=== PATIENT | female | born 1945 | race Caucasian/White ===

== ENCOUNTER 2017-08-17 04:05 | Inpatient (IN) | payer OTHER ==
[2017-08-17] VITALS (75 sets, daily range): BP systolic 91–195; BP diastolic 46–107
[~2017-08-17] VITALS: Ht 157.5 cm; Wt 52.6 kg
[~2017-08-17 04:05] MED LIST: ALBU-136 IH; AMLO2.5T PO; ATI.5 PO; BUPR-10 PO; GABA100C PO; LORA10TA19 PO; METO25TA PO; NITR0.4T52 SL; OMEP40EC1 PO; SIMV20TA1 PO; TRAZ-307 PO
--- NOTE | 2017-08-17 04:06 | NUR ---
Dr. Carvajal evaluating patient at bedside.
--- NOTE | 2017-08-17 04:06 | NUR ---
PT ALISHA ALS. TAKEN TO BED 2
--- NOTE | 2017-08-17 04:07 | NUR ---
PATIENT IS A 71 Y/O FEMALE WHO PRESENTS TO THE ED C/O SOB. PER [facility], PT WAS HAVING DIFFICULTY BREATHING FROM HOME. PT IN NO SIGNS OF PAIN. RR EVEN/LABORED. LUNG SOUNDS WITH RALES BILATERALLY. PT DENIES CP, N/V/D. PT UNRESPONSIVE. PT REPOSITIONED FOR COMFORT, BED IN LOWEST POSITION. ER MD DR. SOMMER NOTIFIED. WILL CONTINUE TO MONITOR.
[2017-08-17] MEDS ORDERED: NACL 0.9% 1,000 ML IV ONE (04:10)
[2017-08-17] MEDS ORDERED: ONDANSETRON 4 MG/2 ML VIAL IVP ONE (04:10)
[2017-08-17] MEDS ORDERED: ALBUTEROL SULFATE/IPRATROPIU 3 ML SOL IH ONE (04:15)
[2017-08-17 04:22] LABS: HEMATOCRIT 41.6 % (36-48); HEMOGLOBIN 13.1 g/dL (12.0-16.0); MEAN CORPUSCULAR HEMOGLOBIN 28 pg (27-31); MEAN CORPUSCULAR HGB CONC 31 g/dL (33-37); MEAN CORPUSCULAR VOLUME 88 fL (80-94); PLATELET COUNT (AUTO) 197 K/uL (140-450); RED BLOOD CELL COUNT(AUTO) 4.75 MIL/uL (4.20-5.40); RED CELL DISTRIBUTION WIDTH 13.9 % (11.6-13.7); WHITE BLOOD COUNT (AUTO) 12.3 K/uL (4.8-10.8)
--- NOTE | 2017-08-17 04:25 | NUR ---
X-Ray at bedside.
[2017-08-17] MEDS ORDERED: SUCCINYLCHOLINE CHLORIDE 200 MG/10 ML VIAL IVP ONE ×2 (04:30→04:35)
[2017-08-17] MEDS ORDERED: INTUBATION KIT MC ONE (04:30)
[2017-08-17] MEDS ORDERED: ETOMIDATE 20 MG/10 ML VIAL IVP ONE ×2 (04:30→04:35)
--- NOTE | 2017-08-17 04:30 | NUR ---
PT INTUBATAT WITH SIZE 7.0, DUE TO RESP DISTRESS , ABG DONE,, PLACED PT ON VENT AC 16, VT 450, FIO2 100%SPUTUM SEND TO THE LAB [facility].
--- NOTE | 2017-08-17 04:34 | NUR ---
DR. SOMMER INTUBATED AT BEDSIDE. RT AT BEDSIDE. INTUBATED 21CM AT LIP, 7.0
[2017-08-17] MEDS ORDERED: VANCOMYCIN 1,000 MG in DEXTROSE 5% 250 ML IV ONE (04:35)
[2017-08-17] MEDS ORDERED: PIPERACILLIN/TAZOBACTAM 3.375 GM in DEXTROSE 5% 50 ML IV ONE (04:35)
[2017-08-17 04:42] LABS: EOSINOPHILS % (MANUAL) 2 % (0-4); LYMPHOCYTES % (MANUAL) 63 % (20-46); MONOCYTES % (MANUAL) 6 % (5-12)
[2017-08-17 04:43] LABS: ANION GAP 18.7 (8-16); CREATININE 1.6 mg/dL (0.6-1.3); POTASSIUM 3.7 mmol/L (3.5-5.1)
[2017-08-17] MEDS ORDERED: PIPERACILLIN/TAZOBACTAM 3.375 GM VIAL IV ONE (04:47)
[2017-08-17 04:49] LABS: ALBUMIN 3.7 g/dL (3.4-5.0); TOTAL BILIRUBIN 0.2 mg/dL (0.0-1.0)
[2017-08-17] MEDS ORDERED: PROPOFOL 1000 MG/100 ML PREMIX 100 ML IV ONE (04:55)
[2017-08-17] MEDS ORDERED: VANCOMYCIN 1,000 MG VIAL ONE (04:55)
[2017-08-17] MEDS ORDERED: hydrALAZINE 20 MG/ML VIAL IVP ONE (05:00)
[2017-08-17] MEDS ORDERED: NACL 0.9% 500 ML IV ONE (06:15)
[2017-08-17 06:17] LABS: APPEARANCE,URINE CLEAR (CLEAR); BILIRUBIN,URINE NEGATIVE (NEGATIVE); BLOOD, URINE 1+ (NEGATIVE); COLOR,URINE YELLOW (YELLOW); LEUKOCYTE ESTERASE ,URINE NEGATIVE (NEGATIVE); NITRITE, URINE NEGATIVE (NEGATIVE); PH,URINE 6.5 (5.0-9.0); UGLUCOSE NEGATIVE (NEGATIVE)
--- NOTE | 2017-08-17 06:30 | NUR ---
Dr. Slater evaluating patient at bedside.
--- NOTE | 2017-08-17 06:35 | NUR ---
DR. LI ORDERED DIPRIVAN INCREASE TO 35 MCG.
[2017-08-17 06:40] LABS: RBC,URINE 0-5 (RARE) /HPF (0-5); WBC,URINE 0-5 (RARE) /HPF (0-5)
[2017-08-17] MEDS ORDERED: GABA100C PO (06:50)
[2017-08-17] MEDS ORDERED: MIRA25TE PO (06:50)
[2017-08-17] MEDS ORDERED: TEMA15CA24 PO (06:50)
[2017-08-17] MEDS ORDERED: TRAZ-286 PO (06:50)
[2017-08-17] MEDS ORDERED: ATI.5 PO (06:50)
[2017-08-17] MEDS ORDERED: CILO100T PO (06:50)
[2017-08-17] MEDS ORDERED: CARV25TA PO (06:50)
[2017-08-17] MEDS ORDERED: RAMI5CAP1 PO (06:50)
[2017-08-17] MEDS ORDERED: SIMV20TA1 PO (06:50)
[2017-08-17] MEDS ORDERED: BEN50 PO (06:50)
[2017-08-17] MEDS ORDERED: VITA1TAB44 PO (06:50)
[2017-08-17] MEDS ORDERED: BUPR100T8 PO (06:50)
--- NOTE | 2017-08-17 07:00 | NUR ---
Patient will be admitted to care of DR. ZAMARRIPA. Admited to ICU. Will go to room 2. Belongings list completed. Report to NIKKI MCNEILL.
--- NOTE | 2017-08-17 07:09 | NUR ---
PT MOVED FROM ER TO ICU WITH NO INCIDENT.
[2017-08-17] MEDS ORDERED: ACETAMINOPHEN 325 MG TAB PO PRN (07:10)
[2017-08-17] MEDS ORDERED: HYDROcodone/APAP 7.5/325 MG 1 TAB PO PRN (07:10)
--- NOTE | 2017-08-17 07:10 | NUR ---
PT ARRIVED AT ICU BED 2 VIA GURNEY FROM ED AND RECEIVED A REPORT FROM OSITO KINGSLEY. PT SEDATED WITH PROPOFOL DRIP, SLIGHTLY AWAKE TO VOICE & LIGHT PAIN. UNABLE TO FOLLOW COMMANDS AND APPLIED BILATERAL SOFT WRIST RESTRAINT DUE TO RISK FOR ATTEMPTING TO PULL OUT TUBING. FLACC 0 AND NO ACUTE RESPIRATORY DISTRESS AT THIS TIME. ETT TO VENT AND SETTING AT FiO2 , TV, AC , PEEP 5. ABD SOFT AND NONTENDER, MUSA CATHETER DRAINING CLEAR CHAD URINE. SKIN WARM TO TOUCH AND INTACT. SKIN DISCOLORATION TO RT KNEE NOTED. ST ON THE MONITOR. SAFETY PRECAUTION, BED IN LOW POSITION, CALL LIGHT WITHIN REACH. WILL FOLLOW UP ON ADMISSION ORDERS. Addendum: 08/17/17 at 0841 by Burton Castillo RN PERIPHERAL LINE TO RT UPPER ARM #20G, RAC #20G AND LT HAND #22G, PATENT AND INTACT.
--- NOTE | 2017-08-17 07:10 | NUR ---
RCV'D PT INTUBATED WITH 7.5 AT 25 AT LIP ON MECHANICAL VENTILATION SETTINGS ARE AC 16,450,100%,+5. VENT IS CONNECTED TO RED OUTLET. ALARMS ARE AUDIBLE. AMBU BAG AT BEDSIDE. ETT IS IN PLACE AND SECURED. NO SOB OR DISTRESS NOTED. WILL CONTINUE TO MONITOR.
--- NOTE | 2017-08-17 07:15 | NUR ---
PT'S FAMILY(DAUGHTER) CAME AND ALL HOME MEDICATION TAKEN BY FAMILY. NO PERSONAL BELONGINGS AT BEDSIDE.
[2017-08-17 07:44] LABS: BARBITURATE, URINE NEG. ng/ml (NEG <=200); BENZODIAZEPINE, URINE NEG. ng/mL (NEG <=200); CANNABINOID, URINE NEG. ng/mL (NEG <=50); COCAINE, URINE NEG. ng/mL (NEG <=300); OPIATE, URINE NEG. ng/mL (NEG <=2000); PHENCYCLIDINE SCREEN,URINE NEG. ng/mL (NEG <=25)
--- NOTE | 2017-08-17 07:55 | NUR ---
RESIDENT GROUP IN TO SEE PT. RADIOLOGY CAME AND INFORMED OF UNABLE TO PROCEED CT SCAN WITH CONTRAST FOR THE PT DUE TO GFR 24, Cr 1.6. DR. LI AWARE OF IT.
[2017-08-17] MEDS: NACL 0.9% 1,000 ML IV SCH ×3 (08:00→23:30)
[2017-08-17 08:13] LABS: FREE T4 (FREE THYROXINE) 0.77 ng/dL (0.76-1.46); PHOSPHORUS 6.6 mg/dL (2.5-4.9); THYROID STIMULATING HORMONE 8.5 uIU/mL (0.34-3.74)
[2017-08-17] MEDS ORDERED: DOCUSATE SODIUM 100 MG GELCAP PO SCH (09:00)
[2017-08-17] MEDS ORDERED: METOPROLOL 25 MG TAB NG SCH (09:00)
--- NOTE | 2017-08-17 09:23 | NUR ---
PT IS ON ECHO EXAM AT BEDSIDE AT THIS TIME
[2017-08-17] MEDS ORDERED: CALCIUM ACETATE 667 MG TAB NG SCH (09:30)
[2017-08-17] MEDS: PANTOPRAZOLE 40 MG INJ VIAL IVP SCH (09:36)
[2017-08-17] MEDS: amLODIPine 5 MG TAB NG SCH ×2 (09:43→21:10)
[2017-08-17] MEDS: LACTOBACILLUS RHAMNOSUS GG 1 EACH CAP NG SCH (09:43)
[2017-08-17] MEDS: GABAPENTIN 100 MG CAP NG SCH ×2 (09:43→21:11)
[2017-08-17] MEDS: buPROPion 100 MG TAB NG SCH (09:44)
[2017-08-17] MEDS: RAMIPRIL 5 MG CAP NG SCH (09:44)
[2017-08-17] MEDS: FUROSEMIDE 20 MG/2 ML VIAL IVP SCH (09:44)
--- NOTE | 2017-08-17 09:44 | NUR ---
DR. PRESCOTT IN TO SEE PT. WILL FOLLOW UP ON ORDERS
[2017-08-17] MEDS ORDERED: diphenhydrAMINE 12.5 MG/5 ML UDC NG PRN (09:50)
[2017-08-17] MEDS: CARVEDILOL 12.5 MG TAB NG SCH ×2 (09:53→21:13)
--- NOTE | 2017-08-17 10:00 | NUR ---
NGT INSERTED SUCCESSFULLY TO LT NARES AND CHECKED THE PLACEMENT. PT TOLERATED ALL MEDICATIONS WELL.
--- NOTE | 2017-08-17 10:28 | NUR ---
PT'S FAMILY(DAUGHTER & SPOUSE, STEP DAUGHTER) AT BEDSIDE AND OBTAINED THE CONSENT OF CENTRAL LINE AND CT SCAN, RESTRAINTS. UPDATED OF PT'S CONDITION AND INFORMED ADMITTING DEPT OF UPDATED FAMILY CONTACT INFORMATION.
[2017-08-17] MEDS: PROPOFOL 1000 MG/100 ML PREMIX 100 ML IV PRN ×2 (11:29→18:25)
--- NOTE | 2017-08-17 11:30 | NUR ---
PT IS ON ULTRASOUND EXAM AT BEDSIDE. PT STABLE
[2017-08-17] MEDS: PIPER/TAZO 2.25GM/D5W PREMIX 50 ML IV SCH ×2 (11:32→17:58)
--- NOTE | 2017-08-17 12:30 | NUR ---
FLACC 0 AND NO S/SX ANY ACUTE DISTRESS NOTED. RASS -4. WILL CONTINUE TO MONITOR.
[2017-08-17 13:17] LABS: ANION GAP 13.6 (8-16); CARBON DIOXIDE 23.4 mmol/L (21-32); CREATININE 1.3 mg/dL (0.6-1.3)
--- NOTE | 2017-08-17 14:05 | NUR ---
CENTRAL LINE TO RT IJ [id number] INSERTED BY DR. LI AT BEDSIDE. WILL FOLLOW UP WITH CXR FOR THE PLACEMENT.
[2017-08-17] MEDS ORDERED: ALBUTEROL SULFATE/IPRATROPIU 3 ML SOL IH PRN (14:15)
[2017-08-17] MEDS ORDERED: POTASSIUM CHL 20 MEQ/NACL 0.9% 1,000 ML IV SCH (14:15)
--- NOTE | 2017-08-17 14:27 | NUR ---
08/17/17 RD INITIAL ASSESSMENT COMPLETED PLEASE REFER TO NUTRITION ASSESSMENT UNDER CARE ACTIVITY FOR ESTIMATED NUTRITIONAL NEEDS. 1. RECOMMEND NUTRITION SUPPORT NUTREN PULMONARY AT 10 ML/HR AND ADVANCE 10 ML Q4H TO GOAL OF 50 MLHR. --AT GOAL THIS WILL PROVIDE 1200 ML TOTAL VOLUME, 1800 KCAL, 82 GM PROTEIN TO MEET 100% OF PT ESTIMATED KCAL NEEDS AND 95% OF PT ESTIMATED PROTEIN NEEDS 2. RD TO FOLLOW-UP 2-3 DAYS, HIGH RISK ARASELI GONZALES, [place]
--- NOTE | 2017-08-17 14:31 | NUR ---
VENT SETTINGS CHANGES PER DR WORTHINGTON. AC 12,400,5,100%
--- NOTE | 2017-08-17 14:33 | NUR ---
SPOKE TO RADIOLOGIST REGARDING CT SCAN ORDER HOWEVER IT IS NOT POSSIBLE TODAY DUE TO GFR LEVEL STILL LOW [address] LI WAS INFORMED OF IT.
[2017-08-17] MEDS: ALBUTEROL SULFATE/IPRATROPIU 3 ML SOL IH SCH ×3 (14:44→23:11)
[2017-08-17] MEDS ORDERED: KCL 20 MEQ/WATER INJ PREMIX 200 ML IV SCH (15:00)
--- NOTE | 2017-08-17 15:18 | NUR ---
PT'S DAUGHTER & SPOUSE AT BEDSIDE AND GIVEN AN UPDATE OF PT'S CONDITION.
--- NOTE | 2017-08-17 15:24 | NUR ---
DR. WORTHINGTON IN TO SEE PT AND WILL FOLLOW UP ON ORDERS.
--- NOTE | 2017-08-17 15:35 | NUR ---
TWITCHELL OPERATOR IN TO SEE PT'S FAMILY AND SPOKE TO THEM AT BEDSIDE.
--- NOTE | 2017-08-17 15:42 | NUR ---
RECEIVED A CALL FROM RADIOLOGY FOR CRITICAL CXR RESULT; ETT IS LOW POSITION AND DR. LI WAS NOTIFIED. CALLED RT TO PULL BACK ETT AT LEAST 2CM PER DR. LI. WILL FOLLOW UP ON ORDERS.
--- NOTE | 2017-08-17 16:00 | NUR ---
STARTED NG TUBE FEEDING ORDERED. WILL CONTINUE TO MONITOR.
--- NOTE | 2017-08-17 16:47 | NUR ---
ABG DONE WITH NO INCIDENT. ABG RESULTS GIVEN TO DR LI. WILL CONTINUE TO MONITOR.
--- NOTE | 2017-08-17 17:00 | NUR ---
DR. LI AWARE OF REPEAT CXR RESULT FOR ETT PLACEMENT.
--- NOTE | 2017-08-17 17:30 | NUR ---
PT STABLE AND NO S/SX OF ACUTE RESPIRATORY DISTRESS. FiO2 40%, TV 400, AC 12, PEEP 5. WILL CONTINUE TO MONITOR.
--- NOTE | 2017-08-17 18:11 | NUR ---
PT'S DAUGHTER AT BEDSIDE.
--- NOTE | 2017-08-17 18:25 | NUR ---
PULLED ETT BACK 2 CM PER RN NIKKI FOLLOWING CXR. DECREASED FIO2 TO 50%. RN NIKKI AWARE. NO SOB OR DISTRESS NOTED.
--- NOTE | 2017-08-17 18:56 | NUR ---
ON CONTINUOUS PROPOFOL DRIP AND RASS -4 NOTED. RESPIRATION ARE EVEN AND UNLABORED. WILL CONTINUE TO MONITOR
--- NOTE | 2017-08-17 19:17 | NUR ---
REPORT GIVEN AND ENDORSED CARE TO RAFIQ CLEMENT RN AND OSITO WONG. PT STABLE.
--- NOTE | 2017-08-17 19:25 | NUR ---
RECEIVED REPORT FROM OSITO JORDAN. PT SEDATED, RASS -4, AFEBRILE, AND ON PROPOFOL DRIP. VS STABLE AT THIS TIME. ETT TO VENT WITH SETTINGS FIO2 40%, RR 12, TV 400, AND PEEP 5. NO SOB OR SIGNS OF RESPIRATORY DISTRESS NOTED. PULSES PALPABLE IN ALL EXTREMITIES. PT WITH RAC 20G, BEN 20G, AND RIGHT IJ TRIPLE LUMEN CENTRAL LINE. ALL LINGS PATENT AND ASYMPTOMATIC. ABLE TO GET BLOOD RETURN FROM ALL PORTS. NGT IN PLACE THROUGH LEFT NARE. NGT TO FEEDING NUTREN PULMONARY 50ML/HR. ASPIRATED 15ML RESIDUAL. MUSA CATHETER IN PLACE AND DRAINING CLEAR, YELLOW URINE. SCD IN PLACE. HOB KEPT AT 30 DEGREES. BED AT LOW POSITION. ALL SAFETY PRECAUTIONS IN PLACE. CALL LIGHT WITHIN REACH. WILL CONTINUE TO MONITOR PT.
--- NOTE | 2017-08-17 20:45 | NUR ---
DR. HEART BEDSIDE TO SEE PT. WILL FOLLOW-UP WITH ANY NEW ORDERS.
[2017-08-17] MEDS: SIMVASTATIN 20 MG TAB NG SCH (21:11)
--- NOTE | 2017-08-17 21:20 | NUR ---
SCHEDULED MEDICATIONS ADMINISTERED. PT TOLERATED WELL. NGT IN PLACE AND SECURED. PT TOLERATED MEDICATIONS WELL. KEPT HOB AT 30 DEGREES. CALL LIGHT WITHIN REACH. ALL SAFETY PRECAUTIONS IN PLACE. RASS CURRENTLY -4. WILL CONTINUE TO MONITOR PT.
--- NOTE | 2017-08-17 22:17 | NUR ---
SPUTUM SAMPLE WAS COLLECTED AND SENT TO LAB
[2017-08-18] VITALS (96 sets, daily range): BP systolic 115–185; BP diastolic 53–86
[2017-08-18] MEDS: PIPER/TAZO 2.25GM/D5W PREMIX 50 ML IV SCH ×5 (00:17→23:04)
--- NOTE | 2017-08-18 00:22 | NUR ---
SCHEDULED MEDICATION ADMINISTERED. RASS -4. FEEDING RUNNING CONTINUOUSLY AT 50ML/HR. CENTRAL LINE ASYMPTOMATIC. VS STABLE. NO CHANGE OF CONDITION AT THIS TIME. ALL SAFETY PRECAUTIONS IN PLACE. WILL CONTINUE TO MONITOR.
[2017-08-18] MEDS: PROPOFOL 1000 MG/100 ML PREMIX 100 ML IV PRN ×2 (01:14→08:50)
--- NOTE | 2017-08-18 01:20 | NUR ---
PT SEDATED WITH PROPOFOL. RASS -4. NO SIGNS AND SYMPTOMS OF DISTRESS NOTED. NO CHANGE OF CONDITION AT THIS TIME. VS STABLE. SINUS RHYTHM ON MONITOR. FLACC 0. NO GUARDING OR GRIMACING NOTED. WILL CONTINUE TO MONITOR PT.
[2017-08-18] MEDS: NACL 0.9% 1,000 ML IV SCH ×3 (03:09→15:05)
--- NOTE | 2017-08-18 03:15 | NUR ---
FIO2 TITRATED TO 35%, O2 SAT 95%, PT TOLERATING WELL, RAFIQ MCNEILL AWARE
[2017-08-18] MEDS: ALBUTEROL SULFATE/IPRATROPIU 3 ML SOL IH SCH ×6 (03:21→22:38)
--- NOTE | 2017-08-18 03:41 | NUR ---
PT CLEANED AND LINENS CHANGED. NO BM NOTED. MUSA CATHETER DRAINING CLEAR, YELLOW URINE. MUSA CARE PROVIDED. PT TURNED AND REPOSITIONED. TOLERATED BEING TURNED AND CLEANED WELL. VS STABLE AT THIS TIME. NO CHANGE IN CONDITION CURRENTLY. ALL SAFETY PRECAUTIONS IN PLACE. CALL LIGHT WITHIN REACH. WILL CONTINUE TO MONITOR PT.
--- NOTE | 2017-08-18 04:50 | NUR ---
DRAW BLOOD FROM CENTRAL LINE FOR LABS SCHEDULED THIS AM. GOOD BLOOD RETURN NOTED. LINE ASYMPTOMATIC AND PATENT. PT VS STABLE. NO CHANGE IN CONDITION AT THIS TIME.
[2017-08-18 05:15] LABS: BASOPHILS # (AUTO) 0.2 K/uL (0.00-0.22); BASOPHILS % (AUTO) 2.7 % (0.0-2.0); EOSINOPHILS # (AUTO) 0.1 K/uL (0-0.4); EOSINOPHILS % (AUTO) 2.1 % (0.0-4.0); HEMATOCRIT 30.6 % (36-48); HEMOGLOBIN 9.9 g/dL (12.0-16.0); MEAN CORPUSCULAR HEMOGLOBIN 28 pg (27-31); MEAN CORPUSCULAR HGB CONC 32 g/dL (33-37); MEAN CORPUSCULAR VOLUME 86 fL (80-94); MONOCYTES # (AUTO) 0.7 K/uL (0.8-1.0); MONOCYTES % (AUTO) 10.3 % (1.7-9.3); NEUTROPHILS # (AUTO) 4.8 K/uL (1.8-7.7); NEUTROPHILS % (AUTO) 69.9 % (42.2-75.2); PLATELET COUNT (AUTO) 83 K/uL (140-450); RED BLOOD CELL COUNT(AUTO) 3.55 MIL/uL (4.20-5.40); RED CELL DISTRIBUTION WIDTH 13.8 % (11.6-13.7); WHITE BLOOD COUNT (AUTO) 6.8 K/uL (4.8-10.8)
[2017-08-18] MEDS: LEVOTHYROXINE 0.025 MG TAB PO SCH (05:35)
--- NOTE | 2017-08-18 05:55 | NUR ---
DR LI AT BEDSIDE TO SEE PT. WILL FOLLOW-UP WITH ANY NEW ORDERS.
--- NOTE | 2017-08-18 06:19 | NUR ---
phone call from pts daughter kamar andrews;updated on pts present condition.questions answered.made aware that ct of chest not done yet
[2017-08-18 06:37] LABS: ANION GAP 12.9 (8-16); CARBON DIOXIDE 22.6 mmol/L (21-32); CREATININE 1.4 mg/dL (0.6-1.3); POTASSIUM 3.5 mmol/L (3.5-5.1)
--- NOTE | 2017-08-18 06:40 | NUR ---
REC'D PT ON [employer]ES[employer]E VENT SETTINGS AC 12 VT 400 PEEP FIO2 35% ALARMS ON AND FUNCTIONING PROPERLY, AMBU BAG AT SIDE OF VENT AND VENTILATOR IS PLUGGED INTO RED OUTLET, I\L TX GIVEN WITH DUONEB 3ML WITH NO ADVERSE REACTION POST TX \S ARE CLEAR AND SXN SMALL AMT OF THICK BROWN SECRETIONS, PT IS ORALLY INTUBATED WITH 7.0 22CM AT MIDLINE AND CUFF PRESSURE IS 28 CM H20 AND SKIN INTEGRITY IS INTACT
[2017-08-18 06:41] LABS: CHOL/HDL RATIO 2.9 (1-4.5); MAGNESIUM 1.3 mg/dL (1.8-2.4); PHOSPHORUS 3.1 mg/dL (2.5-4.9)
--- NOTE | 2017-08-18 07:10 | NUR ---
REPORT GIVEN TO OSITO GUZMAN FOR CONTINUITY OF CARE. PT IN STABLE CONDITION.
--- NOTE | 2017-08-18 08:00 | NUR ---
INITIAL SHIFT ASSESSMENT DONE. SEDATED WITH PROPOFOL DRIP, AROUSABLE TO LIGHT PAIN STIMULI. NO SIGNS OF PAIN OR AGITATION NOTED. ON VENTILATOR, TOLERATING CURRENT SETTINGS WELL. O2 SAT 95-975. ST ON MONITOR. SBP IN 150'S-170'S. NO ECTOPY NOTED. ON TUBE FEEDING VIA NGT, TOLERATING WELL. NO RESIDUALS NOTED. HOB ELEVATED. UPDATED OF PLAN OF CARE. WILL CONTINUE TO MONITOR.
[2017-08-18] MEDS: buPROPion 100 MG TAB NG SCH (08:44)
[2017-08-18] MEDS: LACTOBACILLUS RHAMNOSUS GG 1 EACH CAP NG SCH (08:44)
[2017-08-18] MEDS: FUROSEMIDE 20 MG/2 ML VIAL IVP SCH (08:44)
[2017-08-18] MEDS: PANTOPRAZOLE 40 MG INJ VIAL IVP SCH (08:44)
[2017-08-18] MEDS: RAMIPRIL 5 MG CAP NG SCH (08:45)
[2017-08-18] MEDS: GABAPENTIN 100 MG CAP NG SCH ×2 (08:45→20:42)
[2017-08-18] MEDS: amLODIPine 5 MG TAB NG SCH ×2 (08:45→20:42)
[2017-08-18] MEDS: CARVEDILOL 12.5 MG TAB NG SCH ×2 (08:46→20:41)
--- NOTE | 2017-08-18 09:00 | NUR ---
DAUGHTER AND SON-IN-LAW ARE IN THE ROOM. UPDATED OF STATUS AND PLAN OF CARE.
--- NOTE | 2017-08-18 09:00 | NUR ---
VENT CHECK, NO SXN REQUIRED AT THIS TIME AIRWAY IS PATENT AND PT IS RESTING
--- NOTE | 2017-08-18 09:30 | NUR ---
PROPOFOL DRIP DECREASE TO 40 MCG/KG/MIN PER MD ORDER TO WEAN THE PROPOFOL. WILL CONTINUE TO MONITOR.
--- NOTE | 2017-08-18 10:00 | NUR ---
RESTING IN BED. NO SIGNS OF PAIN OR AGITATION NOTED. TOLERATING VENTILATOR WELL. O2 SAT 95-96%. ST ON MONITOR. SBP IN 150'S-170'S. NO ECTOPY NOTED. ANOTHER DAUGHTER IS IN THE ROM. UPDATED OF STATUS AND PLAN OF CARE. WILL CONTINUE TO MONITOR.
--- NOTE | 2017-08-18 10:20 | NUR ---
DAUGHTER (JAZLYN VILLANUEVA) TOOK THE 5 RINGS OF THE PATIENT TO HOME. DAUGHTER SIGN THE BELONGINGS PAPER IN THE CHART.
--- NOTE | 2017-08-18 10:30 | NUR ---
SLEEPING COMFORTABLY AT THIS TIME. PROPOFOL DRIP DECREASE TO 30 MCG/KG/MIN. WILL CONTINUE TO MONITOR.
--- NOTE | 2017-08-18 10:55 | NUR ---
DR ZARAGOZA IS IN THE ROOM. UPDATED OF STATUS. NO NEW ORDER RECEIVE.
--- NOTE | 2017-08-18 11:14 | NUR ---
VENT CHECK, SXN PT SMALL AMT OF YELLOW SECRETIONS, B\S ARE RHONCHI AND I\L TX GIVEN WITH DUONEB 3ML WITH NO ADVERSE REACTION POST TX
--- NOTE | 2017-08-18 11:40 | NUR ---
SLEEPING COMFORTABLY. PROPOFOL DRIP DECREASE TO 20 MCG/KG/MIN. WILL CONTINUE TO MONITOR.
--- NOTE | 2017-08-18 12:00 | NUR ---
REASSESSMENT DONE. STARTS MOVING EXTREMITIES BUT WEAK. PUT ON BILATERAL SOFT WRIST RESTRAINTS. PROPOFOL DRIP DECREASE TO 10 MCG/KG/MIN PER MD ORDER TO WEAN OFF. NO SIGNS OF PAIN. TOLERATING CURRENT VENTILATOR SETTINGS WELL. O2 SAT 95-98%. ST ON MONITOR. SBP IN 150'S-170'S. NO ECTOPY NOTED. TOLERATING TUBE FEEDING WELL. RESIDUALS OF 10 ML. HOB ELEVATED. UPDATED OF PLAN OF CARE. WILL CONTINUE TOP MONITOR.
--- NOTE | 2017-08-18 12:48 | NUR ---
PROPOFOL DRIP D/C AT THIS TIME PER MD ORDER. WILL CONTINUE TO MONITOR.
--- NOTE | 2017-08-18 13:11 | NUR ---
VENT CHECK, SXN PT SMALL AMT OF YELLOW SECRETIONS, FAMILY AT BEDSIDE
[2017-08-18] MEDS: MIDAZOLAM MDV 50 MG in NACL 0.9% 40 ML IV PRN (13:55)
--- NOTE | 2017-08-18 13:55 | NUR ---
STARTED ON VERSED DRIP AT 1 MG/HR PER NEW MD ORDER. WILL CONTINUE TO MONITOR.
--- NOTE | 2017-08-18 15:05 | NUR ---
VENT CHECK, SXN PT SMALL AMT OF WHITE SECRETIONS, I\L TX GIVEN WITH DUONEB 3ML WITH NO ADVERSE REACTION POST TX
--- NOTE | 2017-08-18 16:00 | NUR ---
REASSESSMENT DONE. NEURO STATUS STILL THE SAME. NO SIGNS OF PAIN OR AGITATION NOTED. TOLERATING CURRENT VENTILATOR SETTINGS WELL. O2 SAT 97-100%. ST ON MONITOR. SBP IN 150'S-170'S. NO ECTOPY NOTED. TOLERATING TUBE FEEDING WELL. RESIDUALS OF 10 ML ONLY. HOB ELEVATED. UPDATED OF PLAN OF CARE. WILL CONTINUE TO MONITOR.
--- NOTE | 2017-08-18 17:02 | NUR ---
VENT CHECK, NO SXN NEEDED AIRWAY IS PATENT AND FAMILY IS AT BEDSIDE
[2017-08-18] MEDS ORDERED: methylPREDNISolone SS 125 MG/2 ML VIAL IVP SCH (17:09)
--- NOTE | 2017-08-18 17:20 | NUR ---
BECOMES RESTLESS AT THIS TIME. VERSED DRIP INCREASE TO 2 MG/HR. DAUGHTER AT BEDSIDE. UPDATED OF STATUS. WILL CONTINUE TO MONITOR.
[2017-08-18] MEDS: ACETAMINOPHEN 325 MG TAB PO PRN (18:06)
--- NOTE | 2017-08-18 18:06 | NUR ---
C/O MODERATE LOWER BACK PAIN. GIVEN TYLENOL 650 MG VIA NGT. WILL CONTINUE TO MONITOR.
[2017-08-18] MEDS ORDERED: MAG SULF 2000 MG/WATER PREMIX 50 ML IV SCH (18:30)
--- NOTE | 2017-08-18 19:15 | NUR ---
REPORT GIVEN TO INCOMING COLLECTIONS ANALYST RN'S, RN'S DEA.
--- NOTE | 2017-08-18 19:30 | NUR ---
RECEIVED REPORT FROM OSITO GUZMAN. PT AFEBRILE. SEDATED. ON VERSED DRIP. PT AROUSABLE TO LIGHT PAIN. NGT IN LEFT NARES. SECURED. PLACEMENT CHECKED. NO RESIDUAL NOTED. NGT TO FEEDING NUTREN PULMONARY AT 50ML/HR. ETT TO VENT A/C VC FIO2 35%, RR 12, TV 400, AND PEEP 5. NO SOB OR SIGNS OF DISTRESS NOTED. PT HAS RIGHT INTERNAL JUGULAR CENTRAL LINE. FLUSHED,PATENT AND ASYMPTOMATIC. NS RUNNING AT 90MLS/HR. BOWEL SOUNDS ACTIVE IN ALL QUADRANTS. MUSA CATHETER IN PLACE. DRAINING CLEAR AND YELLOW URINE. SCD IN PLACE. ALL SAFETY PRECAUTIONS IN PLACE. BED AT LOW POSITION. WILL CONTINUE TO MONITOR PT.
[2017-08-18] MEDS: SIMVASTATIN 20 MG TAB NG SCH (20:41)
--- NOTE | 2017-08-18 20:50 | NUR ---
SCHEDULED MEDICATIONS ADMINISTERED. PT TOLERATED WELL. NO SIGNS OF DISTRESS NOTED. VS STABLE. NO CHANGE IN CONDITION AT THIS TIME. KEPT HOB AT 30 DEGREES. ALL SAFETY PRECAUTIONS IN PLACE. WILL CONTINUE TO MONITOR.
[2017-08-19] VITALS (57 sets, daily range): BP systolic 104–197; BP diastolic 43–167
--- NOTE | 2017-08-19 00:10 | NUR ---
PT VS STABLE. NO CHANGE IN CONDITION AT THIS TIME. NO SIGNS OF DISTRESS NOTED. ALL SAFETY PRECAUTIONS IN PLACE. WILL CONTINUE TO MONITOR.
--- NOTE | 2017-08-19 02:35 | NUR ---
NO CHANGE IN CONDITION AT THIS TIME. PT EYES CLOSED. DOES NOT APPEAR TO BE IN PAIN. NO SIGNS OF DISTRESS NOTED. ALL SAFETY PRECAUTIONS IN PLACE. WILL CONTINUE TO MONITOR PT.
[2017-08-19] MEDS: ALBUTEROL SULFATE/IPRATROPIU 3 ML SOL IH SCH ×5 (03:13→23:08)
--- NOTE | 2017-08-19 03:20 | NUR ---
SPOKE WITH DR. PATIÑO REGARDING PT'S ELEVATED BLOOD PRESSURE. PER DOCTOR, SHE WILL REVIEW AND ADD ORDERS. WILL FOLLOW-UP WITH ANY NEW ORDERS.
[2017-08-19] MEDS ORDERED: CARVEDILOL 12.5 MG TAB PO SCH (03:45)
[2017-08-19] MEDS ORDERED: CARVEDILOL 12.5 MG TAB NG ONE ×2 (03:50)
[2017-08-19] MEDS: methylPREDNISolone SS 125 MG/2 ML VIAL IVP SCH ×3 (04:39→20:34)
--- NOTE | 2017-08-19 04:55 | NUR ---
SCHEDULED MEDICATION ADMINISTERED. PT TOLERATED WELL. RASS -4. KEPT HOB AT 30 DEGREES. BED AT LOW POSITION. ALL SAFETY PRECAUTIONS IN PLACE. WILL CONTINUE TO MONITOR.
[2017-08-19] MEDS: PIPER/TAZO 2.25GM/D5W PREMIX 50 ML IV SCH ×4 (05:01→23:26)
[2017-08-19 05:27] LABS: BASOPHILS % (AUTO) 0.7 % (0.0-2.0); EOSINOPHILS % (AUTO) 0.1 % (0.0-4.0); HEMATOCRIT 30.5 % (36-48); HEMOGLOBIN 9.8 g/dL (12.0-16.0); LYMPHOCYTES # (AUTO) 0.3 K/uL (2.5-16.5); MEAN CORPUSCULAR HEMOGLOBIN 28 pg (27-31); MEAN CORPUSCULAR HGB CONC 32 g/dL (33-37); MEAN CORPUSCULAR VOLUME 87 fL (80-94); MONOCYTES # (AUTO) 0.1 K/uL (0.8-1.0); MONOCYTES % (AUTO) 2.6 % (1.7-9.3); PLATELET COUNT (AUTO) 82 K/uL (140-450); RED CELL DISTRIBUTION WIDTH 13.9 % (11.6-13.7); WHITE BLOOD COUNT (AUTO) 4.4 K/uL (4.8-10.8)
[2017-08-19] MEDS: NACL 0.9% 1,000 ML IV SCH ×2 (05:35→18:47)
--- NOTE | 2017-08-19 05:42 | NUR ---
DR. LI AT BEDSIDE TO SEE PT. WILL FOLLOW-UP WITH NEW ORDERS.
[2017-08-19 05:51] LABS: ANION GAP 12.5 (8-16); CARBON DIOXIDE 23.9 mmol/L (21-32); CREATININE 1.4 mg/dL (0.6-1.3); POTASSIUM 3.4 mmol/L (3.5-5.1)
[2017-08-19 05:58] LABS: MAGNESIUM 2.2 mg/dL (1.8-2.4); PHOSPHORUS 2.9 mg/dL (2.5-4.9)
[2017-08-19] MEDS: LEVOTHYROXINE 0.025 MG TAB PO SCH (06:32)
[2017-08-19 06:51] LABS: NEUTROPHILS % (AUTO) 88.6 % (42.2-75.2)
--- NOTE | 2017-08-19 07:09 | NUR ---
REPORT GIVEN TO OSITO GUZMAN FOR CONTINUITY OF CARE. PT IN STABLE CONDITION.
--- NOTE | 2017-08-19 08:00 | NUR ---
INITIAL SHIFT ASSESSMENT DONE. BECOMES RESTLESS AT 0730, VERSED DRIP INCREASE TO 3 MG/HR. RESTING COMFORTABLY. NO SIGNS OF PAIN OR AGITATION NOTED. ON VENTILATOR, TOLERATING CURRENT SETTINGS WELL. O2 SAT 97-99%. SR ON MONITOR. SBP IN 160'S-170'S. NO ECTOPY NOTED. ON TUBE FEEDING, TOLERATING WELL. NO RESIDUALS NOTED. HOB ELEVATED. UPDATED OF PLAN OF CARE. WILL CONTINUE TO MONITOR.
[2017-08-19] MEDS: MIDAZOLAM MDV 50 MG in NACL 0.9% 40 ML IV PRN ×2 (08:13→20:39)
--- NOTE | 2017-08-19 08:20 | NUR ---
BECOMES RESTLESS AT THIS TIME. VERSED DRIP INCREASE TO 4 MG/HR. WILL CONTINUE TO MONITOR.
--- NOTE | 2017-08-19 08:30 | NUR ---
C/O MODERATE LOW BACK PAIN. GIVEN TYLENOL 650 MG VIA NGT. WILL CONTINUE TO MONITOR. Addendum: 08/19/17 at 1251 by Agency Chong MCNEILL RN GIVEN AT 0850, NOT 0830.
[2017-08-19] MEDS: RAMIPRIL 5 MG CAP NG SCH (08:49)
[2017-08-19] MEDS: LACTOBACILLUS RHAMNOSUS GG 1 EACH CAP NG SCH (08:49)
[2017-08-19] MEDS: FUROSEMIDE 20 MG/2 ML VIAL IVP SCH ×2 (08:50→20:34)
[2017-08-19] MEDS: CARVEDILOL 12.5 MG TAB NG SCH ×2 (08:50→20:34)
[2017-08-19] MEDS: amLODIPine 5 MG TAB NG SCH ×2 (08:50→20:35)
[2017-08-19] MEDS: PANTOPRAZOLE 40 MG INJ VIAL IVP SCH (08:50)
[2017-08-19] MEDS: GABAPENTIN 100 MG CAP NG SCH ×2 (08:50→20:35)
[2017-08-19] MEDS: ACETAMINOPHEN 325 MG TAB PO PRN ×2 (08:50→16:05)
[2017-08-19] MEDS: buPROPion 100 MG TAB NG SCH (08:52)
[2017-08-19] MEDS ORDERED: KCL 20 MEQ/WATER INJ PREMIX 100 ML IV SCH (10:00)
--- NOTE | 2017-08-19 10:00 | NUR ---
RESTING IN BED WITH DAUGHTER AT BEDSIDE. NO SIGNS OF PAIN. OCCASIONAL AGITATION NOTED. TOLERATING VENTILATOR WELL. O2 SAT 98-100%. SR ON MONITOR. SBP IN 150'S-180'S. NO ECTOPY NOTED. HOB ELEVATED. WILL CONTINUE TO MONITOR.
--- NOTE | 2017-08-19 11:30 | NUR ---
DR WORTHINGTON IS IN THE ROOM. MD TALK TO THE DAUGHTER. MD UPDATED OF STATUS. NEW ORDERS RECEIVE.
--- NOTE | 2017-08-19 12:00 | NUR ---
REASSESSMENT DONE. NEURO STATUS UNCHANGED. NO SIGNS OF PAIN. OCCASIONAL AGITATION NOTED. TOLERATING CURRENT VENTILATOR SETTINGS WELL. O2 SAT 97-100%. SR ON MONITOR. SBP IN 160'S-170'S. NO ECTOPY NOTED. TOLERATING TUBE FEEDING WELL. NO RESIDUALS NOTED. HOB ELEVATED. UPDATED OF PLAN OF CARE. WILL CONTINUE TO MONITOR.
--- NOTE | 2017-08-19 12:15 | NUR ---
PUT ON CVP MONITOR PER DR WORTHINGTON'S ORDER. MD UPDATED OF CVP READING. NO NEW ORDER RECEIVE.
[2017-08-19] MEDS: hydrALAZINE 20 MG/ML VIAL IVP PRN ×2 (13:34→22:16)
--- NOTE | 2017-08-19 13:34 | NUR ---
SBP IN 180'S. GIVEN HYDRALAZINE 5 MG IVP. WILL CONTINUE TO MONITOR.
--- NOTE | 2017-08-19 14:00 | NUR ---
RESTING IN BED. NO SIGNS OF PAIN. OCCASIONAL AGITATION NOTED. TOLERATING VENTILATOR WELL. O2 SAT 97-99%. SR ON MONITOR. SBP IN 140'S. NO ECTOPY NOTED. HOB ELEVATED. WILL CONTINUE TO MONITOR.
--- NOTE | 2017-08-19 14:36 | NUR ---
WOUND CARE EVALUATION NOTES: REASON FOR EVALUATION: LOW CHRISTINA SCORE COMPLETE SKIN ASSESSMENT DONE ON THIS 71 Y/O FEMALE ADMITTED TO [facility], WITH INITIAL DIAGNOSIS OF SOB X 4 DAYS. PAST MEDICAL HISTORY INCLUDE COPD, CVA, PRE-DIABETES, HYPERTENSION , GERD, ASTHMA AND RA. ALL ABOVE INFORMATION WAS OBTAINED FROM THE ADMISSION H&P. LABS ARE WBC 4.4, H/H 9.8/30.5, GLUCOSE 205, ALBUMIN 3.7. CURRENT MEDS INCLUDE PIPERACILLIN, GABAPENTIN, ALBUTEROL AND METHYLPREDNISOLONE. PATIENT IS INTUBATED AND SEDATED. SKIN WARM TO TOUCH WNL, THICKENED TOENAILS, NO EDEMA, NO HAIR GROWTH AND BILATERAL PEDAL PULSES PRESENT , RIGHT IJC PATENT AND DRESSING INTACT. NEEDS ASSISTANCE IN TURNING. PLAN OF CARE DISCUSSED WITH PRIMARY RN. INTEGUMENTARY: SKIN WARM AND INTACT UE AND LE: SKIN DRYNESS LEFT HAND ERYTHREDEMA SACRALCOCCYX AND BILATERAL HEELS BLANCHABLE REDNESS RECOMMENDATIONS: -APPLY BODY LOTION TO UPPER AND LOWER EXTREMITIES -KEEP LEFT HAND ELEVATED AND CONTINUE TO MONITOR ERYTHREDEMA, REPORT TO MD IF CONDITION WORSEN -TURN AND REPOSITION PATIENT Q2H TO LEFT AND RIGHT SIDE ONLY TO OFFLOAD SACRALCOCCYX AND BILATERAL HEELS -ASSESS AND MONITOR SKIN CONDITION DURING POSITION CHANGE -OFFLOAD BILATERAL HEELS BY PLACING PILLOWS UNDER CALVES AT ALL TIMES, UNLESS OTHERWISE CONTRAINDICATED -KEEP SKIN CLEAN AND DRY AT ALL TIMES. RECOMMENDATIONS DISCUSSED WITH PRIMARY RN WILL FOLLOW UP PATIENT Q 7 -10 DAYS AND PRN. PLEASE CONTACT WOUND CARE NURSE FOR ANY CONCERNS AND CHANGES IN WOUND CONDITION
--- NOTE | 2017-08-19 15:05 | NUR ---
PT IS AWAKE AND IRRITABLE AT THIS TIME, WILL NOT ATTEMPT SECOND CPAP TRIAL PLANNED. WILL TRY AGAIN LATER IF APPROPRIATE. PT APPEARS ANXIOUS WITH INCREASED RR IN THE 30S AND ELEVATED B/P. NURSE ALSO AWARE, WE WILL CONTINUE TO MONITOR PT.
--- NOTE | 2017-08-19 16:00 | NUR ---
REASSESSMENT DONE. NEURO STATUS STILL THE SAME. C/O MODERATE PAIN ON LOWER BACK, GIVEN TYLENOL 650 MG VIA NGT. OCCASIONAL AGITATION NOTED. TOLERATING CURRENT VENTILATOR SETTINGS WELL. O2 SAT 97-99%. SR ON MONITOR. SBP IN 140'S-180'S. NO ECTOPY NOTED. TOLERATING TUBE FEEDING WELL. NO RESIDUALS NOTED. HOB ELEVATED. DAUGHTER AND SON ARE AT BEDSIDE. UPDATED OF STATUS AND PLAN OF CARE. WILL CONTINUE TO MONITOR.
--- NOTE | 2017-08-19 18:00 | NUR ---
GIVEN PARTIAL BATH AND LINENS ARE CHANGE. TOLERATED THE PROCEDURE WELL.
--- NOTE | 2017-08-19 19:00 | NUR ---
REPORT GIVEN TO INCOMING MACHINERY ENGINEER RN, OSITO CONROY.
--- NOTE | 2017-08-19 19:15 | NUR ---
ASSUMED CARE OF PT.INITIAL ASSESSMENT COMPLETED.PT SEDATED.SR ON MONITOR.ON CONTINUOUS CVP READING.W/TLC TO RT IJ INTACT.INFUSING ORDERED IVF AND MIDAZOLAM DRIP AT 5MG/HR.W/NGT TO LT NARES,PLACEMENT VERIFIED.ON CONTIUOUS NGT FEEDING NUTREN PULMONARY AT 50ML/HR W/WATER FLUSH ORDERED.W/MUSA CATHETER TO BSD DRAINING YELLOW URINE,SMALL AMT.W/SOFT WRIST RESTRAINTS TO BLE.SKIN INTACT.FLACC 0
[2017-08-19] MEDS: SIMVASTATIN 20 MG TAB NG SCH (20:36)
--- NOTE | 2017-08-19 21:00 | NUR ---
PT VERY AGITATED;TRYING TO GET OUT OF BED.VERSED DRIP INCREASED TO 6 MG/HR.
--- NOTE | 2017-08-19 21:30 | NUR ---
PT STILL AGITATED;VERSED DRIP INCREASED TO 7MG/HR9
--- NOTE | 2017-08-19 22:30 | NUR ---
RASS +2; PT STILL VERY AGITATED. VERSED DRIP INCREASED TO 8 MG/HR
[2017-08-20] VITALS (71 sets, daily range): BP systolic 125–173; BP diastolic 54–92
--- NOTE | 2017-08-20 | NUR ---
ORAL CARE USING VAP KIT RENDERED,FLACC 0.REPOSITIONED.
--- NOTE | 2017-08-20 01:20 | NUR ---
LOWERED FIO2 TO 30% SATS 96%. MOVED TUBE TO LEFTSIDE OF MOUTH
[2017-08-20] MEDS: ALBUTEROL SULFATE/IPRATROPIU 3 ML SOL IH SCH ×6 (02:58→23:09)
[2017-08-20] MEDS: MIDAZOLAM MDV 50 MG in NACL 0.9% 40 ML IV PRN ×3 (03:22→18:42)
--- NOTE | 2017-08-20 03:51 | NUR ---
PTS CONDITION REMAINS UNCHANGED.STILL AGITATED/RESTLESS AT TIMES.WI;; CONTINUE TO CLOSELY MONITOR PT.FLACC 0
--- NOTE | 2017-08-20 04:05 | NUR ---
BP 177/74;RECHECKED 172/86 HYDRALAZINE GIVEN ORDERED.
[2017-08-20] MEDS: hydrALAZINE 20 MG/ML VIAL IVP PRN ×2 (04:06→05:09)
[2017-08-20] MEDS: NACL 0.9% 1,000 ML IV SCH ×2 (04:11→16:22)
--- NOTE | 2017-08-20 05:00 | NUR ---
DR LI AT BEDSIDE.PT EXAMINED.MADE AWARE PT ON VERSED DRIP AT 10MG/HR.UPDATED ON PTS PRESENT CONDITION.QUESTIONS ANSWERED
[2017-08-20] MEDS: methylPREDNISolone SS 40 MG/ML VIAL IVP SCH ×3 (05:09→20:54)
[2017-08-20] MEDS: PIPER/TAZO 2.25GM/D5W PREMIX 50 ML IV SCH ×3 (05:12→17:45)
[2017-08-20 05:20] LABS: BASOPHILS % (AUTO) 0.2 % (0.0-2.0); EOSINOPHILS % (AUTO) 0.2 % (0.0-4.0); HEMATOCRIT 30.1 % (36-48); HEMOGLOBIN 9.9 g/dL (12.0-16.0); LYMPHOCYTES # (AUTO) 0.4 K/uL (2.5-16.5); LYMPHOCYTES % (AUTO) 3.5 % (20.5-51.1); MEAN CORPUSCULAR HEMOGLOBIN 29 pg (27-31); MEAN CORPUSCULAR HGB CONC 33 g/dL (33-37); MEAN CORPUSCULAR VOLUME 86 fL (80-94); MONOCYTES # (AUTO) 0.4 K/uL (0.8-1.0); MONOCYTES % (AUTO) 3.2 % (1.7-9.3); NEUTROPHILS # (AUTO) 10.4 K/uL (1.8-7.7); NEUTROPHILS % (AUTO) 92.9 % (42.2-75.2); PLATELET COUNT (AUTO) 117 K/uL (140-450); RED CELL DISTRIBUTION WIDTH 13.6 % (11.6-13.7)
[2017-08-20] MEDS: LEVOTHYROXINE 0.025 MG TAB PO SCH (06:06)
[2017-08-20 06:18] LABS: ANION GAP 12.2 (8-16); CREATININE 1.2 mg/dL (0.6-1.3); POTASSIUM 3.2 mmol/L (3.5-5.1)
[2017-08-20 06:20] LABS: MAGNESIUM 1.7 mg/dL (1.8-2.4); PHOSPHORUS 3.4 mg/dL (2.5-4.9)
[2017-08-20 06:34] LABS: WHITE BLOOD COUNT (AUTO) 11.2 K/uL (4.8-10.8)
--- NOTE | 2017-08-20 06:50 | NUR ---
RECIVED PT ON VENT WITH SETTINGS CHARTED PT RESTING BREATH SOUNDS PRESENT BILAT CLEAR AMBU BAG AT BEDSIDE VENT PLUGGED INTO RED OUTLET
--- NOTE | 2017-08-20 07:25 | NUR ---
VERSED DRIP TURN OFF IN PREPARATION FOR WEANING ON THE VENTILATOR, RT BILL AWARE.
[2017-08-20] MEDS ORDERED: MAG SULF 2000 MG/WATER PREMIX 50 ML IV SCH (07:50)
--- NOTE | 2017-08-20 08:00 | NUR ---
INITIAL SHIFT ASSESSMENT DONE. SLEEPING AT THIS TIME BUT EASILY AROUSABLE. NO SIGNS OF PAIN. OCCASIONAL AGITATION NOTED. RT PUT PATIENT ON CPAP TRIAL. SR ON MONITOR. SBP IN 140'S. NO ECTOPY NOTED. TUBE FEEDING STILL OFF. HOB ELEVATED. UPDATED OF PLAN OF CARE. WILL CONTINUE TO MONITOR.
--- NOTE | 2017-08-20 08:00 | NUR ---
PLACED PT ON CPAP WITH SETTINGS CHARTED BREATH SOUNDS PRESENT BILAT SXN PT WITH MIN AMT SECS SOME ORALLY PT VERY RESTLESS SEMMS TO MARIANN CPAP OK WILL CONTINUE TO MONITOR RN AWARE
--- NOTE | 2017-08-20 08:34 | NUR ---
PT PLACED BACK ON AC UNABLE TO MARIANN RESTLESS RR RATE HIGH RN AWARE WILL CONTINUE TO MONITOR
--- NOTE | 2017-08-20 08:35 | NUR ---
BECOMES RESTLESS. RT PUT PATIENT BACK TO AC MODE. VERSED RESTARTED AT 10 MG/HR. WILL CONTINUE TO MONITOR.
[2017-08-20] MEDS: MORPHINE SULFATE 50 MG in NACL 0.9% 45 ML IV PRN (08:41)
--- NOTE | 2017-08-20 08:41 | NUR ---
STILL VERY RESTLESS AND C/O GENERALIZED PAIN. STARTED ON MORPHINE DRIP AT 1 MG/HR PER MD ORDER. WILL CONTINUE TO MONITOR.
--- NOTE | 2017-08-20 09:00 | NUR ---
TWO DAUGHTERS ARE IN THE ROOM. UPDATED OF STATUS AND PLAN OF CARE.
--- NOTE | 2017-08-20 09:15 | NUR ---
TUBE FEEDING RESTARTED AT THIS TIME AT 50 ML/HR. WILL CONTINUE TO MONITOR.
[2017-08-20] MEDS: amLODIPine 5 MG TAB NG SCH ×2 (09:21→20:55)
[2017-08-20] MEDS: LACTOBACILLUS RHAMNOSUS GG 1 EACH CAP NG SCH (09:21)
[2017-08-20] MEDS: PANTOPRAZOLE 40 MG INJ VIAL IVP SCH (09:21)
[2017-08-20] MEDS: GABAPENTIN 100 MG CAP NG SCH ×2 (09:22→20:55)
[2017-08-20] MEDS: CARVEDILOL 12.5 MG TAB NG SCH ×2 (09:22→20:55)
[2017-08-20] MEDS: FUROSEMIDE 20 MG/2 ML VIAL IVP SCH ×2 (09:22→20:54)
[2017-08-20] MEDS: RAMIPRIL 5 MG CAP NG SCH (09:23)
[2017-08-20] MEDS: buPROPion 100 MG TAB NG SCH (09:29)
--- NOTE | 2017-08-20 09:45 | NUR ---
02 SHUT DOWN X 5 MINUTES PT O2 REPLACED WITH E CYLINDER X 5 MINUTES THEN PLACED BACK ON HOSPITAL 02 NO ILL EFFECTS NOTED
--- NOTE | 2017-08-20 10:00 | NUR ---
RESTING IN BED WITH FAMILY AT BEDSIDE. NO SIGNS OF PAIN OR AGITATION NOTED. TOLERATING VENTILATOR WELL. O2 SAT 95-96%. SR ON MONITOR. SBP IN 140'S-150'S. HOB ELEVATED. WILL CONTINUE TO MONITOR.
[2017-08-20] MEDS ORDERED: POTASSIUM CHLORIDE 40 MEQ, LIDOCAINE 1% 25 MG in NACL 0.9% 250 ML IV SCH (11:00)
--- NOTE | 2017-08-20 12:00 | NUR ---
REASSESSMENT DONE. SLEEPING BUT EASILY AROUSABLE. NO SIGNS OF PAIN OR AGITATION NOTED. TOLERATING CURRENT VENTILATOR SETTINGS WELL. O2 SAT 95-96%. SR ON MONITOR. SBP IN 130'S-140'S. NO ECTOPY NOTED. TOLERATING TUBE FEEDING WELL. NO RESIDUALS NOTED. HOB ELEVATED. UPDATED OF PLAN OF CARE. WILL CONTINUE TO MONITOR.
--- NOTE | 2017-08-20 13:10 | NUR ---
08/20/17 RD FOLLOW UP COMPLETED PLEASE REFER TO NUTRITION PROGRESS NOTE UNDER CARE ACTIVITY FOR ESTIMATED NUTRITION NEEDS. 1. CONTINUE NUTRITION SUPPORT NUTREN PULMONARY AT OF 50 ML/HR VIA NGTUBE. --THIS PROVIDES 100% OF PT ESTIMATED KCAL NEEDS AND 95% OF PT ESTIMATED PROTEIN NEEDS 2. IF PT CONTINUES TO FAIL VENT WEANING TRIALS, CONSIDER GTUBE PLACEMENT FOR SKILLED NURSING NUTRITION SUPPORT NEEDS 3. RD TO FOLLOW-UP 2-3 DAYS, HIGH RISK ARASELI GONZALES RD
--- NOTE | 2017-08-20 14:00 | NUR ---
RESTING IN BED. NO SIGNS OF PAIN OR AGITATION NOTED. TOLERATING VENTILATOR WELL. O2 SAT 95-96%. SR ON MONITOR. SBP IN 120'S-130'S. NO ECTOPY NOTED. HOB ELEVATED. WILL CONTINUE TO MONITOR.
--- NOTE | 2017-08-20 15:25 | NUR ---
DR WORTHINGTON IS IN THE ROOM. UPDATED OF STATUS. VERSED DRIP DECREASE TO 5 MG/HR PER DR WORTHINGTON'S ORDER. WILL CONTINUE TO MONITOR.
--- NOTE | 2017-08-20 16:00 | NUR ---
REASSESSMENT DONE. COMFORTABLY SLEEPING BUT EASILY AROUSABLE. NO SIGNS OF PAIN OR AGITATION NOTED. TOLERATING CURRENT VENTILATOR SETTINGS WELL. O2 SAT 95-96%. SR ON MONITOR. SBP IN 120'S-130'S. NO ECTOPY NOTED. TOLERATING TUBE FEEDING WELL. NO RESIDUALS NOTED. HOB ELEVATED. UPDATED OF PLAN OF CARE. WILL CONTINUE TO MONITOR.
--- NOTE | 2017-08-20 16:54 | NUR ---
CONTINUED TO MONITOR PT ON VENT WITH SETINGS CHARTED BREATH SOUNDS PRESENT BILAT CLEAR SXN PT WITH CLEAR SECS AMBU BAG AT BEDSIDE VENT PLUGGED INTO RED OUTLET
--- NOTE | 2017-08-20 18:00 | NUR ---
SLEEPING COMFORTABLY WITH FAMILY AT BEDSIDE. NO SIGNS OF PAIN. OCCASIONAL AGITATION NOTED. TOLERATING VENTILATOR WELL. O2 SAT 94-96%. SR ON MONITOR. SBP IN 130'S-140'S. NO ECTOPY NOTED. HOB ELEVATED. WILL CONTINUE TO MONITOR.
--- NOTE | 2017-08-20 19:15 | NUR ---
REPORT GIVEN TO INCOMING CORRUGATOR RN, RN CLARIZE.
--- NOTE | 2017-08-20 19:20 | NUR ---
RECEIVED REPORT FROM AM SHIFT. INITIAL ASSESSMENT COMPLETED. PT IS SEDATED. ATTACHED TO ETT VENT FIO2 30% TV 400 AC 12 PEEP 5. NGT TO LEFT NARE, ON CONTINUOUS FEEDING, NO RESIDUAL AT THIS TIME. IV ACCESS AT RIGHT IJ TLC, ON MORPHINE AND VERSED DRIP. ATTACHED TO INSPECTOR AIDE, PULSE OXIMETER. ON NON BEHAVIORAL RESTRAINTS. MUSA CATH IN PLACE, BED IN LOW POSITION. SAFETY MEASURE, WILL CONTINUE TO MONITOR.
--- NOTE | 2017-08-20 19:30 | NUR ---
PT STARTED TO BECOME RESTLESS AND AGITATED. VERSED AND [place] TITRATED ORDERED. WILL CONTINUE TO MONITOR.
--- NOTE | 2017-08-20 20:18 | NUR ---
FAMILY AT BEDSIDE, DAUGHTER JAZLYN, SISTER AND NIECE. UPDATED OF PATIENT'S CONDITION.
[2017-08-20] MEDS: SIMVASTATIN 20 MG TAB NG SCH (20:55)
[2017-08-21] VITALS (78 sets, daily range): BP systolic 130–191; BP diastolic 57–103
[2017-08-21] MEDS: PIPER/TAZO 2.25GM/D5W PREMIX 50 ML IV SCH (00:03)
[2017-08-21] MEDS: NACL 0.9% 1,000 ML IV SCH ×2 (00:16→15:28)
[2017-08-21] MEDS: MIDAZOLAM MDV 50 MG in NACL 0.9% 40 ML IV PRN ×3 (00:16→17:00)
--- NOTE | 2017-08-21 00:30 | NUR ---
NO SOB / NO DISTRESS NOTED. WILL CONTINUE TO MONITOR.
[2017-08-21] MEDS ORDERED: MIDAZOLAM MDV 100 MG in NACL 0.9% 80 ML IV PRN (02:30)
[2017-08-21] MEDS: ALBUTEROL SULFATE/IPRATROPIU 3 ML SOL IH SCH ×6 (03:03→22:35)
[2017-08-21] MEDS: methylPREDNISolone SS 40 MG/ML VIAL IVP SCH ×3 (04:07→20:55)
[2017-08-21] MEDS: MORPHINE SULFATE 50 MG in NACL 0.9% 45 ML IV PRN (04:13)
--- NOTE | 2017-08-21 04:30 | NUR ---
AM CARE DONE. PT TOLERATED WELL
[2017-08-21 05:26] LABS: BASOPHILS % (AUTO) 0.3 % (0.0-2.0); EOSINOPHILS % (AUTO) 0.2 % (0.0-4.0); HEMATOCRIT 28.6 % (36-48); HEMOGLOBIN 9.3 g/dL (12.0-16.0); LYMPHOCYTES # (AUTO) 0.4 K/uL (2.5-16.5); LYMPHOCYTES % (AUTO) 7.4 % (20.5-51.1); MEAN CORPUSCULAR HEMOGLOBIN 28 pg (27-31); MEAN CORPUSCULAR HGB CONC 33 g/dL (33-37); MEAN CORPUSCULAR VOLUME 87 fL (80-94); MONOCYTES # (AUTO) 0.2 K/uL (0.8-1.0); MONOCYTES % (AUTO) 4.8 % (1.7-9.3); NEUTROPHILS # (AUTO) 4.4 K/uL (1.8-7.7); NEUTROPHILS % (AUTO) 87.3 % (42.2-75.2); PLATELET COUNT (AUTO) 117 K/uL (140-450); RED BLOOD CELL COUNT(AUTO) 3.29 MIL/uL (4.20-5.40); RED CELL DISTRIBUTION WIDTH 14.1 % (11.6-13.7)
[2017-08-21] MEDS: LEVOTHYROXINE 0.025 MG TAB PO SCH (05:48)
[2017-08-21] MEDS ORDERED: PIPER/TAZO 2.25GM/D5W PREMIX 50 ML IV SCH (06:00)
--- NOTE | 2017-08-21 07:00 | NUR ---
RECIVED PT ON VENT WITH SETTINGS CHARTED BREATH SOUNDS PRESENT BILAT CLEAR SXN PT WITH MIN AMT CLEAR SECS PT QUIET AMBU BAG AT BEDSIDE VENT PLUGGED INTO RED OUTLET
[2017-08-21] MEDS ORDERED: LEVOFLOXACIN 750 MG/D5W PREMIX 150 ML IV SCH (07:05)
--- NOTE | 2017-08-21 07:08 | NUR ---
REPORT GIVEN TO THOMAS RN FOR CONTINUITY OF CARE, WILL CONTINUE TO MONITOR.
[2017-08-21 07:26] LABS: ANION GAP 10.6 (8-16); CARBON DIOXIDE 28.6 mmol/L (21-32); CREATININE 1.4 mg/dL (0.6-1.3); POTASSIUM 4.2 mmol/L (3.5-5.1)
[2017-08-21 07:28] LABS: MAGNESIUM 2.5 mg/dL (1.8-2.4); PHOSPHORUS 5.2 mg/dL (2.5-4.9)
--- NOTE | 2017-08-21 07:50 | NUR ---
PLACED PT ON CPAP WITH SETTINGS CHARTED BREATH SOUNDS PRESENT BILAT CLEAR PT ON SEDATION VACATION 0715 PT AWAKE ALERT ANXIOUS FAMILY MEMBERS AT BEDSIDE WILL CONTINUE TO MONITOR PT
--- NOTE | 2017-08-21 08:00 | NUR ---
INITIAL SHIFT ASSESSMENT DONE. NO SIGNS OF PAIN. ON CPAP TRIAL AT THIS TIME. VERSED AND MORPHINE DRIP WAS OFF AT 0715. TUBE FEEDING WAS ALSO OFF AT 0715 IN PREPARATION FOR CPAP TRIAL. DAUGHTER IS IN THE ROOM COACHING THE PATIENT TO BREATH. SR ON MONITOR. SBP IN 140'S-160. NO ECTOPY NOTED. TOLERATING TUBE FEEDING WELL. NO RESIDUALS NOTED. HOB ELEVATED. UPDATED OF PLAN OF CARE. WILL CONTINUE TO MONITOR.
--- NOTE | 2017-08-21 09:00 | NUR ---
RT PUT PATIENT BACK ON AC MODE, UNABLE TO TOLERATE CPAP. WILL CONTINUE TO MONITOR.
--- NOTE | 2017-08-21 09:16 | NUR ---
REMOVED PT FROM CPAP PT UABLE TO MARIANN RN AWARE
[2017-08-21] MEDS: FUROSEMIDE 20 MG/2 ML VIAL IVP SCH ×2 (09:24→20:55)
[2017-08-21] MEDS: PANTOPRAZOLE 40 MG INJ VIAL IVP SCH (09:24)
[2017-08-21] MEDS: buPROPion 100 MG TAB NG SCH (09:25)
[2017-08-21] MEDS: CARVEDILOL 12.5 MG TAB NG SCH ×2 (09:25→20:55)
[2017-08-21] MEDS: RAMIPRIL 5 MG CAP NG SCH (09:25)
[2017-08-21] MEDS: amLODIPine 5 MG TAB NG SCH ×2 (09:25→20:55)
[2017-08-21] MEDS: GABAPENTIN 100 MG CAP NG SCH ×2 (09:26→20:55)
--- NOTE | 2017-08-21 09:35 | NUR ---
RESTLESS AT THIS TIME. C/O SEVERE BACK PAIN. RESTARTED MORPHINE AND VERSED DRIP. WILL CONTINUE TO MONITOR.
[2017-08-21] MEDS: LEVOFLOXACIN 750 MG/D5W PREMIX 150 ML IV SCH (09:36)
[2017-08-21] MEDS: LACTOBACILLUS RHAMNOSUS GG 1 EACH CAP NG SCH (09:36)
--- NOTE | 2017-08-21 09:45 | NUR ---
RESTARTED TUBE FEEDING AT THIS TIME.
--- NOTE | 2017-08-21 10:00 | NUR ---
RESTING IN BED WITH FAMILY AT BEDSIDE. NO C/O PAIN. OCCASIONAL AGITATION NOTED. TOLERATING VENTILATOR WELL. O2 SAT 93-97%. SR ON MONITOR. SBP IN 170'S. NO ECTOPY NOTED. HOB ELEVATED. WILL CONTINUE TO MONITOR.
--- NOTE | 2017-08-21 11:30 | NUR ---
C/O SEVERE GENERALIZED PAIN AT THIS TIME. MORPHINE DRIP INCREASE TO 2 MG/HR. WILL CONTINUE TO MONITOR.
[2017-08-21] MEDS: CLINDAMYCIN 600 MG in DEXTROSE 5% 50 ML IV SCH ×3 (11:56→23:42)
--- NOTE | 2017-08-21 12:00 | NUR ---
REASSESSMENT DONE. NO SIGNS OF PAIN. OCCASIONAL AGITATION NOTED. TOLERATING CURRENT VENTILATOR SETTINGS WELL. O2 SAT 94-97%. SR ON MONITOR. SBP IN 170'S. NO ECTOPY NOTED. HAS BM AT THIS TIME, MODERATE AMOUNT, PASTY, AND BROWN COLOR. GIVEN PARTIAL BATH AND LINENS ARE CHANGE. TOLERATED THE PROCEDURE WELL. HOB ELEVATED. UPDATED OF PLAN OF CARE. WILL CONTINUE TO MONITOR.
--- NOTE | 2017-08-21 12:30 | NUR ---
SLEEPING COMFORTABLY. MORPHINE DRIP DECREASE TO 2 MG/HR. WILL CONTINUE TO MONITOR.
--- NOTE | 2017-08-21 13:50 | NUR ---
DR WORTHINGTON IS IN THE ROOM. UPDATED OF STATUS. MD TALK TO THE FAMILY. VERSED DRIP TITRATED TO 6 MG/HR PER DR WORTHINGTON'S ORDER. WILL CONTINUE TO MONITOR.
--- NOTE | 2017-08-21 14:00 | NUR ---
SLEEPING COMFORTABLY. NO SIGNS OF PAIN. OCCASIONAL AGITATION NOTED. TOLERATING VENTILATOR WELL. O2 SAT 93-96%. SR ON MONITOR. SBP IN 140'S-150'S. NO ECTOPY NOTED. HOB ELEVATED. WILL CONTINUE TO MONITOR.
--- NOTE | 2017-08-21 16:00 | NUR ---
REASSESSMENT DONE. NEURO STATUS UNCHANGED. NO SIGNS OF PAIN. OCCASIONAL AGITATION NOTED. TOLERATING CURRENT VENTILATOR SETTINGS WELL. O2 SAT 93-100%. SR ON MONITOR. SBP IN 150'S-160'S. NO ECTOPY NOTED. HOB ELEVATED. TOLERATING TUBE FEEDING WELL. NO RESIDUALS NOTED. UPDATED OF PLAN OF CARE. WILL CONTINUE TO MONITOR.
--- NOTE | 2017-08-21 18:00 | NUR ---
BECOMES RESTLESS AND C/O LOW BACK PAIN AT THIS TIME. VERSED DRIP INCREASE BACK TO 8 MG/HR. MORPHINE DRIP INCREASE TO 2 MG/HR. WILL CONTINUE TO MONITOR.
--- NOTE | 2017-08-21 19:20 | NUR ---
REPORT GIVEN TO INCOMING FRUIT DISTRIBUTOR RN, RN LAURA.
--- NOTE | 2017-08-21 19:21 | NUR ---
RECEIVED REPORT FROM AM RN. AT BEDSIDE, PT IS SEDATED, RASS -3, VSS, FLACC 0. ETT TO VENT WITH SETTING OF FIO2 30, RR 12, TV 400, PEEP 5, CLEAR LUNG SOUNDS, NO S/S OF DISTRESS, NGT TO LEFT NARES, PLACEMENT CHECKED, FEEDING WITH NUTREN PULMONARY AT 50ML/HR WITH FREE WATER 100ML Q4HR, TOLERATED WELL, 0 RESIDUES. CENTRAL LINE TO RIJ, TLC WITH GOOD BLOOD RETURN TO EACH LUMEN, RUNNING NS AT 90ML/HR, VERSED AT 8MG/HR, AND MORPHIN AT 2 MG/HR, CVP 11. SR ON REEL REPAIRER. SOFT ABDOMEN WITH ACTIVE BOWEL SOUNDS, F/C IN PLACE DRAINING CLEAR YELLOW URINE VIA GRAVITY. GENERALIZED WEAKNESS NOTED, AFEBRILE, SKIN IS INTACT, WARM AND DRY TO TOUCH. SCD'S ON BLE. ON NON-BEHAVIORAL RESTRAIN ORDERED, HOB ELEVATED 30 DEGREES, SAFETY MEASURES MAINTAINED, WILL CONTINUE TO MONITOR.
[2017-08-21] MEDS: SIMVASTATIN 20 MG TAB NG SCH (20:55)
--- NOTE | 2017-08-21 21:00 | NUR ---
FAMILY MEMBERS CAME IN TO SEE PT, PT IS SEDATED AT THIS TIME, SCHEDULED MEDICATION GIVEN, TOLERATED WELL.
--- NOTE | 2017-08-21 22:15 | NUR ---
NO CHANGE OF CONDITION AT THIS TIME, VSS, POSITION CHANGED FOR OFF LOAD PRESSURE.
[2017-08-22] VITALS (54 sets, daily range): BP systolic 15–197; BP diastolic 61–146
--- NOTE | 2017-08-22 | NUR ---
PT IS STILL SEDATED, RASS -4, VSS, NO S/S OF DISTRESS, ORAL CARE PROVIDED, POSITION CHANGED FOR OFF LOAD PRESSURE.
[2017-08-22] MEDS: MIDAZOLAM MDV 50 MG in NACL 0.9% 40 ML IV PRN (00:06)
--- NOTE | 2017-08-22 02:00 | NUR ---
NO CHANGE OF CONDITION, VSS, POSITION CHANGED FOR OFF LOAD PRESSURE.
[2017-08-22] MEDS: ALBUTEROL SULFATE/IPRATROPIU 3 ML SOL IH SCH ×6 (02:11→23:42)
[2017-08-22] MEDS: NACL 0.9% 1,000 ML IV SCH ×3 (03:00→23:57)
--- NOTE | 2017-08-22 04:00 | NUR ---
AM CARE AND F/C CARE PROVIDED, ORAL CARE PROVIDED, PT TOLERATED WELL, POSITION CHANGED FOR OFF LOAD PRESSURE.
[2017-08-22] MEDS: methylPREDNISolone SS 40 MG/ML VIAL IVP SCH ×3 (04:47→20:13)
[2017-08-22 05:27] LABS: BASOPHILS % (AUTO) 0.8 % (0.0-2.0); EOSINOPHILS % (AUTO) 0.2 % (0.0-4.0); HEMOGLOBIN 9.7 g/dL (12.0-16.0); LYMPHOCYTES # (AUTO) 0.3 K/uL (2.5-16.5); MONOCYTES # (AUTO) 0.3 K/uL (0.8-1.0); NEUTROPHILS # (AUTO) 3.3 K/uL (1.8-7.7); RED CELL DISTRIBUTION WIDTH 13.8 % (11.6-13.7); WHITE BLOOD COUNT (AUTO) 3.9 K/uL (4.8-10.8)
[2017-08-22 05:53] LABS: HEMATOCRIT 29.6 % (36-48); LYMPHOCYTES % (AUTO) 7.4 % (20.5-51.1); MEAN CORPUSCULAR HEMOGLOBIN 28 pg (27-31); MEAN CORPUSCULAR HGB CONC 33 g/dL (33-37); MEAN CORPUSCULAR VOLUME 86 fL (80-94); MONOCYTES % (AUTO) 6.4 % (1.7-9.3); NEUTROPHILS % (AUTO) 85.2 % (42.2-75.2); PLATELET COUNT (AUTO) 123 K/uL (140-450); RED BLOOD CELL COUNT(AUTO) 3.47 MIL/uL (4.20-5.40)
[2017-08-22] MEDS: CLINDAMYCIN 600 MG in DEXTROSE 5% 50 ML IV SCH ×4 (05:53→23:23)
[2017-08-22] MEDS: LEVOTHYROXINE 0.025 MG TAB PO SCH (05:53)
--- NOTE | 2017-08-22 06:00 | NUR ---
NO CHANGE OF CONDITION AT THIS TIME, VSS, POSITION CHANGED FOR OFF LOAD PRESSURE.
[2017-08-22 06:14] LABS: ANION GAP 8.7 (8-16); CARBON DIOXIDE 31.3 mmol/L (21-32); CREATININE 1.3 mg/dL (0.6-1.3)
[2017-08-22 06:18] LABS: PHOSPHORUS 3.9 mg/dL (2.5-4.9)
--- NOTE | 2017-08-22 06:57 | NUR ---
rec'd pt on carescape vent settings ac12 vt 400 peep 5 fio2 30% alarms on and functioning properly, abmu bag at side of vent and vent is plugged into red outlet, i\l tx given with duoneb 3ml with no adverse reaction post tx ,b\s are clear bilaterally, sxn pt small amt of clear sections, pt is orally intubated with 7.0 et tube secured with anchor fast at 22 cm at left side of mouth and skin integrity is intact and cuff pressure is 26 cm h20 and pt is sleeping with no signs of distress noted at this time
--- NOTE | 2017-08-22 07:15 | NUR ---
REPORT GIVEN TO THOMAS RN AT BEDSIDE FOR CONTINUE OF CARE, PT IS IN STABLE CONDITION AT THIS TIME, VSS.
--- NOTE | 2017-08-22 08:00 | NUR ---
INITIAL SHIFT ASSESSMENT DONE. VERSED AND MORPHINE DRIP TURN OFF AT THIS TIME IN PREPARATION FOR CPAP TRIAL. NO SIGNS OF PAIN. OCCASIONAL AGITATION NOTED. ON VENTILATOR, TOLERATING CURRENT SETTINGS WELL. O2 SAT 94-96%. SR ON MONITOR. SBP IN 150'S-170'S. NO ECTOPY NOTED. TUBE FEEDING IS ALSO TURN OFF IN PREPARATION FOR CPAP. NO RESIDUALS NOTED. HOB ELEVATED. UPDATED OF PLAN OF CARE. WILL CONTINUE TO MONITOR.
--- NOTE | 2017-08-22 08:20 | NUR ---
TWO SISTERS ARE IN THE ROOM. UPDATED OF STATUS AND PLAN OF CARE.
[2017-08-22] MEDS: RAMIPRIL 5 MG CAP NG SCH (08:34)
[2017-08-22] MEDS: LACTOBACILLUS RHAMNOSUS GG 1 EACH CAP NG SCH (08:34)
[2017-08-22] MEDS: PANTOPRAZOLE 40 MG INJ VIAL IVP SCH (08:34)
[2017-08-22] MEDS: CARVEDILOL 12.5 MG TAB NG SCH ×2 (08:35→20:13)
[2017-08-22] MEDS: GABAPENTIN 100 MG CAP NG SCH ×2 (08:35→20:13)
[2017-08-22] MEDS: amLODIPine 5 MG TAB NG SCH ×2 (08:35→20:14)
[2017-08-22] MEDS: buPROPion 100 MG TAB NG SCH (08:37)
--- NOTE | 2017-08-22 09:06 | NUR ---
VENT CHECK, NO SXN REQUIRED AIRWAY IS PATENT PT IS OFF SEDATION AND IS VERY AGITATED WITH FAMILY AT BEDSIDE CHANGED VENT TO CPAP 5 PS 10 FOR WEANING AND RN THOMAS NOTIFIED OF CHANGES MADE
--- NOTE | 2017-08-22 10:00 | NUR ---
RESTING IN BED. NO C/O PAIN. OCCASIONAL AGITATION NOTED. TOLERATING CPAP WELL. O2 SAT 91-96%. SR ON MONITOR. SBP IN 160'S-190'S. NO ECTOPY NOTED. HOB ELEVATED. WILL CONTINUE TO MONITOR.
--- NOTE | 2017-08-22 11:06 | NUR ---
pt extubated and placed on 3l oxyimizer to keep o2 sat above 92% hr 93 rr 20 and o2 sat 96% tx was given family at bedside and pt is agitated
--- NOTE | 2017-08-22 12:00 | NUR ---
REASSESSMENT DONE. CONFUSED. PULL OUT THE NGT. NO C/O PAIN OR DYSPNEA. O2 SAT 93-94% ON O2 AT 3 LPM VIA OXYMIZER. SR ON MONITOR. SBP IN 160'S. NO ECTOPY NOTED. HOB ELEVATED. DAUGHTER AT BEDSIDE. UPDATED OF STATUS AND PLAN OF CARE. WILL CONTINUE TO MONITOR.
[2017-08-22] MEDS ORDERED: HYDROcodone/APAP 5/325 MG 1 TAB TAB PO PRN (12:15)
[2017-08-22] MEDS: MORPHINE SULFATE 2 MG/ML SYR IVP PRN ×2 (13:15→20:04)
--- NOTE | 2017-08-22 13:15 | NUR ---
C/O SEVERE PAIN ON BOTH LEGS. GIVEN MORPHINE SULFATE 1 MG IVP. DAUGHTER AND PARTNER ARE IN THE ROOM. UPDATED OF STATUS AND PLAN OF CARE. WILL CONTINUE TO MONITOR.
--- NOTE | 2017-08-22 14:00 | NUR ---
SLEEPING AT THIS TIME. NO SIGNS OF PAIN OR DYSPNEA. O2 SAT 91-94%. PATIENT MOSTLY MOUTH BREATHING. SR ON MONITOR. SBP IN 170'S-180. NO ECTOPY NOTED. HOB ELEVATED. WILL CONTINUE TO MONITOR.
--- NOTE | 2017-08-22 16:00 | NUR ---
REASSESSMENT DONE. SITTING IN BED WITH FAMILY AT BEDSIDE INTERACTING AND TALKING WITH THE PATIENT. NO C/O PAIN OR DYSPNEA. O2 SAT 90-96%. SR ON MONITOR. SBP IN 170'S. NO ECTOPY NOTED. HOB ELEVATED. UPDATED OF PLAN OF CARE. WILL CONTINUE TO MONITOR.
[2017-08-22] MEDS: hydrALAZINE 20 MG/ML VIAL IVP PRN ×2 (17:12→23:23)
--- NOTE | 2017-08-22 17:12 | NUR ---
SBP IN 180'S-190'S. GIVEN HYDRALAZINE 5 MG IVP. WILL CONTINUE TO MONITOR.
[2017-08-22] MEDS: ACETAMINOPHEN 325 MG TAB PO PRN (17:48)
--- NOTE | 2017-08-22 17:48 | NUR ---
C/O MODERATE HEADACHE. GIVEN TYLENOL 650 MG PO. WILL CONTINUE TO MONITOR.
--- NOTE | 2017-08-22 18:00 | NUR ---
HAS BM AT THIS TIME, MODERATE AMOUNT, PASTY, AND BROWN COLOR. GIVEN PARTIAL BATH AND LINENS ARE CHANGE. TOLERATED THE PROCEDURE WELL.
--- NOTE | 2017-08-22 18:50 | NUR ---
HAS BM AGAIN AT THIS TIME, LARGE AMOUNT, PASTY, AND BROWN COLOR. GIVEN BATH AND LINENS ARE CHANGE. TOLERATED THE PROCEDURE WELL.
--- NOTE | 2017-08-22 19:25 | NUR ---
REPORT GIVEN TO INCOMING HAULAGE ENGINE OPERATOR RN, OSITO MAGAÑA.
--- NOTE | 2017-08-22 19:30 | NUR ---
REPORT RECEIVED FROM MORNING NURSE, THOMAS RN. PT IS ALERT AND AWAKE AND ABLE TO FOLLOW DIRECTIONS. PERRL. PT WAS EXTUBATED THIS MORNING. NPO EXCEPT MEDS AT THIS TIME. BILATERAL LUNG SOUNDS CLEAR. ON O2 VIA OXYMIZER @ 3L/MIN. ON CONTINUOUS AMF MECHANIC. SR ON THE MONITOR. RIGHT IJ WITH TRIPLE LUMEN. PATENT AND ASYMPTOMATIC. CVP=9. ACTIVE BOWEL SOUNDS HEARD FROM ALL 4 QUADS. MUSA CATHETER DRAINING CLEAR YELLOW URINE VIA GRAVITY. DENIES PAIN OR DISCOMFORT AT THIS TIME. CALL LIGHT IN REACH. BED KEPT TO THE LOWEST. HOB ELEVATED 30 DEGREES. WILL CONTINUE TO MONITOR.
[2017-08-22] MEDS: SIMVASTATIN 20 MG TAB NG SCH (20:13)
--- NOTE | 2017-08-22 20:30 | NUR ---
MEDICATIONS ADMINISTERED ORDERED. TOLERATED WELL.
--- NOTE | 2017-08-22 20:50 | NUR ---
PT HAD A LARGE SOFT BM. ASSISTED WITH HYGIENE. TOLERATED WELL.
--- NOTE | 2017-08-22 21:11 | NUR ---
PT XY=084/79. HYDRALAZINE LAST GIVEN AT 1712 AND IT'S Q6 PRN[address] PATIÑO MADE AWARE. NNO RECEIVED. INSTRUCTED TO CONTINUE TO MONITOR AND GIVE NEXT DOSE HYDRALAZINE IF STILL SBP ABOVE 160. WILL CARRY OUT.
--- NOTE | 2017-08-22 21:25 | NUR ---
PT PLACED ON CPAP FOR NOC, PT DID NOT TOLERATE WELL AND REFUSED CPAP AT THIS TIME, NO RESP DISTRESS OR SOB NOTED AT THIS TIME, PT PLACED BACK ON 3LPM OXYMIZER, O2 SAT 95%, GÓMEZ MCNEILL AWARE
--- NOTE | 2017-08-22 22:00 | NUR ---
PT HAD A LARGE SOFT BM. ASSISTED WITH HYGIENE. TOLERATED WELL.
[2017-08-22] MEDS ORDERED: CYCLOBENZAPRINE 10 MG TAB PO PRN (22:15)
[2017-08-22] MEDS ORDERED: MORPHINE SULFATE 2 MG/ML SYR IVP SCH (22:15)
--- NOTE | 2017-08-22 22:30 | NUR ---
PT C/O BACK PAIN 04/23. DR. PATIÑO AT BED SIDE. RECEIVED NEW ORDERS. OK TO GIVE ANOTHER MORPHINE 1MG IVP NOW. WILL CARRY OUT.
--- NOTE | 2017-08-22 22:43 | NUR ---
PT HAD A SMALL SOFT BM. ASSISTED WITH HYGIENE. TOLERATED WELL.
[2017-08-22] MEDS: LORazepam 1 MG TAB PO PRN (23:23)
--- NOTE | 2017-08-22 23:23 | NUR ---
DY=773/84 NOTED. HYDRALAZINE 5MG IVP ADMINISTERED ORDERED. WILL REASSESS.
[2017-08-23] VITALS: BP 170/84
[2017-08-23] MEDS: NACL 0.9% 1,000 ML IV SCH ×2 (00:15→14:07)
[2017-08-23] MEDS: KETOROLAC 15 MG/ML VIAL IM PRN (01:59)
[2017-08-23 02:00] VITALS: BP 161/77
--- NOTE | 2017-08-23 02:00 | NUR ---
PT C/O LOW BACK PAIN. TORADOL ADMINISTERED ORDERED. WILL RE-ASSESS.
--- NOTE | 2017-08-23 02:30 | NUR ---
PT HAD MODERATE AMOUNT OF LOOSE STOOL. ASSISTED WITH HYGIENE. TOLERATED WELL.
--- NOTE | 2017-08-23 03:00 | NUR ---
MADE DR. PATIÑO AWARE OF PT'S BP BEING SBP>160 AFTER HYDRALAZINE AND ROUTINE HYPERTENSIVE MEDS. WILL FOLLOW UP WITH ANY ORDERS.
[2017-08-23] MEDS: ALBUTEROL SULFATE/IPRATROPIU 3 ML SOL IH SCH ×6 (03:14→23:29)
[2017-08-23] MEDS ORDERED: hydrALAZINE 20 MG/ML VIAL IVP ONE (03:20)
[2017-08-23] MEDS ORDERED: RAMIPRIL 5 MG CAP PO ONE (03:30)
[2017-08-23] MEDS ORDERED: MORPHINE SULFATE 2 MG/ML SYR IVP PRN (03:35)
[2017-08-23] MEDS ORDERED: MORPHINE SULFATE 2 MG/ML SYR IVP ONE (03:35)
[2017-08-23] MEDS ORDERED: hydrALAZINE 20 MG/ML VIAL IVP SCH (03:45)
[2017-08-23] MEDS ORDERED: RAMIPRIL 5 MG CAP PO SCH (03:45)
[2017-08-23 04:00] VITALS: BP 168/66
--- NOTE | 2017-08-23 04:00 | NUR ---
PT HAD MODERATE AMOUNT OF LOOSE STOOL. ASSISTED WITH HYGIENE AND MORNING CARE. TOLERATED WELL.
[2017-08-23] MEDS: methylPREDNISolone SS 40 MG/ML VIAL IVP SCH (05:35)
[2017-08-23 05:36] LABS: HEMATOCRIT 32.5 % (36-48); HEMOGLOBIN 10.5 g/dL (12.0-16.0); MEAN CORPUSCULAR HEMOGLOBIN 28 pg (27-31); MEAN CORPUSCULAR HGB CONC 32 g/dL (33-37); MEAN CORPUSCULAR VOLUME 86 fL (80-94); PLATELET COUNT (AUTO) 176 K/uL (140-450); RED BLOOD CELL COUNT(AUTO) 3.77 MIL/uL (4.20-5.40); RED CELL DISTRIBUTION WIDTH 13.8 % (11.6-13.7)
[2017-08-23] MEDS: LEVOTHYROXINE 0.025 MG TAB PO SCH (05:36)
[2017-08-23] MEDS: CLINDAMYCIN 600 MG in DEXTROSE 5% 50 ML IV SCH ×3 (05:40→18:15)
[2017-08-23 05:45] LABS: LYMPHOCYTES % (MANUAL) 16 % (20-46); MONOCYTES % (MANUAL) 9 % (5-12)
[2017-08-23] MEDS: ONDANSETRON 4 MG/2 ML VIAL IVP PRN ×2 (05:47→08:37)
--- NOTE | 2017-08-23 05:50 | NUR ---
PT HAD MODERATE AMOUNT OF LOOSE STOOL. ASSISTED WITH HYGIENE. TOLERATED WELL.
[2017-08-23] MEDS ORDERED: diphenhydrAMINE 50 MG/ML VIAL IVP ONE (05:55)
[2017-08-23 05:59] LABS: CARBON DIOXIDE 29.2 mmol/L (21-32); CREATININE 1.1 mg/dL (0.6-1.3); MAGNESIUM 1.7 mg/dL (1.8-2.4); PHOSPHORUS 3.2 mg/dL (2.5-4.9); POTASSIUM 3.2 mmol/L (3.5-5.1)
[2017-08-23] MEDS ORDERED: MAG SULF 2000 MG/WATER PREMIX 50 ML IV ONE (06:25)
[2017-08-23] MEDS ORDERED: KCL 20 MEQ/WATER INJ PREMIX 100 ML IV ONE (06:30)
--- NOTE | 2017-08-23 06:50 | NUR ---
NEW ORDERS RECEIVED. NOTED AND WILL CARRY OUT.
--- NOTE | 2017-08-23 07:30 | NUR ---
RESUME CARE FROM MANA[employer] SHE IS AWAKE AND ALERT FOLLOW COMMAND SKIN DRY AND INTACT, O2 3L N/C O2 SAT 100%. IV FLUID ON LEFT ARM THE SITE IS DRY AND INTACT. ABDOMEN IS SOFT, BOWEL SOUND ACTIVE, F/C DRAIN CHAD URINE.
--- NOTE | 2017-08-23 07:30 | NUR ---
RECEIVED PT FROM PM SHIFT RN AT BEDSIDE. PT IS SLEEPING, BREATHING EVEN & UNLABORED. AROUSED EASILY. PT IS ON 3LPM OXYGEN VIA NASAL CANNULA. NO C/O PAIN NOTED. NO RESPIRATORY DISTRESS. RIGHT IJ TRIPLE LUMEN INTACT AND PATENT FLUSHED WELL WITH GOOD BLOOD RETURNED w/IVF INFUSING. SR ON MONITOR. V/S STABLE. ABD SOFT, NON DISTENDED WITH ACTIVE BOWEL SOUNDS IN ALL [address] QU[address]RANTS[address] MUSA CATH IN PLACE WITH DRAINAGE BY GRAVITY . CALL LIGHT WITHIN REACH. BED IN LOW POSITION. WILL CONTINUE TO MONITOR.
--- NOTE | 2017-08-23 07:30 | NUR ---
GAVE REPORT TO MORNING NURSE, RACHEL, RN FOR CONTINUITY OF CARE. ALL SAFETY MEASURES ARE IN PLACE.
--- NOTE | 2017-08-23 07:30 | NUR ---
SKIN DRY AND WARM TO TOUCH. O2 3L/NC O2 SAT AT 100% IV FLUID ON LT, ARM, THE SITE IS DRY AND INTACT, ABDOMEN SOFT B/S ACTIVE,.SHE IS INCONTINENCE MAROON COLOR BM MODERATE AMOUNT. Addendum: 08/23/17 at 1540 by Velasquez Jimenes RN THIS NOTE IS NOT FOR THIS PATIENT.
[2017-08-23] MEDS ORDERED: methylPREDNISolone 4 MG TAB PO SCH (08:00)
[2017-08-23] MEDS: RAMIPRIL 5 MG CAP NG SCH (08:32)
[2017-08-23] MEDS: LACTOBACILLUS RHAMNOSUS GG 1 EACH CAP NG SCH (08:32)
[2017-08-23] MEDS: GABAPENTIN 100 MG CAP NG SCH ×2 (08:32→20:49)
[2017-08-23] MEDS: amLODIPine 5 MG TAB NG SCH ×2 (08:32→20:50)
[2017-08-23] MEDS: CARVEDILOL 12.5 MG TAB NG SCH ×2 (08:32→20:49)
[2017-08-23] MEDS: PANTOPRAZOLE 40 MG INJ VIAL IVP SCH (08:33)
[2017-08-23] MEDS: buPROPion 100 MG TAB NG SCH (08:33)
[2017-08-23] MEDS ORDERED: POTASSIUM CHLORIDE 10 MEQ TABER PO SCH (08:35)
--- NOTE | 2017-08-23 08:37 | NUR ---
PT. FEEL NAUSEATED AFTER HER BREAKFAST. MEDICATION GIVEN GIVEN ORDERED.
[2017-08-23] MEDS: LEVOFLOXACIN 750 MG/D5W PREMIX 150 ML IV SCH (08:39)
--- NOTE | 2017-08-23 10:00 | NUR ---
REPOSITION BACK CARE GIVEN,
--- NOTE | 2017-08-23 12:30 | NUR ---
TRANSFER TO [facility] IN BED CONDITION STABLE DURING TRANSFER.
[2017-08-23 12:40] VITALS: BP 144/76
--- NOTE | 2017-08-23 12:40 | NUR ---
PATIENT ARRIVED ON MST UNIT VIA BED/GURNEY FROM ICU. IN STABLE CONDITION. NO DISTRESS NOTED. ASSISTED WITH PATIENT TRANSFER FROM ICU BED TO MST BED INTO ROOM. PATIENT TOLERATED PROCEDURE WELL. ORIENTED PATIENT TO ROOM AND UNIT. RESPIRATIONS EVEN, UNLABORED, ON 3L/MIN VIA NC. IVF STARTED ON ONE LUMEN ON RIGHT NECK IJ TRIPLE LUMEN PER ORDERS. PATIENT IS AAOX3, DENIES ANY PAIN AT THIS TIME, SKIN COLOR APPROPRIATE TO ETHNICITY, WARM TO TOUCH. LUNGS DIMINISHED ON ALL LOBES. ABDOMEN SOFT, NON-DISTENDED. REVIEWED PLAN OF CARE WITH PATIENT. PATIENT VERBALIZED UNDERSTANDING. SAFETY MEASURES IN PLACE, CALL LIGHT WITHIN REACH, FALL PREVENTIONS IN PLACE. WILL CONTINUE TO MONITOR.
--- NOTE | 2017-08-23 13:40 | NUR ---
PATIENT LYING IN BED TALKING WITH FAMILY MEMBERS AT BEDSIDE. NO DISTRESS NOTED, DENIES ANY PAIN AT THIS TIME. RESPIRATIONS EVEN, UNLABORED, ON O2 3L/MIN VIA NC. SCHEDULED ANTIBIOTIC MEDICATIONS DUE GIVEN. CONDITION UNCHANGED. SAFETY MEASURES IN PLACE, CALL LIGHT WITHIN REACH. WILL CONTINUE TO MONITOR.
[2017-08-23] MEDS: ACETAMINOPHEN 325 MG TAB PO PRN (15:17)
--- NOTE | 2017-08-23 15:45 | NUR ---
PATIENT LYING IN BED SLEEPING, AROUSABLE BY VOICE. NO DISTRESS NOTED. CONDITION UNCHANGED. SAFETY MEASURES IN PLACE, CALL LIGHT WITHIN REACH. WILL CONTINUE TO MONITOR.
--- NOTE | 2017-08-23 15:49 | NUR ---
07/26/17 RD FOLLOW UP COMPLETED PLEASE REFER TO NUTRITION PROGRESS NOTE UNDER CARE ACTIVITY FOR ESTIMATED NUTRITION NEEDS. RD RECOMMENDATIONS: 1. CONTINUE PUREED DIET TOLERATED. -NOTE PT CONSUMED ~50-75% OF BREKAFAST THIS MORNING, ADEQUATE TO MEET NUTRITION NEEDS. 2. IF PT CONTINUES WITH GOOD PO INTAKE, CONSIDER ADDING 2 GM NA ONTO PUREED DIET D/T PT WITH PMH OF HTN AND ELEVATED BLOOD PRESSURE. 3. RD WILL FOLLOW UP IN 3-5 DAYS; MODERATE RISK. SOFIA MCCAIN, MINERVA
[2017-08-23 16:00] VITALS: BP 154/74
--- NOTE | 2017-08-23 16:00 | NUR ---
SOFYA [employer] V60 BIPAP IN ROOM
[2017-08-23] MEDS ORDERED: Z-GUARD PASTE TP ONE (17:00)
--- NOTE | 2017-08-23 17:59 | NUR ---
PATIENT LYING IN BED TALKING WITH FAMILY MEMBERS AT BEDSIDE. NO DISTRESS NOTED. PAIN WITHIN TOLERABLE AT THIS TIME. RESPIRATIONS EVEN, UNLABORED, ON O2 3L/MIN VIA NC. CONDITION UNCHANGED. REMOVED MUSA CATHETER PER MD ORDERS. SAFETY MEASURES IN PLACE, CALL LIGHT WITHIN REACH. WILL CONTINUE TO MONITOR.
--- NOTE | 2017-08-23 18:15 | NUR ---
PATIENT LYING IN BED TALKING WITH FAMILY MEMBERS AT BEDSIDE. NO DISTRESS NOTED. PAIN WITHIN TOLERABLE AT THIS TIME. SCHEDULED ANTIBIOTIC MEDICATION DUE GIVEN. SAFETY MEASURES IN PLACE, CALL LIGHT WITHIN REACH, FALL PREVENTIONS IN PLACE. WILL CONTINUE TO MONITOR.
--- NOTE | 2017-08-23 19:20 | NUR ---
GAVE REPORT TO PROCUREMENT COST COORDINATOR NURSE FOR CONTINUITY OF CARE. PATIENT IN STABLE CONDITION.
--- NOTE | 2017-08-23 19:21 | NUR ---
PATIENT REPORT RECEIVED FROM MORNING NURSE AT BEDSIDE. PATIENT'S FAMILY PRESENT AT BEDSIDE. PATIENT IS AWAKE, ALERT, AND ORIENTED. NO SIGNS AND SYMPTOMS OF DISTRESS NOTED. NO COMPLAINTS OF PAIN AT THIS TIME. RIJ TRIPLE LUMEN NOTED WITH IVF INFUSING WELL. PATIENT ON O2 3L VIA NC. BED IN LOWEST POSITION, SIDE RAILS UP AND CALL LIGHT WITHIN REACH. WILL CONTINUE TO MONITOR.
[2017-08-23 20:00] VITALS: BP 161/81
--- NOTE | 2017-08-23 20:30 | NUR ---
PATIENT HAD A BOWEL MOVEMENT. STOOL WAS LOOSE AND BROWN, MODERATE IN AMOUNT. PERICARE DONE. PATIENT REPOSITIONED FOR COMFORT. BED IN LOWEST POSITION, SIDE RAILS UP AND CALL LIGHT WITHIN REACH. WILL CONTINUE TO MONITOR.
[2017-08-23] MEDS: SIMVASTATIN 20 MG TAB NG SCH (20:50)
[2017-08-23] MEDS: LORazepam 1 MG TAB PO PRN (21:19)
[2017-08-24] VITALS: BP 150/76
--- NOTE | 2017-08-24 | NUR ---
CHECKED ON PATIENT. PATIENT IS ASLEEP, NO SIGNS AND SYMPTOMS OF DISTRESS NOTED. BREATHING EVEN AND UNLABORED. BED IN LOWEST POSITION, SIDE RAILS UP AND CALL LIGHT WITHIN REACH. WILL CONTINUE TO MONITOR.
[2017-08-24] MEDS: CLINDAMYCIN 600 MG in DEXTROSE 5% 50 ML IV SCH ×4 (00:21→17:46)
[2017-08-24] MEDS: ALBUTEROL SULFATE/IPRATROPIU 3 ML SOL IH SCH ×6 (03:23→23:52)
[2017-08-24 04:00] VITALS: BP 158/73
[2017-08-24] MEDS: LEVOTHYROXINE 0.025 MG TAB PO SCH (06:15)
[2017-08-24 06:20] LABS: BASOPHILS # (AUTO) 0.1 K/uL (0.00-0.22); BASOPHILS % (AUTO) 2.3 % (0.0-2.0); EOSINOPHILS % (AUTO) 0.7 % (0.0-4.0); HEMATOCRIT 32.5 % (36-48); HEMOGLOBIN 10.8 g/dL (12.0-16.0); LYMPHOCYTES # (AUTO) 1.2 K/uL (2.5-16.5); LYMPHOCYTES % (AUTO) 20.4 % (20.5-51.1); MEAN CORPUSCULAR HEMOGLOBIN 28 pg (27-31); MEAN CORPUSCULAR HGB CONC 33 g/dL (33-37); MEAN CORPUSCULAR VOLUME 86 fL (80-94); MONOCYTES # (AUTO) 0.6 K/uL (0.8-1.0); MONOCYTES % (AUTO) 10.9 % (1.7-9.3); NEUTROPHILS % (AUTO) 65.7 % (42.2-75.2); PLATELET COUNT (AUTO) 172 K/uL (140-450); RED CELL DISTRIBUTION WIDTH 13.7 % (11.6-13.7); WHITE BLOOD COUNT (AUTO) 5.9 K/uL (4.8-10.8)
[2017-08-24 06:41] LABS: CARBON DIOXIDE 27.3 mmol/L (21-32); CREATININE 1.1 mg/dL (0.6-1.3); POTASSIUM 3.3 mmol/L (3.5-5.1)
[2017-08-24 06:47] LABS: MAGNESIUM 1.9 mg/dL (1.8-2.4); PHOSPHORUS 3.6 mg/dL (2.5-4.9)
--- NOTE | 2017-08-24 07:30 | NUR ---
PATIENT REPORT GIVEN TO MORNING NURSE AT BEDSIDE. PATIENT IS IN STABLE CONDITION.
--- NOTE | 2017-08-24 07:31 | NUR ---
RECEIVED REPORT FROM ELEVATOR WORKER NURSE. PATIENT IN STABLE CONDITION. NO DISTRESS NOTED. DENIES ANY PAIN AT THIS TIME. REPORTS HAVING A HEADACHE, WILL MEDICATE WILL TYLENOL. RESPIRATIONS EVEN, UNLABORED, ON O2 3L/MIN VIA NC. AAOX4, CALM, COOPERATIVE, SKIN COLOR APPROPRIATE TO ETHNICITY, WARM TO TOUCH. LUNGS DIMINISHED ON ALL LOBES. ABDOMEN SOFT, NON-DISTENDED. RIGHT NECK IJ TRIPLE LUMEN INTACT, PATENT AND INFUSING IVF PER ORDERS. REVIEWED PLAN OF CARE WITH PATIENT. PATIENT VERBALIZED UNDERSTANDING. SAFETY MEASURES IN PLACE, CALL LIGHT WITHIN REACH, FALL PREVENTIONS IN PLACE. WILL CONTINUE TO MONITOR.
[2017-08-24 08:00] VITALS: BP 180/80
[2017-08-24] MEDS ORDERED: methylPREDNISolone 4 MG TAB PO SCH (08:00)
[2017-08-24] MEDS: amLODIPine 5 MG TAB NG SCH ×2 (08:12→21:00)
[2017-08-24] MEDS: RAMIPRIL 5 MG CAP NG SCH (08:13)
[2017-08-24] MEDS: CARVEDILOL 12.5 MG TAB NG SCH ×2 (08:13→21:00)
[2017-08-24] MEDS: GABAPENTIN 100 MG CAP NG SCH ×2 (08:13→20:59)
[2017-08-24] MEDS: PANTOPRAZOLE 40 MG INJ VIAL IVP SCH (08:14)
[2017-08-24] MEDS: buPROPion 100 MG TAB NG SCH (08:14)
[2017-08-24] MEDS ORDERED: BENZOCAINE/MENTHOL 1 LOZ MM PRN (08:15)
--- NOTE | 2017-08-24 08:20 | NUR ---
PATIENT SITTING IN BED WITH BREAKFAST TRAY IN FRONT. NO DISTRESS NOTED. PAIN WITHIN TOLERABLE AT THIS TIME. RESPIRATIONS EVEN, UNLABORED, ON O2 3L/MIN VIA NC. ASSISTED KITCHEN WORKER IN CLEANING AND REPOSITIONING PATIENT. SCHEDULED MEDICATIONS DUE GIVEN. SAFETY MEASURES IN PLACE, CALL LIGHT WITHIN REACH, FALL PREVENTIONS IN PLACE. WILL CONTINUE TO MONITOR.
--- NOTE | 2017-08-24 08:36 | NUR ---
PATIENT SITTING AT BEDSIDE WITH BREAKFAST TRAY IN FRONT. NO DISTRESS NOTED. RESPIRATIONS EVEN, UNLABORED ON O2 3L/MIN VIA NC. DENIES ANY PAIN AT THIS TIME. SCHEDULED MEDICATIONS DUE GIVEN. ASSISTED COSTUME SEAMSTRESS IN CLEANING AND REPOSITIONING PATIENT. SAFETY MEASURES IN PLACE, CALL LIGHT WITHIN REACH. WILL CONTINUE TO MONITOR.
--- NOTE | 2017-08-24 09:10 | NUR ---
PT AT BESIDE PERFORMING EVALUATION WITH PATIENT. WILL CONTINUE TO MONITOR.
[2017-08-24] MEDS: NACL 0.9% 1,000 ML IV SCH (09:18)
--- NOTE | 2017-08-24 10:30 | NUR ---
PATIENT HAD 2 EPISODES OF DIARRHEA THIS MORNING. NOTIFIED DR. LI. ORDERS INPUTTED FOR ANTI-DIARRHEAL MEDICATIONS. WILL ADMINISTER PER ORDERS AND CONTINUE TO MONITOR PATIENT.
[2017-08-24] MEDS ORDERED: KCL 20 MEQ/WATER INJ PREMIX 200 ML IV ONE (10:35)
[2017-08-24] MEDS ORDERED: FUROSEMIDE 20 MG TAB PO SCH (10:36)
[2017-08-24] MEDS: LACTOBACILLUS RHAMNOSUS GG 1 EACH CAP NG SCH (10:37)
[2017-08-24] MEDS ORDERED: DIPHENOXYLATE /ATROPINE 2.5 MG TAB PO PRN (10:50)
[2017-08-24] MEDS ORDERED: POTASSIUM CHLORIDE 40 MEQ in NACL 0.9% 250 ML IV SCH (11:30)
[2017-08-24 12:00] VITALS: BP 144/73
[2017-08-24] MEDS: ONDANSETRON 4 MG/2 ML VIAL IVP PRN (12:18)
[2017-08-24] MEDS: KETOROLAC 15 MG/ML VIAL IM PRN ×2 (12:18→21:12)
--- NOTE | 2017-08-24 12:19 | NUR ---
OPTHALMIC TECH note (bedside swallow evaluation completed) [id number]. Bedside swallow evaluation completed, please see report for details. OPTHALMIC TECH provided pt and pt's daughter (at bedside) with education regarding purpose of evaluation and rationale for recommendations. Both verbalized agreement with and understanding of recommendations at this time. Recommend: 1) mechanical soft finely chopped textures (pt's baseline textures) 2) thin liquids 3) aspiration precautions (including pt must be fully awake/alert/upright for any PO intakes, alternate small/slow bites and sips, stop giving PO if pt becomes less alert/SOB/coughing) 4) no further OPTHALMIC TECH intervention indicated at this time. Physician to reorder if further concerns arise, as appropriate. G-codes: [id number] SHAHNAZ NOMS level 4. PVE for d/w RN (Dustin) prior to and following bedside swallow evaluation completion. OPTHALMIC TECH posted safe swallow strategies sign above pt's HOB.
--- NOTE | 2017-08-24 12:30 | NUR ---
PATIENT LYING IN BED TALKING WITH FAMILY MEMBERS AT BEDSIDE. NO DISTRESS NOTED. COMPLAINTS OF BACK PAIN 02/21, TORADOL VIA IM GIVEN. COMPLAINTS OF NAUSEA WITH NO VOMITING. ZOFRAN ADMINISTERED. OTHER SCHEDULED MEDICATIONS DUE GIVEN. SAFETY MEASURES IN PLACE, CALL LIGHT WITHIN REACH. WILL CONTINUE TO MONITOR.
--- NOTE | 2017-08-24 15:00 | NUR ---
PATIENT LYING IN BED SLEEPING, AROUSABLE BY VOICE. AT BEDSIDE. NO DISTRESS NOTED. CONDITION UNCHANGED. WILL CONTINUE TO MONITOR.
--- NOTE | 2017-08-24 15:11 | NUR ---
PT REFUSES HHN WANTS TO SLEEP NO DISTRESS
[2017-08-24 16:00] VITALS: BP 157/73
--- NOTE | 2017-08-24 16:30 | NUR ---
PATIENT LYING IN BED SLEEPING, AROUSABLE BY VOICE. NO DISTRESS NOTED. CONDITION UNCHANGED. WILL CONTINUE TO MONITOR.
--- NOTE | 2017-08-24 18:00 | NUR ---
PATIENT LYING IN BED TALKING WITH FAMILY MEMBERS AT BEDSIDE. NO DISTRESS NOTED. CONDITION UNCHANGED. SCHEDULED MEDICATIONS DUE GIVEN. SAFETY MEASURES IN PLACE, CALL LIGHT WITHIN REACH. WILL CONTINUE TO MONITOR.
--- NOTE | 2017-08-24 19:23 | NUR ---
GAVE REPORT TO CARTON INSPECTOR NURSE FOR CONTINUITY OF CARE. PATIENT IN STABLE CONDITION.
--- NOTE | 2017-08-24 19:25 | NUR ---
RECEIVED REPORT FROM DAY SHIFT NURSE. AAOX4. PT SITTING ON BED, EATING. FAMILY AT BEDSIDE. NO C/O PAIN. ON O2 AT AT 3L/MIN VIA NC. NO DISTRESS NOTED. PT HAS RIGHT IJ TRIPLE LUMEN, INTACT AND PATENT. DISCUSSED PLAN OF CARE, PT AND FAMILY VERBALIZED UNDERSTANDING. SAFETY AND FALL PRECAUTION IN PLACE. CALL LIGHT WITHIN REACH. WILL CONTINUE TO MONITOR.
[2017-08-24 20:00] VITALS: BP 157/79
[2017-08-24] MEDS: SIMVASTATIN 20 MG TAB NG SCH (21:00)
--- NOTE | 2017-08-24 22:45 | NUR ---
PT C/O OF FEELING WARM. CHECKED V/S, WITHIN NORMAL LIMITS. PT ASKED FOR ICE CHIPS. WILL CONTINUE TO MONITOR. CALL LIGHT WITHIN REACH.
--- NOTE | 2017-08-24 23:15 | NUR ---
PT STATED SHE FEELS BETTER. PT LYING COMFORTABLY IN BED, WATCHING TV. ALL NEEDS MET AT THIS TIME. CALL LIGHT WITHIN REACH.
[2017-08-25] VITALS: BP 160/76
[2017-08-25] MEDS: CLINDAMYCIN 600 MG in DEXTROSE 5% 50 ML IV SCH ×5 (00:32→23:27)
[2017-08-25] MEDS: ALBUTEROL SULFATE/IPRATROPIU 3 ML SOL IH SCH ×6 (03:00→23:00)
--- NOTE | 2017-08-25 03:05 | NUR ---
PT SLEEPING. NO S/S OF DISTRESS NOTED. CALL LIGHT WITHIN REACH.
[2017-08-25 04:00] VITALS: BP 159/82
--- NOTE | 2017-08-25 05:10 | NUR ---
PT IN BED, AWAKE. NO C/O PAIN OR DISCOMFORT. ALL NEEDS MET AT THIS TIME. CALL LIGHT WITHIN REACH
[2017-08-25 06:34] LABS: BASOPHILS # (AUTO) 0.2 K/uL (0.00-0.22); BASOPHILS % (AUTO) 2.4 % (0.0-2.0); EOSINOPHILS # (AUTO) 0.2 K/uL (0-0.4); EOSINOPHILS % (AUTO) 2.1 % (0.0-4.0); HEMATOCRIT 34.6 % (36-48); HEMOGLOBIN 11.6 g/dL (12.0-16.0); LYMPHOCYTES # (AUTO) 1.5 K/uL (2.5-16.5); LYMPHOCYTES % (AUTO) 20.7 % (20.5-51.1); MEAN CORPUSCULAR HEMOGLOBIN 28 pg (27-31); MEAN CORPUSCULAR HGB CONC 33 g/dL (33-37); MEAN CORPUSCULAR VOLUME 85 fL (80-94); MONOCYTES # (AUTO) 0.7 K/uL (0.8-1.0); MONOCYTES % (AUTO) 10.2 % (1.7-9.3); NEUTROPHILS # (AUTO) 4.7 K/uL (1.8-7.7); NEUTROPHILS % (AUTO) 64.6 % (42.2-75.2); PLATELET COUNT (AUTO) 188 K/uL (140-450); RED BLOOD CELL COUNT(AUTO) 4.07 MIL/uL (4.20-5.40); WHITE BLOOD COUNT (AUTO) 7.3 K/uL (4.8-10.8)
[2017-08-25] MEDS: LEVOTHYROXINE 0.025 MG TAB PO SCH (06:35)
[2017-08-25 06:50] LABS: ANION GAP 9.2 (8-16); CARBON DIOXIDE 29.9 mmol/L (21-32); POTASSIUM 3.1 mmol/L (3.5-5.1)
--- NOTE | 2017-08-25 07:10 | NUR ---
RECEIVED REPORT FROM TELECOM SPECIALIST RN. PATIENT AAOX4, HAS NASAL CANNULA AT 3L, NO SIGNS AND SYMPTOMS OF ACUTE DISTRESS NOTED AT THIS TIME. HAS RIGHT IJ TRIPLE LUMEN, INFUSING NS AT 10 ML/HR. SITE IS CLEAN, DRY, PATENT AND INTACT. PATIENT USES BEDPAN. BED IN LOWEST POSITION, SIDERAILS UP X2, CALL LIGHT PLACED WITHIN REACH. SAFETY PRECAUTIONS IN PLACE. WILL CONTINUE TO MONITOR.
--- NOTE | 2017-08-25 07:20 | NUR ---
ENDORSED PT TO DAY SHIFT NURSE. PT IN STABLE CONDITION.
[2017-08-25 08:00] VITALS: BP 197/84
[2017-08-25] MEDS ORDERED: methylPREDNISolone 4 MG TAB PO SCH (08:00)
[2017-08-25] MEDS: FUROSEMIDE 20 MG TAB PO SCH (08:56)
[2017-08-25] MEDS: GABAPENTIN 100 MG CAP NG SCH ×2 (08:56→20:25)
[2017-08-25] MEDS: CARVEDILOL 12.5 MG TAB NG SCH ×2 (08:57→20:25)
[2017-08-25] MEDS: RAMIPRIL 5 MG CAP NG SCH (08:58)
[2017-08-25] MEDS: LACTOBACILLUS RHAMNOSUS GG 1 EACH CAP NG SCH (08:58)
[2017-08-25] MEDS: buPROPion 100 MG TAB NG SCH (08:58)
[2017-08-25] MEDS: PANTOPRAZOLE 40 MG INJ VIAL IVP SCH (08:59)
[2017-08-25] MEDS: LEVOFLOXACIN 750 MG/D5W PREMIX 150 ML IV SCH (09:00)
[2017-08-25] MEDS: amLODIPine 5 MG TAB NG SCH ×2 (09:05→20:25)
[2017-08-25] MEDS: NACL 0.9% 1,000 ML IV SCH (09:18)
--- NOTE | 2017-08-25 10:47 | NUR ---
PT REFUSED BREATHING TX WANTS TO TRY TO SLEEP WILL CALL IF SHE NEEDS ONE NO SIGNS OF DISTRESS NOTED AT THIS TIME
[2017-08-25 12:00] VITALS: BP 175/74
--- NOTE | 2017-08-25 12:10 | NUR ---
ENDORSED PATIENT TO OSITO RANGEL FOR CONTINUITY OF CARE. PATIENT IN STABLE CONDITION.
--- NOTE | 2017-08-25 13:00 | NUR ---
PATIENT SEEN BY DR DAWKINS
--- NOTE | 2017-08-25 13:09 | NUR ---
MADE DR LI AWARE OF PATIENTS POTASSIUM LEVEL.
--- NOTE | 2017-08-25 14:45 | NUR ---
MADE DR LI AWARE OF PATIENT'S BP AND POTASSIUM LEVEL OF 3.1
[2017-08-25] MEDS: hydrALAZINE 20 MG/ML VIAL IVP PRN (14:58)
[2017-08-25 16:00] VITALS: BP 127/80
[2017-08-25] MEDS ORDERED: KCL 20 MEQ/WATER INJ PREMIX 200 ML IV ONE (16:10)
[2017-08-25] MEDS ORDERED: POTASSIUM CHLORIDE 20% 40 MEQ/15 ML UDC PO ONE (16:40)
[2017-08-25] MEDS ORDERED: POTASSIUM CHLORIDE 20% 40 MEQ/15 ML UDC PO SCH (17:00)
[2017-08-25] MEDS: ONDANSETRON 4 MG/2 ML VIAL IVP PRN (18:03)
--- NOTE | 2017-08-25 19:19 | NUR ---
PATIENT REPORT GIVEN AT BEDSIDE. PATIENT ENDORSED IN STABLE CONDITION
--- NOTE | 2017-08-25 19:20 | NUR ---
RECEIVED PT AWAKE TALKING TO FAMILY MEMBERS AT BEDSIDE, VITAL SIGNS STABLE, BP SLIGHTLY ELEVATED, WILL GIVE DUE BP MEDICATIONS, ASYMPTOMATIC, DENIES ANY PAIN, NO SOB NOTED, ON O2 AT 2L/NC, BREATHING TX PER RT, CVP TO RT IJ INTACT WITH IVF AT TKO RATE, PLAN OF CARE DISCUSS, SAFETY MEASURES IN PLACE, CALL LIGHT WITHIN REACH.
[2017-08-25 20:00] VITALS: BP 159/82
[2017-08-25] MEDS: SIMVASTATIN 20 MG TAB NG SCH (20:25)
[2017-08-25] MEDS: RAMIPRIL 5 MG CAP PO SCH (20:26)
[2017-08-25] MEDS: LORazepam 1 MG TAB PO PRN (21:42)
--- NOTE | 2017-08-25 21:45 | NUR ---
BEDPAN PROVIDED, MODERATE BROWNISH LOOSE STOOL NOTED, PER PT DUE TO HER HX OF IBS, PERINEAL CARE DONE, MEDICATED WITH ATIVAN PO PRN FOR ANXIETY, MONITORED CLOSELY.
--- NOTE | 2017-08-25 23:40 | NUR ---
PT SLEEPING, EASILY AROUSABLE, VITAL SIGNS TAKEN, BP SLIGHTLY ELEVATED, ASYMPTOMATIC, DENIES ANY PAIN, NO SOB NOTED, IV ANTIBIOTIC ADMINISTERED, CONTINUE TO MONITOR CLOSELY.
[2017-08-26] VITALS: BP 153/80
[2017-08-26] MEDS: ALBUTEROL SULFATE/IPRATROPIU 3 ML SOL IH SCH ×4 (03:00→15:24)
--- NOTE | 2017-08-26 03:27 | NUR ---
PT REQUESTED TO BE LEFT ALONE TO REST IF FOUND SLEEPING, HHN TX NOT GIVEN AT THIS TIME, RAN MCNEILL AWARE, WILL RESUME WITH NEXT SCHEDULED TX.
--- NOTE | 2017-08-26 03:35 | NUR ---
PT PROVIDED WITH BEDPAN, VOIDED FREELY, KEEP CLEAN AND DRY, PT WANTS TO TAKE A BREAK FROM SCD'S FOR NOW, WILL RESUME LATER, VITAL SIGNS STABLE, DENIES ANY PAIN AND SOB, MONITORED CLOSELY.
[2017-08-26 04:00] VITALS: BP 143/71
[2017-08-26] MEDS: LEVOTHYROXINE 0.025 MG TAB PO SCH (05:43)
[2017-08-26] MEDS: CLINDAMYCIN 600 MG in DEXTROSE 5% 50 ML IV SCH ×2 (05:47→13:50)
--- NOTE | 2017-08-26 05:50 | NUR ---
AM LABS DRAWN VIA RT IJ CVP LINE WITH GOOD BLOOD RETURN, DUE PO MEDICATION TAKEN, NO DISTRESS NOTED, MONITORED CLOSELY.
--- NOTE | 2017-08-26 07:30 | NUR ---
PT AWAKE, NO SIGNS OF DISTRESS, REPORT GIVEN TO OSITO ABDALLA FOR CONTINUITY OF CARE.
[2017-08-26 07:39] LABS: BASOPHILS # (AUTO) 0.1 K/uL (0.00-0.22); BASOPHILS % (AUTO) 2.3 % (0.0-2.0); EOSINOPHILS # (AUTO) 0.1 K/uL (0-0.4); EOSINOPHILS % (AUTO) 2.5 % (0.0-4.0); HEMATOCRIT 32.1 % (36-48); HEMOGLOBIN 10.7 g/dL (12.0-16.0); LYMPHOCYTES # (AUTO) 1.1 K/uL (2.5-16.5); LYMPHOCYTES % (AUTO) 20.3 % (20.5-51.1); MEAN CORPUSCULAR HEMOGLOBIN 28 pg (27-31); MEAN CORPUSCULAR HGB CONC 33 g/dL (33-37); MEAN CORPUSCULAR VOLUME 84 fL (80-94); MONOCYTES # (AUTO) 0.6 K/uL (0.8-1.0); MONOCYTES % (AUTO) 10.4 % (1.7-9.3); NEUTROPHILS # (AUTO) 3.8 K/uL (1.8-7.7); NEUTROPHILS % (AUTO) 64.5 % (42.2-75.2); PLATELET COUNT (AUTO) 158 K/uL (140-450); RED CELL DISTRIBUTION WIDTH 13.4 % (11.6-13.7); WHITE BLOOD COUNT (AUTO) 5.7 K/uL (4.8-10.8)
[2017-08-26 08:00] VITALS: BP 163/80
[2017-08-26] MEDS ORDERED: methylPREDNISolone 4 MG TAB PO SCH (08:00)
--- NOTE | 2017-08-26 08:00 | NUR ---
PT IN BED AWAKE ALERT AND ORIENTED X4. NO PAIN OR RESP DISTRESS, PT IS ABLE TO MAKE NEEDS KNOWN WELL. MOVING ALL EXT WELL IN BED. PT IS SATURATING AT 98% ON ROOM AIR. V.\/S STABLE.
--- NOTE | 2017-08-26 08:05 | NUR ---
REVIEWED PATIENT REFUSAL OF CPAP USAGE SINCE 08/22/[address] FRANCISCO MARTINEZ MD OK TO DC USE Addendum: 08/26/17 at 0809 by Noé Parker RT STATES "THAT'S FINE"
[2017-08-26 08:06] LABS: ANION GAP 11.4 (8-16); CARBON DIOXIDE 28.1 mmol/L (21-32); CREATININE 1.1 mg/dL (0.6-1.3); POTASSIUM 3.5 mmol/L (3.5-5.1)
[2017-08-26] MEDS: PANTOPRAZOLE 40 MG INJ VIAL IVP SCH (09:49)
[2017-08-26] MEDS: GABAPENTIN 100 MG CAP NG SCH (09:50)
[2017-08-26] MEDS: LACTOBACILLUS RHAMNOSUS GG 1 EACH CAP NG SCH (09:50)
[2017-08-26] MEDS: CARVEDILOL 12.5 MG TAB NG SCH (09:50)
[2017-08-26] MEDS: buPROPion 100 MG TAB NG SCH (09:51)
[2017-08-26] MEDS: amLODIPine 5 MG TAB NG SCH (09:51)
[2017-08-26] MEDS: RAMIPRIL 5 MG CAP PO SCH (09:52)
[2017-08-26] MEDS: FUROSEMIDE 20 MG TAB PO SCH (09:52)
--- NOTE | 2017-08-26 11:35 | NUR ---
PATIENT REQUEST HHN THERAPY AT A LATER TIME FAMILY AT BEDSIDE NO EVIDENCE OF PULMONARY DISTRESS NOTED
[2017-08-26 12:00] VITALS: BP 152/88
[2017-08-26] MEDS ORDERED: RAMI5CAP1 PO (12:52)
[2017-08-26] MEDS ORDERED: AMLO2.5T PO (12:53)
--- NOTE | 2017-08-26 13:15 | NUR ---
PT IN BED TALKING TO HER . NO ACUTE DISTRESS OR ANY CONDITION CHANGES NOTED. 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
--- NOTE | 2017-08-26 17:40 | NUR ---
DISCHARGE EDUCATION ON MEDICATIONS, F/U WITH MD, SAFETY, WHEN TO BRING PT BACK TO ED AND OR CALL PCP PROVIDED TO PT,PT'S DAUGHTER AND PT'S . VERBAL UNDERSTANDING RECEIVED BACK. RIJ CENTRAL LINE DC WITHOUT ANY DIFFICULTY. LINE WAS INTACT, NO BLEEDING NOTED AT THE SITE. PT DC VIA WC AND WAS ACCOMPANIED BY HER FAMILY.
[2017-08-27] MEDS ORDERED: LEVOFLOXACIN 750 MG/D5W PREMIX 150 ML IV SCH (09:00)
== END 2017-08-26 17:10 | disposition home or self-care (01) | DRG 870 ==
LOC: MED 04:05 → MIC 06:27 → MTU 08-23 11:01
PROVIDERS: ADMIT Family Medicine; ATTEND Family Medicine
PROC: 5A1955Z Respiratory Ventilation, Greater than 96 Consecutive Hours (ICD-10-PCS; principal; 2017-08-17)
PROC: 0BH17EZ Insertion of Endotracheal Airway into Trachea, Via Natural or Artificial Opening (ICD-10-PCS; 2017-08-17)
PROC: 02HV33Z Insertion of Infusion Device into Superior Vena Cava, Percutaneous Approach (ICD-10-PCS; 2017-08-17)
PROC: B548ZZA Ultrasonography of Superior Vena Cava, Guidance (ICD-10-PCS; 2017-08-17)
PROC: 5A1935Z Respiratory Ventilation, Less than 24 Consecutive Hours (ICD-10-PCS; 2017-08-17)
DX: A41.9 Sepsis, unspecified organism (principal); J96.01 Acute respiratory failure with hypoxia; N17.0 Acute kidney failure with tubular necrosis; J69.0 Pneumonitis due to inhalation of food and vomit; R65.21 Severe sepsis with septic shock; E83.39 Other disorders of phosphorus metabolism; M41.9 Scoliosis, unspecified; I50.43 Acute on chronic combined systolic (congestive) and diastolic (congestive) heart failure; I69.354 Hemiplegia and hemiparesis following cerebral infarction affecting left non-dominant side; J44.1 Chronic obstructive pulmonary disease with (acute) exacerbation; J84.9 Interstitial pulmonary disease, unspecified; I13.0 Hypertensive heart and chronic kidney disease with heart failure and stage 1 through stage 4 chronic kidney disease, or unspecified chronic kidney disease; L03.115 Cellulitis of right lower limb; E78.5 Hyperlipidemia, unspecified; K21.9 Gastro-esophageal reflux disease without esophagitis; E83.42 Hypomagnesemia; E87.6 Hypokalemia; K58.9 Irritable bowel syndrome, unspecified; R31.9 Hematuria, unspecified; E11.51 Type 2 diabetes mellitus with diabetic peripheral angiopathy without gangrene; E11.22 Type 2 diabetes mellitus with diabetic chronic kidney disease; J98.4 Other disorders of lung; E02 Subclinical iodine-deficiency hypothyroidism; M81.0 Age-related osteoporosis without current pathological fracture; N18.9 Chronic kidney disease, unspecified; K59.00 Constipation, unspecified; L85.3 Xerosis cutis; Z96.652 Presence of left artificial knee joint; R74.8 Abnormal levels of other serum enzymes; H26.9 Unspecified cataract; F32.9 Major depressive disorder, single episode, unspecified; M79.7 Fibromyalgia; Z88.6 Allergy status to analgesic agent; Z88.8 Allergy status to other drugs, medicaments and biological substances; Z88.4 Allergy status to anesthetic agent; Z88.1 Allergy status to other antibiotic agents; Z91.041 Radiographic dye allergy status; Z79.899 Other long term (current) drug therapy; Z85.44 Personal history of malignant neoplasm of other female genital organs; Z87.891 Personal history of nicotine dependence; Z90.49 Acquired absence of other specified parts of digestive tract; Z90.710 Acquired absence of both cervix and uterus; Z86.19 Personal history of other infectious and parasitic diseases; Z82.49 Family history of ischemic heart disease and other diseases of the circulatory system; Z83.3 Family history of diabetes mellitus
CPT/HCPCS: 31500; 36415; 36600; 51702; 71010; 80048; 80053; 80305; 81001; 82803; 83036; 83605; 83735; 83880; 84100; 84439; 84443; 84484; 85025; 85379; 85610; 85730; 87040; 87070; 87081; 87086; 87186; 87205; 89220; 92610; 93005; 93925; 93970; 93976; 94002; 94003; 94640; 96365; 96367; 96375; 97140; 97799; 99291; C9113; J0330; J0360; J1200; J1642; J1644; J1885; J1940; J1956; J2001; J2250; J2270; J2405; J2543; J2704; J2920; J2930; J3370; J3475; J3480; J3490; J7030; J7060; J7509; J7620; Q0092

== ENCOUNTER 2017-09-26 03:17 | Inpatient (IN) | payer OTHER ==
[2017-09-26] VITALS (9 sets, daily range): BP systolic 143–241; BP diastolic 71–152
[~2017-09-26] VITALS: Ht 154.9 cm; Wt 39.9 kg
[~2017-09-26 03:17] MED LIST changes: +BEN50 PO; -BUPR-10 PO; +BUPR100T8 PO; +CARV25TA PO; +CILO100T PO; -METO25TA PO; +MIRA25TE PO; +RAMI5CAP1 PO; +TEMA15CA24 PO; +TRAZ-286 PO; -TRAZ-307 PO; +VITA1TAB44 PO
[2017-09-26] MEDS ORDERED: NACL 0.9% 500 ML IV ONE ×2 (03:20)
[2017-09-26] MEDS ORDERED: AMOX1TAB8 PO (03:29)
[2017-09-26] MEDS ORDERED: CEFD300C3 PO (03:29)
[2017-09-26] MEDS ORDERED: ALBUTEROL SULFATE/IPRATROPIU 3 ML SOL IH ONE (03:30)
[2017-09-26 04:00] LABS: BASOPHILS # (AUTO) 0.2 K/uL (0.00-0.22); BASOPHILS % (AUTO) 1.2 % (0.0-2.0); EOSINOPHILS # (AUTO) 0.1 K/uL (0-0.4); EOSINOPHILS % (AUTO) 0.7 % (0.0-4.0); HEMOGLOBIN 11.6 g/dL (12.0-16.0); LYMPHOCYTES # (AUTO) 1.2 K/uL (2.5-16.5); LYMPHOCYTES % (AUTO) 9.5 % (20.5-51.1); MEAN CORPUSCULAR HEMOGLOBIN 28 pg (27-31); MEAN CORPUSCULAR HGB CONC 33 g/dL (33-37); MEAN CORPUSCULAR VOLUME 86 fL (80-94); MONOCYTES # (AUTO) 0.5 K/uL (0.8-1.0); MONOCYTES % (AUTO) 3.9 % (1.7-9.3); NEUTROPHILS # (AUTO) 11.1 K/uL (1.8-7.7); PLATELET COUNT (AUTO) 214 K/uL (140-450); RED BLOOD CELL COUNT(AUTO) 4.08 MIL/uL (4.20-5.40); RED CELL DISTRIBUTION WIDTH 14.7 % (11.6-13.7); WHITE BLOOD COUNT (AUTO) 13.1 K/uL (4.8-10.8)
[2017-09-26] MEDS ORDERED: CLINDAMYCIN 900 MG in DEXTROSE 5% 100 ML IV ONE (04:05)
[2017-09-26 04:15] LABS: NEUTROPHILS % (AUTO) 84.7 % (42.2-75.2)
[2017-09-26] MEDS ORDERED: CLINDAMYCIN 900 MG/6 ML VIAL IV ONE (04:16)
[2017-09-26 04:21] LABS: ANION GAP 17.5 (8-16); CARBON DIOXIDE 24.6 mmol/L (21-32); CREATININE 1.6 mg/dL (0.6-1.3); POTASSIUM 4.1 mmol/L (3.5-5.1)
[2017-09-26 04:30] LABS: ALBUMIN 3.6 g/dL (3.4-5.0); TOTAL BILIRUBIN 0.3 mg/dL (0.0-1.0)
[2017-09-26 04:32] LABS: PROTHROMBIN TIME 11.1 secs (10.8-13.4)
[2017-09-26] MEDS ORDERED: cloNIDine 0.1 MG TAB PO ONE (04:35)
[2017-09-26] MEDS ORDERED: ENOXAPARIN 40 MG/0.4 ML SYR SUBQ ONE (04:50)
[2017-09-26] MEDS ORDERED: CLOPIDOGREL 75 MG TAB PO ONE (04:50)
[2017-09-26 04:51] LABS: BILIRUBIN,URINE NEGATIVE (NEGATIVE); BLOOD, URINE TRACE-I (NEGATIVE); COLOR,URINE YELLOW (YELLOW); LEUKOCYTE ESTERASE ,URINE NEGATIVE (NEGATIVE); NITRITE, URINE NEGATIVE (NEGATIVE); PH,URINE 6.5 (5.0-9.0); UGLUCOSE NEGATIVE (NEGATIVE)
[2017-09-26] MEDS ORDERED: NACL 0.9% 1,000 ML IV SCH (04:58)
[2017-09-26] MEDS ORDERED: ZOLPIDEM 5 MG TAB PO PRN (05:00)
[2017-09-26] MEDS ORDERED: DOCUSATE SODIUM 100 MG GELCAP PO PRN (05:00)
[2017-09-26] MEDS ORDERED: ONDANSETRON 4 MG/2 ML VIAL IM/IVP PRN (05:00)
[2017-09-26] MEDS ORDERED: ALBUTEROL SULFATE/IPRATROPIU 3 ML SOL IH PRN (05:00)
[2017-09-26 05:14] LABS: APPEARANCE,URINE SLIGHTLY HAZY (CLEAR); RBC,URINE 0-5 (RARE) /HPF (0-5)
[2017-09-26] MEDS ORDERED: PIPERACILLIN/TAZOBACTAM 3.375 GM in DEXTROSE 5% 50 ML IV ONE (05:15)
[2017-09-26 05:16] LABS: HYALINE CASTS, URINE 0-10 /LPF (None Seen); YEAST,URINE Rare /HPF (None Seen)
[2017-09-26] MEDS ORDERED: PIPERACILLIN/TAZOBACTAM 3.375 GM VIAL IV ONE (05:17)
[2017-09-26] MEDS ORDERED: hydrALAZINE 20 MG/ML VIAL IVP ONE (05:30)
[2017-09-26] MEDS ORDERED: diphenhydrAMINE 50 MG CAP PO PRN (06:25)
[2017-09-26] MEDS ORDERED: LORazepam 0.5 MG TAB PO PRN (06:25)
[2017-09-26] MEDS ORDERED: TEMAZEPAM 15 MG CAP PO PRN (06:25)
[2017-09-26 06:37] LABS: CHOL/HDL RATIO 2.4 (1-4.5); FREE T4 (FREE THYROXINE) 0.98 ng/dL (0.76-1.46); MAGNESIUM 1.7 mg/dL (1.8-2.4); PHOSPHORUS 5.4 mg/dL (2.5-4.9); THYROID STIMULATING HORMONE 12.28 uIU/mL (0.34-3.74)
[2017-09-26] MEDS: ALBUTEROL SULFATE/IPRATROPIU 3 ML SOL IH SCH ×4 (06:39→23:25)
[2017-09-26] MEDS: BUDESONIDE 0.5 MG/2 ML NEBU INH SCH ×2 (06:40→19:10)
[2017-09-26 07:27] LABS: BARBITURATE, URINE NEG. ng/ml (NEG <=200); BENZODIAZEPINE, URINE NEG. ng/mL (NEG <=200); CANNABINOID, URINE NEG. ng/mL (NEG <=50); COCAINE, URINE NEG. ng/mL (NEG <=300); OPIATE, URINE NEG. ng/mL (NEG <=2000); PHENCYCLIDINE SCREEN,URINE NEG. ng/mL (NEG <=25)
[2017-09-26] MEDS: CILOSTAZOL 100 MG TAB PO SCH ×2 (09:55→20:44)
[2017-09-26] MEDS: CARVEDILOL 12.5 MG TAB PO SCH ×2 (09:56→20:43)
[2017-09-26] MEDS: buPROPion 100 MG TAB PO SCH (09:56)
[2017-09-26] MEDS: GABAPENTIN 100 MG CAP PO SCH (09:56)
[2017-09-26] MEDS: RAMIPRIL 5 MG CAP PO SCH ×2 (09:56→20:43)
[2017-09-26] MEDS ORDERED: MAG SULF 2000 MG/WATER PREMIX 50 ML IV SCH (10:14)
[2017-09-26] MEDS ORDERED: CALCIUM ACETATE 667 MG TAB PO SCH (10:23)
[2017-09-26] MEDS: CALCIUM ACETATE 667 MG TAB PO SCH ×2 (12:14→17:58)
[2017-09-26] MEDS ORDERED: [UNRECOGNIZED DRUG - OTHER] PO SCH (12:21)
[2017-09-26] MEDS: PIPER/TAZO 2.25GM/D5W PREMIX 50 ML IV SCH ×2 (13:02→18:00)
[2017-09-26] MEDS ORDERED: hePARIN / DEXT 5% PREMIX 250 ML IV SCH (14:30)
[2017-09-26] MEDS ORDERED: HEPARIN PER PHARMACY MC PRN (14:30)
[2017-09-26] MEDS: hePARIN / DEXT 5% PREMIX 250 ML IV SCH ×2 (15:56→23:53)
[2017-09-26] MEDS: NACL 0.45% 1,000 ML IV SCH ×2 (19:45→19:46)
[2017-09-26] MEDS: traZODone 50 MG TAB PO SCH (20:44)
[2017-09-26] MEDS: SIMVASTATIN 20 MG TAB PO SCH (20:44)
[2017-09-26] MEDS ORDERED: LORazepam 2 MG/ML VIAL IM/IVP PRN (23:20)
[2017-09-26] MEDS ORDERED: hydrALAZINE 20 MG/ML VIAL IVP PRN (23:30)
[2017-09-27] VITALS (11 sets, daily range): BP systolic 0–182; BP diastolic 0–98
[2017-09-27] MEDS: PIPER/TAZO 2.25GM/D5W PREMIX 50 ML IV SCH ×4 (00:32→18:21)
[2017-09-27] MEDS: NACL 0.45% 1,000 ML IV SCH ×3 (02:04→18:21)
[2017-09-27 07:50] LABS: ANION GAP 14.6 (8-16); CARBON DIOXIDE 22.4 mmol/L (21-32); CREATININE 1.3 mg/dL (0.6-1.3)
[2017-09-27 08:00] LABS: MAGNESIUM 1.7 mg/dL (1.8-2.4); PHOSPHORUS 3.6 mg/dL (2.5-4.9)
[2017-09-27] MEDS: BUDESONIDE 0.5 MG/2 ML NEBU INH SCH ×2 (08:09→19:48)
[2017-09-27] MEDS: CALCIUM ACETATE 667 MG TAB PO SCH (09:28)
[2017-09-27] MEDS: buPROPion 100 MG TAB PO SCH (09:28)
[2017-09-27] MEDS: GABAPENTIN 100 MG CAP PO SCH (09:28)
[2017-09-27] MEDS: CILOSTAZOL 100 MG TAB PO SCH ×2 (09:28→21:31)
[2017-09-27] MEDS: CARVEDILOL 12.5 MG TAB PO SCH ×2 (09:29→19:53)
[2017-09-27] MEDS: MIRABEGRON 25 MG PO SCH (09:30)
[2017-09-27] MEDS: hePARIN / DEXT 5% PREMIX 250 ML IV SCH ×2 (09:36→23:00)
[2017-09-27] MEDS: RAMIPRIL 5 MG CAP PO SCH ×2 (09:47→19:54)
[2017-09-27 10:20] LABS: BASOPHILS # (AUTO) 0.2 K/uL (0.00-0.22); EOSINOPHILS # (AUTO) 0.1 K/uL (0-0.4); EOSINOPHILS % (AUTO) 2.1 % (0.0-4.0); HEMATOCRIT 26.7 % (36-48); HEMOGLOBIN 8.8 g/dL (12.0-16.0); LYMPHOCYTES # (AUTO) 1.2 K/uL (2.5-16.5); LYMPHOCYTES % (AUTO) 32.9 % (20.5-51.1); MEAN CORPUSCULAR HEMOGLOBIN 28 pg (27-31); MEAN CORPUSCULAR HGB CONC 33 g/dL (33-37); MEAN CORPUSCULAR VOLUME 84 fL (80-94); MONOCYTES # (AUTO) 0.4 K/uL (0.8-1.0); MONOCYTES % (AUTO) 10.5 % (1.7-9.3); NEUTROPHILS # (AUTO) 1.9 K/uL (1.8-7.7); NEUTROPHILS % (AUTO) 50.5 % (42.2-75.2); PLATELET COUNT (AUTO) 98 K/uL (140-450); RED CELL DISTRIBUTION WIDTH 14.2 % (11.6-13.7)
[2017-09-27] MEDS ORDERED: POTASSIUM CHLORIDE 10 MEQ TABER PO SCH (10:43)
[2017-09-27] MEDS ORDERED: MAG SULF 2000 MG/WATER PREMIX 50 ML IV SCH (10:43)
[2017-09-27 10:52] LABS: WHITE BLOOD COUNT (AUTO) 3.8 K/uL (4.8-10.8)
[2017-09-27] MEDS: ALBUTEROL SULFATE/IPRATROPIU 3 ML SOL IH SCH ×2 (12:52→19:48)
[2017-09-27 15:07] LABS: T4 (THYROXINE) 9.5 ug/dL (4.5-12.0)
[2017-09-27 15:24] LABS: BASOPHILS # (AUTO) 0.1 K/uL (0.00-0.22); BASOPHILS % (AUTO) 1.7 % (0.0-2.0); EOSINOPHILS # (AUTO) 0.1 K/uL (0-0.4); EOSINOPHILS % (AUTO) 2.3 % (0.0-4.0); HEMATOCRIT 27.4 % (36-48); HEMOGLOBIN 8.8 g/dL (12.0-16.0); LYMPHOCYTES % (AUTO) 26.1 % (20.5-51.1); MEAN CORPUSCULAR HEMOGLOBIN 28 pg (27-31); MEAN CORPUSCULAR HGB CONC 32 g/dL (33-37); MEAN CORPUSCULAR VOLUME 86 fL (80-94); MONOCYTES # (AUTO) 0.3 K/uL (0.8-1.0); MONOCYTES % (AUTO) 9.5 % (1.7-9.3); NEUTROPHILS # (AUTO) 2.2 K/uL (1.8-7.7); NEUTROPHILS % (AUTO) 60.4 % (42.2-75.2); PLATELET COUNT (AUTO) 101 K/uL (140-450); RED BLOOD CELL COUNT(AUTO) 3.19 MIL/uL (4.20-5.40); RED CELL DISTRIBUTION WIDTH 14.2 % (11.6-13.7); WHITE BLOOD COUNT (AUTO) 3.7 K/uL (4.8-10.8)
[2017-09-27] MEDS ORDERED: BENZOCAINE/MENTHOL 1 LOZ MM PRN (17:10)
[2017-09-27] MEDS: traZODone 50 MG TAB PO SCH (21:30)
[2017-09-27] MEDS: SIMVASTATIN 20 MG TAB PO SCH (21:31)
[2017-09-27] MEDS: LORazepam 2 MG/ML VIAL IM/IVP SCH (23:55)
[2017-09-27] MEDS: hydrALAZINE 20 MG/ML VIAL IVP SCH (23:55)
[2017-09-28] VITALS (8 sets, daily range): BP systolic 0–194; BP diastolic 0–95
[2017-09-28] MEDS: LORazepam 2 MG/ML VIAL IM/IVP SCH (00:05)
[2017-09-28] MEDS: PIPER/TAZO 2.25GM/D5W PREMIX 50 ML IV SCH ×5 (00:06→23:26)
[2017-09-28] MEDS: hydrALAZINE 20 MG/ML VIAL IVP SCH (00:06)
[2017-09-28] MEDS: NACL 0.45% 1,000 ML IV SCH (01:09)
[2017-09-28] MEDS ORDERED: METOPROLOL 25 MG TAB PO SCH (03:40)
[2017-09-28] MEDS: LORazepam 0.5 MG TAB PO PRN (03:59)
[2017-09-28 05:09] LABS: BASOPHILS # (AUTO) 0.1 K/uL (0.00-0.22); BASOPHILS % (AUTO) 1.7 % (0.0-2.0); EOSINOPHILS # (AUTO) 0.1 K/uL (0-0.4); EOSINOPHILS % (AUTO) 2.4 % (0.0-4.0); HEMATOCRIT 30.4 % (36-48); HEMOGLOBIN 9.7 g/dL (12.0-16.0); LYMPHOCYTES # (AUTO) 1.5 K/uL (2.5-16.5); LYMPHOCYTES % (AUTO) 30.5 % (20.5-51.1); MEAN CORPUSCULAR HEMOGLOBIN 27 pg (27-31); MEAN CORPUSCULAR HGB CONC 32 g/dL (33-37); MEAN CORPUSCULAR VOLUME 85 fL (80-94); MONOCYTES # (AUTO) 0.4 K/uL (0.8-1.0); MONOCYTES % (AUTO) 9.2 % (1.7-9.3); NEUTROPHILS # (AUTO) 2.8 K/uL (1.8-7.7); NEUTROPHILS % (AUTO) 56.2 % (42.2-75.2); PLATELET COUNT (AUTO) 119 K/uL (140-450); RED BLOOD CELL COUNT(AUTO) 3.56 MIL/uL (4.20-5.40); RED CELL DISTRIBUTION WIDTH 14.1 % (11.6-13.7); WHITE BLOOD COUNT (AUTO) 4.9 K/uL (4.8-10.8)
[2017-09-28 05:24] LABS: ANION GAP 14.1 (8-16); CARBON DIOXIDE 22.4 mmol/L (21-32); CREATININE 1.3 mg/dL (0.6-1.3); POTASSIUM 3.5 mmol/L (3.5-5.1)
[2017-09-28 05:29] LABS: MAGNESIUM 1.8 mg/dL (1.8-2.4); PHOSPHORUS 3.4 mg/dL (2.5-4.9)
[2017-09-28] MEDS ORDERED: hydrALAZINE 20 MG/ML VIAL IVP SCH ×2 (05:45→06:30)
[2017-09-28] MEDS: BUDESONIDE 0.5 MG/2 ML NEBU INH SCH ×2 (06:09→19:22)
[2017-09-28] MEDS: ALBUTEROL SULFATE/IPRATROPIU 3 ML SOL IH SCH ×3 (06:09→19:22)
[2017-09-28] MEDS ORDERED: NITROGLYCERIN 0.4 MG TAB SL SCH (06:15)
[2017-09-28] MEDS ORDERED: NITROGLYCERIN 0.4 MG TAB SL ONE (06:20)
[2017-09-28] MEDS: hePARIN / DEXT 5% PREMIX 250 ML IV SCH (06:21)
[2017-09-28] MEDS ORDERED: MORPHINE SULFATE 2 MG/ML SYR IVP PRN (06:30)
[2017-09-28] MEDS ORDERED: FUROSEMIDE 40 MG TAB PO SCH (06:50)
[2017-09-28] MEDS: GABAPENTIN 100 MG CAP PO SCH (10:32)
[2017-09-28] MEDS: CILOSTAZOL 100 MG TAB PO SCH ×2 (10:32→20:53)
[2017-09-28] MEDS: CARVEDILOL 12.5 MG TAB PO SCH (10:33)
[2017-09-28] MEDS: MIRABEGRON 25 MG PO SCH (11:20)
[2017-09-28] MEDS: buPROPion 100 MG TAB PO SCH (11:20)
[2017-09-28] MEDS: RAMIPRIL 5 MG CAP PO SCH (11:20)
[2017-09-28] MEDS ORDERED: hydrALAZINE 20 MG/ML VIAL IVP PRN (13:05)
[2017-09-28] MEDS ORDERED: HYDROCHLOROTHIAZIDE 25 MG TAB PO SCH (15:05)
[2017-09-28] MEDS: SIMVASTATIN 20 MG TAB PO SCH (20:53)
[2017-09-28] MEDS: traZODone 50 MG TAB PO SCH (20:53)
[2017-09-28] MEDS ORDERED: CARVEDILOL 12.5 MG TAB PO SCH (21:00)
[2017-09-29] VITALS (9 sets, daily range): BP systolic 112–200; BP diastolic 57–101
[2017-09-29] MEDS: NACL 0.45% 1,000 ML IV SCH (00:29)
[2017-09-29] MEDS: PIPER/TAZO 2.25GM/D5W PREMIX 50 ML IV SCH ×4 (05:04→23:44)
[2017-09-29] MEDS ORDERED: hydrALAZINE 20 MG/ML VIAL IVP PRN ×2 (05:10→06:35)
[2017-09-29] MEDS ORDERED: NITROGLYCERIN 0.4 MG TAB SL SCH (06:30)
[2017-09-29] MEDS: ALBUTEROL SULFATE/IPRATROPIU 3 ML SOL IH SCH ×3 (06:51→20:04)
[2017-09-29] MEDS: BUDESONIDE 0.5 MG/2 ML NEBU INH SCH ×2 (06:51→20:04)
[2017-09-29] MEDS ORDERED: NITROGLYCERIN 0.4 MG TAB SL ONE (06:51)
[2017-09-29 07:30] LABS: BASOPHILS # (AUTO) 0.1 K/uL (0.00-0.22); BASOPHILS % (AUTO) 2.5 % (0.0-2.0); EOSINOPHILS # (AUTO) 0.1 K/uL (0-0.4); EOSINOPHILS % (AUTO) 2.7 % (0.0-4.0); HEMATOCRIT 29.9 % (36-48); HEMOGLOBIN 10.1 g/dL (12.0-16.0); LYMPHOCYTES # (AUTO) 1.2 K/uL (2.5-16.5); LYMPHOCYTES % (AUTO) 27.4 % (20.5-51.1); MEAN CORPUSCULAR HEMOGLOBIN 28 pg (27-31); MEAN CORPUSCULAR HGB CONC 34 g/dL (33-37); MEAN CORPUSCULAR VOLUME 84 fL (80-94); MONOCYTES # (AUTO) 0.5 K/uL (0.8-1.0); MONOCYTES % (AUTO) 12.4 % (1.7-9.3); NEUTROPHILS # (AUTO) 2.5 K/uL (1.8-7.7); PLATELET COUNT (AUTO) 117 K/uL (140-450); RED BLOOD CELL COUNT(AUTO) 3.55 MIL/uL (4.20-5.40); RED CELL DISTRIBUTION WIDTH 14.1 % (11.6-13.7); WHITE BLOOD COUNT (AUTO) 4.4 K/uL (4.8-10.8)
[2017-09-29] MEDS ORDERED: RAMIPRIL 5 MG CAP PO SCH ×2 (09:00)
[2017-09-29] MEDS ORDERED: HYDROCHLOROTHIAZIDE 25 MG TAB PO SCH (09:00)
[2017-09-29 09:02] LABS: ANION GAP 15.1 (8-16); CREATININE 1.5 mg/dL (0.6-1.3); POTASSIUM 3.1 mmol/L (3.5-5.1)
[2017-09-29 09:21] LABS: MAGNESIUM 1.4 mg/dL (1.8-2.4); PHOSPHORUS 4.1 mg/dL (2.5-4.9)
[2017-09-29] MEDS: FUROSEMIDE 40 MG/4 ML VIAL IVP SCH (09:44)
[2017-09-29] MEDS: GABAPENTIN 100 MG CAP PO SCH (09:45)
[2017-09-29] MEDS: CARVEDILOL 12.5 MG TAB PO SCH ×2 (09:46→20:39)
[2017-09-29] MEDS: buPROPion 100 MG TAB PO SCH (09:46)
[2017-09-29] MEDS: LOSARTAN 50 MG TAB PO SCH (09:46)
[2017-09-29] MEDS: amLODIPine 5 MG TAB PO SCH (09:46)
[2017-09-29] MEDS: CILOSTAZOL 100 MG TAB PO SCH ×2 (09:47→20:40)
[2017-09-29] MEDS: HYDROCHLOROTHIAZIDE 25 MG TAB PO SCH (09:47)
[2017-09-29] MEDS: MIRABEGRON 25 MG PO SCH (09:50)
[2017-09-29] MEDS ORDERED: MAG SULF 2000 MG/WATER PREMIX 50 ML IV SCH (10:40)
[2017-09-29] MEDS ORDERED: POTASSIUM CHLORIDE 10 MEQ TABER PO SCH (10:41)
[2017-09-29] MEDS: cloNIDine 0.1 MG TAB PO SCH ×2 (11:08→13:00)
[2017-09-29] MEDS: traZODone 50 MG TAB PO SCH (20:40)
[2017-09-29] MEDS: SIMVASTATIN 20 MG TAB PO SCH (20:40)
[2017-09-29] MEDS ORDERED: cloNIDine 0.1 MG TAB PO SCH (21:00)
[2017-09-29] MEDS ORDERED: cloNIDine 0.1 MG TAB PO PRN (21:00)
[2017-09-30] VITALS: BP 122/58
[2017-09-30] MEDS: NACL 0.45% 1,000 ML IV SCH (01:55)
[2017-09-30 04:00] VITALS: BP 154/74
[2017-09-30] MEDS: PIPER/TAZO 2.25GM/D5W PREMIX 50 ML IV SCH ×4 (05:17→23:18)
[2017-09-30 07:04] LABS: BASOPHILS # (AUTO) 0.2 K/uL (0.00-0.22); BASOPHILS % (AUTO) 3.4 % (0.0-2.0); EOSINOPHILS # (AUTO) 0.1 K/uL (0-0.4); EOSINOPHILS % (AUTO) 1.4 % (0.0-4.0); HEMATOCRIT 31.4 % (36-48); HEMOGLOBIN 10.2 g/dL (12.0-16.0); LYMPHOCYTES # (AUTO) 1.6 K/uL (2.5-16.5); LYMPHOCYTES % (AUTO) 22.5 % (20.5-51.1); MEAN CORPUSCULAR HEMOGLOBIN 27 pg (27-31); MEAN CORPUSCULAR HGB CONC 33 g/dL (33-37); MEAN CORPUSCULAR VOLUME 84 fL (80-94); MONOCYTES # (AUTO) 0.9 K/uL (0.8-1.0); MONOCYTES % (AUTO) 12.2 % (1.7-9.3); NEUTROPHILS # (AUTO) 4.2 K/uL (1.8-7.7); NEUTROPHILS % (AUTO) 60.5 % (42.2-75.2); PLATELET COUNT (AUTO) 114 K/uL (140-450); RED BLOOD CELL COUNT(AUTO) 3.74 MIL/uL (4.20-5.40); RED CELL DISTRIBUTION WIDTH 14.1 % (11.6-13.7); WHITE BLOOD COUNT (AUTO) 7.1 K/uL (4.8-10.8)
[2017-09-30 07:44] LABS: ANION GAP 13.1 (8-16); CREATININE 1.8 mg/dL (0.6-1.3); POTASSIUM 3.1 mmol/L (3.5-5.1)
[2017-09-30 08:00] VITALS: BP 134/75
[2017-09-30] MEDS: CILOSTAZOL 100 MG TAB PO SCH ×2 (09:17→21:09)
[2017-09-30] MEDS: FUROSEMIDE 40 MG/4 ML VIAL IVP SCH (09:18)
[2017-09-30] MEDS: CARVEDILOL 12.5 MG TAB PO SCH ×2 (09:18→21:10)
[2017-09-30] MEDS: buPROPion 100 MG TAB PO SCH (09:18)
[2017-09-30] MEDS: HYDROCHLOROTHIAZIDE 25 MG TAB PO SCH (09:19)
[2017-09-30] MEDS: GABAPENTIN 100 MG CAP PO SCH (09:19)
[2017-09-30] MEDS: LOSARTAN 50 MG TAB PO SCH (09:19)
[2017-09-30] MEDS: amLODIPine 5 MG TAB PO SCH (09:20)
[2017-09-30] MEDS: ALBUTEROL SULFATE/IPRATROPIU 3 ML SOL IH SCH ×3 (09:24→19:23)
[2017-09-30] MEDS: BUDESONIDE 0.5 MG/2 ML NEBU INH SCH ×2 (09:25→19:23)
[2017-09-30] MEDS: MIRABEGRON 25 MG PO SCH (09:49)
[2017-09-30 12:00] VITALS: BP 131/62
[2017-09-30] MEDS ORDERED: MAG SULF 2000 MG/WATER PREMIX 50 ML IV SCH (12:00)
[2017-09-30] MEDS ORDERED: POTASSIUM CHLORIDE 10 MEQ TABER PO SCH ×2 (12:00→14:37)
[2017-09-30] MEDS ORDERED: AMOXIL/CLAVULANATE 875/125 MG 1 TAB PO SCH (12:00)
[2017-09-30] MEDS ORDERED: MAGNESIUM OXIDE 400 MG TAB PO SCH (14:34)
[2017-09-30 16:00] VITALS: BP 135/67
[2017-09-30] MEDS ORDERED: PIPER/TAZO 2.25GM/D5W PREMIX 50 ML IV SCH (18:00)
[2017-09-30 20:00] VITALS: BP 122/69
[2017-09-30] MEDS: SIMVASTATIN 20 MG TAB PO SCH (21:10)
[2017-09-30] MEDS: traZODone 50 MG TAB PO SCH (23:18)
[2017-10-01] VITALS: BP 138/67
[2017-10-01] MEDS: NACL 0.45% 1,000 ML IV SCH (01:55)
[2017-10-01] MEDS: LORazepam 0.5 MG TAB PO PRN (03:30)
[2017-10-01 04:00] VITALS: BP 127/70
[2017-10-01] MEDS: PIPER/TAZO 2.25GM/D5W PREMIX 50 ML IV SCH ×3 (05:14→18:33)
[2017-10-01 07:19] LABS: BASOPHILS # (AUTO) 0.1 K/uL (0.00-0.22); BASOPHILS % (AUTO) 1.4 % (0.0-2.0); EOSINOPHILS # (AUTO) 0.2 K/uL (0-0.4); EOSINOPHILS % (AUTO) 2.2 % (0.0-4.0); HEMATOCRIT 31.6 % (36-48); HEMOGLOBIN 10.6 g/dL (12.0-16.0); LYMPHOCYTES # (AUTO) 1.7 K/uL (2.5-16.5); LYMPHOCYTES % (AUTO) 24.6 % (20.5-51.1); MEAN CORPUSCULAR HEMOGLOBIN 28 pg (27-31); MEAN CORPUSCULAR HGB CONC 33 g/dL (33-37); MEAN CORPUSCULAR VOLUME 84 fL (80-94); MONOCYTES # (AUTO) 0.8 K/uL (0.8-1.0); MONOCYTES % (AUTO) 11.6 % (1.7-9.3); NEUTROPHILS % (AUTO) 60.2 % (42.2-75.2); PLATELET COUNT (AUTO) 129 K/uL (140-450); RED BLOOD CELL COUNT(AUTO) 3.77 MIL/uL (4.20-5.40); RED CELL DISTRIBUTION WIDTH 14.1 % (11.6-13.7); WHITE BLOOD COUNT (AUTO) 6.8 K/uL (4.8-10.8)
[2017-10-01 07:29] LABS: MAGNESIUM 2.3 mg/dL (1.8-2.4)
[2017-10-01 07:40] LABS: ANION GAP 13.1 (8-16); CARBON DIOXIDE 31.5 mmol/L (21-32); CREATININE 1.8 mg/dL (0.6-1.3); POTASSIUM 3.6 mmol/L (3.5-5.1)
[2017-10-01] MEDS: ALBUTEROL SULFATE/IPRATROPIU 3 ML SOL IH SCH ×3 (07:46→20:18)
[2017-10-01] MEDS: BUDESONIDE 0.5 MG/2 ML NEBU INH SCH ×2 (07:46→20:18)
[2017-10-01 08:00] VITALS: BP 138/76
[2017-10-01 08:18] LABS: PROTHROMBIN TIME 10.8 secs (10.8-13.4)
[2017-10-01] MEDS: CILOSTAZOL 100 MG TAB PO SCH ×2 (08:54→21:35)
[2017-10-01] MEDS: FUROSEMIDE 40 MG/4 ML VIAL IVP SCH (08:54)
[2017-10-01] MEDS: GABAPENTIN 100 MG CAP PO SCH (08:55)
[2017-10-01] MEDS: CARVEDILOL 12.5 MG TAB PO SCH ×2 (08:55→21:34)
[2017-10-01] MEDS: amLODIPine 5 MG TAB PO SCH (08:55)
[2017-10-01] MEDS: HYDROCHLOROTHIAZIDE 25 MG TAB PO SCH (08:56)
[2017-10-01] MEDS: buPROPion 100 MG TAB PO SCH (08:56)
[2017-10-01] MEDS: LOSARTAN 50 MG TAB PO SCH (08:56)
[2017-10-01] MEDS: MIRABEGRON 25 MG PO SCH (08:57)
[2017-10-01 12:00] VITALS: BP 119/84
[2017-10-01 16:00] VITALS: BP 132/58
[2017-10-01 21:15] VITALS: BP 163/75
[2017-10-01] MEDS: traZODone 50 MG TAB PO SCH (21:36)
[2017-10-01] MEDS: SIMVASTATIN 20 MG TAB PO SCH (21:36)
[2017-10-02] VITALS: BP 153/80
[2017-10-02] MEDS: LORazepam 0.5 MG TAB PO PRN (00:02)
[2017-10-02] MEDS: PIPER/TAZO 2.25GM/D5W PREMIX 50 ML IV SCH ×2 (00:02→05:57)
[2017-10-02] MEDS: NACL 0.45% 1,000 ML IV SCH (01:55)
[2017-10-02 04:00] VITALS: BP 125/60
[2017-10-02] MEDS: BUDESONIDE 0.5 MG/2 ML NEBU INH SCH (06:38)
[2017-10-02] MEDS: ALBUTEROL SULFATE/IPRATROPIU 3 ML SOL IH SCH ×2 (06:38→11:53)
[2017-10-02 08:00] VITALS: BP 139/68
[2017-10-02] MEDS: buPROPion 100 MG TAB PO SCH (08:32)
[2017-10-02] MEDS: LOSARTAN 50 MG TAB PO SCH (08:32)
[2017-10-02] MEDS: GABAPENTIN 100 MG CAP PO SCH (08:32)
[2017-10-02] MEDS: amLODIPine 5 MG TAB PO SCH (08:33)
[2017-10-02] MEDS: HYDROCHLOROTHIAZIDE 25 MG TAB PO SCH (08:33)
[2017-10-02] MEDS: CILOSTAZOL 100 MG TAB PO SCH (08:34)
[2017-10-02] MEDS: CARVEDILOL 12.5 MG TAB PO SCH (08:34)
[2017-10-02] MEDS: FUROSEMIDE 40 MG/4 ML VIAL IVP SCH ×2 (08:36→08:43)
[2017-10-02] MEDS: MIRABEGRON 25 MG PO SCH (08:41)
[2017-10-02] MEDS ORDERED: FLUCONAZOLE 100 MG TAB PO SCH (09:20)
[2017-10-02] MEDS ORDERED: PUL.5N INH (10:09)
[2017-10-02] MEDS ORDERED: IPRA3AMP IH (10:09)
[2017-10-02] MEDS ORDERED: ORE25 PO (10:09)
[2017-10-02] MEDS ORDERED: SERMDI INH (10:09)
[2017-10-02] MEDS ORDERED: ALBU0.0912 IH (10:09)
[2017-10-02] MEDS ORDERED: AMLO5TAB4 PO (10:09)
[2017-10-02] MEDS ORDERED: LOSA50TA1 PO (10:09)
[2017-10-02] MEDS ORDERED: FURO-570 PO (10:09)
[2017-10-02] MEDS ORDERED: PRED10TA6 PO (10:09)
[2017-10-02] MEDS ORDERED: INFLUENZA VIRUS VACCINE QUAD 0.5 ML SYR IMVAC SCH (13:40)
[2017-10-02] MEDS ORDERED: PNEUMOCOCCAL VACCINE 23 MCG/0.5 ML VIAL IMVAC SCH (13:40)
== END 2017-10-02 14:10 | disposition home health service (06) | DRG 871 ==
LOC: MED 03:17 → MTU 04:58
PROVIDERS: ADMIT Family Medicine Sports Medicine; ATTEND Family Medicine Sports Medicine
PROC: 5A09457 Assistance with Respiratory Ventilation, 24-96 Consecutive Hours, Continuous Positive Airway Pressure (ICD-10-PCS; principal; 2017-09-26)
PROC: 5A09357 Assistance with Respiratory Ventilation, Less than 24 Consecutive Hours, Continuous Positive Airway Pressure (ICD-10-PCS; 2017-09-28)
PROC: 3E0234Z Introduction of Serum, Toxoid and Vaccine into Muscle, Percutaneous Approach (ICD-10-PCS; 2017-10-02)
PROC: 3E0234Z Introduction of Serum, Toxoid and Vaccine into Muscle, Percutaneous Approach (ICD-10-PCS; 2017-10-02)
DX: A41.9 Sepsis, unspecified organism (principal); J69.0 Pneumonitis due to inhalation of food and vomit; I21.A1 Myocardial infarction type 2; J96.21 Acute and chronic respiratory failure with hypoxia; N17.0 Acute kidney failure with tubular necrosis; I50.43 Acute on chronic combined systolic (congestive) and diastolic (congestive) heart failure; E83.39 Other disorders of phosphorus metabolism; M41.9 Scoliosis, unspecified; I13.0 Hypertensive heart and chronic kidney disease with heart failure and stage 1 through stage 4 chronic kidney disease, or unspecified chronic kidney disease; J15.9 Unspecified bacterial pneumonia; N18.4 Chronic kidney disease, stage 4 (severe); J44.1 Chronic obstructive pulmonary disease with (acute) exacerbation; I16.1 Hypertensive emergency; N39.0 Urinary tract infection, site not specified; E87.0 Hyperosmolality and hypernatremia; J44.0 Chronic obstructive pulmonary disease with (acute) lower respiratory infection; E87.8 Other disorders of electrolyte and fluid balance, not elsewhere classified; B37.3 Candidiasis of vulva and vagina; E11.41 Type 2 diabetes mellitus with diabetic mononeuropathy; E11.51 Type 2 diabetes mellitus with diabetic peripheral angiopathy without gangrene; E11.36 Type 2 diabetes mellitus with diabetic cataract; E11.22 Type 2 diabetes mellitus with diabetic chronic kidney disease; D63.8 Anemia in other chronic diseases classified elsewhere; D72.819 Decreased white blood cell count, unspecified; E02 Subclinical iodine-deficiency hypothyroidism; E83.42 Hypomagnesemia; E78.5 Hyperlipidemia, unspecified; E87.5 Hyperkalemia; F41.9 Anxiety disorder, unspecified; Z96.659 Presence of unspecified artificial knee joint; K58.9 Irritable bowel syndrome, unspecified; K21.9 Gastro-esophageal reflux disease without esophagitis; E87.6 Hypokalemia; I25.10 Atherosclerotic heart disease of native coronary artery without angina pectoris; I44.7 Left bundle-branch block, unspecified; M79.7 Fibromyalgia; F32.9 Major depressive disorder, single episode, unspecified; Z88.6 Allergy status to analgesic agent; Z91.041 Radiographic dye allergy status; Z88.1 Allergy status to other antibiotic agents; Z88.8 Allergy status to other drugs, medicaments and biological substances; Z88.4 Allergy status to anesthetic agent; Z86.73 Personal history of transient ischemic attack (TIA), and cerebral infarction without residual deficits; Z90.49 Acquired absence of other specified parts of digestive tract; Z90.710 Acquired absence of both cervix and uterus; Z23 Encounter for immunization; Z83.3 Family history of diabetes mellitus; Z82.49 Family history of ischemic heart disease and other diseases of the circulatory system
CPT/HCPCS: 36415; 36600; 71045; 76604; 80048; 80053; 80305; 81001; 82150; 82803; 82948; 83036; 83605; 83690; 83735; 83880; 84100; 84436; 84439; 84443; 84479; 84484; 85025; 85610; 85730; 87040; 87081; 87086; 90658; 90732; 93005; 93308; 93976; 94640; 94660; 96361; 96365; 96372; 96375; 99291; C1758; J0360; J1644; J1650; J1940; J2060; J2270; J2405; J2543; J3475; J3490; J7030; J7060; J7620; J7626; Q0092

== ENCOUNTER 2018-11-05 16:08 | Emergency (ER) | payer OTHER ==
[~2018-11-05] VITALS: Ht 154.9 cm; Wt 49.9 kg
[~2018-11-05 16:08] MED LIST changes: -ALBU-136 IH; +ALBU0.0912 IH; +ALBU3SOL83 IH; -AMLO2.5T PO; +AMLO5TAB6 PO; +FURO-570 PO; -LORA10TA19 PO; +LOSA50TA1 PO; -NITR0.4T52 SL; -OMEP40EC1 PO; +ORE25 PO; +PRED10TA6 PO; +PUL.5N INH; -RAMI5CAP1 PO; +SERMDI INH; -TRAZ-286 PO; +TRAZ-343 PO; -VITA1TAB44 PO
[2018-11-05 16:30] VITALS: BP 132/68
--- NOTE | 2018-11-05 16:44 | NUR ---
PT PROVIDING URINE SAMPLE AT THIS TIME
--- NOTE | 2018-11-05 17:41 | NUR ---
PT IN WHEELCHAIR TO ER BED 12
--- NOTE | 2018-11-05 18:20 | NUR ---
73 YO F BIB DTR W/ C/O UTI SYMPTOMS/FLANK PAIN X 1 WEEK. PT STATES THAT SHE HAS BEEN ON ABX SINCE 5 DAYS BUT NO RELIEF OF SYMPTOMS. REPORTS NAUSEA, DENIES VOMITING. PT ON 2L MIN NC. AAOX4, GCS 15. VSS; PATIENT POSITIONED FOR COMFORT; HOB ELEVATED; BEDRAILS UP X1; BED DOWN. ER MD MADE AWARE OF PT STATUS.
--- NOTE | 2018-11-05 19:10 | NUR ---
GAVE REPORT TO OSITO GARCIA.
--- NOTE | 2018-11-05 19:15 | NUR ---
RECEIVED REPORT FROM AM NURSE. PT LAYING IN BED, RR EVEN AND UNLABORED. ALL NEEDS MET AT THIS TIME.
--- NOTE | 2018-11-05 19:20 | NUR ---
ER AT BEDSIDE
[2018-11-05] MEDS ORDERED: ONDANSETRON 4 MG/2 ML VIAL IVP ONE (19:30)
[2018-11-05] MEDS ORDERED: fentaNYL 0.05 MG/ML VIAL IVP ONE (19:30)
[2018-11-05 19:40] LABS: APPEARANCE,URINE CLEAR (CLEAR); BILIRUBIN,URINE NEGATIVE (NEGATIVE); BLOOD, URINE NEGATIVE (NEGATIVE); COLOR,URINE YELLOW (YELLOW); LEUKOCYTE ESTERASE ,URINE NEGATIVE (NEGATIVE); NITRITE, URINE NEGATIVE (NEGATIVE); UGLUCOSE NEGATIVE (NEGATIVE)
[2018-11-05 19:55] LABS: RBC,URINE 0-5 (RARE) /HPF (0-5); WBC,URINE 0-5 (RARE) /HPF (0-5)
[2018-11-05 19:58] LABS: BASOPHILS % (AUTO) 0.5 % (0.0-2.0); EOSINOPHILS # (AUTO) 0.1 K/uL (0-0.4); EOSINOPHILS % (AUTO) 2.2 % (0.0-4.0); HEMATOCRIT 38.2 % (36-48); HEMOGLOBIN 12.5 g/dL (12.0-16.0); LYMPHOCYTES # (AUTO) 1.6 K/uL (2.5-16.5); LYMPHOCYTES % (AUTO) 30.6 % (20.5-51.1); MEAN CORPUSCULAR HEMOGLOBIN 28 pg (27-31); MEAN CORPUSCULAR HGB CONC 33 g/dL (33-37); MEAN CORPUSCULAR VOLUME 85.7 fL (80-94); MONOCYTES # (AUTO) 0.5 K/uL (0.8-1.0); MONOCYTES % (AUTO) 9.2 % (1.7-9.3); NEUTROPHILS % (AUTO) 57.5 % (42.2-75.2); PLATELET COUNT (AUTO) 141 K/uL (140-450); RED BLOOD CELL COUNT(AUTO) 4.46 MIL/uL (4.20-5.40); RED CELL DISTRIBUTION WIDTH 13.7 % (11.6-13.7); WHITE BLOOD COUNT (AUTO) 5.2 K/uL (4.8-10.8)
[2018-11-05 20:28] LABS: ALBUMIN 4.3 g/dL (3.4-5.0); ANION GAP 12.1 (8-16); ASPARTATE AMINOTRANSFERASE 19 U/L (15-37); CHLORIDE 102 mmol/L (98-107); CREATININE 1.5 mg/dL (0.6-1.3); GLUCOSE 88 mg/dL (74-106); POTASSIUM 4.1 mmol/L (3.5-5.1); SODIUM SERUM 139 mmol/L (136-145); TOTAL BILIRUBIN 0.4 mg/dL (0.0-1.0); UREA NITROGEN, BLOOD 24 mg/dL (7-18)
[2018-11-05 20:33] LABS: LIPASE 125 U/L (73-393)
--- NOTE | 2018-11-05 21:00 | NUR ---
ER AT BEDSIDE
--- NOTE | 2018-11-05 21:11 | NUR ---
PT LAYING IN BED, FAMILY AT BEDSIDE. PT REPORTS HEADACHE WITH IMPROVEMENT AFTER MEDS. VS NOTED. RR EVEN AND UNLABORED. ALL NEEDS MET.
[2018-11-05 21:23] VITALS: BP 160/65
--- NOTE | 2018-11-05 21:23 | NUR ---
Patient discharged with v/s stable. Written and verbal after care instructions given and explained. Patient alert, oriented and verbalized understanding of instructions. Ambulatory with steady gait. All questions addressed prior to discharge. ID band removed. Patient advised to follow up with PMD. Rx of PREDNISONE, ZOFRAN given. Patient educated on indication of medication including possible reaction and side effects. Opportunity to ask questions provided and answered.
== END 2018-11-05 21:23 | disposition home or self-care (01) ==
LOC: MED 16:08
DX: R51 Headache (principal); R11.0 Nausea; R07.9 Chest pain, unspecified; R42 Dizziness and giddiness; R30.0 Dysuria; R10.9 Unspecified abdominal pain; J44.9 Chronic obstructive pulmonary disease, unspecified; K21.9 Gastro-esophageal reflux disease without esophagitis; I10 Essential (primary) hypertension; N28.9 Disorder of kidney and ureter, unspecified; Z90.49 Acquired absence of other specified parts of digestive tract; Z90.710 Acquired absence of both cervix and uterus; Z93.1 Gastrostomy status; Z98.890 Other specified postprocedural states; Z79.899 Other long term (current) drug therapy; Z88.6 Allergy status to analgesic agent; Z88.5 Allergy status to narcotic agent; Z88.1 Allergy status to other antibiotic agents; Z88.8 Allergy status to other drugs, medicaments and biological substances
CPT/HCPCS: 36415; 71045; 80053; 81001; 82550; 83605; 83690; 83880; 84484; 85025; 87040; 87086; 96374; 96375; 99284; J2405; J3010; Q0092; 93005

== ENCOUNTER 2018-11-27 23:45 | Emergency (ER) | payer OTHER ==
[~2018-11-27] VITALS: Ht 157.5 cm; Wt 45.4 kg
[2018-11-27 23:55] VITALS: BP 153/73
--- NOTE | 2018-11-28 | NUR ---
PATIENT BIB W/C TO ER BED 3.
--- NOTE | 2018-11-28 00:10 | NUR ---
PT IS A 73 Y/O FEMALE WHO PRESENTS TO THE ED C/O HEADACHE. PT STATES THAT PAIN HAS BEEN GOING ON X1 MONTH, PT WAS SEEN IN ED MULTIPLE TIMES WITH NO RELIEF. PT REPORTS 10/10 ACHING L SIDED HEADACHE PAIN THAT DOES NOT RADIATE WITH L EYE BLURRY VISION. PT DENIES CP, PT ON HOME O2, REPORTS NAUSEA DENIES VOMITING/DIARRHEA. PT AWAKE AND ALERT, RR EVEN/UNLABORED. PT REPOSITIONED FOR COMFORT, BED IN LOWEST POSITION. ER MD DR. MONTES NOTIFIED. WILL CONTINUE TO MONITOR. PMH--ASTHMA, CARDIAC, COPD, GERD, HTN, RENAL DZ
[2018-11-28] MEDS ORDERED: MAG SULF 2000 MG/WATER PREMIX 50 ML IV ONE (00:30)
[2018-11-28] MEDS ORDERED: LORazepam 2 MG/ML VIAL IVP ONE (00:30)
[2018-11-28 00:47] LABS: BASOPHILS % (AUTO) 0.4 % (0.0-2.0); EOSINOPHILS # (AUTO) 0.1 K/uL (0-0.4); EOSINOPHILS % (AUTO) 1.4 % (0.0-4.0); HEMATOCRIT 34.9 % (36-48); HEMOGLOBIN 11.7 g/dL (12.0-16.0); LYMPHOCYTES # (AUTO) 1.7 K/uL (2.5-16.5); LYMPHOCYTES % (AUTO) 25.5 % (20.5-51.1); MEAN CORPUSCULAR HEMOGLOBIN 29 pg (27-31); MEAN CORPUSCULAR HGB CONC 34 g/dL (33-37); MEAN CORPUSCULAR VOLUME 85.3 fL (80-94); MONOCYTES # (AUTO) 0.6 K/uL (0.8-1.0); MONOCYTES % (AUTO) 9.5 % (1.7-9.3); NEUTROPHILS # (AUTO) 4.1 K/uL (1.8-7.7); NEUTROPHILS % (AUTO) 63.2 % (42.2-75.2); PLATELET COUNT (AUTO) 160 K/uL (140-450); RED BLOOD CELL COUNT(AUTO) 4.09 MIL/uL (4.20-5.40); RED CELL DISTRIBUTION WIDTH 13.8 % (11.6-13.7); WHITE BLOOD COUNT (AUTO) 6.5 K/uL (4.8-10.8)
[2018-11-28 01:03] LABS: CARBON DIOXIDE 23.9 mmol/L (21-32); CHLORIDE 101 mmol/L (98-107); CREATININE 1.5 mg/dL (0.6-1.3); GLUCOSE 94 mg/dL (74-106); POTASSIUM 3.9 mmol/L (3.5-5.1); SODIUM SERUM 138 mmol/L (136-145); UREA NITROGEN, BLOOD 18 mg/dL (7-18)
[2018-11-28 01:09] LABS: ALBUMIN 3.9 g/dL (3.4-5.0); ASPARTATE AMINOTRANSFERASE 23 U/L (15-37); MAGNESIUM 1.4 mg/dL (1.8-2.4); TOTAL BILIRUBIN 0.2 mg/dL (0.0-1.0)
[2018-11-28 02:36] VITALS: BP 138/80
--- NOTE | 2018-11-28 02:36 | NUR ---
Patient discharged with v/s stable. Written and verbal after care instructions given and explained. Patient alert, oriented and verbalized understanding of instructions. W/C assissted, All questions addressed prior to discharge. ID band removed. Patient advised to follow up with PMD. Rx of augmentin given. Patient educated on indication of medication including possible reaction and side effects. Opportunity to ask questions provided and answered.
== END 2018-11-28 02:36 | disposition home or self-care (01) ==
LOC: MED 23:45
DX: R51 Headache (principal); H53.8 Other visual disturbances; R22.0 Localized swelling, mass and lump, head; J44.9 Chronic obstructive pulmonary disease, unspecified; K21.9 Gastro-esophageal reflux disease without esophagitis; I10 Essential (primary) hypertension; N28.9 Disorder of kidney and ureter, unspecified; Z79.899 Other long term (current) drug therapy; Z88.6 Allergy status to analgesic agent; Z88.5 Allergy status to narcotic agent; Z88.1 Allergy status to other antibiotic agents; Z88.8 Allergy status to other drugs, medicaments and biological substances; Z79.84 Long term (current) use of oral hypoglycemic drugs
CPT/HCPCS: 36415; 70450; 80053; 83735; 85025; 96365; 96375; 99284; J2060; J3475

== ENCOUNTER 2019-09-11 07:44 | Inpatient (IN) | payer OTHER ==
[~2019-09-11] VITALS: Ht 157.5 cm; Wt 59.9 kg
--- NOTE | 2019-09-11 07:44 | NUR ---
PT IN W/C TO ER BED 10
[2019-09-11 07:48] VITALS: BP 199/88
--- NOTE | 2019-09-11 08:00 | NUR ---
C/O SOB & COUGH X 1 WEEK. PT HAS HX OF ASTHMA/COPD. PT O2 SAT 98% ON 2LPM O2 FROM HOME. PT BREATHING APPEARS LABORED, BILAT WHEEZES HEARD THROUGHOUT. PT ABLE TO SPEAK FULL SENTENCES. HR 76 BPM. PT PLACED IN GOWN AND ON BEDSIDE MANAGER CLINICAL APPLICATIONS. BED IN LOW POSITION, SIDE RAIL UP X1
--- NOTE | 2019-09-11 08:15 | NUR ---
ERMD AT BEDSIDE
[2019-09-11] MEDS ORDERED: NACL 0.9% 500 ML IV SCH (08:16)
[2019-09-11] MEDS ORDERED: HYDROCORTISONE NA SUCC 100 MG/2 ML VIAL IV ONE (08:20)
[2019-09-11] MEDS ORDERED: MAGNESIUM SULFATE 50% 1,000 MG in NACL 0.9% 50 ML IV ONE (08:20)
[2019-09-11] MEDS ORDERED: diphenhydrAMINE 50 MG/ML VIAL IVP ONE (08:20)
[2019-09-11] MEDS ORDERED: FAMOTIDINE 20 MG/2 ML VIAL IVP ONE (08:20)
[2019-09-11] MEDS ORDERED: PROMETHAZINE 25 MG/ML VIAL IM ONE (08:20)
[2019-09-11] MEDS ORDERED: ALBUTEROL SULFATE/IPRATROPIU 3 ML SOL IH ONE (08:20)
[2019-09-11] MEDS ORDERED: AZTREONAM 1,000 MG in DEXTROSE 5% 50 ML IV SCH (08:20)
[2019-09-11] MEDS ORDERED: AZTREONAM 1,000 MG VIAL ONE (08:38)
[2019-09-11] MEDS ORDERED: FAMOTIDINE 20 MG/2 ML VIAL ONE (08:41)
[2019-09-11] MEDS ORDERED: MAG SULF 2000 MG/WATER PREMIX 50 ML IV ONE (08:54)
[2019-09-11] MEDS ORDERED: ONDA4TAB PO (09:16)
[2019-09-11] MEDS ORDERED: LANS15EC28 PO (09:16)
--- NOTE | 2019-09-11 09:20 | NUR ---
PT STATES HER BREATHING "FEELS BETTER" AT THIS TIME
[2019-09-11 09:33] LABS: ANION GAP 10.4 (8-16); CARBON DIOXIDE 26.9 mmol/L (21-32); CHLORIDE 107 mmol/L (98-107); CREATININE 1.3 mg/dL (0.6-1.3); GLUCOSE 98 mg/dL (74-106); POTASSIUM 4.3 mmol/L (3.5-5.1); SODIUM SERUM 140 mmol/L (136-145); UREA NITROGEN, BLOOD 16 mg/dL (7-18)
[2019-09-11 09:39] LABS: PROTHROMBIN TIME 10.1 secs (10.8-13.4)
[2019-09-11 09:40] LABS: ALBUMIN 3.6 g/dL (3.4-5.0); ASPARTATE AMINOTRANSFERASE 14 U/L (15-37); TOTAL BILIRUBIN 0.2 mg/dL (0.0-1.0)
[2019-09-11 09:52] LABS: BASOPHILS % (AUTO) 0.6 % (0.0-2.0); EOSINOPHILS # (AUTO) 0.1 K/uL (0-0.4); EOSINOPHILS % (AUTO) 2.8 % (0.0-4.0); HEMATOCRIT 28.6 % (36-48); HEMOGLOBIN 9.4 g/dL (12.0-16.0); LYMPHOCYTES % (AUTO) 32.5 % (20.5-51.1); MEAN CORPUSCULAR HEMOGLOBIN 29 pg (27-31); MEAN CORPUSCULAR HGB CONC 33 g/dL (33-37); MEAN CORPUSCULAR VOLUME 87.8 fL (80-94); MONOCYTES # (AUTO) 0.4 K/uL (0.8-1.0); MONOCYTES % (AUTO) 11.1 % (1.7-9.3); NEUTROPHILS # (AUTO) 1.7 K/uL (1.8-7.7); PLATELET COUNT (AUTO) 115 K/uL (140-450); RED BLOOD CELL COUNT(AUTO) 3.26 MIL/uL (4.20-5.40); RED CELL DISTRIBUTION WIDTH 13.8 % (11.6-13.7); WHITE BLOOD COUNT (AUTO) 3.2 K/uL (4.8-10.8)
--- NOTE | 2019-09-11 10:00 | NUR ---
PT RESTING IN BED, AT BEDSIDE, NO NEW NEEDS AT THIS TIME
[2019-09-11 10:04] LABS: MAGNESIUM 1.3 mg/dL (1.8-2.4); THYROID STIMULATING HORMONE 8.29 uIU/mL (0.34-3.74)
[2019-09-11] MEDS ORDERED: FAMOTIDINE 20 MG/2 ML VIAL IV PRN (10:30)
[2019-09-11] MEDS ORDERED: ONDANSETRON 4 MG/2 ML VIAL IM/IVP PRN (10:30)
[2019-09-11] MEDS ORDERED: DOCUSATE SODIUM 100 MG GELCAP PO PRN (10:30)
--- NOTE | 2019-09-11 10:39 | NUR ---
PT UNABLE TO PROVIDE URINE
[2019-09-11] MEDS ORDERED: ALBUTEROL SULFATE/IPRATROPIU 3 ML SOL IH PRN (10:50)
--- NOTE | 2019-09-11 11:03 | NUR ---
RECEIVED PT FROM ER NURSE MIRANDA MCNEILL. PT IS AAOX4, A LITTLE DROWSY. CC: SOB. DX ACUTE RESPIRATORY DISTRESS. PT CURRENTLY HAS NO LABORED BREATHING ON 2L NC. IV ON RIGHT THUMB, 24G. FLUSHED. PATENT AND INTACT. NO C/O OF PAIN AT THIS TIME. PLACE PT ON TELEMETRY. PT COUGHING NON PRODUCTIVE. PT HAS HIGH SBP 207. MADE DR BALL AWARE. PT ORIENTED TO THE ROOM, CALL LIGHT WITHIN REACH.
--- NOTE | 2019-09-11 11:09 | NUR ---
Patient will be admitted to care of DR. ZARAGOZA. Admited to TELEMETRY. Will go to room 128A. Belongings list completed. Report to OSITO GARCIA.
[2019-09-11 11:10] VITALS: BP 207/89
[2019-09-11] MEDS: NACL 0.9% 1,000 ML IV SCH (11:39)
[2019-09-11 12:00] VITALS: BP 208/92
[2019-09-11] MEDS: hydrALAZINE 20 MG/ML VIAL IVP PRN (12:13)
[2019-09-11] MEDS: HYDROCHLOROTHIAZIDE 25 MG TAB PO SCH (12:16)
[2019-09-11 12:17] LABS: CHOL/HDL RATIO 2.9 (1-4.5); PHOSPHORUS 3.2 mg/dL (2.5-4.9)
[2019-09-11] MEDS: GABAPENTIN 100 MG CAP PO SCH ×2 (12:17→20:29)
[2019-09-11 12:18] LABS: FREE T4 (FREE THYROXINE) 0.91 ng/dL (0.76-1.46)
[2019-09-11] MEDS: BUDESONIDE 0.5 MG/2 ML NEBU INH SCH ×2 (13:00→19:45)
--- NOTE | 2019-09-11 13:10 | NUR ---
PT'S HOME MED SENT TO PHARMACY.
[2019-09-11] MEDS: ALBUTEROL SULFATE/IPRATROPIU 3 ML SOL IH SCH ×2 (13:54→19:45)
--- NOTE | 2019-09-11 13:55 | NUR ---
PER PHARMACIST PULMICORT ON HOLD FOR MD CLARIFICATION
[2019-09-11] MEDS ORDERED: MYRBETRIQ 25 MG PO SCH (14:05)
[2019-09-11 16:00] VITALS: BP 167/68
--- NOTE | 2019-09-11 16:35 | NUR ---
HELPED WITH WITH BED EAGLE. OVI CARE DONE, CHANGED CHUX. PT IS ABLE TO TURN HERSELF.
[2019-09-11] MEDS ORDERED: LORA-476 PO (16:57)
[2019-09-11] MEDS ORDERED: MEDICATION REC. PHARMACY CONS. 1 EA MISC MC PRN (17:00)
[2019-09-11] MEDS ORDERED: MELATONIN 3 MG TAB PO PRN (17:00)
--- NOTE | 2019-09-11 18:00 | NUR ---
PT C/O HEADACHE AND ABD PAIN. MADE DR CHATMAN AWARE. Addendum: 09/11/19 at 1950 by Rocael Mauro RN PT REFUSED NORCO, AND SAID PLAIN TYLENOL IS FINE.
--- NOTE | 2019-09-11 19:25 | NUR ---
RECEIVED REPORT FROM DAYSIAFT NURSE AT PATIENTS BEDSIDE, VISITORS IN ROOM. PATIENT COMPLAINING OF HEADACHE/PAIN. DAYSHIFT NURSE ADMINISTERED TYLENOL ORDERED. PATIENT CURRENTLY HAVING DINNER BROUGHT IN FROM DAUGHTER. PT ANOx4, ABLE TO MAKE NEEDS KNOWN AND FOLLOW COMMANDS. ON NASAL CANNULA AT 2LPM, AND SATURATIONS ARE 95%. BREATHING IS UNLABORED, LUNG SOUNDS ARE RHONCHI THROUGHOUT, COUGH PRESENT WITH SMALL AMOUNT OF INTERMITTENT SECRETIONS. S1S2, HEARD. NO SIGNS OF EDEMA, CAP REFILL LESS THAN 3 SECONDS. SKIN WARM AND DRY, AFEBRILE. PATIENT ABLE TO REPOSITION SELF, WITH LITTLE TO NO ASSISTANCE. RIGHT HAND/THUMB PERIPHERAL IV, 24G, FLUSHED AND PATENT WITHOUT SYMPTOMS, INFUSING NS @ 40ML/HR. ABDOMEN IS SOFT AND TENDER WITH PALPATION, ACTIVE BOWEL SOUNDS. PATIENT IS INCONTINENT, ABLE TO NOTIFY RN WHEN BEDPAN IS NEEDED, DESHAWN PADS IN PLACE, PATIENT ORIENTED TO CALL LIGHT. UPDATED ON CAREPLAN. BED LOCKED AND IN LOWEST POSITION, SIDERAILS UPx3. PT REQUESTING TO HEAT UP FOOD. WILL CARRY OUT.
[2019-09-11] MEDS: ACETAMINOPHEN EXTRA STRENGTH 500 MG TAB PO PRN (19:34)
[2019-09-11 20:00] VITALS: BP 159/62
--- NOTE | 2019-09-11 20:05 | NUR ---
RECEIVED PATIENT ON 2L NASAL CANNULA, PULSE OX SAT 97%. VISITORS AT BEDSIDE. SCHEDULED BREATHING TREATMENTS ADMINISTERED. TOLERATED TXs WELL WITHOUT ADVERSE SIDE EFFECTS. NO ACUTE RESPIRATORY DISTRESS NOTED AT THIS TIME. WILL CONTINUE TO MONITOR. Addendum: 09/11/19 at 2036 by Clarisa Dunaway RT PATIENT MADE AWARE OF MEDICATION FREQUENCY.
[2019-09-11] MEDS: traZODone 50 MG TAB PO SCH (20:28)
[2019-09-11] MEDS: SIMVASTATIN 20 MG TAB PO SCH (20:29)
[2019-09-11] MEDS: CARVEDILOL 12.5 MG TAB PO SCH (20:29)
[2019-09-11] MEDS: CILOSTAZOL 100 MG TAB PO SCH (20:30)
[2019-09-11] MEDS: LORazepam 1 MG TAB PO SCH (20:30)
--- NOTE | 2019-09-11 21:15 | NUR ---
PATIENT REQUESTING ONE JELLO SNACK. PATIENT UNABLE TO EAT FOOD BROUGHT IN BY DAUGHTER, STATES IT WAS TOO HEAVY. SCHEDULED MEDICATIONS ADMINISTERED. ALL NEEDS MET AT THIS TIME.
[2019-09-11 21:18] LABS: URIC ACID 5.4 mg/dL (2.6-7.2)
--- NOTE | 2019-09-11 22:00 | NUR ---
CALLED CT/RADIOLOGY DEPARTMENT 3X TO NOTIFY OF CT CHEST/ABDOMEN ORDER, PATIENT IS STILL AWAKE AT THIS TIME. RECEIVED BUSY SIGNAL ALL 3X. WILL FOLLOWUP.
--- NOTE | 2019-09-11 23:02 | NUR ---
PATIENT RESTING WELL IN BED, EYES CLOSED. IN RIGHT LATERAL POSITION. CHEST RISE AND FALL, NO SIGNS/SYMPTOMS OF DISTRESS. CALL LIGHT WITHIN REACH, FLACC 0.
[2019-09-12] VITALS (7 sets, daily range): BP systolic 133–185; BP diastolic 49–81
--- NOTE | 2019-09-12 | NUR ---
OFFERED PATIENT TOILETING NEEDS AND ORIENTED TO URINE CULTURE SAMPLE. PATIENT NEEDS BEDPAN NOW AT THIS TIME. PATIENT VOIDED AND RN PROVIDED PERINEAL CARE AND ASSISTED WITH POSITIONING. URINE SAMPLE COLLECTED AND SENT TO LAB.
[2019-09-12] MEDS: hydrALAZINE 20 MG/ML VIAL IVP PRN ×2 (00:24→09:40)
[2019-09-12 01:26] LABS: APPEARANCE,URINE CLEAR (CLEAR); BILIRUBIN,URINE NEGATIVE (NEGATIVE); BLOOD, URINE NEGATIVE (NEGATIVE); COLOR,URINE YELLOW (YELLOW); LEUKOCYTE ESTERASE ,URINE NEGATIVE (NEGATIVE); NITRITE, URINE NEGATIVE (NEGATIVE); UGLUCOSE NEGATIVE (NEGATIVE)
--- NOTE | 2019-09-12 02:15 | NUR ---
CALLED CT TO CONFIRM ORDER- CT CHEST/ABDOMEN/PELVIS WITHOUT CONTRAST. ANSWERED ALL QUESTIONS. PATIENT USES WHEELCHAIR AT HOME BUT REQUESTS TO HAVE GURNEY TRANSPORT. RADIOLOGIST CONFIRMS CT NOT AVAILABLE A TTHIS TIME DUE TO MULTIPLE PATIENTS IN ER WITH CT ORDERS. CONFIRMED AROUND [phone] SHE WILL COME TO THE FLOOR.
--- NOTE | 2019-09-12 03:00 | NUR ---
CALLED RT TO MAKE AWARE OF PATIENTS CT ORDER AND ON SUPPLEMENTAL OXYGEN. ASKED IF RT CAN ASSIST WITH TRANSPORT, RT ABLE TO HELP, CONFIRMED TIME BETWEEN [phone], WILL CALL RT WHEN READY.
--- NOTE | 2019-09-12 04:15 | NUR ---
PATIENT RESTING WELL, EYES CLOSED, NASAL CANNULA IN PLACE TO 2LPM. NS IVF INFUSING AT 40ML/HR. PATIENT SENIES PAIN AND SOB. SAFETY ALARMS IN PLACE, ALL NEEDS MET.
--- NOTE | 2019-09-12 05:15 | NUR ---
RADIOLOGIST ON FLOOR TO TAKE OTHER PATIENTS TO CT, CONFIRMED WILL TAKE PATIENT AFTER OTHER PATIENT IS DONE. TELE MONITOR AT BEDSIDE READY TO GO TO CT.
--- NOTE | 2019-09-12 06:10 | NUR ---
PATIENTS IV PUMP ALARMING WITH HIGH PRESSURE ALARM. REPOSITIONED PATIENT TO ALLOW FOR GOOD FLOW. PATIENT AWAKE, CONFIRMED THAT CT SCAN IS DELAYED DUE TO BACKUP WITH RADIOLOGIST. ALERTED PATIENT THAT TRANSPORT VIA WHEELCHAIR IS QUICKER THAN GURNEY. PATIENT VERBALIZES UNDERSTANDING AND AGREES TO ALLOW THE WHEELCHAIR. CALLED CT TO MAKE AWARE, NO ANSWER. WILL TRY AGAIN, AND WILL ENDORSE TO DAYSHIFT NURSE.
[2019-09-12 06:39] LABS: BASOPHILS % (AUTO) 0.4 % (0.0-2.0); HEMATOCRIT 29.5 % (36-48); HEMOGLOBIN 9.7 g/dL (12.0-16.0); LYMPHOCYTES # (AUTO) 1.3 K/uL (2.5-16.5); LYMPHOCYTES % (AUTO) 30.1 % (20.5-51.1); MEAN CORPUSCULAR HEMOGLOBIN 29 pg (27-31); MEAN CORPUSCULAR HGB CONC 33 g/dL (33-37); MEAN CORPUSCULAR VOLUME 88.3 fL (80-94); MONOCYTES # (AUTO) 0.4 K/uL (0.8-1.0); MONOCYTES % (AUTO) 10.2 % (1.7-9.3); NEUTROPHILS # (AUTO) 2.5 K/uL (1.8-7.7); NEUTROPHILS % (AUTO) 58.3 % (42.2-75.2); PLATELET COUNT (AUTO) 124 K/uL (140-450); RED BLOOD CELL COUNT(AUTO) 3.34 MIL/uL (4.20-5.40); WHITE BLOOD COUNT (AUTO) 4.2 K/uL (4.8-10.8)
--- NOTE | 2019-09-12 06:58 | NUR ---
SPOKE WITH RADIOLOGIST ON THE FLOOR, CONFIRMED PATIENT AGREES TO GO TO CT VIA WHEEL CHAIR. CONFIRMED THERE IS ONE MORE PATIENT WITH HEAD CT AND PATIENT WILL BE NEXT. WILL CARRY OUT
[2019-09-12] MEDS: NACL 0.9% 1,000 ML IV SCH (07:00)
[2019-09-12] MEDS: ALBUTEROL SULFATE/IPRATROPIU 3 ML SOL IH SCH ×3 (07:06→20:27)
[2019-09-12] MEDS: BUDESONIDE 0.5 MG/2 ML NEBU INH SCH ×3 (07:06→20:28)
[2019-09-12 07:22] LABS: ANION GAP 12.2 (8-16); CARBON DIOXIDE 28.6 mmol/L (21-32); CHLORIDE 106 mmol/L (98-107); CREATININE 1.4 mg/dL (0.6-1.3); GLUCOSE 95 mg/dL (74-106); POTASSIUM 3.8 mmol/L (3.5-5.1); SODIUM SERUM 143 mmol/L (136-145); UREA NITROGEN, BLOOD 18 mg/dL (7-18)
--- NOTE | 2019-09-12 07:35 | NUR ---
RECEIVED PT FROM SURPLUS PROPERTY DISPOSAL AGENT NURSE, NATHALIE, PT IS AWAKE , LYING ON THE BED WITH SIDE RAILS UP AND CALL LIGHT WITHIN REACH, IV LINE WAS INFILTRATED WAND NEEDS TO BE RE-INSERTED AGAIN, SAFETY AND FALL PRECAUTION INITIATED, ON O2 2L NC, PT DENIES SOB, BUT C/O PAIN RATE FOR HER HEADACHE AT 6/10 LEVEL, NO OTHER UNTOWARD SYMPTOMS NOTED AND WILL BE CONTINUED TO BE MONITORED.
[2019-09-12 07:37] LABS: MAGNESIUM 1.6 mg/dL (1.8-2.4); PHOSPHORUS 3.9 mg/dL (2.5-4.9)
[2019-09-12] MEDS: PANTOPRAZOLE 40 MG TABEC PO SCH (08:40)
[2019-09-12] MEDS: LACTOBACILLUS RHAMNOSUS GG 1 EACH CAP PO SCH (08:40)
[2019-09-12] MEDS: LOSARTAN 50 MG TAB PO SCH (08:41)
[2019-09-12] MEDS: HYDROCHLOROTHIAZIDE 25 MG TAB PO SCH (08:41)
[2019-09-12] MEDS: CARVEDILOL 12.5 MG TAB PO SCH ×2 (08:42→20:37)
[2019-09-12] MEDS: GABAPENTIN 100 MG CAP PO SCH ×2 (08:43→20:38)
[2019-09-12] MEDS: MYRBETRIQ 25 MG PO SCH (08:50)
--- NOTE | 2019-09-12 08:59 | NUR ---
PATIENT HAS BEEN SCREENED AND CATEGORIZED MODERATE NUTRITION RISK. PATIENT WILL BE SEEN WITHIN 3-5 DAYS OF ADMISSION. 09/13/19 09/15/[address]
[2019-09-12] MEDS ORDERED: NON-FORMULARY ITEM (Mirabegron (Myrbetriq) 25 MG) PO SCH (09:00)
[2019-09-12] MEDS: CILOSTAZOL 100 MG TAB PO SCH ×2 (09:15→20:38)
[2019-09-12] MEDS: buPROPion 100 MG TAB PO SCH (09:16)
[2019-09-12] MEDS: ACETAMINOPHEN EXTRA STRENGTH 500 MG TAB PO PRN ×2 (09:21→18:50)
--- NOTE | 2019-09-12 09:40 | NUR ---
PT WAS GIVEN BP MEDICATIOIN VIA IV PUSH FOR A BP READING OF 205/87, PULSE OF 92, WILL RE-ASSESS BP AND MONITOR PT.
--- NOTE | 2019-09-12 11:09 | NUR ---
* ST NOTE * Pt seen at bedside w/family and Nsg Sanjuana present. Pt consenting to evaluation w/family present. Pt alert, cooperative and engaged throughout session, reporting no c/o pain at this time. Bedside dysphagia and oral mechanism exams completed. See evaluation report for further details. Pt tolerating 3/3 alternating PO trials of regular solid chips at pt's bedside provided by family, as well as 4/4 alternating PO trials of thin liquid juice via a straw, all w/o s/s of aspiration or choking. Pt and family education completed re: aspiration precautions and safe swallow compensatory strategies pt and caregivers could utilize to aid pt w/swallow function, w/pt and caregivers/Family verbalizing understanding and agreement w/clinician's recommendations. Pt also requesting no rice, beans, lettuce, or pork 2/2 to difficulty digesting said foods, w/clinician informing pt clinician will relay concerns to Dietary/FNS, along w/other pt preferences. It is thus recommended pt's PO diet consistency be modified to regular solids w/thin liquids for all meals w/strict aspiration precautions in place, w/pt and caregivers/family agreeable. No further ST follow up recommended at this time. Pt, caregivers/family and caregiver/Nsg Sanjuana education completed re: results of evaluation; benefits of abiding by aspiration precautions; and prognosis for improvement; w/pt, caregiver/family and caregiver/Nsg Sanjuana verbalizing understanding and agreement w/clinician's recommendations. Recommend: - PO DIET CONSISTENCY OF REGULAR SOLIDS W/THIN LIQUIDS for all meals - WHOLE PILL MEDICATION ADMINISTRATION ALONE OR MIXED W/PUREE TEXTURES OR THIN LIQUIDS - MAINTAIN ASPIRATION PRECAUTIONS DURING PT'S PO INTAKE - Pt can self-feed, and family may assist pt w/feeding - CUE/REMIND PT AND FAMILY DURING PT'S PO INTAKE TO SIT PT UP AT 80-90 DEGREE ANGLE; TAKE SMALL BITES/SIPS; EAT/DRINK SLOWLY; AND TO ALTERNATE BTWN SOLIDS & LIQUIDS - FNS/NUTRITION: Pt prefers hamburgers, vincentian fries, chicken, and tuna sandwiches when available - FNS/NUTRITION: PT CANNOT TOLERATE PORK, RICE, BEANS, OR LETTUCE No further ST follow up recommended at this time. NOMS Level 2 Time In/Out 10:15 - 10:45
--- NOTE | 2019-09-12 12:30 | NUR ---
PT WAS TAKEN TO RADIOLOGY FOR THE CT OF ABDOMEN W/O CONTRAST.
--- NOTE | 2019-09-12 12:50 | NUR ---
PT IS BACK TO ROOM FROM CT OF ABDOMEN WITHOUT CONTRAST.
--- NOTE | 2019-09-12 13:41 | NUR ---
PT WAS GIVEN MAGNESIUM SULFATE 2GM VIA IV FOR THE MAGNESIUM LEVEL OF 1.6, TEACHING WAS GIVEN TO PT FOR THE IMPORTANCE OF MAGNESIUM KEEPING ON THE NORMAL LEVEL AND PT VERBALIZED UNDERSTANDING, WILL MONITOR PT,
[2019-09-12] MEDS ORDERED: MAG SULF 2000 MG/WATER PREMIX 50 ML IV SCH (14:00)
--- NOTE | 2019-09-12 15:45 | NUR ---
ECHOCARDIOGRAM WAS BEING DONE TO PT NOW.
--- NOTE | 2019-09-12 19:28 | NUR ---
ENDORSED PT TO VOICER NURSENING, FOR CONTINUITY FOR CARE.
--- NOTE | 2019-09-12 19:29 | NUR ---
REPORT RECEIVED FROM AM NURSE AT BEDSIDE. PT IN STABLE CONDITION. AAOX4. INTRODUCED SELF TO PT. BOARD UPDATED. NO COMPLAINTS OF PAIN. NO SOB ON 2L O2 VIA NC. AFEBRILE. PT IS AMBULATORY. IV SITE L HAND 22G RUNNING NS@40ML/HR PATENT AND INTACT. SKIN WARM, DRY, AND INTACT WITH NO OPEN WOUNDS. BED LOCKED IN LOW POSITION. CALL KONG WITHIN REACH. SAFETY PRECAUTION IN PLACE. ALL NEEDS MET AT THIS TIME.
[2019-09-12] MEDS: traZODone 50 MG TAB PO SCH (20:37)
[2019-09-12] MEDS: LORazepam 1 MG TAB PO SCH (20:37)
--- NOTE | 2019-09-12 20:37 | NUR ---
ATIVAN, COREG, DESYREL, NEURONTIN, PLETAL, AND ZOCOR GIVEN PO. PT TOLERATED WELL.
[2019-09-12] MEDS: SIMVASTATIN 20 MG TAB PO SCH (20:38)
--- NOTE | 2019-09-12 21:45 | NUR ---
PT SLEEPING COMFORTABLY BUT AROUSABLE. NO S/S OF DISTRESS NOTED. WILL CONTINUE TO MONITOR.
--- NOTE | 2019-09-12 23:35 | NUR ---
PT SLEEPING BUT AROUSABLE. NO S/S OF DISTRESS NOTED. VS STABLE. WILL CONTINUE TO MONITOR.
[2019-09-13] VITALS (7 sets, daily range): BP systolic 111–175; BP diastolic 60–84
--- NOTE | 2019-09-13 01:40 | NUR ---
PT SLEEPING COMFORTABLY BUT AROUSABLE. NO S/S OF DISTRESS NOTED. NO COMPLAINTS OF PAIN. NO SOB. AFEBRILE. WILL CONTINUE TO MONITOR.
[2019-09-13] MEDS: NACL 0.9% 1,000 ML IV SCH (01:50)
--- NOTE | 2019-09-13 03:50 | NUR ---
PT SLEEPING COMFORTABLY BUT AROUSABLE. NO S/S OF DISTRESS NOTED. RESPIRATIONS EVEN, UNLABORED, AND WNL. WILL CONTINUE TO MONITOR.
--- NOTE | 2019-09-13 05:40 | NUR ---
PT SLEEPING COMFORTABLY BUT AROUSABLE. NO S/S OF DISTRESS NOTED. NO COMPLAINTS OF PAIN. NO SOB. AFEBRILE. WILL CONTINUE TO MONITOR.
[2019-09-13 06:23] LABS: BASOPHILS % (AUTO) 0.4 % (0.0-2.0); EOSINOPHILS # (AUTO) 0.1 K/uL (0-0.4); HEMATOCRIT 29.1 % (36-48); HEMOGLOBIN 9.7 g/dL (12.0-16.0); LYMPHOCYTES # (AUTO) 1.3 K/uL (2.5-16.5); LYMPHOCYTES % (AUTO) 30.6 % (20.5-51.1); MEAN CORPUSCULAR HEMOGLOBIN 29 pg (27-31); MEAN CORPUSCULAR HGB CONC 33 g/dL (33-37); MEAN CORPUSCULAR VOLUME 87.8 fL (80-94); MONOCYTES # (AUTO) 0.4 K/uL (0.8-1.0); MONOCYTES % (AUTO) 8.9 % (1.7-9.3); NEUTROPHILS # (AUTO) 2.5 K/uL (1.8-7.7); NEUTROPHILS % (AUTO) 58.1 % (42.2-75.2); PLATELET COUNT (AUTO) 121 K/uL (140-450); RED BLOOD CELL COUNT(AUTO) 3.31 MIL/uL (4.20-5.40); RED CELL DISTRIBUTION WIDTH 13.7 % (11.6-13.7); WHITE BLOOD COUNT (AUTO) 4.2 K/uL (4.8-10.8)
[2019-09-13 06:40] LABS: ANION GAP 14.2 (8-16); CARBON DIOXIDE 25.9 mmol/L (21-32); CHLORIDE 107 mmol/L (98-107); CREATININE 1.5 mg/dL (0.6-1.3); GLUCOSE 119 mg/dL (74-106); POTASSIUM 4.1 mmol/L (3.5-5.1); SODIUM SERUM 143 mmol/L (136-145); UREA NITROGEN, BLOOD 19 mg/dL (7-18)
[2019-09-13 06:48] LABS: MAGNESIUM 1.9 mg/dL (1.8-2.4); PHOSPHORUS 3.7 mg/dL (2.5-4.9)
--- NOTE | 2019-09-13 06:48 | NUR ---
PT SLEEPING COMFORTABLY BUT AROUSABLE. PT IN STABLE CONDITION.
--- NOTE | 2019-09-13 07:15 | NUR ---
RECEIVED BED SIDE REPORT FROM APPLICATIONS SPECIALIST NURSE, PATIENT IS IN STABLE CONDITION. WILL CONTINUE TO MONITOR
[2019-09-13 08:07] LABS: FOLIC ACID 3.8 ng/mL (>3.0)
[2019-09-13] MEDS: BUDESONIDE 0.5 MG/2 ML NEBU INH SCH ×3 (08:25→19:38)
[2019-09-13] MEDS: ALBUTEROL SULFATE/IPRATROPIU 3 ML SOL IH SCH ×3 (08:25→19:37)
--- NOTE | 2019-09-13 09:00 | NUR ---
MEDICATIONS GIVEN AT THIS TIME, NO DISTRESS NOTED, WILL CONTINUE TO FOLLOW UP.
[2019-09-13] MEDS: PANTOPRAZOLE 40 MG TABEC PO SCH (09:26)
[2019-09-13] MEDS: LOSARTAN 50 MG TAB PO SCH (09:26)
[2019-09-13] MEDS: CARVEDILOL 12.5 MG TAB PO SCH ×2 (09:27→21:00)
[2019-09-13] MEDS: CILOSTAZOL 100 MG TAB PO SCH ×2 (09:27→20:33)
[2019-09-13] MEDS: LACTOBACILLUS RHAMNOSUS GG 1 EACH CAP PO SCH (09:28)
[2019-09-13] MEDS: HYDROCHLOROTHIAZIDE 25 MG TAB PO SCH (09:28)
[2019-09-13] MEDS: buPROPion 100 MG TAB PO SCH (09:29)
[2019-09-13] MEDS: MYRBETRIQ 25 MG PO SCH (09:29)
[2019-09-13] MEDS: GABAPENTIN 100 MG CAP PO SCH ×2 (09:29→20:34)
--- NOTE | 2019-09-13 09:30 | NUR ---
P.T. NOTES PATIENT REFUSED TO HAVE P.T. SERVICES IN SPITE OF SEVERAL ENCOURAGEMENTS GIVEN. INFORMED HER NURSE CHEYENNE OF HER REFUSAL. PLAN: WE'LL FOLLOW UP AGAIN AND CONTINUE PER RECOMMENDATIONS ON THE NEXT P.T. SCHEDULED VISIT.
[2019-09-13] MEDS: LORazepam 2 MG/ML VIAL IM/IVP PRN (10:27)
[2019-09-13] MEDS: ACETAMINOPHEN EXTRA STRENGTH 500 MG TAB PO PRN ×2 (10:27→20:35)
--- NOTE | 2019-09-13 10:27 | NUR ---
PATIENT C/O CHEST PAIN, NON RADIATING, PATIENT REQUESTING MEDICATIONS FOR ANXIETY. PAIN AND ANXIETY MEDICATION WILL BE GIVEN PRE PROTOCOL.
--- NOTE | 2019-09-13 10:59 | NUR ---
PATIENT SLEEPING PEACEFULLY AT THE BEDSIDE, NO RES DISTRESS NOTED, VITAL SIGNS ARE WITHIN NORMAL RANGE, WILL CONTINUE TO FOLLOW UP.
--- NOTE | 2019-09-13 12:30 | NUR ---
VITALS SIGNS TAKEN AND ARE WITHIN NORMAL RANGE, PATIENT ENCOURAGED TO EAT, SHE STATE WANTS TO SLEEP, PATIENT ALSO ENCOURAGED TO DO THE INCENTIVE SPIROMETER, PATIENT EDUCATED ON HOW TO USE IT. CURRENTTLY IS AT 500ML, PATIENT ENCOURAGED TO DO AT LEAST 8 PER HR. WILL CONTINUE TO FOLLOW UP
--- NOTE | 2019-09-13 13:15 | NUR ---
WENT IN TO ADMINISTER A BREATHING TX AND PT WAS ASLEEP. PT APPEARS COMFORTABLE WITH 2 L NC. WILL CONTINUE TO MONITOR
--- NOTE | 2019-09-13 16:15 | NUR ---
BLOOD PRESSURE ELEVATED, PRN B/P GIVEN, DR GREEN ADVISED, EKG ORDERED. WILL CONTINUE TO MONITOR.
[2019-09-13] MEDS: hydrALAZINE 20 MG/ML VIAL IVP PRN (16:19)
--- NOTE | 2019-09-13 17:15 | NUR ---
BLOOD PRESSURE DECREASED, VITAL SIGNS STABLE. PATIENT ENCOURAGED TO EAT DINNER AND CONTINUE THE USE OF THE INCENTIVE SPIROMETER, CURRENTLY STILL AT 500ML. WILL CONTINUE TO MONITOR.
--- NOTE | 2019-09-13 19:20 | NUR ---
ENDORSED CARE TO HIGHWAY WORKER NURSE, PATIENT IS IN STABLE CONDITION.
--- NOTE | 2019-09-13 19:21 | NUR ---
RECEIVED REPORT FROM AM SHIFT NURSE. PATIENT ALERT AND ORIENTED X4. NO APPARENT DISTRESS NOTED. BED ON LOW POSITION. NOTED LEFT HAND 22G RUNNING IVF. APPEARS TO BE LEAKING. STOPPED IVF FOR NOW. WILL RE-INSERT. REVIEWED PLAN OF CARE WITH PATIENT. VERBALIZED UNDERSTANDING. WILL CONTINUE TO MONITOR.
[2019-09-13] MEDS: SIMVASTATIN 20 MG TAB PO SCH (20:33)
[2019-09-13] MEDS ORDERED: CRUSHER, PILL MC ONE (20:38)
--- NOTE | 2019-09-13 21:20 | NUR ---
PATIENT AWAKE IN BED WITH FAMILY. NO APPARENT DISTRESS NOTED. BED ON LOW POSITION. WILL CONTINUE TO MONITOR.
[2019-09-13] MEDS: traZODone 50 MG TAB PO SCH (21:49)
[2019-09-13] MEDS: LORazepam 1 MG TAB PO SCH (21:49)
--- NOTE | 2019-09-13 23:15 | NUR ---
PATIENT AWAKE IN BED. NO APPARENT DISTRESS NOTED. BED ON LOW POSITION. WILL CONTINUE TO MONITOR.
[2019-09-14] VITALS: BP 139/54
--- NOTE | 2019-09-14 01:10 | NUR ---
ROUNDS DONE. PATIENT ASLEEP IN BED. NO APPARENT DISTRESS NOTED. BED ON LOW POSITION. VISIBLE CHEST RISE AND FALL NOTED. WILL CONTINUE TO MONITOR.
[2019-09-14] MEDS: NACL 0.9% 1,000 ML IV SCH (01:50)
--- NOTE | 2019-09-14 02:57 | NUR ---
CHECKS DONE. PATIENT ASLEEP IN BED. NO APPARENT DISTRESS NOTED. VISIBLE CHEST RISE AND FALL NOTED. WILL CONTINUE TO MONITOR.
[2019-09-14 04:00] VITALS: BP_SYST 130; BP_SYST 144; BP_DIAS 61; BP_DIAS 77
--- NOTE | 2019-09-14 04:02 | NUR ---
ROUNDS DONE. PATIENT ASLEEP IN BED. NO APPARENT DISTRESS NOTED. VISIBLE CHEST RISE AND FALL NOTED. BED ON LOW POSITION. WILL CONTINUE TO MONITOR.
--- NOTE | 2019-09-14 05:56 | NUR ---
PATIENT ASLEEP IN BED. VISIBLE CHEST RISE AND FALL NOTED. NO APPARENT DISTRESS NOTED. BED ON LOW POSITION. WILL CONTINUE TO MONITOR.
[2019-09-14 06:39] LABS: CARBON DIOXIDE 24.9 mmol/L (21-32); CHLORIDE 107 mmol/L (98-107); CREATININE 1.4 mg/dL (0.6-1.3); GLUCOSE 92 mg/dL (74-106); POTASSIUM 3.9 mmol/L (3.5-5.1); SODIUM SERUM 143 mmol/L (136-145); UREA NITROGEN, BLOOD 17 mg/dL (7-18)
[2019-09-14 06:46] LABS: MAGNESIUM 1.7 mg/dL (1.8-2.4); PHOSPHORUS 4.3 mg/dL (2.5-4.9)
--- NOTE | 2019-09-14 06:46 | NUR ---
CHECKS DONE. PATIENT SLEEPING COMFORTABLY IN BED. VISIBLE CHEST RISE AND FALL NOTED. NO APPARENT DISTRESS NOTED. BED ON LOW POSITION. BED ALARM ON. CALL LIGHT WITHIN REACH. WILL ENDORSE TO AM SHIFT NURSE FOR CONTINUITY OF CARE.
[2019-09-14 07:06] LABS: BASOPHILS % (AUTO) 0.4 % (0.0-2.0); EOSINOPHILS # (AUTO) 0.1 K/uL (0-0.4); EOSINOPHILS % (AUTO) 2.7 % (0.0-4.0); HEMATOCRIT 28.5 % (36-48); HEMOGLOBIN 9.4 g/dL (12.0-16.0); LYMPHOCYTES # (AUTO) 1.2 K/uL (2.5-16.5); LYMPHOCYTES % (AUTO) 32.3 % (20.5-51.1); MEAN CORPUSCULAR HEMOGLOBIN 29 pg (27-31); MEAN CORPUSCULAR HGB CONC 33 g/dL (33-37); MEAN CORPUSCULAR VOLUME 88.2 fL (80-94); MONOCYTES # (AUTO) 0.5 K/uL (0.8-1.0); MONOCYTES % (AUTO) 12.8 % (1.7-9.3); NEUTROPHILS # (AUTO) 1.9 K/uL (1.8-7.7); NEUTROPHILS % (AUTO) 51.8 % (42.2-75.2); PLATELET COUNT (AUTO) 125 K/uL (140-450); RED BLOOD CELL COUNT(AUTO) 3.23 MIL/uL (4.20-5.40); RED CELL DISTRIBUTION WIDTH 13.8 % (11.6-13.7); WHITE BLOOD COUNT (AUTO) 3.8 K/uL (4.8-10.8)
--- NOTE | 2019-09-14 07:30 | NUR ---
RECEIVED BEDSIDE REPORT FROM NIGHT NURSE. PATIENT IS IN BED, ASLEEP, EASILY AROUSABLE. RESPIRATIONS EVEN AND UNLABORED. IV INTACT AND PATENT TO RIGHT FOREARM WITH NS INFUSING @ 40ML/HR. NO S/S OF DISTRESS NOTED. BED IN LOW POSITION. BED ALARM ON. SAFETY MEASURES IN PLACE. CALL LIGHT WITHIN REACH.
[2019-09-14 08:00] VITALS: BP 136/73
[2019-09-14] MEDS: CILOSTAZOL 100 MG TAB PO SCH (08:31)
[2019-09-14] MEDS: buPROPion 100 MG TAB PO SCH (08:32)
[2019-09-14] MEDS: LOSARTAN 50 MG TAB PO SCH (08:33)
[2019-09-14] MEDS: LACTOBACILLUS RHAMNOSUS GG 1 EACH CAP PO SCH (08:33)
[2019-09-14] MEDS: PANTOPRAZOLE 40 MG TABEC PO SCH (08:33)
[2019-09-14] MEDS: HYDROCHLOROTHIAZIDE 25 MG TAB PO SCH (08:33)
[2019-09-14] MEDS: CARVEDILOL 12.5 MG TAB PO SCH (08:34)
[2019-09-14] MEDS: GABAPENTIN 100 MG CAP PO SCH (08:34)
[2019-09-14] MEDS: MYRBETRIQ 25 MG PO SCH (08:35)
[2019-09-14] MEDS: BUDESONIDE 0.5 MG/2 ML NEBU INH SCH ×2 (08:44→14:39)
[2019-09-14] MEDS: ALBUTEROL SULFATE/IPRATROPIU 3 ML SOL IH SCH ×2 (08:44→14:39)
[2019-09-14] MEDS ORDERED: AZITHROMYCIN 250 MG TAB PO SCH (09:00)
--- NOTE | 2019-09-14 09:30 | NUR ---
PATIENT IS ALERT, AWAKE AND VERBALLY RESPONSIVE. O2 ON @2L VIA NC. IV INTACT AND PATENT TO RIGHT FOREARM WITH IVF NS @40ML/HR. NO S/S OF RESPIRATORY DISTRESS NOTED. FAMILY AT BEDSIDE. CALL LIGHT WITHIN REACH.
[2019-09-14] MEDS ORDERED: MAGNESIUM OXIDE 400 MG TAB PO SCH (10:00)
--- NOTE | 2019-09-14 11:35 | NUR ---
PATIENT REPORTS FEELING ANXIOUS AND AGITATED DUE TO HER PRIOR DISCHARGE PLANNING. WILL MEDICATE PATIENT FOR ANXIETY.
[2019-09-14] MEDS: LORazepam 2 MG/ML VIAL IM/IVP PRN (11:40)
[2019-09-14 12:15] VITALS: BP 182/71
[2019-09-14] MEDS: hydrALAZINE 20 MG/ML VIAL IVP PRN (12:28)
--- NOTE | 2019-09-14 12:59 | NUR ---
Faxed order for home health for IV ABT Rocephine 4 days to [facility]. [facility] called back and trying to locate a Nurse to tomorrow. also faxed the order to [facility] and will review the case. Faxed the order to [facility] [phone] spoke to Jori. Franklin for [facility] called and wants to know if pharmacy arranged to send meds, I gave her the pharmacy name. Will call back
[2019-09-14 13:28] VITALS: BP 131/50
--- NOTE | 2019-09-14 13:49 | NUR ---
Franklin from [facility] called back and accepted the case. she will contact the family to arrange the time.
[2019-09-14] MEDS ORDERED: ROC1PM IV (14:13)
[2019-09-14] MEDS ORDERED: AZIT250T11 PO (14:13)
--- NOTE | 2019-09-14 15:10 | NUR ---
PATIENT LEFT FOR DISCHARGE. DISCHARGE INSTRUCTIONS PACKET GIVEN. PATIENT IS GOING HOME WITH FAMILY VIA PRIVATE VEHICLE. PATIENT WILL BE FOLLOWED UP BY [facility] TO CONTINUE WITH IV ANTIBIOTICS PER DR. WILL. PERIPHERAL IV LINE LEFT INTACT AND PATENT TO RIGHT FOREARM ORDERED BY ID BANDS REMOVED. ALL BELONGINGS GIVEN AND SIGNED FOR.
== END 2019-09-14 15:22 | disposition home or self-care (01) | DRG 291 ==
LOC: MED 07:44 → MMU 10:32
PROVIDERS: ADMIT General Practice; ATTEND General Practice
DX: I50.43 Acute on chronic combined systolic (congestive) and diastolic (congestive) heart failure (principal); J96.01 Acute respiratory failure with hypoxia; E43 Unspecified severe protein-calorie malnutrition; J18.9 Pneumonia, unspecified organism; D61.818 Other pancytopenia; R65.10 Systemic inflammatory response syndrome (SIRS) of non-infectious origin without acute organ dysfunction; I13.0 Hypertensive heart and chronic kidney disease with heart failure and stage 1 through stage 4 chronic kidney disease, or unspecified chronic kidney disease; N18.9 Chronic kidney disease, unspecified; K21.9 Gastro-esophageal reflux disease without esophagitis; I73.9 Peripheral vascular disease, unspecified; E78.5 Hyperlipidemia, unspecified; M79.7 Fibromyalgia; E02 Subclinical iodine-deficiency hypothyroidism; F32.9 Major depressive disorder, single episode, unspecified; H26.9 Unspecified cataract; K58.9 Irritable bowel syndrome, unspecified; G62.9 Polyneuropathy, unspecified; J43.9 Emphysema, unspecified; E83.42 Hypomagnesemia; F41.9 Anxiety disorder, unspecified; R32 Unspecified urinary incontinence; Z82.49 Family history of ischemic heart disease and other diseases of the circulatory system; Z83.3 Family history of diabetes mellitus; Z86.73 Personal history of transient ischemic attack (TIA), and cerebral infarction without residual deficits; Z87.891 Personal history of nicotine dependence; Z90.710 Acquired absence of both cervix and uterus; Z91.19 Patient's noncompliance with other medical treatment and regimen; Z88.6 Allergy status to analgesic agent; Z88.1 Allergy status to other antibiotic agents; Z88.5 Allergy status to narcotic agent; Z88.8 Allergy status to other drugs, medicaments and biological substances; Z90.49 Acquired absence of other specified parts of digestive tract
CPT/HCPCS: 36415; 36600; 71045; 71250; 80048; 80053; 81003; 82140; 82150; 82607; 82746; 82803; 82948; 83036; 83605; 83615; 83690; 83735; 83880; 84100; 84439; 84443; 84484; 84550; 85025; 85379; 85610; 85730; 87040; 87081; 87086; 87804; 92610; 93005; 94640; 96365; 96367; 96372; 96375; 97530; 99283; J0360; J0696; J1200; J1720; J2060; J2550; J3475; J3490; J7030; J7060; J7620; J7626; Q0092

== ENCOUNTER 2019-09-15 20:40 | Emergency (ER) | payer OTHER ==
[~2019-09-15] VITALS: Ht 160 cm; Wt 56.2 kg
[~2019-09-15 20:40] MED LIST changes: -ALBU3SOL83 IH; -AMLO5TAB6 PO; +AZIT250T11 PO; -BEN50 PO; -FURO-570 PO; +LANS15EC28 PO; +LORA-476 PO; -PRED10TA6 PO; -PUL.5N INH; +ROC1PM IV; -SERMDI INH; -TEMA15CA24 PO
[2019-09-15 20:45] VITALS: BP 199/93
[2019-09-15] MEDS ORDERED: hydrALAZINE 20 MG/ML VIAL IVP ONE (20:55)
--- NOTE | 2019-09-15 21:13 | NUR ---
EKG PERFORMED AT BEDSIDE
--- NOTE | 2019-09-15 21:30 | NUR ---
73 Y/O FEMALE BIB AMBULANCE FROM HOME. PRESENTS TO ED, C/O HIGH BP AND HEADACHE. PT STATES HEADACHE STARTED TODAY, 06/23 DOES NOT RADIATE. PT WAS RECEIVING ABX VIA IV FROM HOME HEALTH NURSE WHEN PAIN STARTED. STATES HAVING CHRONIC MICGRAINES. PT STATES BEING COMPLIANT WITH BP MEDS. PT DENIES N/V/D. DENIES CHEST PAIN. NO SOB/DIFFICULTY BREATHING NOTED. PT AT STABLE CONDITION. ERMD AWARE. WILL CONTINUE TO MONITOR.
[2019-09-15 22:17] LABS: BASOPHILS % (AUTO) 0.4 % (0.0-2.0); EOSINOPHILS # (AUTO) 0.1 K/uL (0-0.4); EOSINOPHILS % (AUTO) 2.3 % (0.0-4.0); HEMOGLOBIN 9.8 g/dL (12.0-16.0); LYMPHOCYTES # (AUTO) 0.9 K/uL (2.5-16.5); LYMPHOCYTES % (AUTO) 24.5 % (20.5-51.1); MEAN CORPUSCULAR HEMOGLOBIN 29 pg (27-31); MEAN CORPUSCULAR HGB CONC 33 g/dL (33-37); MEAN CORPUSCULAR VOLUME 87.3 fL (80-94); MONOCYTES # (AUTO) 0.4 K/uL (0.8-1.0); MONOCYTES % (AUTO) 11.5 % (1.7-9.3); NEUTROPHILS # (AUTO) 2.2 K/uL (1.8-7.7); NEUTROPHILS % (AUTO) 61.3 % (42.2-75.2); PLATELET COUNT (AUTO) 124 K/uL (140-450); RED BLOOD CELL COUNT(AUTO) 3.44 MIL/uL (4.20-5.40); RED CELL DISTRIBUTION WIDTH 13.3 % (11.6-13.7); WHITE BLOOD COUNT (AUTO) 3.6 K/uL (4.8-10.8)
[2019-09-15 23:09] LABS: ANION GAP 14.9 (8-16); CARBON DIOXIDE 25.7 mmol/L (21-32); CHLORIDE 104 mmol/L (98-107); CREATININE 1.2 mg/dL (0.6-1.3); GLUCOSE 95 mg/dL (74-106); POTASSIUM 3.6 mmol/L (3.5-5.1); SODIUM SERUM 141 mmol/L (136-145); UREA NITROGEN, BLOOD 16 mg/dL (7-18)
[2019-09-15 23:31] LABS: ALBUMIN 3.4 g/dL (3.4-5.0); ASPARTATE AMINOTRANSFERASE 24 U/L (15-37); TOTAL BILIRUBIN 0.2 mg/dL (0.0-1.0)
[2019-09-15 23:53] VITALS: BP 153/57
--- NOTE | 2019-09-15 23:53 | NUR ---
PT DISCHARGED WITH PAPERWORK. EDUCATED PT REGARDING D/C INSTRUCTIONS AND DIAGNOSIS. PT VERBALIZED UNDERSTANDING OF TEACHING. TOLD PT TO FOLLOW UP WITH PCP AND WHEN TO RETURN TO ED. PT AT STABLE CONDITION. DENIES ANY HEADACHE. ALL QUESTIONS ANSWERED.
== END 2019-09-15 23:53 | disposition home or self-care (01) ==
LOC: MED 20:40
DX: I10 Essential (primary) hypertension (principal); R51 Headache; J44.9 Chronic obstructive pulmonary disease, unspecified; K21.9 Gastro-esophageal reflux disease without esophagitis; E07.9 Disorder of thyroid, unspecified; Z86.73 Personal history of transient ischemic attack (TIA), and cerebral infarction without residual deficits; Z85.9 Personal history of malignant neoplasm, unspecified; Z79.899 Other long term (current) drug therapy; Z88.5 Allergy status to narcotic agent; Z88.6 Allergy status to analgesic agent; Z88.8 Allergy status to other drugs, medicaments and biological substances
CPT/HCPCS: 36415; 71045; 80053; 84484; 85025; 93005; 96374; 99284; J0360

== ENCOUNTER 2020-03-23 12:34 | Emergency (ER) | payer OTHER ==
[~2020-03-23] VITALS: Ht 157.5 cm; Wt 49.9 kg
--- NOTE | 2020-03-23 12:34 | NUR ---
PT ALISHA BLS TO ER BED 07
[2020-03-23 12:42] VITALS: BP 132/107
--- NOTE | 2020-03-23 12:47 | NUR ---
74 yo female biba c/o abd pain x 2 wks with nausea/vomiting medhx: gastritis, pancreatitis, stroke, htn, copd
[2020-03-23 13:16] LABS: BASOPHILS % (AUTO) 0.4 % (0.0-2.0); HEMATOCRIT 36.9 % (36-48); HEMOGLOBIN 12.1 g/dL (12.0-16.0); LYMPHOCYTES # (AUTO) 0.9 K/uL (2.5-16.5); LYMPHOCYTES % (AUTO) 12.4 % (20.5-51.1); MEAN CORPUSCULAR HEMOGLOBIN 28 pg (27-31); MEAN CORPUSCULAR HGB CONC 33 g/dL (33-37); MEAN CORPUSCULAR VOLUME 86.4 fL (80-94); MONOCYTES # (AUTO) 0.6 K/uL (0.8-1.0); MONOCYTES % (AUTO) 8.1 % (1.7-9.3); NEUTROPHILS % (AUTO) 79.1 % (42.2-75.2); PLATELET COUNT (AUTO) 130 K/uL (140-450); RED BLOOD CELL COUNT(AUTO) 4.27 MIL/uL (4.20-5.40); RED CELL DISTRIBUTION WIDTH 14.2 % (11.6-13.7); WHITE BLOOD COUNT (AUTO) 7.5 K/uL (4.8-10.8)
[2020-03-23 13:42] LABS: ALBUMIN 3.8 g/dL (3.4-5.0); ANION GAP 22.1 (8-16); ASPARTATE AMINOTRANSFERASE 24 U/L (15-37); CARBON DIOXIDE 23.1 mmol/L (21-32); CHLORIDE 100 mmol/L (98-107); CREATININE 1.9 mg/dL (0.6-1.3); GLUCOSE 118 mg/dL (74-106); LIPASE 154 U/L (73-393); POTASSIUM 4.2 mmol/L (3.5-5.1); SODIUM SERUM 141 mmol/L (136-145); TOTAL BILIRUBIN 0.6 mg/dL (0.0-1.0); UREA NITROGEN, BLOOD 22 mg/dL (7-18)
--- NOTE | 2020-03-23 15:00 | NUR ---
pt moved from bed 07 to bed 08 for covid precautions
--- NOTE | 2020-03-23 15:30 | NUR ---
PT ASKED TO USE BEDPAN. PT PLACED ON BEDPAN AND PT WAS UNABLE TO GO TO THE BATHROOM AT THIS TIME. PT STATES THAT SHE IS SCARED THAT SHE WILL RUN OUT OF O2. ASSURED PT THAT WE HAVE 02 HERE TO SUPPLY TO HER.
[2020-03-23 15:40] LABS: BILIRUBIN,URINE NEGATIVE (NEGATIVE); BLOOD, URINE 2+ (NEGATIVE); COLOR,URINE YELLOW (YELLOW); LEUKOCYTE ESTERASE ,URINE 1+ (NEGATIVE); NITRITE, URINE POSITIVE (NEGATIVE); PH,URINE 6.5 (5.0-9.0); UGLUCOSE NEGATIVE (NEGATIVE)
[2020-03-23 15:42] LABS: APPEARANCE,URINE HAZY (CLEAR)
[2020-03-23] MEDS ORDERED: cefTRIAXone 1,000 MG in LIDOCAINE MPF 1% 2.1 ML IM ONE (16:30)
--- NOTE | 2020-03-23 16:42 | NUR ---
SPOKE TO PTS DAUGHTER RAFIQ HAZEL, WANTS AN UPDATE ON PT [phone]
[2020-03-23] MEDS ORDERED: cefTRIAXone 1,000 MG VIAL ONE (16:46)
[2020-03-23] MEDS ORDERED: LIDOCAINE MPF 1% 5 ML ONE (16:47)
[2020-03-23] MEDS ORDERED: ACETAMINOPHEN EXTRA STRENGTH 500 MG TAB PO ONE (18:15)
--- NOTE | 2020-03-23 19:06 | NUR ---
PT CALLED DAUGHTER WHO WILL COME TO PICK HER UP AND HELP HER GET DRESSED
[2020-03-23 19:07] VITALS: BP 127/82
== END 2020-03-23 19:07 | disposition home or self-care (01) ==
LOC: MED 12:34
DX: N30.90 Cystitis, unspecified without hematuria (principal); R03.0 Elevated blood-pressure reading, without diagnosis of hypertension; D69.6 Thrombocytopenia, unspecified; R10.13 Epigastric pain; R11.0 Nausea; I12.9 Hypertensive chronic kidney disease with stage 1 through stage 4 chronic kidney disease, or unspecified chronic kidney disease; I63.9 Cerebral infarction, unspecified; J44.9 Chronic obstructive pulmonary disease, unspecified; K21.9 Gastro-esophageal reflux disease without esophagitis; N18.9 Chronic kidney disease, unspecified; N17.9 Acute kidney failure, unspecified; Z20.828 Contact with and (suspected) exposure to other viral communicable diseases
CPT/HCPCS: 36415; 74176; 80053; 81001; 83690; 84484; 85025; 87086; 87186; 93005; 96372; 99285; J0696; J2001

== ENCOUNTER 2020-12-20 12:54 | Inpatient (IN) | payer OTHER, SELFPAY ==
[~2020-12-20] VITALS: Ht 157.5 cm; Wt 52.2 kg
[2020-12-20 12:58] VITALS: BP 195/84
--- NOTE | 2020-12-20 13:18 | NUR ---
ERMD AT BEDSIDE EVALUATING PT
--- NOTE | 2020-12-20 13:20 | NUR ---
EKG AT BEDSIDE
--- NOTE | 2020-12-20 13:20 | NUR ---
75 YO F BIB SELF FOR C/O INTERMITTENT SHARP CHEST PAIN X1 WEEK THAT RADIATES TO LEFT ARM WITH ASSOCIATED NAUSEA NO VOMITING. PT HAS HAD ELEVATED BLOOD PRESSURE OF 200 SBP WITH HEADACHE AND BLURRY VISION DESPITE TAKING ALL HTN MEDICATIONS. PT STATES SHE WAS AT [facility] AND SENT HERE FOR EVAL. PT ON O2 2L NC DEPENDENT. BED LOCKED AND IN LOWEST POSITION. 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 HX: VULVA CA, HTN, HYPOTHYROID, CVA, ASTHMA, COPD, GERD
--- NOTE | 2020-12-20 13:46 | NUR ---
CISCO SWAB, LABS, AND UA SENT TO LAB
--- NOTE | 2020-12-20 13:47 | NUR ---
PT STATES " I CAN NOT HAVE CONTRAST DYE." ERMD MADE AWARE.
[2020-12-20 13:50] LABS: BASOPHILS % (AUTO) 1.1 % (0.0-2.0); EOSINOPHILS # (AUTO) 0.1 K/uL (0-0.4); EOSINOPHILS % (AUTO) 2.1 % (0.0-4.0); HEMATOCRIT 33.7 % (36-48); HEMOGLOBIN 11.3 g/dL (12.0-16.0); LYMPHOCYTES # (AUTO) 1.1 K/uL (2.5-16.5); LYMPHOCYTES % (AUTO) 31.7 % (20.5-51.1); MEAN CORPUSCULAR HEMOGLOBIN 29 pg (27-31); MEAN CORPUSCULAR HGB CONC 34 g/dL (33-37); MEAN CORPUSCULAR VOLUME 85.3 fL (80-94); MONOCYTES # (AUTO) 0.4 K/uL (0.8-1.0); MONOCYTES % (AUTO) 10.9 % (1.7-9.3); NEUTROPHILS # (AUTO) 1.8 K/uL (1.8-7.7); NEUTROPHILS % (AUTO) 54.2 % (42.2-75.2); PLATELET COUNT (AUTO) 124 K/uL (140-450); RED BLOOD CELL COUNT(AUTO) 3.95 MIL/uL (4.20-5.40); RED CELL DISTRIBUTION WIDTH 13.7 % (11.6-13.7); WHITE BLOOD COUNT (AUTO) 3.3 K/uL (4.8-10.8)
[2020-12-20 13:51] LABS: APPEARANCE,URINE HAZY (CLEAR); BILIRUBIN,URINE NEGATIVE (NEGATIVE); BLOOD, URINE NEGATIVE (NEGATIVE); COLOR,URINE YELLOW (YELLOW); LEUKOCYTE ESTERASE ,URINE 1+ (NEGATIVE); NITRITE, URINE NEGATIVE (NEGATIVE); PH,URINE 6.5 (5.0-9.0); UGLUCOSE NEGATIVE (NEGATIVE)
[2020-12-20 14:04] LABS: ALBUMIN 4.2 g/dL (3.4-5.0); ANION GAP 11.8 (8-16); ASPARTATE AMINOTRANSFERASE 21 U/L (15-37); CARBON DIOXIDE 28.4 mmol/L (21-32); CHLORIDE 103 mmol/L (98-107); CREATININE 1.8 mg/dL (0.6-1.3); GLUCOSE 95 mg/dL (74-106); POTASSIUM 4.2 mmol/L (3.5-5.1); SODIUM SERUM 139 mmol/L (136-145); TOTAL BILIRUBIN 0.3 mg/dL (0.0-1.0); UREA NITROGEN, BLOOD 29 mg/dL (7-18)
--- NOTE | 2020-12-20 14:14 | NUR ---
RAD AT BEDSIDE
--- NOTE | 2020-12-20 14:28 | NUR ---
PT TAKEN TO CT VIA WHEELCHAIR Addendum: 12/20/20 at 1428 by [email or web address] PT TAKEN TO CT VIA EDEN
--- NOTE | 2020-12-20 14:29 | NUR ---
Pt taken to CT via norberto accompanied by Chris hoffmann
[2020-12-20 14:34] LABS: RBC,URINE NONE SEEN /HPF (0-5); WBC,URINE 0-5 /HPF (0-5)
--- NOTE | 2020-12-20 14:41 | NUR ---
PT RETURNED FROM CT VIA [facility]
--- NOTE | 2020-12-20 14:57 | NUR ---
MONIKAD MADE AWARE OF PTS 06/23 CP AND BP OF 222/94
[2020-12-20] MEDS ORDERED: NITROGLYCERIN 0.4 MG TAB SL ONE ×3 (14:58→15:35)
--- NOTE | 2020-12-20 14:59 | NUR ---
SL NITRO GIVEN FOR ELEVATED BP AND CHEST PAIN
--- NOTE | 2020-12-20 15:02 | NUR ---
ERMD AT BEDSIDE WITH ULTRASOUND PERFORMING EXAM
--- NOTE | 2020-12-20 15:37 | NUR ---
RECEIVED REPORT FROM ER NURSE. PT USES WHEELCHAIR. PT HAS RAC 20G. SKIN INTACT. PT ON 2L NC. PT HAS NUMEROUS ALLERGIES. WILL PREPARE ROOM AND WAIT PT.
--- NOTE | 2020-12-20 15:57 | NUR ---
Patient will be admitted to care of Dr. Menendez. Admited to Telemetry. Will go to room 106B . Belongings list completed. Report to OSITO Mercedes.
[2020-12-20 16:00] VITALS: BP 207/96
--- NOTE | 2020-12-20 16:19 | NUR ---
NOTIFIED DR PRESCOTT PT HAS ELEVATED BP 207/96. RECEIVED TORB FOR HYDRALAZINE 10MG IVP Q6H PRN FOR SBP >165, DBP>95. WILL INPUT ORDER AND CARRY IT OUT.
[2020-12-20] MEDS ORDERED: hydrALAZINE 20 MG/ML VIAL IVP PRN (16:20)
--- NOTE | 2020-12-20 16:47 | NUR ---
ADMINISTERED HYDRALAZINE FOR ELEVATED BP. MEDICATION EDUCATION PROVIDED. PT TOLERATED WELL. WILL CONTINUE TO MONITOR.
[2020-12-20] MEDS ORDERED: ZOLPIDEM 5 MG TAB PO PRN (18:20)
[2020-12-20] MEDS ORDERED: guaiFENesin DM 200/20 MG-10 ML 10 ML UDC PO PRN (18:20)
[2020-12-20] MEDS ORDERED: ONDANSETRON 4 MG/2 ML VIAL IM/IVP PRN (18:20)
[2020-12-20] MEDS ORDERED: DOCUSATE SODIUM 100 MG GELCAP PO PRN (18:20)
[2020-12-20] MEDS ORDERED: NACL 0.9% 1,000 ML IV SCH (18:20)
[2020-12-20] MEDS ORDERED: POTASSIUM CHLORIDE 10 MEQ TABER PO PRN (18:20)
[2020-12-20] MEDS ORDERED: NITROGLYCERIN 0.4 MG TAB SL PRN (18:25)
[2020-12-20 18:55] LABS: BARBITURATE, URINE NEGATIVE ng/ml (NEG <=200); BENZODIAZEPINE, URINE POSITIVE ng/mL (NEG <=200)
[2020-12-20 18:56] LABS: CANNABINOID, URINE NEGATIVE ng/mL (NEG <=50); COCAINE, URINE NEGATIVE ng/mL (NEG <=300); OPIATE, URINE NEGATIVE ng/mL (NEG <=2000); PHENCYCLIDINE SCREEN,URINE NEGATIVE ng/mL (NEG <=25)
[2020-12-20 18:58] LABS: PROTHROMBIN TIME 10.5 secs (10.8-13.4)
--- NOTE | 2020-12-20 19:06 | NUR ---
NOTIFIED DR PRESCOTT PT HAS CURRENT BP 193/86, HR 67.
[2020-12-20 19:08] LABS: ALBUMIN 4.3 g/dL (3.4-5.0); AMYLASE 166 U/L (25-115); ANION GAP 13.6 (8-16); ASPARTATE AMINOTRANSFERASE 21 U/L (15-37); CARBON DIOXIDE 27.6 mmol/L (21-32); CHLORIDE 102 mmol/L (98-107); CHOL/HDL RATIO 3.6 (1-4.5); CREATININE 1.8 mg/dL (0.6-1.3); FREE T4 (FREE THYROXINE) 1.01 ng/dL (0.76-1.46); GLUCOSE 92 mg/dL (74-106); HDL CHOLESTEROL 49 mg/dL (40-60); LDL (CALC) 95 mg/dL (60-100); LIPASE 113 U/L (73-393); MAGNESIUM 1.4 mg/dL (1.8-2.4); PHOSPHORUS 3.7 mg/dL (2.5-4.9); POTASSIUM 4.2 mmol/L (3.5-5.1); SODIUM SERUM 139 mmol/L (136-145); THYROID STIMULATING HORMONE 9.87 uIU/mL (0.34-3.74); TOTAL BILIRUBIN 0.3 mg/dL (0.0-1.0); TRIGLYCERIDES 150 mg/dL (30-150); UREA NITROGEN, BLOOD 28 mg/dL (7-18)
--- NOTE | 2020-12-20 19:18 | NUR ---
ENDORSE TO NIGHT NURSE FOR CONTINUITY OF CARE.
--- NOTE | 2020-12-20 19:48 | NUR ---
PATIENT WAS RECEIVED IN BED AWAKE AND COHERENT, NO DISTRESS, DENIES ANY PAIN, VERBAL.
[2020-12-20 20:00] VITALS: BP 229/94
[2020-12-20] MEDS: carvediloL 12.5 MG TAB PO SCH (20:28)
[2020-12-20] MEDS: cilostazoL 100 MG TAB PO SCH (20:29)
--- NOTE | 2020-12-20 20:30 | NUR ---
RN observe BP was elevated at 229/94 mmHg, contacted Dr. Shun Menendez, referred to Dr. Carvajal (Cardio),
[2020-12-20] MEDS: SIMVASTATIN 20 MG TAB PO SCH (20:32)
[2020-12-20] MEDS: traZODone 50 MG TAB PO SCH (20:49)
--- NOTE | 2020-12-20 21:00 | NUR ---
Due meds Coreg 25 mg was given along with the rest of due meds, RN called and talk with Dr. Carvajal, new order was Cozar 50 mg x 1, Hydralazine IVP was increased frequency to 10 mg q 3 hours for SBP greater than 160, he will follow up tomorrow.
[2020-12-20] MEDS ORDERED: LOSARTAN 50 MG TAB PO SCH (21:10)
--- NOTE | 2020-12-20 22:00 | NUR ---
RN RECHECKED BP, SBP STILL ABOVE 160 ORDERED LOSARTAN 50 MG X 1 WAS GIVEN WILL RECHECK BP AFTER AN HOUR.
--- NOTE | 2020-12-20 22:53 | NUR ---
ECONOMIC RESEARCH ANALYST APPROACHED RN, REPORTED THEY COULD NOT GET A BLOOD FROM THE PATIENT, RN WENT TO PATIENT'S ROOM, TRIED TO CONVINCE IF HE CAN TRY GETTING THE BLOOD BUT PATIENT REFUSED SAYING SHE WAS POKED SEVERAL TIMES ALREADY
--- NOTE | 2020-12-20 22:56 | NUR ---
PATIENT REQUESTED FOR SANDWICH, RN PROVIDED THE PATIENT WITH CHICKEN SANDWICH
[2020-12-21] MEDS: ACETAMINOPHEN 325 MG TAB PO PRN ×3 (02:41→22:50)
[2020-12-21 04:00] VITALS: BP 168/67
[2020-12-21] MEDS: hydrALAZINE 20 MG/ML VIAL IVP PRN ×3 (05:06→07:00)
[2020-12-21 07:01] LABS: CHLORIDE 103 mmol/L (98-107); CREATININE 1.8 mg/dL (0.6-1.3); GLUCOSE 96 mg/dL (74-106); SODIUM SERUM 140 mmol/L (136-145); UREA NITROGEN, BLOOD 30 mg/dL (7-18)
[2020-12-21 07:06] LABS: BASOPHILS % (AUTO) 0.3 % (0.0-2.0); EOSINOPHILS # (AUTO) 0.1 K/uL (0-0.4); EOSINOPHILS % (AUTO) 1.5 % (0.0-4.0); HEMATOCRIT 34.2 % (36-48); HEMOGLOBIN 11.4 g/dL (12.0-16.0); LYMPHOCYTES # (AUTO) 1.4 K/uL (2.5-16.5); LYMPHOCYTES % (AUTO) 27.2 % (20.5-51.1); MEAN CORPUSCULAR HEMOGLOBIN 29 pg (27-31); MEAN CORPUSCULAR HGB CONC 33 g/dL (33-37); MEAN CORPUSCULAR VOLUME 85.9 fL (80-94); MONOCYTES # (AUTO) 0.5 K/uL (0.8-1.0); MONOCYTES % (AUTO) 9.5 % (1.7-9.3); NEUTROPHILS # (AUTO) 3.1 K/uL (1.8-7.7); NEUTROPHILS % (AUTO) 61.5 % (42.2-75.2); PLATELET COUNT (AUTO) 135 K/uL (140-450); RED BLOOD CELL COUNT(AUTO) 3.98 MIL/uL (4.20-5.40)
--- NOTE | 2020-12-21 07:20 | NUR ---
RECEIVED REPORT FROM NIGHT NURSE PATIENT IS SLEEPING ON 2LPM NC SATURATION AT 99-100% SKIN INTACT IV INTACT ON RIGHT AC SALINE LOCK, PATIENT ON NPO FOR ABDOMINAL ULTRASOUND TODAY, PATIENT BLOOD PRESSURE HAS BEEN HIGH SINCE LAST NIGHT. NO RICE, BEAMS AND DAIRY PRODUCTS. SAFETY MEASURES IN PLACE AND CALL LIGHT WITHIN REACH.WILL CONTINUE TO MONITOR.
--- NOTE | 2020-12-21 07:49 | NUR ---
REPORT GIVEN, ENDORSED TO INCOMING RN.
[2020-12-21 08:00] VITALS: BP 153/69
--- NOTE | 2020-12-21 08:00 | NUR ---
RECHECK PT VITAL SIGNS BP 153/60 AND MD 78.
--- NOTE | 2020-12-21 08:30 | NUR ---
PT SEEN BY PHYSICAL THERAPIST AND RECOMMENDS SKILLED REHAB PATIENT FEELS DIZZINESS WHEN STANDING AND UNABLE TO TOLERATE ACTIVITIES.
[2020-12-21] MEDS ORDERED: lisinopriL 5 MG TAB PO SCH (09:00)
[2020-12-21] MEDS ORDERED: NON-FORMULARY ITEM (Mirabegron (Myrbetriq) 25 MG) PO SCH (09:00)
[2020-12-21] MEDS: GABAPENTIN 100 MG CAP PO SCH (09:07)
[2020-12-21] MEDS: PANTOPRAZOLE 40 MG TABEC PO SCH (09:07)
[2020-12-21] MEDS: MAGNESIUM OXIDE 400 MG TAB PO SCH (09:07)
[2020-12-21] MEDS: buPROPion 100 MG TAB PO SCH (09:08)
[2020-12-21] MEDS: cilostazoL 100 MG TAB PO SCH ×2 (09:08→22:47)
[2020-12-21] MEDS: carvediloL 12.5 MG TAB PO SCH ×2 (09:09→22:47)
[2020-12-21] MEDS: LOSARTAN 50 MG TAB PO SCH (09:09)
[2020-12-21] MEDS: hydroCHLOROthiazide 25 MG TAB PO SCH (09:10)
--- NOTE | 2020-12-21 09:10 | NUR ---
MEDICATION DUE GIVEN, CHECK VITAL SIGNS PRIOR TO MEDICATION BP 153/69 MS 78 PATIENT UNABLE TO SLEEP WELL AT NIGHT AND FEELS WEAK.
[2020-12-21] MEDS: NIFEdipine 60 MG TABER PO SCH (09:20)
--- NOTE | 2020-12-21 10:41 | NUR ---
PATIENT HAS BEEN SCREENED AND CATEGORIZED HIGH NUTRITION RISK. PATIENT WILL BE SEEN WITHIN 1-2 DAYS OF ADMISSION. 12/21/20 12/22/[address]
[2020-12-21] MEDS ORDERED: DEXTROSE 50% 50 ML SYR IVP PRN (10:50)
[2020-12-21] MEDS ORDERED: INSULIN LISPRO SLIDING SCALE 100 UNITS/ML VIAL SUBQ PRN (10:50)
--- NOTE | 2020-12-21 11:22 | NUR ---
DC PLANNIN YRS OLD FEMALE PATIENT WAS ADMITTED FROM HOME WITH A DX OF ACS. PT HAS A HX OF COPD, CIRRHOSIS, VULVAL CARCINOMA, HTN, AND DM. CXR SHOWED NO ACUTE CARDIOPULMONARY DISEASE, CT ABD/PELVIS SHOWED ATELECTASIS, VENOUS DOPPLER AND DOPPLER STUDY ULTRASOUND SHOWED NO DVT OR STENOSIS. RAPID COVID TEST NEGATIVE. URINE CULTURE PENDING. ADMINISTERED ACS PROTOCOL IV ABX ROCEPHIN, IVF AND CONTINUED HOME MEDS. CONSULTED WITH CARDIO AND LEAN MANUFACTURING COORDINATOR. DC PLAN PER PT RECOMMENDATIONS TO GO HOME VS SNF WHEN STABLE. CM TO FOLLOW
[2020-12-21] MEDS: BLOOD GLUCOSE MONITORING 1 DEV DEV FS SCH ×3 (11:31→22:47)
--- NOTE | 2020-12-21 11:32 | NUR ---
BLOOD SUGAR 123MG/DL NO INSULIN COVERAGE. PT IS STABLE.
[2020-12-21 12:00] VITALS: BP 104/47
--- NOTE | 2020-12-21 12:22 | NUR ---
CALLED PATIENT FAMILY REGARDING PT MEDICATION MYBETRIQ IF THEY COULD BRING THE MEDICINE BECAUSE ITS NOT AVAILABLE IN OUR PHARMACY. LEFT VOICE MESSAGE.
--- NOTE | 2020-12-21 12:33 | NUR ---
SOCIAL WORK NOTE: Patient's Orientation Unable To Assess Information Provided By RAFIQ HAZEL - DAUGHTER Comments SW WAS UNABLE TO MEET PATIENT AT BEDSIDE. SW COMPLETED ASSESSMENT WITH PATIENT'S DAUGHTER. Licensing Specialist, Realtionship and Phone Number RAFIQ DEVLIN [phone] Healthcare Power of Infant Babysitter No Does Patient Have a POLST No Identifying Problems No Social Work Triggers Is A Social Work Consult Needed No Mandate Report Filed No Explanation Of Identifying Problems PATIENT IS A 75-YEAR-OLD FEMALE ADMITTED FOR ACUTE CORONARY SYNDROME. PATIENT HAS PMHX OF ASTHMA, CANCER, AND CARDIAC DISORDERS. Admitted From Home Pre-Admission Level Of Functioning Status Assist With ADL Level Of Functioning Comment PER DAUGHTER, PATIENT REQUIRES ASSISTANCE WITH TRANSFERRING, PREPARING MEALS, BATHING, AND MEDICATION MANAGEMENT. Prior Resources/Services Used In Last 12 Months [facility] Prior Resources/Service Comments PATIENT RECEIVES 100 HOURS MONTHLY FROM [facility]. Prior DME Home Oxygen Wheelchair Dialysis Comments N/A Living Situation Lives With Family House Patient Had Caregiver [place] and Contact Number Of Designated Caregiver RAFIQ HAZEL - [phone] Home Support No Caregiver Issues CG/Fam Able To Meet Need Financial Issues No Known Financial Issue Referral To The Financial Counselor Needed No Factors/Needs No D/C Needs Identified Pt/Rep Participated In Discharge Plan No Patient/Family Agress With Discharge Plan Yes Discharge Plan Comments TENTATIVE DISCHARGE PLAN IS FOR PATIENT TO RETURN HOME. DC Plan Status Initiated
--- NOTE | 2020-12-21 13:58 | NUR ---
12/21/20 RD INITIAL ASSESSMENT COMPLETED PLEASE REFER TO NUTRITION ASSESSMENT UNDER CARE ACTIVITY FOR ESTIMATED NUTRITIONAL NEEDS. 1. CONTINUE CARDIAC DIET TOLERATED 2. RD TO F/U IN 2-3 DAYS, HIGH RISK ANN BOOKER RD
--- NOTE | 2020-12-21 15:24 | NUR ---
PATIENT COMPLAINS OF HEADACHE 8/10 GAVE HER TYLENOL AND CRACKERS PT UNABLE TO EAT LUNCH .
[2020-12-21 16:00] VITALS: BP 101/48
--- NOTE | 2020-12-21 16:52 | NUR ---
BLOOD SUGAR CHECK 139 MG/DL NO INSULIN COVERAGE GIVEN. PT IS STABLE.
--- NOTE | 2020-12-21 19:24 | NUR ---
ENDORSED TO NIGHT NURSE FOR CONTINUITY OF CARE.PT IS STABLE.
[2020-12-21 20:00] VITALS: BP 147/79
--- NOTE | 2020-12-21 21:00 | NUR ---
C/O MCCARTY - BP 147/ 79 , KS 92 - WILL MEDICATE .
[2020-12-21] MEDS: traZODone 50 MG TAB PO SCH (22:47)
[2020-12-21] MEDS: SIMVASTATIN 20 MG TAB PO SCH (22:47)
[2020-12-22] VITALS: BP 124/69
--- NOTE | 2020-12-22 | NUR ---
MADE ROUNDS , NO S/SX OF ACUTE DISTRESS NOTED
[2020-12-22 04:00] VITALS: BP 140/91
--- NOTE | 2020-12-22 04:00 | NUR ---
MADE ROUNDS , EATING BGREAD AT BREADSIDE . WILL CONT. TO MONITOR .
[2020-12-22] MEDS: ACETAMINOPHEN 325 MG TAB PO PRN ×2 (04:59→11:52)
--- NOTE | 2020-12-22 05:00 | NUR ---
C/O H/A AGAIN - BP 2140/91 - WILL MEDICATE . WILL CHECK BLOOD SUGAR
[2020-12-22] MEDS: BLOOD GLUCOSE MONITORING 1 DEV DEV FS SCH ×4 (05:01→20:58)
--- NOTE | 2020-12-22 06:00 | NUR ---
RESTING ON BED .
[2020-12-22 06:24] LABS: BASOPHILS # (AUTO) 0.1 K/uL (0.00-0.22); BASOPHILS % (AUTO) 0.8 % (0.0-2.0); EOSINOPHILS # (AUTO) 0.1 K/uL (0-0.4); EOSINOPHILS % (AUTO) 1.5 % (0.0-4.0); HEMATOCRIT 35.4 % (36-48); HEMOGLOBIN 11.9 g/dL (12.0-16.0); LYMPHOCYTES # (AUTO) 2.7 K/uL (2.5-16.5); LYMPHOCYTES % (AUTO) 38.2 % (20.5-51.1); MEAN CORPUSCULAR HEMOGLOBIN 29 pg (27-31); MEAN CORPUSCULAR HGB CONC 34 g/dL (33-37); MEAN CORPUSCULAR VOLUME 85.3 fL (80-94); MONOCYTES # (AUTO) 0.8 K/uL (0.8-1.0); MONOCYTES % (AUTO) 10.5 % (1.7-9.3); NEUTROPHILS # (AUTO) 3.5 K/uL (1.8-7.7); PLATELET COUNT (AUTO) 143 K/uL (140-450); RED BLOOD CELL COUNT(AUTO) 4.15 MIL/uL (4.20-5.40); WHITE BLOOD COUNT (AUTO) 7.1 K/uL (4.8-10.8)
[2020-12-22] MEDS: LEVOTHYROXINE 0.025 MG TAB PO SCH (06:32)
[2020-12-22 07:08] LABS: ANION GAP 14.8 (8-16); CARBON DIOXIDE 24.9 mmol/L (21-32); CHLORIDE 101 mmol/L (98-107); CREATININE 1.8 mg/dL (0.6-1.3); GLUCOSE 99 mg/dL (74-106); POTASSIUM 3.7 mmol/L (3.5-5.1); SODIUM SERUM 137 mmol/L (136-145); UREA NITROGEN, BLOOD 37 mg/dL (7-18)
--- NOTE | 2020-12-22 07:40 | NUR ---
ENDORSED - PT -STABLE .
--- NOTE | 2020-12-22 07:45 | NUR ---
RECEIVED PATIENT FROM NIGHT NURSE. PATIENT IN BED AWAKE AND ALERT. RESP EVEN AND UNLABORED ON 2LNC. DENIED OF PAIN AT THIS TIME. RAC 20G, SL. PLAN OF CARE DISCUSSED. PATIENT VERBALIZED UNDERSTANDING. CALL LIGHT WITHIN REACH. WILL CONTINUE TO MONITOR.
[2020-12-22 08:00] VITALS: BP 183/68
[2020-12-22 08:07] LABS: T4 (THYROXINE) 9.4 ug/dL (4.5-12.0)
[2020-12-22] MEDS: cilostazoL 100 MG TAB PO SCH ×2 (09:20→20:57)
[2020-12-22] MEDS: MAGNESIUM OXIDE 400 MG TAB PO SCH (09:21)
[2020-12-22] MEDS: NIFEdipine 60 MG TABER PO SCH (09:21)
[2020-12-22] MEDS: hydroCHLOROthiazide 25 MG TAB PO SCH (09:21)
[2020-12-22] MEDS: LOSARTAN 50 MG TAB PO SCH (09:22)
[2020-12-22] MEDS: carvediloL 12.5 MG TAB PO SCH ×2 (09:22→20:58)
[2020-12-22] MEDS: buPROPion 100 MG TAB PO SCH (09:22)
[2020-12-22] MEDS: GABAPENTIN 100 MG CAP PO SCH (09:23)
[2020-12-22] MEDS: PANTOPRAZOLE 40 MG TABEC PO SCH (09:23)
--- NOTE | 2020-12-22 09:25 | NUR ---
PATIENT IN BED AWAKE AND ALERT. MORNING ROUTINE MEDICATIONS GIVEN, PATIENT TOLERATED WELL. RESP EVEN AND UNLABORED ON ROOM AIR. DENIED OF PAIN AT THIS TIME. ABLE TO MAKE NEEDS KNOWN. CALL LIGHT WITHIN REACH. WILL CONTINUE TO MONITOR.
--- NOTE | 2020-12-22 11:55 | NUR ---
BLOOD SUGAR 110, NO INSULIN COVERAGE NEEDED PER SLIDING SCALE. TYLENOL GIVEN FOR HEADACHE. PATIENT IN BED RESTING. RESP EVEN AND UNLABORED. ABLE TO MAKE NEEDS KNOWN. CALL LIGHT WITHIN REACH. WILL CONTINUE TO MONITOR.
[2020-12-22 12:00] VITALS: BP 155/67
--- NOTE | 2020-12-22 12:49 | NUR ---
PATIENT REFUSED TO WORK W/ P.T. AT THIS TIME, STATES NOT FEELING WELL, HAS A HEADACHE AND FEELING NAUSEAS.
[2020-12-22] MEDS ORDERED: FUROSEMIDE 20 MG/2 ML VIAL IVP SCH (12:55)
--- NOTE | 2020-12-22 13:38 | NUR ---
PATIENT IN BED RESTING. ROUTINE MEDICATION GIVEN. PATIENT TOLERATED WELL. TYLENOL WITH EFFECTIVE RESULT. PATIENT ABLE TO MAKE NEEDS KNOWN. CALL LIGHT WITHIN REACH. WILL CONTINUE TO MONITOR.
[2020-12-22 16:00] VITALS: BP 119/50
--- NOTE | 2020-12-22 17:12 | NUR ---
BLOOD SUGAR 116, NO INSULIN PROVIDED PER SLIDING SCALE. PATIENT IN BED RESTING. NO NOTED DISTRESS. CALL LIGHT WITHIN REACH. WILL CONTINUE TO MONITOR.
--- NOTE | 2020-12-22 19:10 | NUR ---
RECEIVED BEDSIDE REPORT FROM DAY SHIFT NURSE FOR CONTINUITY OF CARE. PT IS A&OX4, ALERT AND AWAKE. ON 2L O2 NC WITH BREATHING UNLABORED. NO RESPIRATORY DISTRESS NOTED. SR ON TELE MONITORING. SKIN IS WARM, DRY, AND INTACT. PT IS AMBULATORY WITH STANDBY ASSIST. PT DENIES PAIN. IV IS IN THE RIGHT AC 20 GAUGE. PLAN OF CARE DISCUSSED. PT IS STABLE AT THIS TIME.
--- NOTE | 2020-12-22 19:10 | NUR ---
ENDORSED PATIENT TO NIGHT NURSE. PATIENT IN STABLE CONDITION.
[2020-12-22 20:00] VITALS: BP 107/60
[2020-12-22] MEDS: traZODone 50 MG TAB PO SCH (20:57)
[2020-12-22] MEDS: SIMVASTATIN 20 MG TAB PO SCH (20:57)
--- NOTE | 2020-12-22 21:00 | NUR ---
BS READING IS 155 AND PT WAS GIVEN 2 UNITS HUMALOG PER SLIDING SCALE. MEDICATION EDUCATION WAS PROVIDED AND PT VERBALIZED UNDERSTANDING.
--- NOTE | 2020-12-22 23:00 | NUR ---
PT WAS ASSISTED TO THE BEDPAN BY THE JAVA SOFTWARE ENGINEER. PT WAS ABLE TO TURN HERSELF WITH MINIMAL ASSISTANCE. PT IS BACK TO SEMI FOWLERS POSITION WITH BLANKETS IN PLACE. IV IS SALINE LOCKED AND FLUSHING WELL. CALL LIGHT WITHIN REACH.
[2020-12-23] VITALS: BP 126/54
--- NOTE | 2020-12-23 00:52 | NUR ---
ROUNDED ON PT. SHE IS ASLEEP IN SUPINE POSITION. BREATHING IS UNLABORED ON 2L O2 NC. NO DISTRESS NOTED. PT IS STABLE.
--- NOTE | 2020-12-23 03:00 | NUR ---
PT IS SLEEPING. CHEST RISE AND FALL IS SYMMETRICAL. NO RESPIRATORY DISTRESS NOTED. NC IN PLACE WITH 2L O2. PT IS STABLE. BED IS IN THE LOWEST POSITION AND CALL LIGHT WITHIN REACH.
[2020-12-23 04:00] VITALS: BP 160/66
[2020-12-23] MEDS: ACETAMINOPHEN 325 MG TAB PO PRN ×2 (04:05→12:04)
--- NOTE | 2020-12-23 04:05 | NUR ---
PT STATES SHE HAS A HEADACHE AND REQUESTED TYLENOL. PT DENIED ANY ALLERGIES TO TYLENOL. PT WAS GIVEN TYLENOL PO. WILL CONTINUE TO MONITOR.
[2020-12-23] MEDS: BLOOD GLUCOSE MONITORING 1 DEV DEV FS SCH ×3 (06:11→17:00)
--- NOTE | 2020-12-23 06:11 | NUR ---
BLOOD SUGAR READING WAS 100. NO INSULIN NEEDED PER SLIDING SCALE.
[2020-12-23] MEDS: LEVOTHYROXINE 0.025 MG TAB PO SCH (06:12)
--- NOTE | 2020-12-23 06:30 | NUR ---
PT IS SLEEPING. NO RESPIRATORY DISTRESS NOTED. NC IN PLACE WITH 2L O2. BEDSIDE TABLE WITHIN REACH. IV IS SALINE LOCKED. WILL CONTINUE TO MONITOR.
[2020-12-23 07:10] LABS: BASOPHILS % (AUTO) 0.5 % (0.0-2.0); EOSINOPHILS # (AUTO) 0.1 K/uL (0-0.4); HEMATOCRIT 36.3 % (36-48); HEMOGLOBIN 12.2 g/dL (12.0-16.0); LYMPHOCYTES # (AUTO) 2.1 K/uL (2.5-16.5); LYMPHOCYTES % (AUTO) 32.2 % (20.5-51.1); MEAN CORPUSCULAR HEMOGLOBIN 29 pg (27-31); MEAN CORPUSCULAR HGB CONC 34 g/dL (33-37); MEAN CORPUSCULAR VOLUME 85.9 fL (80-94); MONOCYTES # (AUTO) 0.7 K/uL (0.8-1.0); MONOCYTES % (AUTO) 10.7 % (1.7-9.3); NEUTROPHILS # (AUTO) 3.5 K/uL (1.8-7.7); NEUTROPHILS % (AUTO) 54.6 % (42.2-75.2); PLATELET COUNT (AUTO) 164 K/uL (140-450); RED BLOOD CELL COUNT(AUTO) 4.22 MIL/uL (4.20-5.40); WHITE BLOOD COUNT (AUTO) 6.4 K/uL (4.8-10.8)
--- NOTE | 2020-12-23 07:10 | NUR ---
ENDORSED PT TO DAY SHIFT NURSE FOR CONTINUITY OF CARE. PT IS STABLE AT THIS TIME. PLAN OF CARE DISCUSSED.
--- NOTE | 2020-12-23 07:15 | NUR ---
RECEIVED PATIENT FROM NIGHT NURSE. PATIENT IN BED SLEEPING, CHEST NOTED RISING. RESP EVEN AND UNLABORED ON ROOM AIR. NO NOTED DISTRESS AT THIS TIME. RAC 20 SL. HOB ELEVATED. CALL LIGHT WITHIN REACH. WILL CONTINUE TO MONITOR.
[2020-12-23 07:17] LABS: ANION GAP 13.1 (8-16); CARBON DIOXIDE 27.7 mmol/L (21-32); CHLORIDE 100 mmol/L (98-107); GLUCOSE 101 mg/dL (74-106); POTASSIUM 3.8 mmol/L (3.5-5.1); SODIUM SERUM 137 mmol/L (136-145); UREA NITROGEN, BLOOD 39 mg/dL (7-18)
[2020-12-23 08:00] VITALS: BP 142/64
[2020-12-23] MEDS ORDERED: NIFEdipine 60 MG TABER PO SCH (09:00)
[2020-12-23] MEDS ORDERED: ECOTRIN 81 MG TABEC PO SCH ×2 (09:00)
[2020-12-23] MEDS: LOSARTAN 50 MG TAB PO SCH (09:00)
[2020-12-23] MEDS: MAGNESIUM OXIDE 400 MG TAB PO SCH (09:53)
[2020-12-23] MEDS: buPROPion 100 MG TAB PO SCH (09:53)
[2020-12-23] MEDS: PANTOPRAZOLE 40 MG TABEC PO SCH (09:53)
[2020-12-23] MEDS: carvediloL 12.5 MG TAB PO SCH (09:54)
[2020-12-23] MEDS: GABAPENTIN 100 MG CAP PO SCH (09:54)
[2020-12-23] MEDS: cilostazoL 100 MG TAB PO SCH (09:55)
[2020-12-23] MEDS: hydroCHLOROthiazide 25 MG TAB PO SCH (09:57)
--- NOTE | 2020-12-23 10:15 | NUR ---
PATIENT IN BED AWAKE AND ALERT. MORNING ROUTINE MEDICATIONS GIVEN. PATIENT TOLERATED WELL. PATIENT REFUSED BREAKFAST BUT WAS ENCOURAGED FLUIDS AND JUICE. PLAN OF CARE DISCUSSED, PATIENT VERBALIZED UNDERSTANDING. RESP EVEN AND UNLABORED ON 2LNC, DENIED OF ANY DISCOMFORT AT THIS TIME. CALL LIGHT WITHIN REACH. WILL CONTINUE TO MONITOR. Addendum: 12/23/20 at 1038 by Meghan George RN LOSARTAN HELD D/T MULTIPLE BP MEDICATIONS GIVEN.
[2020-12-23 12:00] VITALS: BP 119/59
--- NOTE | 2020-12-23 12:07 | NUR ---
BLOOD SUGAR 130, NO INSULIN PROVIDED PER SLIDING SCALE. TYLENOL GIVEN C/O HEADACHE. FLUIDS ENCOURAGED. RESP EVEN AND UNLABORED ON 2LNC. CALL LIGHT WITHIN REACH. WILL CONTINUE TO MONITOR.
--- NOTE | 2020-12-23 14:50 | NUR ---
PATIENT IN BED SLEEPING, CHEST NOTED RISING. CALL LIGHT WITHIN REACH. WILL CONTINUE TO MONITOR.
[2020-12-23] MEDS ORDERED: NIFE60TA39 PO (15:09)
[2020-12-23] MEDS ORDERED: LEVO0.0211 PO (15:09)
[2020-12-23 16:00] VITALS: BP 97/51
--- NOTE | 2020-12-23 17:00 | NUR ---
BLOOD SUGAR 115, NO INSULIN PROVIDED PER SLIDING SCALE. PATIENT SITTING UP IN BED AWAKE AND ALERT. NO NOTED DISTRESS AT THIS TIME. CALL LIGHT WITHIN REACH. WILL CONTINUE TO MONITOR.
[2020-12-23 18:09] VITALS: BP 97/51
--- NOTE | 2020-12-23 19:01 | NUR ---
PATIENT DISCHARGED HOME WITH DAUGHTER. DISCHARGE INSTRUCTIONS PROVIDED, PATIENT VERBALIZED UNDERSTANDING. PNA VACC UP TO DATE. PATIENT LEFT IN STABLE CONDITION.
== END 2020-12-23 18:40 | disposition home or self-care (01) | DRG 304 ==
LOC: MED 12:54 → MTU 15:20
PROVIDERS: ADMIT Family Medicine; ATTEND Family Medicine
DX: I16.1 Hypertensive emergency (principal); N17.0 Acute kidney failure with tubular necrosis; I50.32 Chronic diastolic (congestive) heart failure; I69.354 Hemiplegia and hemiparesis following cerebral infarction affecting left non-dominant side; N39.0 Urinary tract infection, site not specified; Z88.6 Allergy status to analgesic agent; I13.0 Hypertensive heart and chronic kidney disease with heart failure and stage 1 through stage 4 chronic kidney disease, or unspecified chronic kidney disease; Z20.822 Contact with and (suspected) exposure to COVID-19; K21.9 Gastro-esophageal reflux disease without esophagitis; I25.10 Atherosclerotic heart disease of native coronary artery without angina pectoris; N18.31 Chronic kidney disease, stage 3a; E03.9 Hypothyroidism, unspecified; D63.8 Anemia in other chronic diseases classified elsewhere; J44.9 Chronic obstructive pulmonary disease, unspecified; K74.60 Unspecified cirrhosis of liver; E11.22 Type 2 diabetes mellitus with diabetic chronic kidney disease; E83.42 Hypomagnesemia; I44.7 Left bundle-branch block, unspecified; I08.1 Rheumatic disorders of both mitral and tricuspid valves; Z88.1 Allergy status to other antibiotic agents; Z88.5 Allergy status to narcotic agent; Z88.8 Allergy status to other drugs, medicaments and biological substances; Z79.899 Other long term (current) drug therapy; Z83.3 Family history of diabetes mellitus; Z82.49 Family history of ischemic heart disease and other diseases of the circulatory system; Z85.89 Personal history of malignant neoplasm of other organs and systems
CPT/HCPCS: 36415; 71045; 80048; 80053; 80305; 81001; 82150; 82948; 83036; 83690; 83735; 83880; 84100; 84436; 84439; 84443; 84479; 84484; 85025; 85610; 85730; 87081; 87086; 93005; 93925; 93970; 93976; 97163-GP; 99285; J0360; J0696; J1644; J1815; J1940; J7030; J7060

== ENCOUNTER 2021-05-24 19:27 | Inpatient (IN) | payer OTHER, SELFPAY ==
[~2021-05-24] VITALS: Ht 157.5 cm; Wt 45.4 kg
[~2021-05-24 19:27] MED LIST changes: -ATI.5 PO; -AZIT250T11 PO; +LEVO0.0211 PO; -LORA-476 PO; +NIFE60TA39 PO; -ROC1PM IV
[2021-05-24 19:30] VITALS: BP 177/79
--- NOTE | 2021-05-24 19:30 | NUR ---
TO BED VIA WHEELCHAIR
--- NOTE | 2021-05-24 20:00 | NUR ---
patient increased BP the last couple of weeks and UTI that has not been resolved. patient compliant with medication. patient having headache from pain 10/10 shooting and stabbing pain. patient reports only takes tylenol with no relief. patient has been unable to fall asleep due to the pain. patient normally on 2L daily NC. AAOx4. VSS. pmh: chronic Headache, urias, htn, emphysema, arthritis, fibromyalgia, chf, copd, hysterectomy, gall bladder removal, appendectomy allergies: see alia on
--- NOTE | 2021-05-24 20:00 | NUR ---
Note undone in EDM - 05/25/21 at 0730 by [email or web address] patient c/o SOB. crackles, and diminished breath sounds heard throughout lung hollins. patient has moist productive cough. patient was redirected from dr office due to O2 sats trending in the 70s-80s. patient reports having bronchitis. symptoms started 2wks ago. patient c/o difficulty with ADLs causing that difficulty breathing and some pressure on the chest. patient c/o of 8 pain. AAOx4. pmh: asthma, DM NKA
--- NOTE | 2021-05-24 20:04 | NUR ---
Patient being evaluated by physician at bedside.
[2021-05-24] MEDS ORDERED: CLONIDINE HYDROCHLORIDE 0.1 MG TAB PO ONE (20:15)
[2021-05-24 20:32] LABS: BASOPHILS % (AUTO) 0.6 % (0.0-2.0); EOSINOPHILS # (AUTO) 0.1 K/uL (0-0.4); EOSINOPHILS % (AUTO) 1.7 % (0.0-4.0); HEMATOCRIT 31.3 % (36-48); HEMOGLOBIN 10.3 g/dL (12.0-16.0); LYMPHOCYTES % (AUTO) 28.2 % (20.5-51.1); MEAN CORPUSCULAR HEMOGLOBIN 29 pg (27-31); MEAN CORPUSCULAR HGB CONC 33 g/dL (33-37); MEAN CORPUSCULAR VOLUME 87.2 fL (80-94); MONOCYTES # (AUTO) 0.5 K/uL (0.8-1.0); MONOCYTES % (AUTO) 13.5 % (1.7-9.3); PLATELET COUNT (AUTO) 120 K/uL (140-450); RED BLOOD CELL COUNT(AUTO) 3.59 MIL/uL (4.20-5.40); RED CELL DISTRIBUTION WIDTH 13.7 % (11.6-13.7); WHITE BLOOD COUNT (AUTO) 3.6 K/uL (4.8-10.8)
--- NOTE | 2021-05-24 20:37 | NUR ---
PROVIDED BED EAGLE FOR URINATION AND PERICARE PROVIDED. URINE COLLECTED WELL
--- NOTE | 2021-05-24 20:41 | NUR ---
PATIENT TO CT VIA [facility]
[2021-05-24 20:53] LABS: ALBUMIN 3.7 g/dL (3.4-5.0); ANION GAP 11.9 (8-16); ASPARTATE AMINOTRANSFERASE 18 U/L (15-37); CARBON DIOXIDE 29.6 mmol/L (21-32); CHLORIDE 104 mmol/L (98-107); CREATININE 1.6 mg/dL (0.6-1.3); GLUCOSE 96 mg/dL (74-106); POTASSIUM 4.5 mmol/L (3.5-5.1); SODIUM SERUM 141 mmol/L (136-145); TOTAL BILIRUBIN 0.3 mg/dL (0.0-1.0); UREA NITROGEN, BLOOD 26 mg/dL (7-18)
[2021-05-24] MEDS ORDERED: hydrALAZINE 20 MG/ML VIAL IVP ONE (21:30)
--- NOTE | 2021-05-24 21:33 | NUR ---
SWABBED PATIENT FOR CISCO, COLLECTED AND GIVEN TO TIFF URENA
[2021-05-25] MEDS ORDERED: ACETAMINOPHEN 325 MG TAB PO PRN (00:35)
[2021-05-25] MEDS ORDERED: MAGNESIUM OXIDE 400 MG TAB PO PRN (00:35)
[2021-05-25] MEDS ORDERED: ONDANSETRON 4 MG/2 ML VIAL IM/IVP PRN (00:35)
[2021-05-25] MEDS ORDERED: hydrALAZINE 10 MG TAB PO PRN (00:35)
[2021-05-25] MEDS ORDERED: SODIUM PHOS / POTASSIUM PHOS 1 PKT PDR PO PRN (00:35)
[2021-05-25] MEDS ORDERED: POTASSIUM CHLORIDE 10 MEQ TABER PO PRN (00:35)
[2021-05-25] MEDS ORDERED: DOCUSATE SODIUM 100 MG GELCAP PO PRN (00:35)
--- NOTE | 2021-05-25 01:17 | NUR ---
PROVIDED PATIENT WITH BED EAGLE, PERICARE PROVIDED AND REPOSITIONED PATIENT
[2021-05-25] MEDS: NACL 0.9% 1,000 ML IV SCH (01:33)
[2021-05-25 02:35] LABS: MAGNESIUM 1.3 mg/dL (1.8-2.4); PHOSPHORUS 3.1 mg/dL (2.5-4.9)
--- NOTE | 2021-05-25 02:39 | NUR ---
patient complaining of 10/10 pain, headache. patient reports only taking tylenol at home but with no relief. patient allergic to many groups of medicine
--- NOTE | 2021-05-25 02:42 | NUR ---
Called daughter Marifer regarding pain medication. daughter reports that she only takes tylenol for pain. some of the pain medications causes rashes, hives, hallucinates, shakiness.
[2021-05-25] MEDS ORDERED: APAP/BUTAL/CAFF 325/50/40 MG 1 TAB PO SCH (03:00)
[2021-05-25] MEDS: LEVOTHYROXINE 0.025 MG TAB PO SCH (06:50)
[2021-05-25 07:00] LABS: BASOPHILS % (AUTO) 0.6 % (0.0-2.0); EOSINOPHILS # (AUTO) 0.1 K/uL (0-0.4); EOSINOPHILS % (AUTO) 1.7 % (0.0-4.0); HEMATOCRIT 31.1 % (36-48); HEMOGLOBIN 10.5 g/dL (12.0-16.0); LYMPHOCYTES # (AUTO) 1.3 K/uL (2.5-16.5); LYMPHOCYTES % (AUTO) 32.6 % (20.5-51.1); MEAN CORPUSCULAR HEMOGLOBIN 29 pg (27-31); MEAN CORPUSCULAR HGB CONC 34 g/dL (33-37); MEAN CORPUSCULAR VOLUME 85.9 fL (80-94); MONOCYTES # (AUTO) 0.5 K/uL (0.8-1.0); NEUTROPHILS # (AUTO) 2.2 K/uL (1.8-7.7); NEUTROPHILS % (AUTO) 53.1 % (42.2-75.2); PLATELET COUNT (AUTO) 112 K/uL (140-450); RED BLOOD CELL COUNT(AUTO) 3.61 MIL/uL (4.20-5.40); RED CELL DISTRIBUTION WIDTH 13.5 % (11.6-13.7); WHITE BLOOD COUNT (AUTO) 4.1 K/uL (4.8-10.8)
[2021-05-25 07:10] LABS: ANION GAP 11.7 (8-16); CARBON DIOXIDE 28.3 mmol/L (21-32); CHLORIDE 105 mmol/L (98-107); CREATININE 1.5 mg/dL (0.6-1.3); GLUCOSE 101 mg/dL (74-106); SODIUM SERUM 141 mmol/L (136-145); UREA NITROGEN, BLOOD 25 mg/dL (7-18)
--- NOTE | 2021-05-25 07:30 | NUR ---
Pt report given to William MCNEILL. Transfer of care at this time.
--- NOTE | 2021-05-25 07:30 | NUR ---
Report and continuation of care received from OSITO Aden.
--- NOTE | 2021-05-25 08:30 | NUR ---
Attempted to contact Avelina @ [phone]; no answer.
--- NOTE | 2021-05-25 08:38 | NUR ---
RECEIVED REPORT FROM ER NURSE, PT IS 75 YR OLD FEMALE CAME IN FOR UNCONTROLLED HTN, HX OF CVA, HTN, HX OF CHRONIC HEADACHE, EMPHYSEMA AND CHF. ALERT ORIENTED X 4 IV ACCESS ON RIGHT ARM 22 GAUGE. ON 2 L OXYGEN. PT CAME FROM THE HOME.
[2021-05-25] MEDS ORDERED: LOSA100T1 PO (08:39)
[2021-05-25] MEDS ORDERED: CLON0.1T46 PO (08:39)
[2021-05-25] MEDS ORDERED: SYN.05 PO (08:39)
[2021-05-25] MEDS ORDERED: ATI.5 PO (08:39)
--- NOTE | 2021-05-25 08:43 | NUR ---
Report given to OSITO Quan. Given ETA 15-20 min at this time. All questions answered.
--- NOTE | 2021-05-25 08:50 | NUR ---
PATIENT HAS BEEN SCREENED AND CATEGORIZED HIGH NUTRITION RISK. PATIENT WILL BE SEEN WITHIN 1-2 DAYS OF ADMISSION. 05/25/2021-05/26/[address]
[2021-05-25] MEDS ORDERED: LOSARTAN 50 MG TAB PO SCH (09:00)
[2021-05-25] MEDS ORDERED: hydrALAZINE 10 MG TAB PO SCH (09:00)
--- NOTE | 2021-05-25 09:15 | NUR ---
Patient will be admitted to care of Dr. Pruitt. Admited to Telemetry. Will go to room 105A. Belongings list completed. Report to OSITO Quan.
--- NOTE | 2021-05-25 09:25 | NUR ---
PT CAME FROM THE ER VIA EDEN, PT IS DIRECTED TO THE ROOM, CHANGED IN TO GOWN, BLANKET GIVEN, VITALS ARE BP 204/74, HR 124 100% 97.4 RR17. INFORMED DOCTOR AWAITING FOR NEW ORDERS.
[2021-05-25] MEDS: PANTOPRAZOLE 40 MG INJ VIAL IVP SCH (09:49)
[2021-05-25] MEDS: carvediloL 12.5 MG TAB PO SCH ×2 (09:50→21:21)
[2021-05-25] MEDS: hydroCHLOROthiazide 25 MG TAB PO SCH (09:50)
[2021-05-25] MEDS: OXYBUTYNIN 5 MG TAB PO SCH ×2 (09:51→21:22)
[2021-05-25] MEDS: cilostazoL 100 MG TAB PO SCH ×2 (09:51→21:23)
[2021-05-25] MEDS: NIFEdipine 30 MG TABER PO SCH (09:52)
[2021-05-25] MEDS: buPROPion 100 MG TAB PO SCH (09:52)
--- NOTE | 2021-05-25 10:00 | NUR ---
ADMINISTERED ALL PRESCRIBED MEDICATIONS PER MD ORDER, HELD HEPARIN PLT WERE 112. NOTIFIED MD.
--- NOTE | 2021-05-25 10:51 | NUR ---
PT REPORTED DIZZINESS AND SEVERE HEADACHE, RECENT BLOOD PRESSURE IS 203/ 76 HR 118, NOTIFIED DOCTOR AWAITING FOR FURTHER ORDERS.
[2021-05-25] MEDS ORDERED: CLONIDINE HYDROCHLORIDE 0.1 MG TAB PO PRN ×2 (10:55→19:30)
[2021-05-25] MEDS ORDERED: MECLIZINE 25 MG TAB PO PRN (11:00)
[2021-05-25] MEDS ORDERED: AZITHROMYCIN 250 MG TAB PO SCH (11:01)
--- NOTE | 2021-05-25 12:00 | NUR ---
RECHECKED BLOOD PRESSURE 127/63 HR 90, PT DENIES DIZZINESS AND HEADACHE. WILL CONTINUE TO ASSESS BLOOD PRESSURE.
[2021-05-25] MEDS: LORATADINE 10 MG TAB PO SCH (12:07)
--- NOTE | 2021-05-25 13:00 | NUR ---
HOURLY ROUN DONE PT IS SLEEPING IN THE BED NO SON OR S/S OF PAIN NOTED. WILL CONTINUE TO MONITOR THE PT.
--- NOTE | 2021-05-25 14:00 | NUR ---
HOURLY ROUND DONE, PT REQUEST FOR FOOD, APPLE SAUCE AND ORANGE JUICE GIVEN. PT IS EATING.
[2021-05-25 14:39] VITALS: BP 204/74
--- NOTE | 2021-05-25 14:39 | NUR ---
05/25/21 RD INITIAL ASSESSMENT COMPLETED PLEASE REFER TO NUTRITION ASSESSMENT UNDER CARE ACTIVITY FOR ESTIMATED NUTRITIONAL NEEDS. RD RECOMMENDATIONS: 1. CONTINUE CARDIAC DIET TOLERATED. 2. PT DECLINED TO HAVE ORAL NUTRITION SUPPLEMENT AT THIS TIME. 3. ENCOURAGED INCREASED ORAL INTAKE FOR ADEQUATE NUTRITION INTAKE. 4. FOOD PREFERENCES OBTAINED AND RELAYED TO FNS STAFF. 5. LOW SODIUM DIET EDUCATION HANDOUT PROVIDED. 6. RD WILL F/U 2-3 DAYS; HIGH RISK. SOFIA MCCAIN, RD
--- NOTE | 2021-05-25 15:00 | NUR ---
HOURLY ROUND DONE, PT IS IN THE BED, PT REQUESTED TO ADJUST TEMPERATURE, IT'S ADJUSTED AK PT REQUEST. ICE CHIPS GIVEN TO THE PT. WILL CONTINUE TO MONITOR.
[2021-05-25 16:00] VITALS: BP 150/64
--- NOTE | 2021-05-25 19:15 | NUR ---
RECEIVED BEDSIDE ENDORSEMENT FROM AM SHIFT RN. PATIENT HAS A RIGHT WRIST 22G, NS AT 40 ML/HR, DENIES PAIN, SAFETY MEASURES IN PLACE, WILL CONTINUE TO MONITOR.
--- NOTE | 2021-05-25 19:19 | NUR ---
ENDORSED THE NIGHT NURSE FOR CONTINUITY OF CARE. PT IS STABLE.
[2021-05-25 20:00] VITALS: BP 145/62
--- NOTE | 2021-05-25 20:00 | NUR ---
REVEIVED REPORT AT BEDSIDE.PT IS A,A&O X 4.RESP.UNLABORED W/O2 AT 2L/NC.IVF INFUSING WELL.TELE IS ON AND SHOWING SR,BIPHASIC T AND RARE PVC.NO RESP DISTRESS NOTED NOW.CALL LIGHT IN REACH.WILL CONT.MONITORING.
[2021-05-25] MEDS ORDERED: SIMVASTATIN 20 MG TAB PO SCH (21:00)
[2021-05-25] MEDS ORDERED: traZODone 50 MG TAB PO SCH (21:00)
[2021-05-25] MEDS: hydrALAZINE 25 MG TAB PO SCH (21:22)
[2021-05-25] MEDS: LOSARTAN 50 MG TAB PO SCH (21:23)
[2021-05-25] MEDS ORDERED: CRUSHER, PILL MC ONE (21:28)
--- NOTE | 2021-05-25 21:43 | NUR ---
CONTACTED DR. FRANCISCO HARRIS AT 20:09 IF HEPARIN SHOULD BE ADMINISTERED. PATIENTS PLATELET LEVELS WERE LOW AT 112. DR. HARRIS SAID IT WAS OKAY TO GIVE. RESUMED WITH MEDICATION ADMINISTRATION
[2021-05-26] VITALS: BP 115/61
--- NOTE | 2021-05-26 | NUR ---
PATIENT IN BED, KEPT COMFORTABLE, CALL LIGHT WITHIN REACH, NS INFUSING AT 40ML/HR, WILL CONTINUE TO MONITOR.
[2021-05-26] MEDS: NACL 0.9% 1,000 ML IV SCH (00:35)
--- NOTE | 2021-05-26 03:00 | NUR ---
PT IS ASLEEP COMFORTABLE IN BED, PROVIDED EXTRA BLANKETS, NO SIGNS OF DISTRESS, SAFETY MEASURES IN PLACE, WILL CONTINUE TO MONITOR
[2021-05-26 04:00] VITALS: BP 155/62
--- NOTE | 2021-05-26 04:10 | NUR ---
HAD C/O MCCARTY TYLENOL GIVEN STILL HAS MCCARTY,TYLENOL DIDN'T WORK.SENT MESSAGE FOR MD WAITING TO RESPOND.HT IS SR W/BBB.
[2021-05-26] MEDS: LEVOTHYROXINE 0.025 MG TAB PO SCH (06:09)
--- NOTE | 2021-05-26 06:10 | NUR ---
ADMINISTERED SCHEDULED MED, TOLERATED WELL, WILL CONTINUE TO MONITOR.
--- NOTE | 2021-05-26 06:14 | NUR ---
DR RESPOND LATE TO MY MESSAGE SO PT IS SLEEPING AND DIDN'T GIVE ANY OTHER MED.CONDITION STABLE.
[2021-05-26 07:08] LABS: BASOPHILS % (AUTO) 0.4 % (0.0-2.0); EOSINOPHILS # (AUTO) 0.1 K/uL (0-0.4); EOSINOPHILS % (AUTO) 1.1 % (0.0-4.0); HEMATOCRIT 31.8 % (36-48); HEMOGLOBIN 10.6 g/dL (12.0-16.0); LYMPHOCYTES # (AUTO) 1.3 K/uL (2.5-16.5); LYMPHOCYTES % (AUTO) 27.5 % (20.5-51.1); MEAN CORPUSCULAR HEMOGLOBIN 29 pg (27-31); MEAN CORPUSCULAR HGB CONC 33 g/dL (33-37); MEAN CORPUSCULAR VOLUME 86.6 fL (80-94); MONOCYTES # (AUTO) 0.4 K/uL (0.8-1.0); MONOCYTES % (AUTO) 9.1 % (1.7-9.3); NEUTROPHILS # (AUTO) 2.9 K/uL (1.8-7.7); NEUTROPHILS % (AUTO) 61.9 % (42.2-75.2); PLATELET COUNT (AUTO) 141 K/uL (140-450); RED BLOOD CELL COUNT(AUTO) 3.67 MIL/uL (4.20-5.40); RED CELL DISTRIBUTION WIDTH 13.3 % (11.6-13.7); WHITE BLOOD COUNT (AUTO) 4.6 K/uL (4.8-10.8)
--- NOTE | 2021-05-26 07:15 | NUR ---
PASSED BEDSIDE ENDORSEMENT TO AM SHIFT RN, ALL INTERVENTIONS COMPLETED, PATIENT STABLE.
--- NOTE | 2021-05-26 07:15 | NUR ---
RECEIVED ON BED AAOX4. NO SOB NOTED. NO C/O PAIN AT THIS TIME. NO IV ACCESS, WILL RESTART A NEW IV LINE SOON. INSTRUCTED PT TO CALL FOR ASSISTANCE, CALL LIGHT WITHIN REACH, PT VERBALIZED UNDERSTANDING.
[2021-05-26 07:52] LABS: CARBON DIOXIDE 25.8 mmol/L (21-32); CHLORIDE 105 mmol/L (98-107); CREATININE 1.5 mg/dL (0.6-1.3); GLUCOSE 91 mg/dL (74-106); POTASSIUM 3.8 mmol/L (3.5-5.1); SODIUM SERUM 141 mmol/L (136-145); UREA NITROGEN, BLOOD 26 mg/dL (7-18)
[2021-05-26 08:00] VITALS: BP 139/55
[2021-05-26] MEDS ORDERED: AZITHROMYCIN 250 MG TAB PO SCH ×2 (09:00)
[2021-05-26] MEDS: carvediloL 12.5 MG TAB PO SCH (09:01)
[2021-05-26] MEDS: NIFEdipine 30 MG TABER PO SCH (09:01)
[2021-05-26] MEDS: buPROPion 100 MG TAB PO SCH (09:01)
[2021-05-26] MEDS: LOSARTAN 50 MG TAB PO SCH (09:02)
[2021-05-26] MEDS: hydroCHLOROthiazide 25 MG TAB PO SCH (09:02)
[2021-05-26] MEDS: OXYBUTYNIN 5 MG TAB PO SCH (09:02)
[2021-05-26] MEDS: hydrALAZINE 25 MG TAB PO SCH (09:02)
[2021-05-26] MEDS: cilostazoL 100 MG TAB PO SCH (09:03)
[2021-05-26] MEDS: LORATADINE 10 MG TAB PO SCH (09:07)
[2021-05-26] MEDS: PANTOPRAZOLE 40 MG INJ VIAL IVP SCH (10:48)
[2021-05-26 12:00] VITALS: BP 104/50
[2021-05-26] MEDS ORDERED: hydrALAZINE 10 MG TAB PO SCH (13:00)
[2021-05-26] MEDS ORDERED: LEVO0.0211 PO (14:08)
[2021-05-26] MEDS ORDERED: HYDR-1102 PO (14:08)
[2021-05-26] MEDS ORDERED: FAMO20TA13 PO (14:08)
[2021-05-26] MEDS ORDERED: LOSA50TA1 PO (14:08)
--- NOTE | 2021-05-26 15:30 | NUR ---
DISCHARGE INSTRUCTIONS GIVEN TO PT WELL PT'S DAUGHTER RAFIQ ON THE PHONE, BOTH VERBALIZED UNDERSTANDING AND BOTH ARE AWARE THAT E-SCRIPTS WERE SENT TO THEIR PREFERRED PHARMACY. ARM BANDS AND IV REMOVED, CANNULA TIP INTACT. PT WHEELED TO THE FRONT LOBBY IN STABLE CONDITION, NO COMPLAINTS MADE. PT IS D/C HOME WITH DAUGHTER.
== END 2021-05-26 15:30 | disposition home or self-care (01) | DRG 304 ==
LOC: MED 19:27 → MTU 21:26
PROVIDERS: ADMIT Hospitalist; ATTEND Hospitalist
DX: I16.0 Hypertensive urgency (principal); N17.0 Acute kidney failure with tubular necrosis; E03.9 Hypothyroidism, unspecified; J44.9 Chronic obstructive pulmonary disease, unspecified; K21.9 Gastro-esophageal reflux disease without esophagitis; F41.9 Anxiety disorder, unspecified; K74.60 Unspecified cirrhosis of liver; E78.5 Hyperlipidemia, unspecified; E11.40 Type 2 diabetes mellitus with diabetic neuropathy, unspecified; D63.8 Anemia in other chronic diseases classified elsewhere; D69.6 Thrombocytopenia, unspecified; E83.42 Hypomagnesemia; J32.9 Chronic sinusitis, unspecified; I44.7 Left bundle-branch block, unspecified; R07.9 Chest pain, unspecified; N32.81 Overactive bladder; I10 Essential (primary) hypertension; Z20.822 Contact with and (suspected) exposure to COVID-19; Z88.8 Allergy status to other drugs, medicaments and biological substances; Z88.5 Allergy status to narcotic agent; Z88.4 Allergy status to anesthetic agent; Z99.3 Dependence on wheelchair; Z91.041 Radiographic dye allergy status; I69.398 Other sequelae of cerebral infarction; Z88.6 Allergy status to analgesic agent; Z91.018 Allergy to other foods; Z88.1 Allergy status to other antibiotic agents; Z83.3 Family history of diabetes mellitus; Z82.49 Family history of ischemic heart disease and other diseases of the circulatory system; Z79.899 Other long term (current) drug therapy; Z85.89 Personal history of malignant neoplasm of other organs and systems
CPT/HCPCS: 36415; 70450; 71045; 80048; 80053; 83735; 83880; 84100; 84443; 84484; 85025; 93005; 93976; 96374; 99285; C9113; J0360; J1644; J2405; Q0092

== ENCOUNTER 2021-11-27 18:34 | Emergency (ER) | payer OTHER ==
[~2021-11-27] VITALS: Ht 157.5 cm; Wt 44.9 kg
[~2021-11-27 18:34] MED LIST changes: +FAMO20TA13 PO; -GABA100C PO; +HYDR-1102 PO; -LANS15EC28 PO
[2021-11-27 18:50] VITALS: BP 198/90
--- NOTE | 2021-11-27 19:25 | NUR ---
DR. ZIMMER BEDSIDE EVALUATING PT
[2021-11-27] MEDS ORDERED: ALBUTEROL SULFATE/IPRATROPIU 3 ML SOL IH ONE ×2 (19:30→21:05)
--- NOTE | 2021-11-27 19:30 | NUR ---
Pt report given to OSITO JOSUE. Transfer of care at this time.
[2021-11-27 19:54] LABS: BASOPHILS % (AUTO) 0.5 % (0.0-2.0); EOSINOPHILS # (AUTO) 0.1 K/uL (0-0.4); EOSINOPHILS % (AUTO) 1.7 % (0.0-4.0); HEMATOCRIT 31.6 % (36-48); HEMOGLOBIN 10.4 g/dL (12.0-16.0); LYMPHOCYTES # (AUTO) 1.3 K/uL (2.5-16.5); LYMPHOCYTES % (AUTO) 29.2 % (20.5-51.1); MEAN CORPUSCULAR HEMOGLOBIN 28 pg (27-31); MEAN CORPUSCULAR HGB CONC 33 g/dL (33-37); MEAN CORPUSCULAR VOLUME 84.3 fL (80-94); MONOCYTES # (AUTO) 0.5 K/uL (0.8-1.0); MONOCYTES % (AUTO) 12.3 % (1.7-9.3); NEUTROPHILS # (AUTO) 2.5 K/uL (1.8-7.7); NEUTROPHILS % (AUTO) 56.3 % (42.2-75.2); PLATELET COUNT (AUTO) 172 K/uL (140-450); RED BLOOD CELL COUNT(AUTO) 3.75 MIL/uL (4.20-5.40); RED CELL DISTRIBUTION WIDTH 14.1 % (11.6-13.7); WHITE BLOOD COUNT (AUTO) 4.4 K/uL (4.8-10.8)
--- NOTE | 2021-11-27 19:56 | NUR ---
PT C/O SOB X1 WEEK WORSE X2 DAYS ON HOME 02 2L, DYSPNEA WITH SPEAKING AND EXERTION. 99% ON 2L NC. PENDING LABS AND RESULTS
[2021-11-27 20:09] LABS: CARBON DIOXIDE 27.3 mmol/L (21-32); CHLORIDE 101 mmol/L (98-107); CREATININE 1.6 mg/dL (0.6-1.3); GLUCOSE 90 mg/dL (74-106); POTASSIUM 4.3 mmol/L (3.5-5.1); SODIUM SERUM 138 mmol/L (136-145); UREA NITROGEN, BLOOD 23 mg/dL (7-18)
[2021-11-27] MEDS ORDERED: AZITHROMYCIN 250 MG TAB PO ONE (20:30)
[2021-11-27] MEDS ORDERED: AZIT250T4 PO (21:01)
[2021-11-27 21:23] VITALS: BP 197/90
--- NOTE | 2021-11-27 21:24 | NUR ---
Patient discharged with v/s stable. Written and verbal after care instructions given and explained. Patient alert, oriented and verbalized understanding of instructions. Wheel Chair Assisted with steady gait. All questions addressed prior to discharge. ID band removed. Patient advised to follow up with PMD. Rx of AZITHROMYCIN given. Patient educated on indication of medication including possible reaction and side effects. Opportunity to ask questions provided and answered.
== END 2021-11-27 21:08 | disposition home or self-care (01) ==
LOC: MED 18:34
DX: J44.1 Chronic obstructive pulmonary disease with (acute) exacerbation (principal); E11.9 Type 2 diabetes mellitus without complications; I11.9 Hypertensive heart disease without heart failure; Z86.73 Personal history of transient ischemic attack (TIA), and cerebral infarction without residual deficits; K21.9 Gastro-esophageal reflux disease without esophagitis; Z87.448 Personal history of other diseases of urinary system; E06.9 Thyroiditis, unspecified; Z88.6 Allergy status to analgesic agent; Z88.5 Allergy status to narcotic agent; Z88.1 Allergy status to other antibiotic agents; Z91.011 Allergy to milk products; Z79.899 Other long term (current) drug therapy; Z88.8 Allergy status to other drugs, medicaments and biological substances
CPT/HCPCS: 36415; 71045; 80048; 84484; 85025; 93005; 94640; 99285

== ENCOUNTER 2021-12-04 23:23 | Emergency (ER) | payer OTHER ==
[~2021-12-04] VITALS: Ht 157.5 cm; Wt 43.5 kg
[~2021-12-04 23:23] MED LIST changes: +AZIT250T4 PO
[2021-12-04 23:27] VITALS: BP 174/88
--- NOTE | 2021-12-04 23:36 | NUR ---
Wheel chair to bed 5 with her family.
--- NOTE | 2021-12-04 23:42 | NUR ---
Dr. Oconnor at bedside to exam patient.
[2021-12-04] MEDS ORDERED: ACETAMINOPHEN 325 MG TAB PO ONE (23:45)
--- NOTE | 2021-12-04 23:50 | NUR ---
PT LEFT FOR XRAY. CAREGIVER IN ROOM.
[2021-12-05] MEDS ORDERED: LORazepam 1 MG TAB PO ONE (01:55)
--- NOTE | 2021-12-05 01:56 | NUR ---
PT IN WHEELCHAIR, ER MD AT BEDSIDE SPEAKING WITH PATIENT AND FAMILY. AWAITING XRAY IMPRESSIONS
[2021-12-05] MEDS ORDERED: ACET-10509 PO (02:44)
[2021-12-05 03:09] VITALS: BP 186/80
--- NOTE | 2021-12-06 11:32 | NUR ---
LATE ENTRY- DR WHEELER REQUESTED TO CALL PT TO NOTIFY HER OF XRAY RESULTS. LEFT MESSAGE FOR PT TO CALL US BACK. DR WHEELER MADE AWARE.
== END 2021-12-05 03:00 | disposition home or self-care (01) ==
LOC: MED 23:23
DX: S43.401A Unspecified sprain of right shoulder joint, initial encounter (principal); G90.50 Complex regional pain syndrome I, unspecified; F41.9 Anxiety disorder, unspecified; E03.9 Hypothyroidism, unspecified; I10 Essential (primary) hypertension; K21.9 Gastro-esophageal reflux disease without esophagitis; J44.9 Chronic obstructive pulmonary disease, unspecified; Z88.5 Allergy status to narcotic agent; Z88.8 Allergy status to other drugs, medicaments and biological substances; Z88.6 Allergy status to analgesic agent; Z88.1 Allergy status to other antibiotic agents; Z79.899 Other long term (current) drug therapy; W01.0XXA Fall on same level from slipping, tripping and stumbling without subsequent striking against object, initial encounter; Y93.89 Activity, other specified; Y92.89 Other specified places as the place of occurrence of the external cause; Y99.8 Other external cause status
CPT/HCPCS: 72040; 72080; 73010; 73030; 82948; 99284

== ENCOUNTER 2021-12-16 10:35 | Inpatient (IN) | payer OTHER, SELFPAY ==
[~2021-12-16] VITALS: Ht 157.5 cm; Wt 52.6 kg
[~2021-12-16 10:35] MED LIST changes: +ACET-10509 PO
[2021-12-16 10:44] VITALS: BP 119/64
--- NOTE | 2021-12-16 10:50 | NUR ---
pt wheelchair assisted to bed 07
--- NOTE | 2021-12-16 11:17 | NUR ---
Dr. Lin at bedside evaluating patient.
--- NOTE | 2021-12-16 11:22 | NUR ---
76 y/o female with c/o lower abd pain. Patient complaining of diarrhea, dysuria, lower back pain landers 3 days. Patient is on 2 LPM of oxygen via NC. Medical History: unable to recall Allergy: see list
--- NOTE | 2021-12-16 11:30 | NUR ---
76/F PRESENTS TO ED WITH C/O LOWER ABDOMINAL PAIN, DIARRHEA, DYSURIA AND LOWER BACK PAIN X3 DAYS. PATIENT DENIES TAKING MEDICATION FOR SYMPTOMS, DENIES FEVERS OR CHILLS. STATES NAUSEA TODAY, PATIENT PLACED IN GOWN ON BEDSIDE EXTRUSION FORMER.
--- NOTE | 2021-12-16 11:34 | NUR ---
CPT Zenia at bedside drawing labs.
[2021-12-16 12:03] LABS: BASOPHILS % (AUTO) 0.1 % (0.0-2.0); HEMATOCRIT 31.2 % (36-48); HEMOGLOBIN 10.5 g/dL (12.0-16.0); LYMPHOCYTES # (AUTO) 0.5 K/uL (2.5-16.5); LYMPHOCYTES % (AUTO) 5.7 % (20.5-51.1); MEAN CORPUSCULAR HEMOGLOBIN 28 pg (27-31); MEAN CORPUSCULAR HGB CONC 34 g/dL (33-37); MEAN CORPUSCULAR VOLUME 84.2 fL (80-94); MONOCYTES # (AUTO) 1.3 K/uL (0.8-1.0); MONOCYTES % (AUTO) 14.1 % (1.7-9.3); NEUTROPHILS # (AUTO) 7.2 K/uL (1.8-7.7); NEUTROPHILS % (AUTO) 80.1 % (42.2-75.2); PLATELET COUNT (AUTO) 83 K/uL (140-450); RED BLOOD CELL COUNT(AUTO) 3.71 MIL/uL (4.20-5.40); RED CELL DISTRIBUTION WIDTH 14.6 % (11.6-13.7)
--- NOTE | 2021-12-16 12:16 | NUR ---
Patient taken via gurney to CT scan
--- NOTE | 2021-12-16 12:25 | NUR ---
Patient returned from CT scan.
[2021-12-16 12:38] LABS: ALBUMIN 3.5 g/dL (3.4-5.0); ANION GAP 14.2 (8-16); ASPARTATE AMINOTRANSFERASE 23 U/L (15-37); CARBON DIOXIDE 26.3 mmol/L (21-32); CHLORIDE 99 mmol/L (98-107); CREATININE 2.5 mg/dL (0.6-1.3); GLUCOSE 122 mg/dL (74-106); POTASSIUM 3.5 mmol/L (3.5-5.1); SODIUM SERUM 136 mmol/L (136-145); TOTAL BILIRUBIN 0.7 mg/dL (0.0-1.0); UREA NITROGEN, BLOOD 43 mg/dL (7-18)
[2021-12-16 13:40] LABS: BILIRUBIN,URINE NEGATIVE (NEGATIVE); BLOOD, URINE 2+ (NEGATIVE); COLOR,URINE YELLOW (YELLOW); LEUKOCYTE ESTERASE ,URINE 1+ (NEGATIVE); NITRITE, URINE POSITIVE (NEGATIVE); UGLUCOSE NEGATIVE (NEGATIVE)
[2021-12-16 13:43] LABS: APPEARANCE,URINE CLOUDY (CLEAR)
[2021-12-16 13:50] LABS: CALCIUM OXALATE CRYSTALS,UR None Seen /HPF (None Seen); TRICHOMONAS,URINE None Seen /HPF (None Seen); URIC ACID CRYSTALS,URINE None Seen /HPF (None Seen); WBC,URINE 16-25 (MOD) /HPF (0-5); YEAST,URINE None Seen /HPF (None Seen)
[2021-12-16 13:51] LABS: COARSE GRANULAR CASTS,URINE None Seen /LPF (None Seen); FINE GRANULAR CASTS,URINE None Seen /LPF (None Seen); HYALINE CASTS, URINE None Seen /LPF (None Seen); OTHER CASTS, URINE None Seen /LPF (None Seen); OTHER CRYSTALS,URINE None Seen /HPF (None Seen); RED BLOOD CELL CASTS,URINE None Seen /LPF (None Seen); TRIPLE PHOSPHATE CRYSTAL,UR None Seen /HPF (None Seen); URINE AMORPHOUS URATE 1+ /HPF (None Seen); WAXY CASTS,URINE None Seen /LPF (None Seen)
[2021-12-16] MEDS ORDERED: cefTRIAXone 1,000 MG VIAL ONE (13:51)
[2021-12-16] MEDS ORDERED: guaiFENesin DM 200/20 MG-10 ML 10 ML UDC PO PRN ×2 (14:00→14:05)
[2021-12-16] MEDS ORDERED: ZOLPIDEM 5 MG TAB PO PRN ×2 (14:00→14:05)
[2021-12-16] MEDS ORDERED: DOCUSATE SODIUM 100 MG GELCAP PO PRN ×2 (14:00→14:05)
[2021-12-16] MEDS ORDERED: ONDANSETRON 4 MG/2 ML VIAL IM/IVP PRN ×2 (14:00→14:05)
[2021-12-16] MEDS ORDERED: NACL 0.9% 1,000 ML IV SCH (14:00)
[2021-12-16] MEDS ORDERED: POTASSIUM CHLORIDE 10 MEQ TABER PO PRN ×2 (14:00→14:05)
[2021-12-16] MEDS ORDERED: ACETAMINOPHEN 325 MG TAB PO PRN (14:05)
[2021-12-16] MEDS: NACL 0.9% 1,000 ML IV SCH (14:06)
--- NOTE | 2021-12-16 14:28 | NUR ---
X-Ray at bedside.
--- NOTE | 2021-12-16 14:35 | NUR ---
Patient will be admitted to care of Dr. Menendez. Admited to Telemetry. Will go to room 107A. Belongings list completed. Report to OSITO Bond.
--- NOTE | 2021-12-16 14:36 | NUR ---
The patient's care was reviewed and supervised by Justina Carlton RN.
[2021-12-16 15:14] LABS: PROTHROMBIN TIME 11.1 secs (10.8-13.4)
[2021-12-16 16:00] VITALS: BP 186/52
[2021-12-16 17:06] VITALS: BP 186/52
--- NOTE | 2021-12-16 19:15 | NUR ---
REPORT IS GIVEN TO THE NIGHT NURSE , PATIENT IN BED WITHOUT DISCOMFORT.[id number]
--- NOTE | 2021-12-16 19:30 | NUR ---
RECEIVED REPORT FROM JOSE ALFREDO MCNEILL FOR CONTINUITY OF CARE. PATIENT WAS OBSERVED IN BED ON 2LITER OF OXYGEN. BREATHING OBSERVED EVEN AND UNLABORED NO S/S OF RESPIRATORY DISTRESS.IV SITE CLEAN AND PATENT ON RIGHT ARM WITH 20GAGE WITH NORMAL SALINE AT 80ML/PER HOUR. SKIN INTACT. USES BEDPAN WITH ASSIST. CAN AMBULATE TO BATHROOM WITH ASSISTANCE. SKIN WAS REPORTED INTACT. ALL SAFETY MEASURE ARE AVAILABLE. BED LOWERED CALL LIGHT IN REACH. PATIENT WAS ENCOURAGED TO CALL FOR ASSISTANCE FOR ANY NEEDS/ASSISTANCE. WILL CONTINUE TO MONITOR. [id number]
--- NOTE | 2021-12-16 19:35 | NUR ---
PATIENT PLAN OF CARE REVIEWED AND DISCUSSED WITH JAYY WU.
[2021-12-16 20:00] VITALS: BP 192/85
[2021-12-16] MEDS: ACETAMINOPHEN 325 MG TAB PO PRN (20:34)
[2021-12-16] MEDS ORDERED: hydrALAZINE 20 MG/ML VIAL IVP PRN (21:45)
--- NOTE | 2021-12-16 22:00 | NUR ---
PATIENT IN BED AFTER PAIN MANAGEMENT FOR HEADACHE ANS ELEVATED BLOOD PRESSURE. NEW MEDICATIONS WERE GIVEN TO REDUCE ELEVATED BLOOD PRESSURE. SPOKE WITH DAUGHTER AND GAVE QUICK UPDATE. NURSING WILL CONTINUE TO MONITOR FOR SAFETY AND UPDATE ON VITAL SIGNS. [email or web address]
[2021-12-16] MEDS: LOSARTAN 50 MG TAB PO SCH (22:10)
[2021-12-17] VITALS: BP 171/60
--- NOTE | 2021-12-17 | NUR ---
PATIENT VITALS SIGNS STABLE, AFEBRILE, SATING 97% ON 2L/NC. NO COMPLAIN AT THIS TIME AND NOT IN ANY DISTRESS. WILL CONTINUE POC AND MONITORING. BP ELEVATED WILL GIVE PRN HYDRALAZINE ORDERED.
--- NOTE | 2021-12-17 02:00 | NUR ---
PATIENT VERBALIZED THAT SHE IS COLD. WARM BLANKET PROVIDED AND ALSO RE CHECKED PT TEMP-98.9. WILL CONTINUE POC.
[2021-12-17 04:00] VITALS: BP 177/68
--- NOTE | 2021-12-17 04:00 | NUR ---
PATIENT WAS CLEANED AND KEPT DRY AFTER BOWEL MOVEMENT. NOTED BROWN AND SOFT NOT WATERY. POST BOWEL MOVEMENT PATIENT COMPLAINED OF HEADACHE. VITAL SIGN NOTED 101 TEMPERATURE. PRN WAS GIVEN. WILL RE-CHECK TEMPERATURE AFTER ONE HOUR. [email or web address]
[2021-12-17] MEDS: ACETAMINOPHEN 325 MG TAB PO PRN (04:08)
[2021-12-17] MEDS: NACL 0.9% 1,000 ML IV SCH ×2 (04:41→23:25)
--- NOTE | 2021-12-17 05:00 | NUR ---
PATIENT TEMPERATURE WAS NOTED AT 98.7. NO MORE COMPLAINT OF HEADACHE. PATIENT WAS GIVEN WARM BLANKET COMPLAINED OF COLD. NURSING PLACE CALL LIGHT IN REACH. NURSING WILL CONTINUE TO MONITOR. [email or web address]
[2021-12-17] MEDS: LEVOTHYROXINE 0.025 MG TAB PO SCH (05:55)
[2021-12-17 06:31] LABS: BASOPHILS % (AUTO) 0.3 % (0.0-2.0); EOSINOPHILS % (AUTO) 0.3 % (0.0-4.0); HEMATOCRIT 27.7 % (36-48); HEMOGLOBIN 9.4 g/dL (12.0-16.0); LYMPHOCYTES # (AUTO) 0.3 K/uL (2.5-16.5); LYMPHOCYTES % (AUTO) 5.5 % (20.5-51.1); MEAN CORPUSCULAR HEMOGLOBIN 28 pg (27-31); MEAN CORPUSCULAR HGB CONC 34 g/dL (33-37); MEAN CORPUSCULAR VOLUME 83.9 fL (80-94); MONOCYTES # (AUTO) 0.9 K/uL (0.8-1.0); MONOCYTES % (AUTO) 14.6 % (1.7-9.3); NEUTROPHILS % (AUTO) 79.3 % (42.2-75.2); PLATELET COUNT (AUTO) 74 K/uL (140-450); RED BLOOD CELL COUNT(AUTO) 3.31 MIL/uL (4.20-5.40); RED CELL DISTRIBUTION WIDTH 14.6 % (11.6-13.7); WHITE BLOOD COUNT (AUTO) 6.3 K/uL (4.8-10.8)
--- NOTE | 2021-12-17 06:49 | NUR ---
NO ACUTE EVENT THROUGHOUT THE NIGHT. PATIENT STABLE. NO SIGN AND SYMPTOMS OF DISTRESS NOTED AT THIS TIME. NO COMPLAIN FROM THE PATIENT. ALL NEEDS ATTENDED. CALL LIGHT WITHIN REACH. WILL ENDORSE THE PATIENT TO THE ONCOMING RN FOR CONTINUITY OF CARE.
[2021-12-17 06:51] LABS: ANION GAP 14.4 (8-16); CARBON DIOXIDE 24.1 mmol/L (21-32); CHLORIDE 102 mmol/L (98-107); GLUCOSE 100 mg/dL (74-106); POTASSIUM 3.5 mmol/L (3.5-5.1); SODIUM SERUM 137 mmol/L (136-145); UREA NITROGEN, BLOOD 42 mg/dL (7-18)
--- NOTE | 2021-12-17 07:24 | NUR ---
ENDORSED PATIENT TO DAY NURSE FOR CONTINUITY OF CARE. PATIENT STABLE. SIGNING OFF.
[2021-12-17 08:00] VITALS: BP 187/70
--- NOTE | 2021-12-17 08:25 | NUR ---
PATIENT HAS BEEN SCREENED AND CATEGORIZED MODERATE NUTRITION RISK. PATIENT WILL BE SEEN WITHIN 3-5 DAYS OF ADMISSION. DEN [address]TA [address] Addendum: 12/17/21 at [address] PATIENT HAS BEEN SCREENED AND CATEGORIZED HIGH NUTRITION RISK. PATIENT WILL BE SEEN WITHIN 1-2 DAYS OF ADMISSION. DEN PERALTA [address]
[2021-12-17] MEDS ORDERED: hydrALAZINE 20 MG/ML VIAL ONE (08:36)
[2021-12-17] MEDS ORDERED: CRUSHER, PILL MC ONE (08:44)
[2021-12-17] MEDS: buPROPion 100 MG TAB PO SCH (08:52)
[2021-12-17] MEDS: hydrALAZINE 10 MG TAB PO SCH ×3 (08:52→13:00)
[2021-12-17] MEDS: PANTOPRAZOLE 40 MG TABEC PO SCH (08:54)
[2021-12-17] MEDS: LOSARTAN 50 MG TAB PO SCH (08:59)
[2021-12-17] MEDS ORDERED: NIFEdipine 60 MG TABER PO SCH (09:00)
[2021-12-17] MEDS ORDERED: PANTOPRAZOLE 40 MG TABEC PO SCH (09:00)
[2021-12-17] MEDS ORDERED: carvediloL 12.5 MG TAB PO SCH (09:00)
[2021-12-17 14:00] VITALS: BP 116/65
--- NOTE | 2021-12-17 14:30 | NUR ---
DC PLANNING PATIENT IS A 76-YEAR-OLD FEMALE ADMITTED ON 12/16/2021 AT [facility]/ED DUE TO NON-RADIATING RIGHT FLANK AND RIGHT LOWER QUADRANT ABDOMINAL PAIN ASSOCIATED WITH DIARRHEA. PATIENT HAS HX. OF ASTHMA AND HYPERTENSION. SW MET WITH PATIENT AT BEDSIDE TO DISCUSS AND GATHER PATIENT'S COLLATERAL INFORMATION. PATIENT REPORTED LIVING AT HOME WITH HER HER DAUGHTER RAFIQ HAZEL WHO IS HER FAMILY SUPPORT, EMERGENCY CONTACT AND CAREGIVER. PATIENT REPORTED NOT BEEN ACTIVE AND INDEPENDENT AT HOME AND HAVING HER DAUGHTER HER IHSS CAREGIVER. PATIENT REPORTED GETTING ABOUT 40 HRS A WEEK FOR HER DAUGHTER TO CARE FOR HER AT HOME. PATIENT REPORTED HAVING ADVANCE DIRECTIVES IN PLACE ALREADY AND WAS NOT INTERESTED ON GETTING INFORMATION PACKET PROVIDED BY SW AT THE TIME OF VISIT. PATIENT REPORTED HAVING A WHEELCHAIR, WALKER AND O2 HER DME AND NOT HAVING ANY ISSUES WITH GETTING OR TAKING ANY OF HER MEDICATIONS. PATIENT REPORTED THAT HER DAUGHTER PICKS UP HER MEDICATIONS FROM [facility] NEAR HER HOME. SW EXPLAINED TO PATIENT THE NEED TO FOLLOW UP WITH AN APPOINTMENT WITHIN 5-7 DAYS WITH HER PCP AFTER HER DC FROM [facility], PATIENT AGREED AND STATED THAT HER DAUGHTER WILL BE MAKING HER FOLLOW UP APPOINTMENT; WITH PRIMARY DOCTOR AFTER SHE DISCHARGES FROM [facility]. PATIENT STATED THAT HER DAUGHTER RAFIQ WILL BE ASSISTING HER WITH TRANSPORTATION BACK HOME WHEN SHE IS DC. SW WILL FOLLOW UP NEEDED. Addendum: 12/23/21 at 1543 by Tangela Parker MATIAS CALL PATIENT AND HER DAUGHTER RAFIQ AT TO FOLLOW UP AND CONFIRMED THAT PATIENT HAS A FOLLOW UP APPOINTMENT AFTER HER DISCHARGE WITH HER PCP. MATIAS SPOKE TO BOTH PATIENT AND HER DAUGHTER OVER THE PHONE WHO STATED THAT PATIENT HAS ALREADY AN APPOINTMENT SET UP FOR 01/08/2022 AT 12:40PM AND CONFIRMED THAT SHE WILL BE TAKING PATIENT FOR APPOINTMENT. SW THANKED HER FOR THE INFORMATION AND ENDED THE CALL.
--- NOTE | 2021-12-17 14:48 | NUR ---
12/17/21 RD INITIAL ASSESSMENT COMPLETED PLEASE REFER TO NUTRITION ASSESSMENT UNDER CARE ACTIVITY FOR ESTIMATED NUTRITIONAL NEEDS. 1. RECOMMEND CARDIAC, MECHANICAL SOFT DIET TOLERATED 2. MONITOR PO INTAKE AND WEIGHT CHANGES 3. RD TO FOLLOW-UP 2-3 DAYS, HIGH RISK AMELIA PERALTA RD
--- NOTE | 2021-12-17 18:23 | NUR ---
PATIENT COMPLAINED NOT BEING ABLE TO BREATH. 02 4L NC INCREASED V.S OBTAINED , PT 02 99% WITH IN SHORT TIME PT ABLE TO CALM DOWN. DR NOTIFIED.[id number]
--- NOTE | 2021-12-17 19:51 | NUR ---
GIVEN REPORT TO COMING NURSE.[id number]
[2021-12-17 20:00] VITALS: BP 123/59
--- NOTE | 2021-12-17 21:22 | NUR ---
Pt A/o x3, with no s/s of SOb or distress. Pt noted with rt arm iv infiltration,with mild swelling and c/o of pain at site, iv d/c'd at 20:00. Pt tolerated well. Pt refused new iv insertion. Pt continued to decline , with multiple attempts to encourage and convince pt . Informed of risk and benefits, aware. Pt's dtr ( Marifer) called and spoke with pt, unable to convince her at this time. Dr. Menendez marketing communications coordinator notified of the above, suggested to ask ER for an IJ insertion. Pt declined IVF on hold at this time as ordered. continue to monitor on tele as ordered.
[2021-12-17] MEDS: SIMVASTATIN 20 MG TAB PO SCH (21:50)
[2021-12-17] MEDS: traZODone 50 MG TAB PO SCH (21:50)
[2021-12-17] MEDS: carvediloL 12.5 MG TAB PO SCH (21:51)
[2021-12-18] VITALS: BP 126/69
[2021-12-18 04:00] VITALS: BP 134/56
[2021-12-18] MEDS: LEVOTHYROXINE 0.025 MG TAB PO SCH (06:20)
[2021-12-18 07:30] LABS: HEMATOCRIT 27.6 % (36-48); HEMOGLOBIN 9.3 g/dL (12.0-16.0); MEAN CORPUSCULAR HEMOGLOBIN 28 pg (27-31); MEAN CORPUSCULAR HGB CONC 34 g/dL (33-37); MEAN CORPUSCULAR VOLUME 83.4 fL (80-94); PLATELET COUNT (AUTO) 100 K/uL (140-450); RED BLOOD CELL COUNT(AUTO) 3.31 MIL/uL (4.20-5.40); RED CELL DISTRIBUTION WIDTH 14.5 % (11.6-13.7); WHITE BLOOD COUNT (AUTO) 5.6 K/uL (4.8-10.8)
[2021-12-18 07:46] LABS: ANION GAP 16.6 (8-16); CARBON DIOXIDE 21.9 mmol/L (21-32); CHLORIDE 102 mmol/L (98-107); CREATININE 1.8 mg/dL (0.6-1.3); GLUCOSE 95 mg/dL (74-106); POTASSIUM 3.5 mmol/L (3.5-5.1); SODIUM SERUM 137 mmol/L (136-145); UREA NITROGEN, BLOOD 43 mg/dL (7-18)
[2021-12-18 08:00] VITALS: BP 140/62
[2021-12-18] MEDS ORDERED: NIFEdipine 90 MG TABER PO SCH (09:00)
[2021-12-18 09:54] LABS: BASOPHILS % (MANUAL) 0 % (0-2); BLASTS, MANUAL % 0 % (0-0); EOSINOPHILS % (MANUAL) 0 % (0-4); LYMPHOCYTES % (MANUAL) 10 % (20-46); METAMYELOCYTES % 0 % (0-0); MONOCYTES % (MANUAL) 13 % (5-12); MYELOCYTES % 0 % (0-0); OTHER CELLS,MANUAL % 0 (0-0); PROMYELOCYTES % 0 % (0-0)
[2021-12-18] MEDS: hydrALAZINE 10 MG TAB PO SCH ×3 (10:07→17:00)
[2021-12-18] MEDS: PANTOPRAZOLE 40 MG TABEC PO SCH (10:07)
[2021-12-18] MEDS: carvediloL 12.5 MG TAB PO SCH ×2 (10:07→20:43)
[2021-12-18] MEDS: ISOSORBIDE MONONITRATE 30 MG TABER PO SCH (10:08)
[2021-12-18] MEDS: buPROPion 100 MG TAB PO SCH (10:08)
[2021-12-18] MEDS: NIFEdipine 60 MG TABER PO SCH (10:08)
[2021-12-18] MEDS ORDERED: NACL 0.9% IV SCH ×2 (11:30→11:35)
[2021-12-18] MEDS ORDERED: CEFTRIAXONE IV SCH ×2 (11:30→11:35)
[2021-12-18] MEDS ORDERED: CRUSHER, PILL MC ONE (13:16)
[2021-12-18] MEDS: cefTRIAXone 1,000 MG VIAL IM SCH (13:36)
[2021-12-18] MEDS: NACL 0.9% 1,000 ML IV SCH (15:48)
--- NOTE | 2021-12-18 19:32 | NUR ---
PT ENDORSED TO STARTER MECHANIC FOR CONTINUITY OF CARE. POC DISCUSSED.
[2021-12-18 20:00] VITALS: BP 141/62
[2021-12-18] MEDS: SIMVASTATIN 20 MG TAB PO SCH (20:43)
[2021-12-18] MEDS: traZODone 50 MG TAB PO SCH (20:43)
[2021-12-19 04:00] VITALS: BP 139/65
[2021-12-19] MEDS: LEVOTHYROXINE 0.025 MG TAB PO SCH (05:59)
[2021-12-19 06:46] LABS: BASOPHILS % (AUTO) 0.4 % (0.0-2.0); HEMATOCRIT 27.8 % (36-48); HEMOGLOBIN 9.4 g/dL (12.0-16.0); LYMPHOCYTES # (AUTO) 0.8 K/uL (2.5-16.5); MEAN CORPUSCULAR HEMOGLOBIN 28 pg (27-31); MEAN CORPUSCULAR HGB CONC 34 g/dL (33-37); MEAN CORPUSCULAR VOLUME 83.4 fL (80-94); MONOCYTES % (AUTO) 20.9 % (1.7-9.3); NEUTROPHILS # (AUTO) 2.9 K/uL (1.8-7.7); NEUTROPHILS % (AUTO) 60.7 % (42.2-75.2); PLATELET COUNT (AUTO) 122 K/uL (140-450); RED BLOOD CELL COUNT(AUTO) 3.33 MIL/uL (4.20-5.40); RED CELL DISTRIBUTION WIDTH 14.4 % (11.6-13.7); WHITE BLOOD COUNT (AUTO) 4.8 K/uL (4.8-10.8)
--- NOTE | 2021-12-19 07:10 | NUR ---
RECEIVED REPORT FROM BUSINESS DEVELOPMENT NURSE. PT IS AWAKE, BREATHING UNLABORED ON 2L O2 NC. A&OX4. LAST BM WAS YESTERDAY. CONTINENT OF THE BOWEL AND BLADDER. SKIN IS INTACT AND WARM. WHEELCHAIR AT BEDSIDE FOR MOBILITY. NO IV IN PLACE, PT REFUSED. PT. IS STABLE. PLAN OF CARE DISCUSSED.
--- NOTE | 2021-12-19 07:45 | NUR ---
SPOKE TO PT ABOUT IV INSERTION. INFORMED HER ABOUT THE IMPORTANCE OF FOLLOWING THE MEDICATION PROTOCOL PER ORDERS VIA IV MEDICATION. PT STILL REFUSED. SPOKE WITH DAUGHTER ABOUT IMPORTANCE OF IV AND ANTIBIOTICS. PT STATED SHE ONLY WILL TAKE PO MEDICATION. WILL INFORM DR. HARRIS.
[2021-12-19 07:48] LABS: ALBUMIN 2.9 g/dL (3.4-5.0); AMYLASE 76 U/L (25-115); ASPARTATE AMINOTRANSFERASE 18 U/L (15-37); CARBON DIOXIDE 24.4 mmol/L (21-32); CHLORIDE 102 mmol/L (98-107); CHOL/HDL RATIO 6.7 (1-4.5); CREATININE 1.7 mg/dL (0.6-1.3); GLUCOSE 99 mg/dL (74-106); HDL CHOLESTEROL 20 mg/dL (40-60); LDL (CALC) 76 mg/dL (60-100); LIPASE 121 U/L (73-393); POTASSIUM 3.4 mmol/L (3.5-5.1); SODIUM SERUM 136 mmol/L (136-145); THYROID STIMULATING HORMONE 3.87 uIU/mL (0.34-3.74); TOTAL BILIRUBIN 0.4 mg/dL (0.0-1.0); TRIGLYCERIDES 194 mg/dL (30-150); UREA NITROGEN, BLOOD 41 mg/dL (7-18)
[2021-12-19 08:00] VITALS: BP 154/70
[2021-12-19] MEDS ORDERED: LORazepam 0.5 MG TAB PO PRN (08:20)
--- NOTE | 2021-12-19 08:30 | NUR ---
DR. HARRIS GAVE ORDER FOR ATIVAN PO 0.5 MG PRN FOR ANXIETY Q 6HR. PT IS CRYING AND STATED SHE TAKES THIS MED AT HOME. WILL ADMINISTER ONCE VERIFIED.
[2021-12-19] MEDS: NIFEdipine 60 MG TABER PO SCH (08:38)
[2021-12-19] MEDS: buPROPion 100 MG TAB PO SCH ×2 (08:39→08:54)
[2021-12-19] MEDS: hydrALAZINE 10 MG TAB PO SCH ×2 (08:39→13:09)
[2021-12-19] MEDS: carvediloL 12.5 MG TAB PO SCH (08:40)
[2021-12-19] MEDS: ISOSORBIDE MONONITRATE 30 MG TABER PO SCH (08:40)
[2021-12-19] MEDS: PANTOPRAZOLE 40 MG TABEC PO SCH (08:40)
--- NOTE | 2021-12-19 08:41 | NUR ---
PT WAS GIVEN ATIVAN FOR ANXIETY, BP WAS STABLE PRIOR TO ADMINISTRATION OF MEDICATION. WILL MONITOR.
[2021-12-19] MEDS: NACL 0.9% 1,000 ML IV SCH (08:43)
[2021-12-19] MEDS ORDERED: HYDR-1102 PO (10:26)
[2021-12-19] MEDS ORDERED: CARV12.52 PO (10:26)
[2021-12-19] MEDS ORDERED: NIFE60TA39 PO (10:26)
[2021-12-19] MEDS ORDERED: CIPR500T4 PO (10:26)
[2021-12-19] MEDS ORDERED: ISOS30TE68 PO (10:26)
--- NOTE | 2021-12-19 11:30 | NUR ---
PT IS STABLE. NO DISTRESS NOTED. BREATHING IS UNLABORED ON 2L O2 NC. PT ASLEEP.
--- NOTE | 2021-12-19 12:18 | NUR ---
DC PLANNING: THE PATIENT ADMITTED FROM HOME THROUGH THE ED WITH C/O FLANK PAIN, FAILED OP RX WITH ZITHROMAX. BNP ELEVATED, CT ABD. SHOWED INFLAMMATORY CHANGES AROUND THE RIGHT KIDNEY. PATIENT STARTED ON ROCEPHIN IV FOR PYELONEPHRITIS. CM SPOKE WITH THE PATIENTS DAUGHTER RAFIQ BY PHONE AND CONFIRMED HAD ADDRESS AND PHONE NUMBER. 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 SHE IS ABLE TO STAND AND PIVOT WITH ASSIST FROM HER DAUGHTER AND REQUIRES ASSISTANCE WITH ADL'S. SHE LIVES IN A SINGLE STORY HOUSE WITH HER DAUGHTER, AND GRANDCHILD, HER DAUGHTER IS HER [employer] WORKER WITH 169 HOURS/MONTH. SHE HAS DME OF A , 3 IN 1 COMMODE AND SHOWER BENCH. THE PATIENT SEES HER PCP DR MONROY EVERY 3 MONTHS OR SO. DC PLAN IS TO RETURN HOME WHEN CLINICALLY STABLE, CM WILL FOLLOW FOR NEEDS. Addendum: 12/19/21 at 1223 by Liliane Fernandez CM Amended: Links added. 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 CALLED [facility] AND FAXED ALL PAPER WORK PER GEO AT [facility] ACCEPTED PATIENT FOR PHYSICAL THERAPY. CM TO FOLLOW
[2021-12-19] MEDS: cefTRIAXone 1,000 MG VIAL IM SCH (13:00)
--- NOTE | 2021-12-19 13:00 | NUR ---
PT REFUSED TO TAKE CEFTRIAXONE MED, PT STATED "IT IS TOO PAINFUL FOR ME TO TAKE IT". PT REFUSED TO HAVE AN IV LINE, AND WILL BE GOING HOME SOON.
--- NOTE | 2021-12-19 13:09 | NUR ---
V/S WITHIN NORMAL LIMITS, GAVE PT HYDRALAZINE MEDICATION ORDERED. POTASSIUM AT 3.4(LOW), GAVE K-DUR MEDICATION ORDERED. WILL CONTINUE TO MONITOR.
[2021-12-19 13:40] VITALS: BP 124/55
--- NOTE | 2021-12-19 14:59 | NUR ---
SPOKE TO HOTEL STAFF MEMBER MIRELLA AND SHE INFORMED ME THAT HOME HEALTH FOR PT WILL BE ARRANGED. INFORMED DAUGHTER RAFIQ AND PT.
--- NOTE | 2021-12-19 15:00 | NUR ---
PT WAS DISCHARGED FROM THE HOSPITAL VIA GURNEY. ASSISTED INTO THE CAR BY STAFF. RAFIQ DAUGHTER PICKED UP PT WITH GRANDDAUGHTER WELL. PT IS STABLE. VS ARE STABLE. ON 2L O2 NC. HOME OXYGEN THAT WAS BROUGHT BY PATIENT WAS HOOKED UP TO PATIENT ON D/C AND SENT HOME WITH HER. PT ALSO TOOK WHEELCHAIR AND BELONGINGS WITH HER ON D/C. NO DISTRESS NOTED. NO IV IN PLACE. ID BAND REMOVED. PT IS DISCHARGED.
[2021-12-20 06:08] LABS: T4 (THYROXINE) 8.6 ug/dL (4.5-12.0)
== END 2021-12-19 15:00 | disposition home or self-care (01) | DRG 871 ==
LOC: MED 10:35 → MTU 13:35
PROVIDERS: ADMIT Family Medicine; ATTEND Family Medicine
DX: A41.9 Sepsis, unspecified organism (principal); N17.0 Acute kidney failure with tubular necrosis; I50.43 Acute on chronic combined systolic (congestive) and diastolic (congestive) heart failure; I21.4 Non-ST elevation (NSTEMI) myocardial infarction; N12 Tubulo-interstitial nephritis, not specified as acute or chronic; I13.0 Hypertensive heart and chronic kidney disease with heart failure and stage 1 through stage 4 chronic kidney disease, or unspecified chronic kidney disease; E86.0 Dehydration; D64.9 Anemia, unspecified; I25.10 Atherosclerotic heart disease of native coronary artery without angina pectoris; J44.9 Chronic obstructive pulmonary disease, unspecified; N18.30 Chronic kidney disease, stage 3 unspecified; E11.22 Type 2 diabetes mellitus with diabetic chronic kidney disease; E03.9 Hypothyroidism, unspecified; K21.9 Gastro-esophageal reflux disease without esophagitis; E11.40 Type 2 diabetes mellitus with diabetic neuropathy, unspecified; D69.6 Thrombocytopenia, unspecified; E78.5 Hyperlipidemia, unspecified; E11.51 Type 2 diabetes mellitus with diabetic peripheral angiopathy without gangrene; M81.0 Age-related osteoporosis without current pathological fracture; K29.70 Gastritis, unspecified, without bleeding; Z20.822 Contact with and (suspected) exposure to COVID-19; Z79.82 Long term (current) use of aspirin; Z79.899 Other long term (current) drug therapy; Z79.1 Long term (current) use of non-steroidal anti-inflammatories (NSAID); Z91.09 Other allergy status, other than to drugs and biological substances
CPT/HCPCS: 36415; 71045; 80048; 80053; 81001; 82150; 82550; 82553; 83036; 83605; 83690; 83874; 83880; 84436; 84439; 84443; 84479; 84484; 85025; 85610; 85730; 87040; 87081; 87086; 92526; 93005; 96365; 97110; 97163-GP; 97530; 99285; C1758; J0360; J0696; J1644; J7030; J7060

== ENCOUNTER 2022-02-24 16:41 | Emergency (ER) | payer OTHER ==
[~2022-02-24] VITALS: Ht 157.5 cm; Wt 52.6 kg
[~2022-02-24 16:41] MED LIST changes: -ACET-10509 PO; -AZIT250T4 PO; +CARV12.52 PO; -CILO100T PO; +CIPR500T4 PO; +ISOS30TE68 PO; -LOSA50TA1 PO
[2022-02-24 17:08] VITALS: BP 109/59
--- NOTE | 2022-02-24 17:16 | NUR ---
76 Y/O FEMALE BIBA C/O SOB/ CHEST PAIN X TODAY. PT STATES SHE HAS A CHRONIC COUGH AND SOB DUE TO HER COPD. PT STATES SHE IS CURRENTLY ON 2L NASAL CANNULA AT HOME. PT DENIES FEVER OR CHILLS.
[2022-02-24] MEDS ORDERED: DEXAMETHASONE 10 MG/ML VIAL IVP ONE (17:25)
[2022-02-24] MEDS ORDERED: IPRATROPIUM 0.02% 0.5 MG/2.5 ML NEBU INH ONE (17:25)
[2022-02-24] MEDS ORDERED: ALBUTEROL 0.083% 2.5 MG/3 ML NEBU INH ONE (17:25)
[2022-02-24 18:04] LABS: BASOPHILS % (AUTO) 0.8 % (0.0-2.0); EOSINOPHILS # (AUTO) 0.1 K/uL (0-0.4); EOSINOPHILS % (AUTO) 1.4 % (0.0-4.0); HEMATOCRIT 33.9 % (36-48); HEMOGLOBIN 11.2 g/dL (12.0-16.0); LYMPHOCYTES # (AUTO) 1.6 K/uL (2.5-16.5); LYMPHOCYTES % (AUTO) 34.3 % (20.5-51.1); MEAN CORPUSCULAR HEMOGLOBIN 28 pg (27-31); MEAN CORPUSCULAR HGB CONC 33 g/dL (33-37); MEAN CORPUSCULAR VOLUME 83.7 fL (80-94); MONOCYTES # (AUTO) 0.6 K/uL (0.8-1.0); MONOCYTES % (AUTO) 12.4 % (1.7-9.3); NEUTROPHILS # (AUTO) 2.4 K/uL (1.8-7.7); NEUTROPHILS % (AUTO) 51.1 % (42.2-75.2); PLATELET COUNT (AUTO) 188 K/uL (140-450); RED BLOOD CELL COUNT(AUTO) 4.05 MIL/uL (4.20-5.40); RED CELL DISTRIBUTION WIDTH 14.1 % (11.6-13.7); WHITE BLOOD COUNT (AUTO) 4.7 K/uL (4.8-10.8)
[2022-02-24 18:19] LABS: ALBUMIN 3.9 g/dL (3.4-5.0); ASPARTATE AMINOTRANSFERASE 28 U/L (15-37); CARBON DIOXIDE 25.7 mmol/L (21-32); CHLORIDE 103 mmol/L (98-107); CREATININE 1.5 mg/dL (0.6-1.3); GLUCOSE 102 mg/dL (74-106); POTASSIUM 3.7 mmol/L (3.5-5.1); SODIUM SERUM 139 mmol/L (136-145); TOTAL BILIRUBIN 0.3 mg/dL (0.0-1.0); UREA NITROGEN, BLOOD 24 mg/dL (7-18)
--- NOTE | 2022-02-24 18:22 | NUR ---
PT RESTING IN BED, EVEN AND ULABORED BREATHING. WILL CONTINUE TO MONITOR
--- NOTE | 2022-02-24 19:20 | NUR ---
Pt report given to OSITO ELMORE. Transfer of care at this time.
--- NOTE | 2022-02-24 19:31 | NUR ---
Spoke with patient while ER MD was at bedside and patient reports refusal to start an IV, and refused medications. Patient also reports that she does not want to stay at the hospital as she "feels better". ER MD aware of the conversation and would like patient to sign AMA form. Patient is of sound mind, AAOx4, & GCS 15.
[2022-02-24] MEDS ORDERED: AZIT250T4 PO (19:37)
--- NOTE | 2022-02-24 19:42 | NUR ---
Patient does not wish to proceed with medical care recommended by Dr. Hernandez. Patient given information related to possible complications, up to and including , which could occur as a result of leaving hospital at this time. Patient verbalizes understanding of risks involved leaving against medical advice. Patient has signed AMA form.
== END 2022-02-24 19:42 | disposition left against medical advice (07) ==
LOC: MED 16:41
DX: J44.1 Chronic obstructive pulmonary disease with (acute) exacerbation (principal); J40 Bronchitis, not specified as acute or chronic; I10 Essential (primary) hypertension; K21.9 Gastro-esophageal reflux disease without esophagitis; F41.9 Anxiety disorder, unspecified; Z11.52 Encounter for screening for COVID-19
CPT/HCPCS: 36415; 71045; 80053; 83880; 84484; 85025; 93005; 99285; J7613; J7644

== ENCOUNTER 2022-09-19 07:26 | Emergency (ER) | payer OTHER ==
[~2022-09-19] VITALS: Ht 157.5 cm; Wt 44.0 kg
[~2022-09-19 07:26] MED LIST changes: +AZIT250T4 PO; +SIMV-372 PO; -SIMV20TA1 PO
[2022-09-19 07:31] VITALS: BP 128/100
--- NOTE | 2022-09-19 07:50 | NUR ---
bib daughter s/p fall this am. reports felt dizziness and fell landed on right side and hit head. denies blood thinners. hx copd. on home o2. cspt intact to right shoulder. unable to move extremity. no deformity noted. aao x4. resp even and nonlabored. er md @ bedside. denies chest pain, n,v,d, fever, chills, sob @ this time
[2022-09-19] MEDS ORDERED: ACETAMINOPHEN EXTRA STRENGTH 500 MG TAB PO ONE (08:45)
--- NOTE | 2022-09-19 09:11 | NUR ---
medicated for pain per md order. awaiting results. vss. aao x4. resp even and nonlabored
--- NOTE | 2022-09-19 09:24 | NUR ---
R ARM PLACED IN SLING. + CMS
--- NOTE | 2022-09-19 11:01 | NUR ---
called beryl daughter and given d/c instructions and verbalized understanding. all questions answered. awaiting cd
--- NOTE | 2022-09-19 11:29 | NUR ---
Patient discharged with v/s stable. Written and verbal after care instructions given and explained to daughter. Patient verbalized understanding. Wheel Chair Assisted with to car. All questions addressed prior to discharge. Advised to follow up with PMD.
[2022-09-19 11:48] VITALS: BP 132/76
== END 2022-09-19 11:29 | disposition admitted as inpatient to this hospital (09) ==
LOC: MED 07:26
DX: S42.291A Other displaced fracture of upper end of right humerus, initial encounter for closed fracture (principal); I12.9 Hypertensive chronic kidney disease with stage 1 through stage 4 chronic kidney disease, or unspecified chronic kidney disease; N18.9 Chronic kidney disease, unspecified; W06.XXXA Fall from bed, initial encounter; Y93.89 Activity, other specified; Y92.89 Other specified places as the place of occurrence of the external cause; Y99.8 Other external cause status
CPT/HCPCS: 70450; 72125; 73020; 73060; 73070; 99284

== ENCOUNTER 2023-01-25 18:22 | Inpatient (IN) | payer OTHER ==
[~2023-01-25] VITALS: Ht 157.5 cm; Wt 45.4 kg
[2023-01-25 18:38] VITALS: BP 137/85
[2023-01-25] MEDS ORDERED: NACL 0.9% 1,000 ML IV ONE ×3 (19:50→22:55)
--- NOTE | 2023-01-25 20:33 | NUR ---
ABD PAIN STARTED 2 WEEKS AGO, UNABLE TO EAT, " I HAVE IBS", PT ASLSO STATED SHE HAS BEEN HAVING DIARRHEA. PT HAS A SLING ON THE RIGHT ARM AND USING NASAL CANULA 2L.
--- NOTE | 2023-01-25 20:33 | NUR ---
PT TO BED 03
[2023-01-25 20:37] LABS: BASOPHILS % (AUTO) 0.5 % (0.0-2.0); EOSINOPHILS # (AUTO) 0.1 K/uL (0-0.4); EOSINOPHILS % (AUTO) 0.9 % (0.0-4.0); HEMATOCRIT 33.9 % (36-48); HEMOGLOBIN 11.7 g/dL (12.0-16.0); LYMPHOCYTES # (AUTO) 2.1 K/uL (2.5-16.5); LYMPHOCYTES % (AUTO) 26.4 % (20.5-51.1); MEAN CORPUSCULAR HEMOGLOBIN 29 pg (27-31); MEAN CORPUSCULAR HGB CONC 35 g/dL (33-37); MONOCYTES # (AUTO) 0.9 K/uL (0.8-1.0); MONOCYTES % (AUTO) 11.8 % (1.7-9.3); NEUTROPHILS # (AUTO) 4.8 K/uL (1.8-7.7); NEUTROPHILS % (AUTO) 60.4 % (42.2-75.2); PLATELET COUNT (AUTO) 254 K/uL (140-450); RED BLOOD CELL COUNT(AUTO) 3.99 MIL/uL (4.20-5.40); RED CELL DISTRIBUTION WIDTH 13.1 % (11.6-13.7); WHITE BLOOD COUNT (AUTO) 7.9 K/uL (4.8-10.8)
--- NOTE | 2023-01-25 20:45 | NUR ---
DAUGHTER AT THE BEDSIDE.
[2023-01-25 20:53] LABS: ALBUMIN 4.2 g/dL (3.4-5.0); ANION GAP 14.2 (8-16); ASPARTATE AMINOTRANSFERASE 29 U/L (15-37); CARBON DIOXIDE 24.4 mmol/L (21-32); CHLORIDE 98 mmol/L (98-107); CREATININE 1.7 mg/dL (0.6-1.3); GLUCOSE 110 mg/dL (74-106); POTASSIUM 3.6 mmol/L (3.5-5.1); SODIUM SERUM 133 mmol/L (136-145); TOTAL BILIRUBIN 0.5 mg/dL (0.0-1.0); UREA NITROGEN, BLOOD 20 mg/dL (7-18)
[2023-01-25] MEDS ORDERED: ONDANSETRON 4 MG/2 ML VIAL IVP ONE (21:15)
--- NOTE | 2023-01-25 21:20 | NUR ---
PT FELT NAUSEATED. MD NOTIFIED.
[2023-01-25] MEDS ORDERED: metroNIDAZOLE 500 MG/NS PREMIX 100 ML IV ONE (22:25)
--- NOTE | 2023-01-25 22:50 | NUR ---
SWAB WAS COLLECTED AND SENT TO THE LAB.
[2023-01-25] MEDS ORDERED: LANS15EC28 PO (22:57)
[2023-01-25] MEDS ORDERED: GABA100C PO (22:57)
[2023-01-25] MEDS ORDERED: LORA-476 PO (22:57)
[2023-01-25] MEDS ORDERED: AMYL-13 PO (22:57)
[2023-01-25] MEDS ORDERED: TRAZ-343 PO (22:57)
[2023-01-25] MEDS ORDERED: MULT-2253 PO (22:57)
[2023-01-25] MEDS ORDERED: IMO2 PO (22:57)
--- NOTE | 2023-01-25 23:00 | NUR ---
PT ASKING TO VOID. BED EAGLE IS PROVIDED.
--- NOTE | 2023-01-25 23:50 | NUR ---
DAUGHTER ASKED IF MOTHER CAN TAKE HER MEDS FROM HOME. NOTIFIED.
--- NOTE | 2023-01-26 00:06 | NUR ---
Patient will be admitted to care of [facility]. Admited to TELE. Will go to room 124. Belongings list completed. Report to DANI
--- NOTE | 2023-01-26 00:15 | NUR ---
RECEIVED PT FROM ER, TRANSPORTED VIA GURNEY. PT IS ADMITTED WITH CHIEF COMPLAINTS OF ABDOMINAL PAIN AND DIARRHEA FOR 2 WEEKS. DIAGNOSIS IS GASTROENTERITIS. PT HAS HISTORY OF COPD, ASTHMA, BRONCHITIS. PT IS USING OXYGEN INHALATION AT 2 LPM FOR 24 HRS AT HOME. SHE IS WITH FULL CODE AND NON AMBULATORY. PT IS AWAKE, ALERT AND ORIENTED. ABLE TO VERBALIZED HER NEEDS. CURRENTLY PT IS NPO EXCEPTS MEDS.
--- NOTE | 2023-01-26 00:30 | NUR ---
PT IS WITH SLING ON RIGHT ARM. PT PREFER TO TAKE BLOOD PRESSURE ON LEFT ARM. NO EDEMA OR SWELLING NOTED. SKIN IS INTACT AND WARM. PT IS INCONTINENT.
--- NOTE | 2023-01-26 02:30 | NUR ---
PT IS SLEEPING SOUNDLY. NO FACIAL GRIMACING. OXYGEN INHALATION IS ON AT 2 LPM.
[2023-01-26 04:00] VITALS: BP 142/74
--- NOTE | 2023-01-26 05:00 | NUR ---
PT IS SLEEPING BUT AROUSABLE ON STIMULI. NO FACIAL GRIMACING.
[2023-01-26] MEDS: metroNIDAZOLE 500 MG/NS PREMIX 100 ML IV SCH ×3 (06:00→21:52)
[2023-01-26 06:36] LABS: BASOPHILS % (AUTO) 0.5 % (0.0-2.0); EOSINOPHILS # (AUTO) 0.1 K/uL (0-0.4); EOSINOPHILS % (AUTO) 1.9 % (0.0-4.0); HEMATOCRIT 30.8 % (36-48); HEMOGLOBIN 10.6 g/dL (12.0-16.0); LYMPHOCYTES % (AUTO) 33.2 % (20.5-51.1); MEAN CORPUSCULAR HEMOGLOBIN 30 pg (27-31); MEAN CORPUSCULAR HGB CONC 34 g/dL (33-37); MONOCYTES # (AUTO) 0.8 K/uL (0.8-1.0); MONOCYTES % (AUTO) 13.7 % (1.7-9.3); NEUTROPHILS # (AUTO) 3.1 K/uL (1.8-7.7); NEUTROPHILS % (AUTO) 50.7 % (42.2-75.2); PLATELET COUNT (AUTO) 176 K/uL (140-450); RED BLOOD CELL COUNT(AUTO) 3.58 MIL/uL (4.20-5.40); RED CELL DISTRIBUTION WIDTH 13.1 % (11.6-13.7); WHITE BLOOD COUNT (AUTO) 6.1 K/uL (4.8-10.8)
[2023-01-26 06:55] LABS: ANION GAP 10.6 (8-16); CARBON DIOXIDE 25.7 mmol/L (21-32); CHLORIDE 105 mmol/L (98-107); CREATININE 1.4 mg/dL (0.6-1.3); GLUCOSE 95 mg/dL (74-106); POTASSIUM 3.3 mmol/L (3.5-5.1); SODIUM SERUM 138 mmol/L (136-145); UREA NITROGEN, BLOOD 17 mg/dL (7-18)
--- NOTE | 2023-01-26 07:05 | NUR ---
PT IS ON STABLE CONDITION. ALL SAFETY MEASURES ARE IN PLACE.
--- NOTE | 2023-01-26 07:10 | NUR ---
RECEIVED PT FROM ROLLER SKATE ASSEMBLER NURSE FOR CONTINUITY OF CARE. PT IS SLEEPING. VISIBLE CHEST RISE/FALL. RESPIRATIONS EVEN AND UNLABORED ON 2L O2 VIA NC. NO DISTRESS NOTED. IV ON L HAND 22G INFUSING NS @100. ALL SAFETY PRECAUTIONS IN PLACE. CALL LIGHT WITHIN REACH.
[2023-01-26 08:00] VITALS: BP 127/68
--- NOTE | 2023-01-26 08:00 | NUR ---
Patient's Plan of Care was discussed and reviewed with STRINGER MACHINE TENDER: AROLDO
--- NOTE | 2023-01-26 09:06 | NUR ---
PATIENT HAS BEEN SCREENED AND CATEGORIZED HIGH NUTRITION RISK. PATIENT WILL BE SEEN WITHIN 1-2 DAYS OF ADMISSION. 01/26/23-01/27/23 FNS REFERRAL RECEIVED FOR NAUSEA > 3 DAYS AND DIARRHEA > 3 DAYS ON 01/26/23. REVIEWED BY AMELIA PERALTA RD
[2023-01-26] MEDS ORDERED: POTASSIUM CHLORIDE 10 MEQ TABER PO SCH (09:12)
--- NOTE | 2023-01-26 13:03 | NUR ---
DC PLANNING ASSESSMENT COMPLETE PLEASE REFER TO ASSESSMENT FOR ADDITIONAL DETAILS PT REPORTS TENTATIVE DC PLAN IS TO RETURN HOME WITH HER DAUGHTER PROVIDING TRANSPORTATION, ONCE MEDICALLY CLEARED BY PHYSICIAN. Addendum: 01/26/23 at 1304 by Tomasz LEYVA Amended: Links added.
[2023-01-26] MEDS ORDERED: ONDANSETRON 4 MG/2 ML VIAL IVP PRN (13:25)
[2023-01-26] MEDS ORDERED: ACETAMINOPHEN 325 MG TAB PO PRN (13:25)
[2023-01-26] MEDS: NACL 0.9% 1,000 ML IV SCH (13:25)
[2023-01-26 14:58] LABS: PROTHROMBIN TIME 11.2 secs (10.8-13.4)
--- NOTE | 2023-01-26 15:02 | NUR ---
01/26/23 RD INITIAL ASSESSMENT COMPLETED PLEASE REFER TO NUTRITION ASSESSMENT UNDER CARE ACTIVITY FOR ESTIMATED NUTRITIONAL NEEDS. 1. MONITOR NPO STATUS 2. RECOMMEND LOW FAT DIET WHEN/IF MEDICALLY APPROPRIATE 3. RD TO FOLLOW-UP 3-5 DAYS, MODERATE RISK REVIEWED BY AMELIA PERALTA RD
--- NOTE | 2023-01-26 15:02 | NUR ---
DC PLANNIN YRS OLD FEMALE PATIENT WAS ADMITTED FROM HOME WITH A DX OF GASTROENTERITIS. PATIENT HAS A HX OF COPD, LIVER CIRRHOSIS ,VULVAL CARCINOMA. HTN, DM HYPOTHYROIDISM, GERD AND ANXIETY DISORDER. CXR SHOWED LEFT LUNG PATCHY OPACITY SUSPICIOUS FOR INFILTRATES. RAPID COVID TEST NEGATIVE. CT ABD/PELVIS MINIMAL WALL THICKENING OF THE BLADDER WITH INFLAMMATORY CHANGES.ADMINISTERED IVF. IV ABX FLAGYL AND CONTINUED HOME MEDS. CONSULTED WITH RODRI SHEARER. ALEJANDRA PLAN TO GO HOME WHEN STABLE. CM TO FOLLOW Addendum: 01/27/23 at 1611 by Marichuy Vázquez RN DC PLANNING: STILL AWAITING FOR RODRI FISH. CONTINUED IVF AND IV ABX AND HOME MEDS. ALEJANDRA PLAN TO GO HOME WHEN STABLE. CM TO FOLLOW
[2023-01-26 15:08] LABS: AMYLASE 425 U/L (25-115); CHOL/HDL RATIO 4.9 (1-4.5); FREE T4 (FREE THYROXINE) 1.06 ng/dL (0.76-1.46); HDL CHOLESTEROL 39 mg/dL (40-60); LDL (CALC) 120 mg/dL (60-100); LIPASE 175 U/L (73-393); THYROID STIMULATING HORMONE 1.57 uIU/mL (0.34-3.74); TRIGLYCERIDES 161 mg/dL (30-150)
[2023-01-26] MEDS ORDERED: ALBUTEROL HFA MDI 90 MCG/ACTUATION 8 GM INH PRN (18:00)
[2023-01-26] MEDS ORDERED: FAMOTIDINE 20 MG TAB PO PRN (18:00)
[2023-01-26] MEDS ORDERED: LORazepam 1 MG TAB PO PRN (18:00)
[2023-01-26] MEDS ORDERED: ALBUTEROL 0.083% 2.5 MG/3 ML NEBU INH PRN (18:25)
--- NOTE | 2023-01-26 19:25 | NUR ---
ENDORSED PT TO RESEARCH CHIEF ENGINEER NURSE FOR CONTINUITY OF CARE. PT IS STABLE.
[2023-01-26] MEDS: DOCUSATE SODIUM 100 MG GELCAP PO SCH ×2 (20:39→21:00)
[2023-01-26] MEDS: carvediloL 12.5 MG TAB PO SCH ×2 (20:40→21:00)
[2023-01-26] MEDS: traZODone 50 MG TAB PO SCH (20:41)
[2023-01-26] MEDS: SIMVASTATIN 20 MG TAB PO SCH (20:41)
[2023-01-26] MEDS ORDERED: traZODone 50 MG TAB PO SCH (21:00)
--- NOTE | 2023-01-26 22:00 | NUR ---
PT REFUSED TO TAKE CARVEDILOL, PER PT SHE IS NOT ON THIS MEDICATION BEEN A WHILE, HER DOCTOR HOLD THIS MEDS. PT CLAIMS SHE TAKES 2-3 HTN MEDICATION AT HOME. PT CALLED HER DAUGHTER, RAFIQ WHO CLARIFY PATIENT'S MEDICATIONS WITH NURSE. DAUGHTER RAFIQ STATED THAT PATIENT IS TAKIN.HYDROCHLOROTHIAZIDE 25MG IN THE MORNING ONLY 2. HYDRALAZINE 10MG TWO TIMES DAILY, MORNING AND EVENING 3. NIFEDIPINE 30MG TWO TIMES DAILY, MORNING AND EVENING. DAUGHTER PREFER PATIENT TO TAKE MEDICATIONS THE SAME ROUTINE LIKE AT HOME AND NOT HOSPITAL MEDICATIONS FREQUENCY. REPORTED TO DR. BISHOP. ORDER TO ADMINISTER HYPERTENSION MEDICATIONS TO FOLLOW HOME SCHEDULE. ORDER CARRY OUT. PT VITAL SIGNS CURRENTLY T-98.2 HR-77 R-20 O2 SAT-100% AT 2 LPM AND B/P-186/78 & 185/74.
[2023-01-26] MEDS: NIFEdipine 30 MG TABER PO SCH (22:18)
--- NOTE | 2023-01-26 22:18 | NUR ---
ADMINISTERED NIFEDIPINE 30 MG AND HYDRALAZINE 10MG ORALLY. BLOOD PRESSURE WILL BE CHECKED AND MONITOR IN AN HOUR.
[2023-01-26] MEDS: hydrALAZINE 10 MG TAB PO SCH (22:19)
--- NOTE | 2023-01-26 23:18 | NUR ---
CHECK PATIENT'S BLOOD PRESSURE, TAKEN 2X = 190/83 AND 185/76. PATIENT VERBALIZED HAVING SLIGHT HEADACHE. REPORTED TO DR. BISHOP. WHO PRESCRIBED LABETOLOL 10 MG VIA IV. ORDER CARRIED OUT.
[2023-01-26] MEDS ORDERED: LABETALOL 20 MG/4 ML VIAL IVP SCH (23:50)
--- NOTE | 2023-01-27 00:52 | NUR ---
AFTER PHARMACY CLARIFICATION, LABETOLOL 10MG ADMINISTERED ORDER VIA IV. PT IS AWAKE AND ALERT. PT STATED OF UNABLE TO SLEEP AT THIS TIME. PT CONTINUE TO MONITOR.
--- NOTE | 2023-01-27 01:52 | NUR ---
BLOOD PRESSURE CHECKED B/P = 184/74, PT IS AWAKE AND ALERT. PT VERBALIZED THAT HER HEADACHE IS REDUCED, HEADACHE FELT A BIT, ALMOST NONE. EDUCATE PT TO RELAX AND CALM AND TRY TO GET SOME SLEEP. CONTINUE TO MONITOR, WILL CHECK PATIENT'S BP IN 1 HOUR.
--- NOTE | 2023-01-27 03:50 | NUR ---
BP 196/86 AND 199/[address] BISHOP. WAITING REPLY.
--- NOTE | 2023-01-27 04:50 | NUR ---
PATIENT'S BP 199/88, PATIENT NOTED ANXIOUS. PRN ATIVAN ADMINISTERED FOR ANXIETY.
[2023-01-27] MEDS: metroNIDAZOLE 500 MG/NS PREMIX 100 ML IV SCH ×2 (04:55→12:40)
--- NOTE | 2023-01-27 05:15 | NUR ---
PT IV PUMP IS BEEPING, CHECK IV AND FLUSHED, PT COMPLAINTS OF MODERATE PAIN ON IV SITE WHEN FLUSHED. CHECK IV SITE AGAIN, IV IS NOT GOING THROUGH OR DISLODGE. REPORTED TO CHARGE NURSE PAOLA. CHARGE NURSE STATED WILL REPLACE A NEW IV SITE.
--- NOTE | 2023-01-27 05:50 | NUR ---
PATIENT'S BP CHECKED = 182/81, O2 SAT = 99% AT 2 LPM, P- 86, T-96.9. PATIENT NOTED RELAX. PT IS AWAKE AND ALERT.
[2023-01-27] MEDS: LEVOTHYROXINE 0.025 MG TAB PO SCH (06:09)
--- NOTE | 2023-01-27 06:30 | NUR ---
CHARGE STATED NOT SUCCESSFUL IN ATTEMPT TO REPLACE A NEW IV SITE, CHARGE NURSE TRIED X 2 ATTEMPTS, CHARGE ALREADY USE 24G NEEDLE, NOT SUCCESSFUL. PER CHARGE NURSE, TO ENDORSE TO DAY SHIFT NURSE.
--- NOTE | 2023-01-27 06:30 | NUR ---
ADDENDUM. THE PREVIOUS NOTE IS A LATE ENTRY.
--- NOTE | 2023-01-27 07:00 | NUR ---
RECEIVED ORDER FROM DR. BISHOP WITH ORDER OF: HYDRALAZINE 10MG IV ONCE. ENDORSED TO DAY SHIFT NURSE BRENNAN FOR THE NEW ORDER. REMINDS DAY SHIFT NURSE TO CONTINUE MONITORING PATIENT'S BLOOD PRESSURE.
--- NOTE | 2023-01-27 07:10 | NUR ---
RECEIVED PT FROM WRAPPING MACHINE OPERATOR NURSE FOR CONTINUITY OF CARE. PT IS AWAKE. AOX4. PT ABLE TO VERBALIZE NEEDS. RESPIRATIONS EVEN AND UNLABORED ON 2L NC. SKIN WARM AND DRY. ALL SAFETY PRECAUTIONS IN PLACE. CALL LIGHT WITHIN REACH.
--- NOTE | 2023-01-27 08:00 | NUR ---
Patient's Plan of Care was discussed and reviewed with UNIVERSAL WORKER ASSISTED LIVING: AROLDO
[2023-01-27 08:30] VITALS: BP 149/73
[2023-01-27] MEDS ORDERED: hydrALAZINE 20 MG/ML VIAL IVP SCH (08:30)
--- NOTE | 2023-01-27 08:34 | NUR ---
PT. WITH LOW CHRISTINA SCALE AT MODERATE TO HIGH RISK, CONTINUE TO FOLLOW PRESSURE INJURY PREVENTION INTERVENTIONS. -POSITIONING: TURN AND REPOSITION PATIENT Q 2H OR SOONER USE PILLOWS TO KEEP BONY PROMINENCES FROM DIRECT CONTACT WITH SURFACES USE REPOSITIONING WEDGES TO PROVIDE 30-DEGREE ANGLE FOR SIDE LYING POSITIONS OFFLOADING OR FOAM DRESSING TO ALL TUBING TO PREVENT MEDICAL DEVICES RELATED PRESSURE INJURY -RE-EVALUATING AND MANAGING INCONTINENCE MONITOR SKIN CONDITION DURING POSITION CHANGE DO NOT MASSAGE REDNESS, BONY PROMINENCES FREQUENT OVI-CARE AND PROVIDE BARRIER CREAMS PRN IF SOILING MOISTURE CONTROL BY OFFER BED EAGLE/URINAL /ABSORBENT PAD TO WICK AND HOLD MOISTURE KEEP SKIN DRY AND PROTECT FROM FRICTION -MANAGE FRICTION/SHEAR/MOBILITY KEEP HOB AT THE LOWEST LEVEL OF ELEVATION NO MORE THAN 30 DEGREE UNLESS OTHERWISE CONTRAINDICATED USE LIFT SHEET OR TRANSFER DEVICE TO MOVE PATIENT AND PREVENT LATERAL SHEER. PROTECT HEELS, ELBOWS BONY PROMINENCES WITH SKIN BERRIES OR FOAM DRESSING IF EXPOSED TO FRICTION OFFLOAD BILATERAL HEELS BY PLACING PILLOWS UNDER CALVES AT ALL TIMES, UNLESS OTHERWISE CONTRAINDICATED -PRESSURE REDISTRIBUTION SURFACE THERAPY TYLER ISOFLEX MATTRESS -NUTRITION: PLEASE FOLLOW RD RECOMMENDATIONS AND OFFER NUTRITION SUPPLEMENTS IF ORDERED. PLEASE CONTACT WOUND CARE NURSE FOR ANY QUESTION AND CHANGE OF WOUND CONDITION.
[2023-01-27 08:51] LABS: BASOPHILS % (AUTO) 0.8 % (0.0-2.0); EOSINOPHILS # (AUTO) 0.1 K/uL (0-0.4); EOSINOPHILS % (AUTO) 2.5 % (0.0-4.0); HEMATOCRIT 30.7 % (36-48); HEMOGLOBIN 10.5 g/dL (12.0-16.0); LYMPHOCYTES # (AUTO) 1.3 K/uL (2.5-16.5); LYMPHOCYTES % (AUTO) 32.4 % (20.5-51.1); MEAN CORPUSCULAR HEMOGLOBIN 30 pg (27-31); MEAN CORPUSCULAR HGB CONC 34 g/dL (33-37); MONOCYTES # (AUTO) 0.5 K/uL (0.8-1.0); MONOCYTES % (AUTO) 11.8 % (1.7-9.3); NEUTROPHILS # (AUTO) 2.2 K/uL (1.8-7.7); NEUTROPHILS % (AUTO) 52.5 % (42.2-75.2); PLATELET COUNT (AUTO) 157 K/uL (140-450); RED BLOOD CELL COUNT(AUTO) 3.53 MIL/uL (4.20-5.40); RED CELL DISTRIBUTION WIDTH 13.2 % (11.6-13.7); WHITE BLOOD COUNT (AUTO) 4.1 K/uL (4.8-10.8)
[2023-01-27] MEDS: buPROPion 100 MG TAB PO SCH (08:59)
[2023-01-27] MEDS: DOCUSATE SODIUM 100 MG GELCAP PO SCH (09:00)
[2023-01-27] MEDS: NIFEdipine 30 MG TABER PO SCH ×2 (09:00→17:58)
[2023-01-27] MEDS ORDERED: LOPERAMIDE 2 MG CAP PO PRN (09:00)
[2023-01-27] MEDS ORDERED: hydrALAZINE 10 MG TAB PO SCH (09:00)
[2023-01-27] MEDS ORDERED: NON-FORMULARY ITEM (Mirabegron (Myrbetriq) 25 MG) PO SCH (09:00)
[2023-01-27] MEDS: hydrALAZINE 10 MG TAB PO SCH ×2 (09:00→21:32)
[2023-01-27] MEDS ORDERED: NIFEdipine 60 MG TABER PO SCH (09:00)
[2023-01-27] MEDS: ISOSORBIDE MONONITRATE 30 MG TABER PO SCH (09:00)
[2023-01-27] MEDS: hydroCHLOROthiazide 25 MG TAB PO SCH (09:00)
[2023-01-27] MEDS: carvediloL 12.5 MG TAB PO SCH ×2 (09:00→21:33)
[2023-01-27] MEDS: GABAPENTIN 100 MG CAP PO SCH ×3 (09:01→17:58)
[2023-01-27 09:03] LABS: CARBON DIOXIDE 25.8 mmol/L (21-32); CHLORIDE 105 mmol/L (98-107); CREATININE 1.2 mg/dL (0.6-1.3); GLUCOSE 86 mg/dL (74-106); MAGNESIUM 1.2 mg/dL (1.8-2.4); PHOSPHORUS 3.5 mg/dL (2.5-4.9); POTASSIUM 3.8 mmol/L (3.5-5.1); SODIUM SERUM 140 mmol/L (136-145); UREA NITROGEN, BLOOD 15 mg/dL (7-18)
[2023-01-27] MEDS: NACL 0.9% 1,000 ML IV SCH (09:25)
[2023-01-27] MEDS: PANTOPRAZOLE 40 MG INJ VIAL IVP SCH (09:30)
--- NOTE | 2023-01-27 12:36 | NUR ---
PREPARING PATIENT FOR OSITO URBAN TO ADMINISTER IV MED. NOTICED FULL BAG OF FLAGYL HANGING FROM IV. FLAGYL LABEL WITH TIME STAMP OF 0432 DATED 01/27/23. LOOKED AT EMAR, FLAGYL MARKED ADMINISTERED AT 0455. NO NOTES. DELIVERY AND MAIL SORTER INFORMED.
[2023-01-27] MEDS: MAG SULF 2000 MG/WATER PREMIX 100 ML IV SCH ×2 (15:08→17:08)
[2023-01-27] MEDS ORDERED: MAG SULF 2000 MG/WATER PREMIX 50 ML IV PRN (15:20)
[2023-01-27] MEDS ORDERED: POTASSIUM CHLORIDE 10 MEQ TABER PO PRN (15:20)
[2023-01-27] MEDS: LUBIPROSTONE 24 MCG CAPSULE PO SCH (17:00)
--- NOTE | 2023-01-27 17:58 | NUR ---
SCHEDULED MEDICATIONS GIVEN. PT REFUSING LUBIPROSTONE FOR POSSIBILITY OF POOPING. PT STATES "I CAME TO STOP THE DIARRHEA NOT TO START POOPING AGAIN". PROVIDED PT TEACHING REGARDING RISKS/BENEFITS. PT VERBALIZED UNDERSTANDING. REFUSING MEDICATION.
--- NOTE | 2023-01-27 19:26 | NUR ---
ENDORSED PT TO OPEN SOAPER TENDER NURSE FOR CONTINUITY OF CARE. PT STABLE.
--- NOTE | 2023-01-27 19:35 | NUR ---
RECEIVED PT FROM AM NURSE FOR CONTINUITY OF CARE. PT IS STABLE
[2023-01-27] MEDS: SENNA 8.6 MG TAB PO SCH (21:00)
[2023-01-27] MEDS: traZODone 50 MG TAB PO SCH (21:34)
[2023-01-27] MEDS: SIMVASTATIN 20 MG TAB PO SCH (21:35)
[2023-01-28] MEDS: NACL 0.9% 1,000 ML IV SCH (05:24)
[2023-01-28 06:06] LABS: BASOPHILS # (AUTO) 0.1 K/uL (0.00-0.22); BASOPHILS % (AUTO) 0.9 % (0.0-2.0); EOSINOPHILS # (AUTO) 0.2 K/uL (0-0.4); HEMATOCRIT 32.5 % (36-48); HEMOGLOBIN 11.2 g/dL (12.0-16.0); LYMPHOCYTES # (AUTO) 1.7 K/uL (2.5-16.5); LYMPHOCYTES % (AUTO) 28.5 % (20.5-51.1); MEAN CORPUSCULAR HEMOGLOBIN 30 pg (27-31); MEAN CORPUSCULAR HGB CONC 35 g/dL (33-37); MEAN CORPUSCULAR VOLUME 86.8 fL (80-94); MONOCYTES # (AUTO) 0.6 K/uL (0.8-1.0); MONOCYTES % (AUTO) 10.5 % (1.7-9.3); NEUTROPHILS # (AUTO) 3.5 K/uL (1.8-7.7); NEUTROPHILS % (AUTO) 57.1 % (42.2-75.2); PLATELET COUNT (AUTO) 186 K/uL (140-450); RED BLOOD CELL COUNT(AUTO) 3.74 MIL/uL (4.20-5.40); WHITE BLOOD COUNT (AUTO) 6.1 K/uL (4.8-10.8)
[2023-01-28] MEDS: LEVOTHYROXINE 0.025 MG TAB PO SCH (06:09)
[2023-01-28 06:27] LABS: ANION GAP 14.7 (8-16); CARBON DIOXIDE 25.3 mmol/L (21-32); CHLORIDE 102 mmol/L (98-107); CREATININE 1.3 mg/dL (0.6-1.3); GLUCOSE 86 mg/dL (74-106); SODIUM SERUM 138 mmol/L (136-145); UREA NITROGEN, BLOOD 17 mg/dL (7-18)
[2023-01-28 06:34] LABS: MAGNESIUM 2.4 mg/dL (1.8-2.4); PHOSPHORUS 3.8 mg/dL (2.5-4.9)
--- NOTE | 2023-01-28 07:15 | NUR ---
RECEIVED REPORT FROM SAMPLE SAWYER FOR CONTINUITY OF CARE. INITIAL ASSESSMENT DONE. ALERT AND ORIENTED X 4. ON CONTINUOUS O2 @ 2L/NC. RESP. EVEN AND UNLABORED. IVF INFUSING WELL. NO RESP. DISTRESS NOTED. CALL LIGHT KEPT WITHIN REACH. WILL CONTINUE TO MONITOR.
[2023-01-28] MEDS: LUBIPROSTONE 24 MCG CAPSULE PO SCH (08:00)
[2023-01-28] MEDS ORDERED: ENOXAPARIN 30 MG/0.3 ML SYR SUBQ SCH (09:00)
[2023-01-28] MEDS: SENNA 8.6 MG TAB PO SCH (09:00)
[2023-01-28] MEDS: hydroCHLOROthiazide 25 MG TAB PO SCH (09:18)
[2023-01-28] MEDS: NIFEdipine 30 MG TABER PO SCH (09:18)
[2023-01-28] MEDS: ISOSORBIDE MONONITRATE 30 MG TABER PO SCH (09:18)
[2023-01-28] MEDS: GABAPENTIN 100 MG CAP PO SCH ×2 (09:18→13:55)
--- NOTE | 2023-01-28 09:18 | NUR ---
SCHEDULED MEDICATIONS GIVEN. TOLERATED WELL. PT REFUSED SENNA AND AMITIZA. EXPLAINED RISK AND BENEFITS BUT STILL REFUSED.
[2023-01-28] MEDS: buPROPion 100 MG TAB PO SCH (09:19)
[2023-01-28] MEDS: hydrALAZINE 10 MG TAB PO SCH (09:19)
[2023-01-28] MEDS: carvediloL 12.5 MG TAB PO SCH (09:19)
[2023-01-28] MEDS: PANTOPRAZOLE 40 MG INJ VIAL IVP SCH (10:12)
--- NOTE | 2023-01-28 10:12 | NUR ---
PROTONIX IVP WAS GIVEN BY CHAS MCNEILL. TOLERATED WELL.
--- NOTE | 2023-01-28 13:55 | NUR ---
SCHEDULED GABAPENTIN GIVEN. TOLERATED WELL.
--- NOTE | 2023-01-28 17:05 | NUR ---
PT LEFT. DISCHARGE TO HOME. TRANSPORTED BY PRIVATE VEHICLE, ACCOMPANIED BY HER DAUGHTER IN LAW PER WHEELCHAIR. ALERT AND VERBALLY RESPONSIBLE. RESP. EVEN AND UNLABORED. ID BAND AND IV REMOVED. DISCHARGED PAPERWORK SIGNED AND DISCUSS BY PT. SKIN INTACT. NO C/O PAIN OR DISCOMFORT. REMAINS STABLE.
--- NOTE | 2023-01-28 17:13 | NUR ---
P.T. NOTES P.T. EVAL COMPLETED; REFER TO EVAL FOR DETAILS.
== END 2023-01-28 17:05 | disposition home or self-care (01) | DRG 391 ==
LOC: MED 18:22 → MTU 22:57
DX: K52.89 Other specified noninfective gastroenteritis and colitis (principal); N17.0 Acute kidney failure with tubular necrosis; I31.39 Other pericardial effusion (noninflammatory); N30.90 Cystitis, unspecified without hematuria; D64.9 Anemia, unspecified; E78.5 Hyperlipidemia, unspecified; Z20.822 Contact with and (suspected) exposure to COVID-19; J44.9 Chronic obstructive pulmonary disease, unspecified; K74.60 Unspecified cirrhosis of liver; I10 Essential (primary) hypertension; E11.9 Type 2 diabetes mellitus without complications; E03.9 Hypothyroidism, unspecified; K21.9 Gastro-esophageal reflux disease without esophagitis; F41.9 Anxiety disorder, unspecified; F32.A Depression, unspecified; Z90.49 Acquired absence of other specified parts of digestive tract; Z88.5 Allergy status to narcotic agent; Z88.6 Allergy status to analgesic agent; Z88.8 Allergy status to other drugs, medicaments and biological substances; Z88.1 Allergy status to other antibiotic agents; C51.9 Malignant neoplasm of vulva, unspecified
CPT/HCPCS: 36415; 71045; 80048; 80053; 82140; 82150; 83036; 83605; 83690; 83735; 83880; 84100; 84439; 84443; 84484; 85025; 85610; 85730; 87040; 87081; 93005; 96361; 96365; 96375; 97112; 97530; 99285; C9113; J1650; J2405; J3475; J3490; Q0092

== ENCOUNTER 2023-09-17 12:54 | Inpatient (IN) | payer OTHER ==
[~2023-09-17] VITALS: Ht 157.5 cm; Wt 45.4 kg
[~2023-09-17 12:54] MED LIST changes: +AMOX500C25 PO; +AMYL-13 PO; -CARV25TA PO; +GABA100C PO; +IMO2 PO; +LANS15EC28 PO; +LORA-476 PO; +MULT-2253 PO; -ORE25 PO
[2023-09-17 13:01] VITALS: BP 236/112; PULSE 82; RESP 26; O2SAT 96
[2023-09-17 13:21] VITALS: PULSE 75; RESP 22; O2SAT 97
[2023-09-17] MEDS: IPRATROPIUM 0.02% 0.5 MG/2.5 ML NEBU INH ONE (13:21)
[2023-09-17] MEDS: ALBUTEROL 0.083% 2.5 MG/3 ML NEBU INH ONE (13:21)
[2023-09-17 13:46] LABS: BASOPHILS % (AUTO) 0.6 % (0.0-2.0); EOSINOPHILS # (AUTO) 0.2 K/uL (0-0.4); EOSINOPHILS % (AUTO) 4.4 % (0.0-4.0); HEMATOCRIT 32.8 % (36-48); HEMOGLOBIN 11.1 g/dL (12.0-16.0); LYMPHOCYTES # (AUTO) 1.1 K/uL (2.5-16.5); LYMPHOCYTES % (AUTO) 20.3 % (20.5-51.1); MEAN CORPUSCULAR HEMOGLOBIN 29 pg (27-31); MEAN CORPUSCULAR HGB CONC 34 g/dL (33-37); MEAN CORPUSCULAR VOLUME 86.2 fL (80-94); MONOCYTES # (AUTO) 0.8 K/uL (0.8-1.0); MONOCYTES % (AUTO) 14.2 % (1.7-9.3); NEUTROPHILS # (AUTO) 3.3 K/uL (1.8-7.7); NEUTROPHILS % (AUTO) 60.5 % (42.2-75.2); PLATELET COUNT (AUTO) 148 K/uL (140-450); RED BLOOD CELL COUNT(AUTO) 3.81 MIL/uL (4.20-5.40); WHITE BLOOD COUNT (AUTO) 5.5 K/uL (4.8-10.8)
[2023-09-17 14:08] LABS: ALANINE AMINOTRANSFERASE 13 U/L (12-78); ALBUMIN 2.5 g/dL (3.4-5.0); ALKALINE PHOSPHATASE 100 U/L (50-136); ASPARTATE AMINOTRANSFERASE 21 U/L (15-37); BILIRUBIN,DIRECT 0.1 mg/dL (0.0-0.3); TOTAL BILIRUBIN 0.4 mg/dL (0.0-1.0); TOTAL PROTEIN, SERUM 7.4 g/dL (6.4-8.2)
[2023-09-17 14:13] LABS: LACTIC ACID 0.7 mmol/L (0.4-2.0)
[2023-09-17 14:16] LABS: ANION GAP 18.9 (8-16); CALCIUM 8.6 mg/dL (8.5-10.1); CARBON DIOXIDE 22.5 mmol/L (21-32); CHLORIDE 106 mmol/L (98-107); CREATININE 1.9 mg/dL (0.6-1.3); GLUCOSE 107 mg/dL (74-106); POTASSIUM 3.4 mmol/L (3.5-5.1); SODIUM SERUM 144 mmol/L (136-145); UREA NITROGEN, BLOOD 20 mg/dL (7-18)
[2023-09-17] MEDS: NITROGLYCERIN 0.4 MG TAB SL ONE (14:46)
[2023-09-17] MEDS: ASPIRIN 81 MG TAB.CHEW PO ONE (14:50)
[2023-09-17 14:56] LABS: APPEARANCE,URINE CLEAR (CLEAR); BILIRUBIN,URINE NEGATIVE (NEGATIVE); BLOOD, URINE 1+ (NEGATIVE); COLOR,URINE YELLOW (YELLOW); LEUKOCYTE ESTERASE ,URINE NEGATIVE (NEGATIVE); NITRITE, URINE NEGATIVE (NEGATIVE); PROTEIN,URINE 3+ (NEGATIVE); UGLUCOSE NEGATIVE (NEGATIVE); UROBILINOGEN,URINE 0.2 EU/dL (0.2 - 1)
[2023-09-17] MEDS: methylPREDNISolone SS 125 MG/2 ML VIAL IVP ONE (14:57)
[2023-09-17 14:58] LABS: RBC,URINE 0-5 /HPF (0-5)
[2023-09-17 14:59] LABS: BACTERIA,URINE 0-2 /HPF (None Seen); MUCUS,URINE None Seen /LPF (None Seen); SQUAMOUS EPITHELIAL CELL,UR 0-3 (FEW) /LPF (0-3 (FEW)); WBC,URINE 0-5 /HPF (0-5)
[2023-09-17] MEDS: FUROSEMIDE 40 MG/4 ML VIAL IVP ONE (15:04)
[2023-09-17 15:54] LABS: FLU A ANTIGEN negative (NEGATIVE); FLU B ANTIGEN NEGATIVE (NEGATIVE)
[2023-09-17] MEDS ORDERED: FAMOTIDINE 20 MG TAB PO PRN (16:15)
[2023-09-17] MEDS ORDERED: ONDANSETRON 4 MG/2 ML VIAL IVP PRN (16:25)
[2023-09-17] MEDS ORDERED: LEVOFLOXACIN 750 MG/D5W PREMIX 150 ML IV SCH (16:25)
[2023-09-17] MEDS ORDERED: ZOLPIDEM 5 MG TAB PO PRN (16:25)
[2023-09-17 16:52] VITALS: PULSE 85; RESP 18; O2SAT 93
[2023-09-17] MEDS: ALBUTEROL SULFATE/IPRATROPIU 3 ML SOL IH PRN (16:52)
[2023-09-17] MEDS ORDERED: CRUSHER, PILL MC ONE (17:09)
[2023-09-17] MEDS: GABAPENTIN 100 MG CAP PO SCH (17:11)
[2023-09-17] MEDS: hydrALAZINE 10 MG TAB PO SCH (17:12)
[2023-09-17] MEDS ORDERED: SIMV-31 PO (17:16)
[2023-09-17] MEDS ORDERED: GABA-636 PO (17:16)
[2023-09-17] MEDS ORDERED: NIFE30TA17 PO (17:16)
[2023-09-17] MEDS ORDERED: ASPI-1794 PO (17:16)
[2023-09-17] MEDS ORDERED: CARV6.252 PO (17:16)
[2023-09-17] MEDS ORDERED: ASPI81CA PO (17:16)
[2023-09-17] MEDS ORDERED: TRAZ-466 PO (17:16)
[2023-09-17] MEDS ORDERED: OMEP-283 PO (17:16)
[2023-09-17] MEDS ORDERED: METO5TAB3 PO (17:16)
[2023-09-17] MEDS ORDERED: ATI.5 PO (17:16)
[2023-09-17] MEDS ORDERED: UMEC1POW INH (17:16)
[2023-09-17] MEDS: hydrALAZINE 20 MG/ML VIAL IVP PRN (19:03)
[2023-09-17] MEDS: ALBUTEROL SULFATE/IPRATROPIU 3 ML SOL IH SCH (19:34)
[2023-09-17 19:39] VITALS: PULSE 93; PULSE 95; RESP 20; RESP 22; O2SAT 93
[2023-09-17] MEDS ORDERED: DOXYCYCLINE 100 MG VIAL IV ONE (21:10)
[2023-09-17] MEDS: traZODone 50 MG TAB PO SCH (21:22)
[2023-09-17] MEDS: carvediloL 12.5 MG TAB PO SCH (21:23)
[2023-09-17] MEDS: methylPREDNISolone SS 40 MG/ML VIAL IVP SCH (21:26)
[2023-09-17] MEDS: DOXYCYCLINE 100 MG in DEXTROSE 5% 100 ML IV SCH (21:31)
[2023-09-17 22:15] VITALS: BP 187/69; PULSE 70; PULSE 71; RESP 18; TEMP 97.1; O2SAT 97
[2023-09-17 22:24] VITALS: PULSE 75
[2023-09-18] VITALS (11 sets, daily range): BP systolic 124–218; BP diastolic 47–82; PULSE 70–86; RESP 16–20; TEMP 97–98.2; O2SAT 95–98
[2023-09-18] MEDS: SIMVASTATIN 20 MG TAB PO SCH (00:07)
[2023-09-18] MEDS: LORazepam 1 MG TAB PO PRN (04:36)
[2023-09-18] MEDS: LEVOTHYROXINE 0.025 MG TAB PO SCH (06:02)
[2023-09-18] MEDS: ISOSORBIDE MONONITRATE 30 MG TABER PO SCH (08:40)
[2023-09-18] MEDS: buPROPion 100 MG TAB PO SCH (08:42)
[2023-09-18] MEDS: NIFEdipine 60 MG TABER PO SCH (08:42)
[2023-09-18] MEDS: ACETAMINOPHEN 325 MG TAB PO PRN (08:43)
[2023-09-18] MEDS: FUROSEMIDE 20 MG/2 ML VIAL IVP SCH (08:44)
[2023-09-18] MEDS ORDERED: ENALAPRIL 5 MG TAB PO SCH (09:00)
[2023-09-18] MEDS ORDERED: NON-FORMULARY ITEM (Mirabegron (Myrbetriq) 25 MG) PO SCH (09:00)
[2023-09-18 16:22] LABS: BASOPHILS % (AUTO) 0.1 % (0.0-2.0); HEMATOCRIT 29.9 % (36-48); HEMOGLOBIN 10.1 g/dL (12.0-16.0); LYMPHOCYTES # (AUTO) 0.6 K/uL (2.5-16.5); LYMPHOCYTES % (AUTO) 4.9 % (20.5-51.1); MEAN CORPUSCULAR HEMOGLOBIN 29 pg (27-31); MEAN CORPUSCULAR HGB CONC 34 g/dL (33-37); MEAN CORPUSCULAR VOLUME 85.9 fL (80-94); MONOCYTES # (AUTO) 0.4 K/uL (0.8-1.0); MONOCYTES % (AUTO) 3.2 % (1.7-9.3); NEUTROPHILS # (AUTO) 11.1 K/uL (1.8-7.7); NEUTROPHILS % (AUTO) 91.8 % (42.2-75.2); PLATELET COUNT (AUTO) 176 K/uL (140-450); RED BLOOD CELL COUNT(AUTO) 3.48 MIL/uL (4.20-5.40); RED CELL DISTRIBUTION WIDTH 13.8 % (11.6-13.7); WHITE BLOOD COUNT (AUTO) 12.1 K/uL (4.8-10.8)
[2023-09-18 16:35] LABS: ANION GAP 13.8 (8-16); CALCIUM 8.6 mg/dL (8.5-10.1); CARBON DIOXIDE 25.4 mmol/L (21-32); CHLORIDE 101 mmol/L (98-107); CREATININE 2.1 mg/dL (0.6-1.3); GLUCOSE 166 mg/dL (74-106); POTASSIUM 3.2 mmol/L (3.5-5.1); SODIUM SERUM 137 mmol/L (136-145); UREA NITROGEN, BLOOD 39 mg/dL (7-18)
[2023-09-18] MEDS: POTASSIUM CHLORIDE 10 MEQ TABER PO ONE (21:26)
[2023-09-19] VITALS (10 sets, daily range): BP systolic 119–148; BP diastolic 47–63; PULSE 76–87; RESP 16–19; TEMP 97–98.9; O2SAT 95–97
[2023-09-19 06:46] LABS: BASOPHILS # (AUTO) 0.1 K/uL (0.00-0.22); BASOPHILS % (AUTO) 0.4 % (0.0-2.0); HEMATOCRIT 28.9 % (36-48); HEMOGLOBIN 9.8 g/dL (12.0-16.0); LYMPHOCYTES # (AUTO) 0.6 K/uL (2.5-16.5); LYMPHOCYTES % (AUTO) 4.3 % (20.5-51.1); MEAN CORPUSCULAR HEMOGLOBIN 29 pg (27-31); MEAN CORPUSCULAR HGB CONC 34 g/dL (33-37); MEAN CORPUSCULAR VOLUME 86.7 fL (80-94); MONOCYTES # (AUTO) 0.9 K/uL (0.8-1.0); MONOCYTES % (AUTO) 6.8 % (1.7-9.3); NEUTROPHILS # (AUTO) 11.6 K/uL (1.8-7.7); NEUTROPHILS % (AUTO) 88.5 % (42.2-75.2); PLATELET COUNT (AUTO) 166 K/uL (140-450); RED BLOOD CELL COUNT(AUTO) 3.33 MIL/uL (4.20-5.40); RED CELL DISTRIBUTION WIDTH 14.2 % (11.6-13.7); WHITE BLOOD COUNT (AUTO) 13.1 K/uL (4.8-10.8)
[2023-09-19 07:15] LABS: ANION GAP 17.7 (8-16); CALCIUM 8.3 mg/dL (8.5-10.1); CARBON DIOXIDE 23.1 mmol/L (21-32); CHLORIDE 102 mmol/L (98-107); CREATININE 2.6 mg/dL (0.6-1.3); GLUCOSE 152 mg/dL (74-106); POTASSIUM 3.8 mmol/L (3.5-5.1); SODIUM SERUM 139 mmol/L (136-145); UREA NITROGEN, BLOOD 52 mg/dL (7-18)
[2023-09-19] MEDS: FUROSEMIDE 40 MG/4 ML VIAL IVP SCH (11:06)
[2023-09-19 15:49] LABS: URINE TPRO CREAT RATIO 4.7 (0-0.20)
[2023-09-19] MEDS: hydrALAZINE 25 MG TAB PO SCH (22:36)
[2023-09-20] VITALS (7 sets, daily range): BP systolic 124–130; BP diastolic 52–71; PULSE 71–81; RESP 16–20; TEMP 96.8–98; O2SAT 96–98
[2023-09-20 07:05] LABS: ANION GAP 15.1 (8-16); CALCIUM 8.1 mg/dL (8.5-10.1); CARBON DIOXIDE 25.7 mmol/L (21-32); CHLORIDE 103 mmol/L (98-107); CREATININE 2.9 mg/dL (0.6-1.3); GLUCOSE 108 mg/dL (74-106); POTASSIUM 3.8 mmol/L (3.5-5.1); SODIUM SERUM 140 mmol/L (136-145); UREA NITROGEN, BLOOD 57 mg/dL (7-18)
[2023-09-20 07:19] LABS: BASOPHILS % (AUTO) 0.3 % (0.0-2.0); EOSINOPHILS % (AUTO) 0.3 % (0.0-4.0); HEMATOCRIT 30.1 % (36-48); HEMOGLOBIN 10.2 g/dL (12.0-16.0); LYMPHOCYTES # (AUTO) 1.4 K/uL (2.5-16.5); LYMPHOCYTES % (AUTO) 21.2 % (20.5-51.1); MEAN CORPUSCULAR HEMOGLOBIN 29 pg (27-31); MEAN CORPUSCULAR HGB CONC 34 g/dL (33-37); MEAN CORPUSCULAR VOLUME 87.2 fL (80-94); MONOCYTES # (AUTO) 0.6 K/uL (0.8-1.0); MONOCYTES % (AUTO) 8.7 % (1.7-9.3); NEUTROPHILS # (AUTO) 4.6 K/uL (1.8-7.7); NEUTROPHILS % (AUTO) 69.5 % (42.2-75.2); PLATELET COUNT (AUTO) 173 K/uL (140-450); RED BLOOD CELL COUNT(AUTO) 3.45 MIL/uL (4.20-5.40); WHITE BLOOD COUNT (AUTO) 6.6 K/uL (4.8-10.8)
[2023-09-20] MEDS: NACL 0.9% 1,000 ML IV SCH (10:35)
[2023-09-21] VITALS (7 sets, daily range): BP systolic 119–145; BP diastolic 55–76; PULSE 72–90; RESP 16–20; TEMP 97.7–98.5; O2SAT 97–100
[2023-09-21 06:42] LABS: BASOPHILS % (AUTO) 0.3 % (0.0-2.0); EOSINOPHILS # (AUTO) 0.1 K/uL (0-0.4); EOSINOPHILS % (AUTO) 1.3 % (0.0-4.0); HEMATOCRIT 29.2 % (36-48); HEMOGLOBIN 9.9 g/dL (12.0-16.0); LYMPHOCYTES # (AUTO) 1.4 K/uL (2.5-16.5); LYMPHOCYTES % (AUTO) 23.8 % (20.5-51.1); MEAN CORPUSCULAR HEMOGLOBIN 29 pg (27-31); MEAN CORPUSCULAR HGB CONC 34 g/dL (33-37); MEAN CORPUSCULAR VOLUME 86.4 fL (80-94); MONOCYTES # (AUTO) 0.7 K/uL (0.8-1.0); MONOCYTES % (AUTO) 12.4 % (1.7-9.3); NEUTROPHILS # (AUTO) 3.7 K/uL (1.8-7.7); NEUTROPHILS % (AUTO) 62.2 % (42.2-75.2); PLATELET COUNT (AUTO) 167 K/uL (140-450); RED BLOOD CELL COUNT(AUTO) 3.37 MIL/uL (4.20-5.40); RED CELL DISTRIBUTION WIDTH 14.3 % (11.6-13.7); WHITE BLOOD COUNT (AUTO) 5.9 K/uL (4.8-10.8)
[2023-09-21 07:08] LABS: ANION GAP 14.8 (8-16); CALCIUM 7.9 mg/dL (8.5-10.1); CARBON DIOXIDE 23.8 mmol/L (21-32); CHLORIDE 104 mmol/L (98-107); CREATININE 2.2 mg/dL (0.6-1.3); GLUCOSE 119 mg/dL (74-106); POTASSIUM 3.6 mmol/L (3.5-5.1); SODIUM SERUM 139 mmol/L (136-145); UREA NITROGEN, BLOOD 52 mg/dL (7-18)
[2023-09-22 04:00] VITALS: BP 138/61; PULSE 81; RESP 20; TEMP 97.8; O2SAT 99
[2023-09-22 07:07] LABS: BASOPHILS % (AUTO) 0.2 % (0.0-2.0); EOSINOPHILS % (AUTO) 0.6 % (0.0-4.0); LYMPHOCYTES % (AUTO) 12.9 % (20.5-51.1); MEAN CORPUSCULAR HEMOGLOBIN 30 pg (27-31); MEAN CORPUSCULAR HGB CONC 34 g/dL (33-37); MEAN CORPUSCULAR VOLUME 86.6 fL (80-94); NEUTROPHILS # (AUTO) 5.6 K/uL (1.8-7.7); NEUTROPHILS % (AUTO) 73.3 % (42.2-75.2); PLATELET COUNT (AUTO) 154 K/uL (140-450); RED BLOOD CELL COUNT(AUTO) 3.35 MIL/uL (4.20-5.40); RED CELL DISTRIBUTION WIDTH 13.5 % (11.6-13.7); WHITE BLOOD COUNT (AUTO) 7.7 K/uL (4.8-10.8)
[2023-09-22 07:25] VITALS: O2SAT 96
[2023-09-22 08:00] VITALS: PULSE 92; RESP 16; RESP 18; O2SAT 100
[2023-09-22 09:12] LABS: ANION GAP 15.9 (8-16); CALCIUM 8.2 mg/dL (8.5-10.1); CARBON DIOXIDE 23.1 mmol/L (21-32); CHLORIDE 104 mmol/L (98-107); CREATININE 1.9 mg/dL (0.6-1.3); GLUCOSE 108 mg/dL (74-106); SODIUM SERUM 139 mmol/L (136-145); UREA NITROGEN, BLOOD 41 mg/dL (7-18)
[2023-09-22 12:34] VITALS: BP 138/61; PULSE 92; RESP 16; TEMP 97.8
== END 2023-09-22 13:20 | disposition home or self-care (01) | DRG 871 ==
LOC: MED 12:54 → MTU 16:11
PROVIDERS: ADMIT Student in an Organized Health Care Education/Training Program; ATTEND Student in an Organized Health Care Education/Training Program
DX: A41.9 Sepsis, unspecified organism (principal); I21.4 Non-ST elevation (NSTEMI) myocardial infarction; J18.9 Pneumonia, unspecified organism; I50.43 Acute on chronic combined systolic (congestive) and diastolic (congestive) heart failure; J96.01 Acute respiratory failure with hypoxia; I16.9 Hypertensive crisis, unspecified; J44.1 Chronic obstructive pulmonary disease with (acute) exacerbation; I13.0 Hypertensive heart and chronic kidney disease with heart failure and stage 1 through stage 4 chronic kidney disease, or unspecified chronic kidney disease; N17.9 Acute kidney failure, unspecified; J44.0 Chronic obstructive pulmonary disease with (acute) lower respiratory infection; Z20.822 Contact with and (suspected) exposure to COVID-19; E87.6 Hypokalemia; N18.32 Chronic kidney disease, stage 3b; I16.0 Hypertensive urgency; Z86.73 Personal history of transient ischemic attack (TIA), and cerebral infarction without residual deficits; Z88.6 Allergy status to analgesic agent; Z88.5 Allergy status to narcotic agent
CPT/HCPCS: 36415; 71045; 80048; 80076; 81001; 82570; 83605; 83880; 84484; 85025; 87040; 87081; 87086; 92526; 93005; 94640; 96374; 96375; 99285; J0360; J1644; J1940; J2920; J2930; J3490; J7060; J7613; J7644; Q0092

== ENCOUNTER 2024-05-27 12:40 | Emergency (ER) | payer OTHER ==
[~2024-05-27] VITALS: Ht 157.5 cm; Wt 54.4 kg
[~2024-05-27 12:40] MED LIST changes: -AMOX500C25 PO; +ASPI-1794 PO; +ATI.5 PO; -AZIT250T4 PO; +CHOL400T12 PO; -CIPR500T4 PO; +GABA-636 PO; -GABA100C PO; +METO5TAB3 PO; +METR-435 PO; +NIFE30TA17 PO; +OMEP-283 PO; +POTA10TA70 PO; -TRAZ-343 PO; +TRAZ-466 PO; +UMEC1POW INH
[2024-05-27 13:04] VITALS: BP 167/80; PULSE 77; RESP 18; TEMP 97; O2SAT 97
[2024-05-27 13:42] VITALS: BP 187/78; PULSE 76; RESP 17; TEMP 97.9
[2024-05-27 14:14] LABS: BASOPHILS % (AUTO) 0.5 % (0.0-2.0); EOSINOPHILS # (AUTO) 0.1 K/uL (0-0.4); EOSINOPHILS % (AUTO) 1.6 % (0.0-4.0); HEMATOCRIT 31.9 % (36-48); HEMOGLOBIN 10.5 g/dL (12.0-16.0); LYMPHOCYTES # (AUTO) 1.2 K/uL (2.5-16.5); LYMPHOCYTES % (AUTO) 19.3 % (20.5-51.1); MEAN CORPUSCULAR HEMOGLOBIN 28 pg (27-31); MEAN CORPUSCULAR HGB CONC 33 g/dL (33-37); MEAN CORPUSCULAR VOLUME 86.7 fL (80-94); MONOCYTES # (AUTO) 0.6 K/uL (0.8-1.0); MONOCYTES % (AUTO) 9.2 % (1.7-9.3); NEUTROPHILS # (AUTO) 4.3 K/uL (1.8-7.7); NEUTROPHILS % (AUTO) 69.4 % (42.2-75.2); PLATELET COUNT (AUTO) 203 K/uL (140-450); RED BLOOD CELL COUNT(AUTO) 3.69 MIL/uL (4.20-5.40); RED CELL DISTRIBUTION WIDTH 15.1 % (11.6-13.7); WHITE BLOOD COUNT (AUTO) 6.2 K/uL (4.8-10.8)
[2024-05-27] MEDS: NACL 0.9% 1,000 ML IV ONE (14:17)
[2024-05-27] MEDS: ONDANSETRON 4 MG/2 ML VIAL IVP ONE (14:21)
[2024-05-27 14:22] LABS: ANION GAP 14.5 (8-16); CARBON DIOXIDE 24.2 mmol/L (21-32); CHLORIDE 104 mmol/L (98-107); GLUCOSE 125 mg/dL (74-106); POTASSIUM 3.7 mmol/L (3.5-5.1); SODIUM SERUM 139 mmol/L (136-145); UREA NITROGEN, BLOOD 25 mg/dL (7-18)
[2024-05-27 14:29] LABS: ALBUMIN 3.3 g/dL (3.4-5.0); BILIRUBIN,DIRECT 0.1 mg/dL (0.0-0.3); TOTAL BILIRUBIN 0.3 mg/dL (0.0-1.0); TOTAL PROTEIN, SERUM 7.9 g/dL (6.4-8.2)
[2024-05-27 15:10] VITALS: O2SAT 99
[2024-05-28] MEDS ORDERED: AMOX875T3 PO (21:29)
[2024-05-28] MEDS ORDERED: HYDR-3233 PO (21:29)
[2024-05-28] MEDS ORDERED: ACET500T99 PO (21:29)
== END 2024-05-27 15:09 | disposition home or self-care (01) ==
LOC: MED 12:40
DX: R11.2 Nausea with vomiting, unspecified (principal); R19.7 Diarrhea, unspecified; R10.13 Epigastric pain; J44.9 Chronic obstructive pulmonary disease, unspecified; K21.9 Gastro-esophageal reflux disease without esophagitis; I12.9 Hypertensive chronic kidney disease with stage 1 through stage 4 chronic kidney disease, or unspecified chronic kidney disease; N18.4 Chronic kidney disease, stage 4 (severe); Z86.73 Personal history of transient ischemic attack (TIA), and cerebral infarction without residual deficits; Z85.44 Personal history of malignant neoplasm of other female genital organs; Z90.49 Acquired absence of other specified parts of digestive tract; Z90.710 Acquired absence of both cervix and uterus; Z98.890 Other specified postprocedural states; Z79.899 Other long term (current) drug therapy; Z79.82 Long term (current) use of aspirin; Z88.4 Allergy status to anesthetic agent; Z88.5 Allergy status to narcotic agent; Z91.018 Allergy to other foods; Z88.8 Allergy status to other drugs, medicaments and biological substances; Z88.6 Allergy status to analgesic agent; Z91.011 Allergy to milk products; Z88.1 Allergy status to other antibiotic agents
CPT/HCPCS: 36415; 80048; 80076; 83690; 85025; 96361; 96374; 99283; J2405

== ENCOUNTER 2024-05-28 16:25 | Emergency (ER) | payer OTHER ==
[~2024-05-28] VITALS: Ht 157.5 cm; Wt 54.4 kg
[2024-05-28 17:16] VITALS: BP 195/86; PULSE 87; RESP 16; TEMP 97.7; O2SAT 95
[2024-05-28 18:19] LABS: BASOPHILS % (AUTO) 0.6 % (0.0-2.0); EOSINOPHILS # (AUTO) 0.1 K/uL (0-0.4); EOSINOPHILS % (AUTO) 0.8 % (0.0-4.0); HEMATOCRIT 31.5 % (36-48); HEMOGLOBIN 10.3 g/dL (12.0-16.0); LYMPHOCYTES # (AUTO) 1.6 K/uL (2.5-16.5); MEAN CORPUSCULAR HEMOGLOBIN 28 pg (27-31); MEAN CORPUSCULAR HGB CONC 33 g/dL (33-37); MEAN CORPUSCULAR VOLUME 86.8 fL (80-94); MONOCYTES # (AUTO) 0.7 K/uL (0.8-1.0); MONOCYTES % (AUTO) 10.1 % (1.7-9.3); NEUTROPHILS # (AUTO) 4.6 K/uL (1.8-7.7); NEUTROPHILS % (AUTO) 65.5 % (42.2-75.2); PLATELET COUNT (AUTO) 225 K/uL (140-450); RED BLOOD CELL COUNT(AUTO) 3.63 MIL/uL (4.20-5.40); RED CELL DISTRIBUTION WIDTH 14.7 % (11.6-13.7)
[2024-05-28 18:21] LABS: APPEARANCE,URINE CLEAR (CLEAR); BILIRUBIN,URINE NEGATIVE (NEGATIVE); BLOOD, URINE TRACE-I (NEGATIVE); COLOR,URINE YELLOW (YELLOW); LEUKOCYTE ESTERASE ,URINE NEGATIVE (NEGATIVE); NITRITE, URINE NEGATIVE (NEGATIVE); PROTEIN,URINE 3+ (NEGATIVE); UGLUCOSE NEGATIVE (NEGATIVE); UROBILINOGEN,URINE 0.2 EU/dL (0.2 - 1)
[2024-05-28 18:28] LABS: ANION GAP 15.9 (8-16); CALCIUM 8.6 mg/dL (8.5-10.1); CARBON DIOXIDE 23.8 mmol/L (21-32); CHLORIDE 102 mmol/L (98-107); CREATININE 3.1 mg/dL (0.6-1.3); GLUCOSE 99 mg/dL (74-106); POTASSIUM 3.7 mmol/L (3.5-5.1); SODIUM SERUM 138 mmol/L (136-145); UREA NITROGEN, BLOOD 24 mg/dL (7-18)
[2024-05-28 18:33] LABS: ALBUMIN 3.4 g/dL (3.4-5.0); BACTERIA,URINE FEW /HPF (None Seen); BILIRUBIN,DIRECT 0.1 mg/dL (0.0-0.3); RBC,URINE 0-5 /HPF (0-5); SQUAMOUS EPITHELIAL CELL,UR 0-3 (FEW) /LPF (0-3 (FEW)); TOTAL BILIRUBIN 0.4 mg/dL (0.0-1.0); TOTAL PROTEIN, SERUM 7.7 g/dL (6.4-8.2)
[2024-05-28 18:34] LABS: MUCUS,URINE None Seen /LPF (None Seen); TRICHOMONAS,URINE None Seen /HPF (None Seen); WHITE BLOOD CELL CASTS,URINE None Seen /LPF (None Seen); YEAST,URINE None Seen /HPF (None Seen)
[2024-05-28 18:44] VITALS: O2SAT 95
[2024-05-28] MEDS: ACETAMINOPHEN 100 ML IV ONE (20:16)
[2024-05-28 20:17] VITALS: PULSE 92
[2024-05-28] MEDS: hydrALAZINE 20 MG/ML VIAL IVP ONE (20:17)
[2024-05-28] MEDS ORDERED: HYDR-3233 PO (21:29)
[2024-05-28] MEDS ORDERED: AMOX875T3 PO (21:29)
[2024-05-28] MEDS ORDERED: ACET500T99 PO (21:29)
[2024-05-28 21:45] VITALS: BP 189/87
[2024-05-28] MEDS: hydrALAZINE 20 MG/ML VIAL IM ONE (21:45)
== END 2024-05-28 21:48 | disposition home or self-care (01) ==
LOC: MED 16:25
DX: I13.0 Hypertensive heart and chronic kidney disease with heart failure and stage 1 through stage 4 chronic kidney disease, or unspecified chronic kidney disease (principal); E11.22 Type 2 diabetes mellitus with diabetic chronic kidney disease; N18.4 Chronic kidney disease, stage 4 (severe); I50.9 Heart failure, unspecified; N28.9 Disorder of kidney and ureter, unspecified; R51.9 Headache, unspecified; R10.84 Generalized abdominal pain; J44.9 Chronic obstructive pulmonary disease, unspecified; K21.9 Gastro-esophageal reflux disease without esophagitis; Z86.73 Personal history of transient ischemic attack (TIA), and cerebral infarction without residual deficits; Z85.44 Personal history of malignant neoplasm of other female genital organs; Z79.899 Other long term (current) drug therapy; Z79.82 Long term (current) use of aspirin; Z88.4 Allergy status to anesthetic agent; Z91.018 Allergy to other foods; Z88.5 Allergy status to narcotic agent; Z88.8 Allergy status to other drugs, medicaments and biological substances; Z88.6 Allergy status to analgesic agent; Z88.1 Allergy status to other antibiotic agents; Z91.011 Allergy to milk products
CPT/HCPCS: 36415; 70450; 71045; 74176; 80048; 80076; 81001; 83690; 84484; 85025; 87086; 87186; 93005; 96372; 96374; 96375; 99285; J0360; Q0092